=== PATIENT | female | born 1955 | race Caucasian/White ===

== ENCOUNTER 2020-09-03 12:44 | Outpatient (RCR) | payer OTHER | END 2020-12-02 | LOC: CARD 12:44 | PROVIDERS: ATTEND Family Medicine | DX: R00.2 Palpitations (principal) ==

== ENCOUNTER → 2022-06-19 | Outpatient (CLI) | payer OTHER ==
[~2022-06-19] MED LIST: CATHETER FLUSH 10 ML SYR IVP PRN; REGADENOSON 0.4 MG/5 ML SYR (LEXISCAN) IV ONE
[2022-06-19 12:43] VITALS: BP 159/104
--- NOTE | 2022-06-20 10:24 | NUCLEAR STRESS TEST ---
REGADENOSON NUCLEAR STRESS Date of procedure: 06/19/2022. Primary care provider: Aisha Murcia MD Admitting physician: Chuck Rodriguez Jr., MD. INDICATION: Paroxysmal atrial fibrillation. BASELINE ELECTROCARDIOGRAM: Atrial fibrillation with a ventricular rate of 92 beats per minutes with isolated premature ventricular complexes versus aberrancy and nonspecific ST-T wave changes. STRESS TEST PROCEDURE: The patient was administered 0.4 mg of intravenous Regadenoson. The resting heart rate was 92 bpm and the peak heart rate was 115 bpm. The resting blood pressure was 159/104 mmHg and the minimum blood pressure was 156/97 mmHg. This represents a [] heart rate and a [] blood pressure response to Regadenoson with resting hypertension. The test was stopped due to the protocol. There was no chest discomfort during the test. The patient was in atrial fibrillation with intermittent aberrant conduction versus premature ventricular complexes throughout the test. The stress electrocardiogram was indeterminate due to the baseline abnormalities. NUCLEAR PROCEDURE: The patient was administered 10.9 mCi of intravenous technetium 99m Tetrofosmin at rest for the rest images. The patient was subsequently administered 31.7 mCi of intravenous technetium 99m Tetrofosmin at peak stress for the stress images. Following an appropriate wait after each injection, imaging was obtained. The images were subsequently processed and reformatted in the usual views. Gated imaging was obtained. The image quality was adequate with a mild degree of gastrointestinal attenuation artifact. CT attenuation correction was used as a adjunct to standard imaging. Both the corrected and uncorrected images were reviewed for interpretation. NUCLEAR RESULTS: There was normal myocardial perfusion in all segments without evidence of infarction or ischemia. There was normal left ventricular chamber size with an end-diastolic volume of 43 mL and an end-systolic volume of 16 mL. There was no evidence of transient ischemic dilatation. The TID ratio was 1.19. There was normal wall motion in all segments with a calculated ejection fraction of 62%. IMPRESSION: 1. Normal heart rate and blood pressure response to regadenoson with resting hypertension. 2. There was no chest discomfort during the test. 3. The patient was in atrial fibrillation with intermittent aberrant conduction versus premature ventricular complexes throughout the test. 4. The stress electrocardiogram was indeterminant due to the baseline abnormalities. 5. There was normal myocardial perfusion in all segments without evidence of infarction or ischemia. 6. There was normal wall motion in all segments with a calculated ejection fraction of 62%. Certain portions of this document may have been dictated utilizing voice recognition technology. Inherent to this technology, typographical and grammatical errors may exist. As much as I am diligent to identify and correct these mistakes, some errors may remain in the document. CHUCK RODRIGUEZ JR, MD Jun 20, 2022 10:24
== END ==
LOC: CARD 11:45
PROVIDERS: ATTEND Internal Medicine Cardiovascular Disease
DX: I48.0 Paroxysmal atrial fibrillation (principal)
CPT/HCPCS: 78452; 93017; A9502

== ENCOUNTER 2022-07-24 08:15 | Day surgery (SDC) | payer MEDICARE, OTHER ==
[2022-07-24] VITALS (7 sets, daily range): BP systolic 86–141; BP diastolic 56–97
[~2022-07-24] VITALS: Ht 170 cm; Wt 91.0 kg
[2022-07-24] MEDS ORDERED: NS IV 1000 ML 1,000 ML ONE (08:23)
[2022-07-24] MEDS ORDERED: NS IV 1000 ML 1,000 ML IV ONE (08:30)
[2022-07-24] MEDS ORDERED: CATHETER FLUSH 10 ML SYR IV PRN (08:30)
[2022-07-24] MEDS ORDERED: METO50TA7 PO (09:07)
[2022-07-24] MEDS ORDERED: LEVO50CA4 PO (09:07)
[2022-07-24] MEDS ORDERED: MTP100TCR PO (09:07)
[2022-07-24] MEDS ORDERED: ESCI20TA39 PO (09:07)
[2022-07-24] MEDS ORDERED: EZET10TA49 PO (09:07)
[2022-07-24] MEDS ORDERED: PANT40TA52 PO (09:07)
[2022-07-24] MEDS ORDERED: ALBU8.5H6 IH (09:07)
[2022-07-24] MEDS ORDERED: TRAM300T23 PO (09:07)
[2022-07-24] MEDS ORDERED: TIZA2CAP9 PO (09:07)
[2022-07-24] MEDS ORDERED: LISI40TA9 PO (09:07)
[2022-07-24] MEDS ORDERED: AMLO-335 PO (09:07)
[2022-07-24] MEDS ORDERED: FENO145T26 PO (09:07)
[2022-07-24] MEDS ORDERED: APIX5TAB PO (09:07)
[2022-07-24] MEDS ORDERED: proPOfol 200 MG/20 ML (DIPRIVAN) VIAL IV ONE (09:08)
--- NOTE | 2022-07-24 09:29 | Cardiac Procedure Note-KU ---
Cardiology Procedures Date of Procedure 07/24/22 DIRECT-CURRENT CARDIOVERSION INDICATION: Persistent atrial fibrillation. PROCEDURE: After informed consent and in the fasting state, deep sedation was provided by the anesthesia department. I subsequently performed direct-current cardioversion with synchronized biphasic shocks in a stepwise fashion starting with 100 J and then 150 J. With the second shock, the patient converted from atrial fibrillation to sinus bradycardia. IMPRESSION: 1. Status post successful direct-current cardioversion with a final biphasic energy level of 150 J with conversion of atrial fibrillation to sinus bradycardia. Certain portions of this document may have been dictated utilizing voice recog nition technology. Inherent to this technology, typographical and grammatical errors may exist. As much as I am diligent to identify and correct these mistakes, some errors may remain in the document. DONNA DEE JR, MD Jul 24, 2022 09:29
--- NOTE | 2022-07-24 13:37 | Anesthesia-General Post-Op ---
MAC Patient Condition Mental Status/LOC: Same as Preop Cardiovascular: Satisfactory Nausea/Vomiting: Absent Respiratory: Satisfactory Pain: Controlled Complications: Absent Post Op Complications Complications None Follow Up Care/Instructions Patient Instructions None needed. Anesthesiology Discharge Order Discharge Order Patient is doing well, no complaints, stable vital signs, no apparent adverse anesthesia problems. No complications reported per nursing. DANIELA VIRGEN CRNA Jul 24, 2022 13:36
== END 2022-07-24 10:19 | disposition home or self-care (01) ==
LOC: CATH 08:15
PROVIDERS: ATTEND Internal Medicine Cardiovascular Disease
DX: I48.19 Other persistent atrial fibrillation (principal); I48.0 Paroxysmal atrial fibrillation; I34.0 Nonrheumatic mitral (valve) insufficiency; E78.2 Mixed hyperlipidemia; I12.9 Hypertensive chronic kidney disease with stage 1 through stage 4 chronic kidney disease, or unspecified chronic kidney disease; N18.31 Chronic kidney disease, stage 3a; E03.9 Hypothyroidism, unspecified; J44.9 Chronic obstructive pulmonary disease, unspecified; E66.9 Obesity, unspecified; Z68.31 Body mass index [BMI] 31.0-31.9, adult; Z87.891 Personal history of nicotine dependence; Z79.890 Hormone replacement therapy; Z79.01 Long term (current) use of anticoagulants; Z79.899 Other long term (current) drug therapy
CPT/HCPCS: 87081; 92960; 93005

== ENCOUNTER 2022-08-25 15:04 | Emergency (ER) | payer MEDICARE ==
[~2022-08-25] VITALS: Ht 172.7 cm; Wt 89.8 kg
[~2022-08-25 15:04] MED LIST changes: +ALBU8.5H6 IH; +AMLO-335 PO; +APIX5TAB PO; -CATHETER FLUSH 10 ML SYR IVP PRN; +ESCI20TA39 PO; +EZET10TA49 PO; +FENO145T26 PO; +LEVO50CA4 PO; +LISI40TA9 PO; +METO50TA7 PO; +MTP100TCR PO; +PANT40TA52 PO; -REGADENOSON 0.4 MG/5 ML SYR (LEXISCAN) IV ONE; +TIZA2CAP9 PO; +TRAM300T23 PO
--- NOTE | 2022-08-25 15:12 | ED Chest Pain ---
General Stated Complaint: SOA,CHEST PAIN,AFIB Source: patient Exam Limitations: no limitations History of Present Illness Date Seen by Provider: Aug 25, 2022 Allergies and Home Medications Allergies Coded Allergies: Penicillins (Verified Allergy, Severe, Shortness of Breath, 07/24/22) SOB, swelling, hives chlorhexidine (Verified Allergy, Intermediate, Itching, 07/24/22) swelling, hives. isopropyl alcohol (Verified Allergy, Intermediate, Itching, 07/24/22) swelling, hives. Patient Home Medication List Albuterol Sulfate (Ventolin Hfa) 1 Puff Puff, 2 PUFF IH Q4H, (Reported) Entered as Reported by: SYD JAIMES on 07/24/22906 Amlodipine/Atorvastatin (Amlodipine-Atorvast 10-10 mg) 10 Mg-10 Mg Tablet, 1 EACH PO HS, (Reported) Entered as Reported by: SYD JAIMES on 07/24/22906 Apixaban (Eliquis) 5 Mg Tablet, 5 MG PO BID, (Reported) Entered as Reported by: SYD JAIMES on 07/24/22906 Escitalopram Oxalate (Escitalopram Oxalate) 20 Mg Tablet, 20 MG PO, (Reported) Entered as Reported by: SYD JAIMES on 07/24/22906 Ezetimibe (Ezetimibe) 10 Mg Tablet, 10 MG PO, (Reported) Entered as Reported by: SYD JAIMES on 07/24/22906 Fenofibrate Nanocrystallized (Fenofibrate) 145 Mg Tablet, 145 MG PO, (Reported) Entered as Reported by: SYD JAIMES on 07/24/22906 Levothyroxine Sodium (Levothyroxine) 50 Mcg Capsule, 50 MCG PO, (Reported) Entered as Reported by: SYD JAIMES on 07/24/22906 Metoprolol Succinate (Metoprolol Succinate) 100 Mg Tab.er.24h, 100 MG PO DAILY, (Reported) Entered as Reported by: SYD JAIMES on 07/24/22906 Metoprolol Succinate (Metoprolol Succinate) 50 Mg Tab.er.24h, 50 MG PO HS, (Reported) Entered as Reported by: SYD JAIMES on 07/24/22906 Pantoprazole Sodium (Pantoprazole Sodium) 40 Mg Tablet.dr, 40 MG PO DAILY, (Reported) Entered as Reported by: SYD JAIMES on 07/24/22 09 Tizanidine HCl (Tizanidine HCl) 2 Mg Capsule, 2 MG PO, (Reported) Entered as Reported by: SYD JAIMES on 07/24/22906 Tramadol HCl (Tramadol HCl ER) 300 Mg Tab.er.24h, 300 MG PO, (Reported) Entered as Reported by: SYD JAIMES on 07/24/22906 Past Hqjtbgo-Hpdlub-Pkduxt Hx Past Medical History Appendectomy, Hysterectomy, Orthopedic Asthma, COPD Currently Using CPAP: No Currently Using BIPAP: No Atrial Fibrillation Renal Failure Physical Exam Vital Signs Vital Signs - First Documented 08/25/22 15:21 Pulse 89 Resp 16 B/P (MAP) 139/72 (94) Pulse Ox 94 O2 Delivery Room Air Capillary Refill : Height, Weight, BMI Height: '" Weight: lbs. oz. kg; 31.48 BMI Method: Progress/Results/Core Measures Results/Orders Lab Results Laboratory Tests Test 08/25/22 15:30 08/25/22 17:37 Range/Units White Blood Count 14.3 H 4.3-11.0 10^3/uL Red Blood Count 7.02 H 3.80-5.11 10^6/uL Hemoglobin 19.1 H 11.5-16.0 g/dL Hematocrit 60 H 35-52 % Mean Corpuscular Volume 85 80-99 fL Mean Corpuscular Hemoglobin 27 25-34 pg Mean Corpuscular Hemoglobin Concent 32 32-36 g/dL Red Cell Distribution Width 19.3 H 10.0-14.5 % Platelet Count 511 H 130-400 10^3/uL Mean Platelet Volume 11.1 9.0-12.2 fL Immature Granulocyte % (Auto) 1 % Neutrophils (%) (Auto) 80 H 42-75 % Lymphocytes (%) (Auto) 10 L 12-44 % Monocytes (%) (Auto) 7 0-12 % Eosinophils (%) (Auto) 2 0-10 % Basophils (%) (Auto) 1 0-10 % Neutrophils # (Auto) 11.4 H 1.8-7.8 10^3/uL Lymphocytes # (Auto) 1.4 1.0-4.0 10^3/uL Monocytes # (Auto) 1.0 0.0-1.0 10^3/uL Eosinophils # (Auto) 0.2 0.0-0.3 10^3/uL Basophils # (Auto) 0.1 0.0-0.1 10^3/uL Immature Granulocyte # (Auto) 0.1 0.0-0.1 10^3/uL Neutrophils % (Manual) 78 % Lymphocytes % (Manual) 12 % Monocytes % (Manual) 6 % Eosinophils % (Manual) 2 % Percent Immature Platelet Fraction 9.8 H 0.0-7.6 % Polychromasia SLIGHT Anisocytosis SLIGHT Absolute Reticulocyte Count 173 H 24-90 10e9/uL Percent Reticulocyte Count 2.46 H 0.50-2.40 % Prothrombin Time 19.2 H 12.2-14.7 SEC INR Comment 1.6 H 0.8-1.4 Activated Partial Thromboplast Time 49 H 24-35 SEC Sodium Level 137 135-145 MMOL/L Potassium Level 4.1 3.6-5.0 MMOL/L Chloride Level 102 98-107 MMOL/L Carbon Dioxide Level 21 21-32 MMOL/L Anion Gap 14 5-14 MMOL/L Blood Urea Nitrogen 21 H 7-18 MG/DL Creatinine 1.44 H 0.60-1.30 MG/DL Estimat Glomerular Filtration Rate 40 BUN/Creatinine Ratio 15 Glucose Level 98 70-105 MG/DL Calcium Level 10.0 8.5-10.1 MG/DL Corrected Calcium 9.8 8.5-10.1 MG/DL Magnesium Level 1.7 1.6-2.4 MG/DL Total Bilirubin 1.1 H 0.1-1.0 MG/DL Aspartate Amino Transf (AST/SGOT) 24 5-34 U/L Alanine Aminotransferase (ALT/SGPT) 22 0-55 U/L Alkaline Phosphatase 68 40-136 U/L Total Creatine Kinase 15 L 29-168 U/L Creatine Kinase MB 0.9 <6.6 NG/ML Myoglobin 42.5 10.0-92.0 NG/ML Troponin I < 0.028 <0.028 NG/ML C-Reactive Protein High Sensitivity 8.21 H 0.00-0.50 MG/DL B-Type Natriuretic Peptide 511.8 H <100.0 PG/ML Total Protein 7.6 6.4-8.2 GM/DL Albumin 4.3 3.2-4.5 GM/DL Lipase 9 8-78 U/L Procalcitonin 0.11 H <0.10 NG/ML Thyroid Stimulating Hormone (TSH) 2.28 0.35-4.94 UIU/ML Influenza Type A (RT-PCR) Not Detected Not Detecte Influenza Type B (RT-PCR) Not Detected Not Detecte SARS-CoV-2 RNA (RT-PCR) Detected H Not Detecte My Orders Orders - [employer] Cbc With Automated Diff (08/25/22 15:09) Magnesium (08/25/22 15:09) Chest 1 View, Ap/Pa Only (08/25/22 15:09) Ekg Tracing (08/25/22 15:09) Comprehensive Metabolic Panel (08/25/22 15:09) Myoglobin Serum (08/25/22 15:09) Protime With Inr (08/25/22 15:09) Partial Thromboplastin Time (08/25/22 15:09) O2 (08/25/22 15:09) Monitor-Rhythm Ecg Trace Only (08/25/22 15:09) Ed Iv/Invasive Line Start (08/25/22 15:09) Creatine Kinase (08/25/22 15:09) Creatine Kinase Mb (08/25/22 15:09) Lipase (08/25/22 15:09) Bnp [place] (08/25/22 15:09) Troponin I Gus (08/25/22 15:09) Hs C Reactive Protein (08/25/22 15:09) Ct Angio Chest W (08/25/22 15:09) Ns Iv 1000 Ml (Sodium Chloride 0.9%) (08/25/22 16:15) Iohexol Injection (Omnipaque 350 Mg/Ml 1 (08/25/22 16:15) Ns (Ivpb) (Sodium Chloride 0.9% Ivpb Bag (08/25/22 16:15) Thyroid Stimulating Hormone (08/25/22 16:22) Smear For Path Review (08/25/22 15:30) Procalcitonin (Pct) (08/25/22 16:38) Covid 19 Inhouse Test (08/25/22 17:30) Influenza A And B By Pcr (08/25/22 17:30) Doxycycline Hyclate Tablet (Vibramycin T (08/25/22 18:15) Nirmatrelvir/Ritonavir (Eua) (Paxlovid C (08/25/22 18:30) Medications Given in ED Current Medications Medications Dose Ordered Sig/Kaycee Route Start Time Stop Time Status Last Admin Dose Admin Iohexol 100 ml ONCE ONCE IV 08/25/22 16:15 08/25/22 16:16 DC 08/25/22 16:29 80 ML Sodium Chloride 100 ml ONCE ONCE IV 08/25/22 16:15 08/25/22 16:16 DC 08/25/22 16:29 70 ML Sodium Chloride 1,000 ml @ 999 mls/hr Q1H ONCE IV 08/25/22 16:15 08/25/22 17:15 DC 08/25/22 16:43 999 MLS/HR Vital Signs/I&O 08/25/22 15:21 Pulse 89 Resp 16 B/P (MAP) 139/72 (94) Pulse Ox 94 O2 Delivery Room Air Departure Impression Primary Impression: Pneumonia due to COVID-19 virus Disposition: 01 HOME, SELF-CARE Condition: Stable Departure-Patient Inst. Decision time for Depature: 17:39 Referrals: PRASHANT CAMPOVERDE MD (PCP/Family) Primary Care Physician Patient Instructions: Pneumonia, Adult ED Add. Discharge Instructions: Plan: 1. Discharge home. DECREASE YOUR ELIQUIS TO 2.5MG BY MOUTH TWICE A DAY WHILE TA LENNY PAXLOVID. THIS MEDICATION INCREASES RISK OF BLEEDING. 2. Stay home for 5 days and then mask when in public for additional 5 days. If you are still running fever, you will need to stay home until you are fever free. 3. Wash your hands frequently, disinfect surfaces at home. Try to isolate yourself from others in the house as much as you are able. 4. Clean areas that may have blood, stool, or body fluids on them. 5. Cover your mouth and nose when you cough or sneeze, throw away tissues, and wash hands immediately. 6. Return to ER if you develop: trouble breathing, persistent pain or pressure in the chest, new confusion, inability to wake or stay awake, pale, miranda, blue- colored skin, lips, or nail beds depending on skin tone. 7. Return to ER for any other new, concerning, or worsening 8. Call Dr. Rodriguez office for date/time of follow up next week. [employer] Aug 25, 2022 15:11
[2022-08-25 15:46] LABS: BASOPHILS % (AUTO) 1 % (0-10); EOSINOPHILS % (AUTO) 2 % (0-10); LYMPHOCYTES # (AUTO) 1.4 10^3/uL (1.0-4.0); MEAN CORPUSCULAR VOLUME 85 fL (80-99); MONOCYTES % (AUTO) 7 % (0-12); NEUTROPHILS % (AUTO) 80 % (42-75)
--- NOTE | 2022-08-25 15:58 | Diagnostic Imaging Report ---
INDICATION: Chest pain, shortness of breath. TECHNIQUE: Frontal chest obtained at 03:42 p.m. FINDINGS: Heart and mediastinal silhouette are normal in appearance. The lungs are clear. There is no pneumothorax or pleural fluid. IMPRESSION: Negative chest. Dictated by: Dictated on workstation # [id number]
[2022-08-25 16:04] LABS: INR 1.6 (0.8-1.4); PROTHROMBIN TIME PATIENT 19.2 SEC (12.2-14.7)
[2022-08-25 16:05] LABS: ALBUMIN 4.3 GM/DL (3.2-4.5); BILIRUBIN,TOTAL 1.1 MG/DL (0.1-1.0); CREATININE SERUM 1.44 MG/DL (0.60-1.30); MAGNESIUM 1.7 MG/DL (1.6-2.4); POTASSIUM 4.1 MMOL/L (3.6-5.0); TOTAL PROTEIN 7.6 GM/DL (6.4-8.2)
[2022-08-25 16:13] LABS: CREATINE KINASE MB 0.9 NG/ML (<6.6)
[2022-08-25] MEDS ORDERED: IOHEXOL 350 MG/ML 100 ML (OMNIPAQUE 350) VIAL IV ONE (16:15)
[2022-08-25] MEDS ORDERED: NS 100 ML (IVPB) BAG IV ONE (16:15)
[2022-08-25] MEDS ORDERED: NS IV 1000 ML 1,000 ML IV ONE (16:15)
[2022-08-25 16:34] LABS: ANISOCYTOSIS SLIGHT; EOSINOPHILS % (MANUAL) 2 %; LYMPHOCYTES % (MANUAL) 12 %; MONOCYTES % (MANUAL) 6 %; NEUTROPHILS % (MANUAL) 78 %; POLYCHROMASIA SLIGHT
[2022-08-25 16:40] LABS: ABSOLUTE RETIC # 173 10e9/uL (24-90); RETICULOCYTE % 2.46 % (0.50-2.40)
[2022-08-25 16:41] LABS: BASOPHILS # (AUTO) 0.1 10^3/uL (0.0-0.1); EOSINOPHILS # (AUTO) 0.2 10^3/uL (0.0-0.3); HEMATOCRIT 60 % (35-52); HEMOGLOBIN 19.1 g/dL (11.5-16.0); LYMPHOCYTES % (AUTO) 10 % (12-44); MEAN CORPUSCULAR HEMOGLOBIN 27 pg (25-34); MEAN CORPUSCULAR HGB CONC 32 g/dL (32-36); MEAN PLATELET VOLUME 11.1 fL (9.0-12.2); NEUTROPHILS # (AUTO) 11.4 10^3/uL (1.8-7.8); PLATELET COUNT 511 10^3/uL (130-400); WHITE BLOOD COUNT 14.3 10^3/uL (4.3-11.0)
--- NOTE | 2022-08-25 16:44 | Diagnostic Imaging Report ---
PROCEDURE: CT angiography of the chest with contrast. TECHNIQUE: Multiple contiguous axial images were obtained through the chest after uneventful bolus administration of intravenous contrast. 3D reconstructed CTA MIP acquisitions were also performed. Auto Exposure Controls were utilized during the CT exam to meet ALARA standards for radiation dose reduction. INDICATION: Chest pain and atrial fibrillation. FINDINGS: There are no intraluminal pulmonary arterial filling defects. There is no evidence for pulmonary arterial embolus. There is, however, peripheral groundglass and airspace opacity in the right upper lobe laterally and a focus of pneumonia is suspected. There is some reflux of venous contrast inferiorly through the cava and into the hepatic veins but no displacement of the intraventricular septum. No pericardial collection or mass effect upon the heart. No intracardiac chamber mass or thrombus. The aorta is nonaneurysmal. There are hepatic cysts with no acute appearing upper abdominal abnormality. IMPRESSION: No PE identified. Nonaneurysmal aorta. Peripheral groundglass and airspace disease in the right upper lobe, suspicious for infectious etiology. No abscess, empyema, effusion, or pneumothorax. Dictated by: Dictated on workstation # [id number]
[2022-08-25] MEDS ORDERED: DOXY100T2 PO (17:40)
[2022-08-25] MEDS ORDERED: DOXYCYCLINE 100 MG (VIBRAMYCIN) TABLET PO ONE (18:15)
[2022-08-25] MEDS ORDERED: NIRMATRELVIR/RITONAVIR (PAXLOVID) TABLET PO ONE (18:30)
[2022-08-25] MEDS ORDERED: RX-NIRMATRELVIR/RITONAVIR (PAXLOVID) #30 TABS PO ONE (18:35)
[2022-08-25 18:47] VITALS: BP 140/94
== END 2022-08-25 18:47 | disposition home or self-care (01) ==
LOC: EDUNIT# 15:04 → ER 15:05
DX: U07.1 COVID-19 (principal); J12.82 Pneumonia due to coronavirus disease 2019; Z28.310 Unvaccinated for COVID-19
CPT/HCPCS: 36415; 71045; 71275; 80053; 82550; 82553; 83690; 83735; 83874; 83880; 84145; 84443; 84484; 85007; 85027; 85045; 85055; 85610; 85730; 86141; 87636; 93005

== ENCOUNTER 2022-08-29 18:12 | Inpatient (IN) | payer MEDICARE ==
[~2022-08-29] VITALS: Ht 165 cm; Wt 86.3 kg
[~2022-08-29 18:12] MED LIST changes: +DOXY100T2 PO
--- NOTE | 2022-08-29 19:22 | Progress Note ---
Progress Note 66yoF patient of Dr Mohamud who decompensated quickly after she was admitted for COVID to [facility] but required emergent intubation due to respiratory failure and moved to higher level of care for ICU care. She is UTD on vaccines for COVID and Flu. She does have PAF and sees Dr Rodriguez and she is on Eliquis. She did take 2 days of Paxlovid which Eliquis was decreased to 2.5mg PO BID since she was taking it. Polycythemia noted on admit of 19.9 and today is 17.9. She does have COPD and uses an inhaler prn. Presumed JONNIE but never had a sleep study. Cefepme initiated with Zmax and Decadron. 110 ICU orders placed. BONNIE TREJO DO Aug 29, 2022 19:22
[2022-08-29] MEDS ORDERED: PROPOFOL DRIP (ICU) 100 ML IV ONE (20:33)
[2022-08-29] MEDS ORDERED: polyethylene glycoL POWDER 17 GM (MIRALAX) PACK PO PRN (21:00)
[2022-08-29] MEDS ORDERED: diphenhydrAMINE 50 MG/ML INJ (BENADRYL) IVP PRN (21:00)
[2022-08-29] MEDS ORDERED: PROPOFOL DRIP (ICU) 100 ML IV SCH (21:00)
[2022-08-29] MEDS ORDERED: diphenhydrAMINE 25 MG TAB (BENADRYL) PO PRN (21:00)
[2022-08-29] MEDS ORDERED: MELATONIN 3 MG TABLET PO PRN (21:00)
[2022-08-29] MEDS ORDERED: CEFEPIME INJECTION 2,000 MG in NS (IVPB) 50 ML IV SCH (21:00)
[2022-08-29] MEDS ORDERED: ONDANSETRON 4 MG (ZOFRAN) ORAL DISSOLVE TAB PO PRN (21:00)
[2022-08-29] MEDS ORDERED: NS IV 500 ML 500 ML IV PRN (21:00)
[2022-08-29] MEDS ORDERED: ONDANSETRON 4 MG/2 ML (SDV) Z0FRAN IV PRN (21:00)
[2022-08-29] MEDS ORDERED: CALCIUM CARBONATE 500 MG (TUMS) TAB.CHEW PO PRN (21:00)
[2022-08-29] MEDS ORDERED: LACTULOSE SYRUP 10GM/15ML (ENULOSE) 30ML UDC PO PRN (21:00)
[2022-08-29] MEDS ORDERED: MILK OF MAGNESIA 400 MG/5 ML 30 ML UDC PO PRN (21:00)
[2022-08-29] MEDS ORDERED: fentaNYL PCA 1,000 MCG/100 ML IV SCH (21:00)
[2022-08-29] MEDS ORDERED: ACETAMINOPHEN 325 MG TABLET PO PRN (21:00)
[2022-08-29] MEDS ORDERED: ANTACID SUSP 30 ML UDC (MYLANTA) PO PRN (21:00)
[2022-08-29] MEDS ORDERED: BISACODYL 10 MG SUPP (DULCOLAX) PR PRN (21:00)
[2022-08-29] MEDS ORDERED: ACETAMINOPHEN 650 MG SUPP (TYLENOL) PR PRN (21:00)
--- NOTE | 2022-08-29 21:10 | Tele-ICU Progress Note ---
Progress Note 66F with pAfib initially admitted to [facility] for COVID. Decomponsated after admission requiring emergent intubation. Transferred for higher level of care. On cefepime, azithromax and decadron. Was transferred without records, only a face sheet. No notes or labs available for review. Unclear when she was admitted. Noted to have been seen in [place] ED 08/25. Diagnosed with COVID at that time and started on Paxlovid. Presumably went to [facility] for worsening symptoms. Will send CXR for eval of ETT, ABG, basic labs, cultures, lactic. Attempting to obtain [facility] records for review. Propofol and fentanyl ordered. Diagnosis: Acute resp failure, COVID, sepsis. ___ patient provided consent for the telehealth visit __X_patient is not able to provide consent for the telehealth visit, service provided to critically care patient using implied consent doctrine. A total of 20 minutes of critical care time was devoted to this patient, including reviewing this patient's available data, including medical history, events of note and test results. I have overseen the activities of other members of the care team under my direct supervision during events of the note . This was required to treat and/or prevent further deterioration of critical care conditions (as above ). Service provided to a patient admitted to ICU bed via interactive E-CARE system with real-time audio and video telecommunications from [facility]-ICU hub located in [place], [place] Interventions Major-Infection - evaluation and management, Respiratory failure Focused Exam Height, Weight, BMI Height: '" Weight: lbs. oz. kg; 30.00 BMI Method: CANDIDO SHELBY MD Aug 29, 2022 21:10
--- NOTE | 2022-08-29 21:20 | Diagnostic Imaging Report ---
INDICATION: Respiratory failure. COMPARISON: 08/25/2022. TECHNIQUE: Single radiograph of the chest dated August 29, 2022. FINDINGS: Interval placement of an endotracheal tube with the distal tip overlying the tracheal air column above the level of the avis by approximately 3.5 cm. Interval placement of an enteric catheter which extends inferior to the atvpv-bg-haza within the abdomen. Interval placement of a right IJ central venous catheter with the distal tip overlying the right atrium. Retraction of approximately 2 cm would be recommended for improved positioning. Cardiac silhouette is stable. Mild central pulmonary vascular congestion. Developing small right greater than left bibasilar pleural-parenchymal opacities. No pneumothorax. No acute osseous abnormality. IMPRESSION: Interval placement of lines and tubes, as described above. The right IJ central venous catheter is slightly low lying and should be retracted by approximately 2 cm. No pneumothorax. Developing small right greater than left bibasilar pleural-parenchymal opacities, related to a combination of pleural fluid with adjacent atelectasis and/or infiltrate. Mild central pulmonary vascular congestion. Dictated by: Dictated on workstation # [id number]
[2022-08-29 21:42] LABS: BASOPHILS # (AUTO) 0.1 10^3/uL (0.0-0.1); BASOPHILS % (AUTO) 1 % (0-10); EOSINOPHILS % (AUTO) 0 % (0-10); HEMATOCRIT 56 % (35-52); HEMOGLOBIN 18.2 g/dL (11.5-16.0); LYMPHOCYTES # (AUTO) 0.5 10^3/uL (1.0-4.0); LYMPHOCYTES % (AUTO) 3 % (12-44); MEAN CORPUSCULAR HEMOGLOBIN 27 pg (25-34); MEAN CORPUSCULAR HGB CONC 32 g/dL (32-36); MEAN CORPUSCULAR VOLUME 85 fL (80-99); MEAN PLATELET VOLUME 11.7 fL (9.0-12.2); MONOCYTES # (AUTO) 0.3 10^3/uL (0.0-1.0); MONOCYTES % (AUTO) 2 % (0-12); NEUTROPHILS % (AUTO) 94 % (42-75); PLATELET COUNT 496 10^3/uL (130-400)
[2022-08-29] MEDS: PROPOFOL DRIP (ICU) 100 ML IV SCH (21:42)
[2022-08-29] MEDS: NOREPINEPHRINE 8 MG/250 ML 250 ML IV SCH (21:42)
[2022-08-29] MEDS: DOCUSATE SODIUM 100 MG (COLACE) CAP PO SCH (21:43)
[2022-08-29] MEDS: fentaNYL DRIP PRE-MIX 250 ML IV SCH (21:43)
[2022-08-29] MEDS: SENNOSIDES 8.6 MG (SENOKOT) TAB PO SCH (21:44)
[2022-08-29 22:10] LABS: INR 1.3 (0.8-1.4); PROTHROMBIN TIME PATIENT 16.5 SEC (12.2-14.7)
[2022-08-29 22:17] LABS: ALBUMIN 3.3 GM/DL (3.2-4.5); BILIRUBIN,TOTAL 0.9 MG/DL (0.1-1.0); CALCIUM 8.8 MG/DL (8.5-10.1); CREATININE SERUM 1.14 MG/DL (0.60-1.30); LYMPHOCYTES % (MANUAL) 3 %; MAGNESIUM 1.7 MG/DL (1.6-2.4); MONOCYTES % (MANUAL) 4 %; NEUTROPHILS % (MANUAL) 93 %; PHOSPHORUS 3.2 MG/DL (2.3-4.7); POIKILOCYTOSIS SLIGHT; POTASSIUM 4.4 MMOL/L (3.6-5.0); TOTAL PROTEIN 6.2 GM/DL (6.4-8.2)
[2022-08-29 22:51] LABS: CLARITY,URINE CLOUDY; COLOR,URINE ORANGE; GLUCOSE, URINE (UA) NEGATIVE (NEGATIVE); KETONES,URINE TRACE (NEGATIVE); LEUKOCYTE ESTERASE ,URINE TRACE (NEGATIVE); NITRITE,URINE POSITIVE (NEGATIVE); PH,URINE 5.5 (5-9); PROTEIN,URINE 1+ (NEGATIVE)
[2022-08-29] MEDS: APIXABAN 5 MG (ELIQUIS) TABLET PO SCH (22:51)
[2022-08-29 22:52] LABS: BACTERIA,URINE LARGE /HPF; WBC,URINE 0-2 /HPF
[2022-08-29 22:56] LABS: BILIRUBIN,URINE 2+ (NEGATIVE)
[2022-08-29] MEDS: AZITHROMYCIN INJECTION 500 MG in NS (IVPB) 250 ML IV SCH (23:11)
[2022-08-29] MEDS: NS IV 1000 ML 1,000 ML IV SCH (23:14)
[2022-08-30] MEDS: CEFEPIME 1,000 MG/NS 50 ML IVPB IV SCH ×10 (00:19→21:52)
[2022-08-30] MEDS: PROPOFOL DRIP (ICU) 100 ML IV SCH ×6 (01:15→21:53)
[2022-08-30] MEDS ORDERED: PANTOPRAZOLE 40 MG (PROTONIX) VIAL IV ONE (01:45)
[2022-08-30] MEDS ORDERED: RT-ALBUTEROL/IPRATROPIUM 3 ML (DUONEB) VIAL INH SCH (02:00)
[2022-08-30] MEDS: RT-ALBUTEROL HFA 8.5 GM INHALER IH SCH ×6 (03:14→22:28)
[2022-08-30 05:35] LABS: BASOPHILS % (AUTO) 0 % (0-10); EOSINOPHILS # (AUTO) 0.1 10^3/uL (0.0-0.3); EOSINOPHILS % (AUTO) 0 % (0-10); HEMATOCRIT 56 % (35-52); HEMOGLOBIN 18.2 g/dL (11.5-16.0); LYMPHOCYTES # (AUTO) 0.7 10^3/uL (1.0-4.0); LYMPHOCYTES % (AUTO) 5 % (12-44); MEAN CORPUSCULAR HEMOGLOBIN 28 pg (25-34); MEAN CORPUSCULAR HGB CONC 33 g/dL (32-36); MEAN CORPUSCULAR VOLUME 84 fL (80-99); MEAN PLATELET VOLUME 11.7 fL (9.0-12.2); MONOCYTES # (AUTO) 0.2 10^3/uL (0.0-1.0); MONOCYTES % (AUTO) 1 % (0-12); NEUTROPHILS # (AUTO) 13.8 10^3/uL (1.8-7.8); NEUTROPHILS % (AUTO) 93 % (42-75); PLATELET COUNT 510 10^3/uL (130-400); WHITE BLOOD COUNT 14.9 10^3/uL (4.3-11.0)
[2022-08-30 06:15] LABS: ALBUMIN 3.2 GM/DL (3.2-4.5); BILIRUBIN,TOTAL 0.7 MG/DL (0.1-1.0); CALCIUM 8.7 MG/DL (8.5-10.1); CREATININE SERUM 1.1 MG/DL (0.60-1.30); MAGNESIUM 1.7 MG/DL (1.6-2.4); PHOSPHORUS 3.4 MG/DL (2.3-4.7); POTASSIUM 3.8 MMOL/L (3.6-5.0); TOTAL PROTEIN 6.1 GM/DL (6.4-8.2)
--- NOTE | 2022-08-30 06:45 | History & Physical ---
History of Present Illness HPI/Chief Complaint Chief complaint: Acute respiratory failure from COVID-pneumonia HPI: 66[address]F patient of [address] Mohamud who decompensated quickly after she was admitted for COVID to [facility] but required emergent intubation due to respiratory failure and moved to higher level of care for ICU care. She is UTD on vaccines for COVID and Flu. She does have PAF and sees Dr Rodriguez and she is on Eliquis. She did take 2 days of Paxlovid which Eliquis was decreased to 2.5mg PO BID since she was taking it. Polycythemia noted on admit of 19.9 and today is 17.9. She does have COPD and uses an inhaler prn. Presumed JONNIE but never had a sleep study. Cefepme initiated with Zmax and Decadron. 110 ICU orders placed. Currently she is stable and remains on ventilator. Reviewed settings. Reviewed ABG. Source: RN/, old records Exam Limitations: clinical condition Date Seen 08/30/22 Time Seen by a Provider: 10:30 Attending Physician Jon Mohamud MD PCP Admitting Physician: Karen Cooley DO Attending Physician: Karen Cooley DO Referring Physician Date of Admission Aug 29, 2022 at 20:12 Home Medications & Allergies Home Medications Reviewed patient Home Medication Reconciliation performed by pharmacy medication reconciliations color laboratory technician and/or nursing. Patients Allergies have been reviewed. Allergies Allergies Coded Allergies Penicillins (Verified Allergy, Severe, Shortness of Breath, 07/24/22) SOB, swelling, hives chlorhexidine (Verified Allergy, Intermediate, Itching, 07/24/22) swelling, hives. isopropyl alcohol (Verified Allergy, Intermediate, Itching, 07/24/22) swelling, hives. Past Djqbwyo-Sxnpuf-Xkwfgi Hx Past Med/Social Hx: Reviewed Nursing Past Med/Soc Hx, Reviewed and Corrections made Patient Social History Smoking Status: Unknown if Ever Smoked Past Medical History Surgeries: Appendectomy, Hysterectomy, Orthopedic Currently Using CPAP: No Currently Using BIPAP: No Cardiac: Atrial Fibrillation Genitourinary: Renal Failure Review of Systems Constitutional: see HPI Physical Exam Physical Exam Vital Signs Vital Signs - First Documented 08/29/22 08/29/22 08/29/22 08/29/22 20:15 20:26 20:30 23:43 Temp 35.9 Pulse 85 Resp 14 B/P (MAP) 142/86 (104) Pulse Ox 95 O2 Delivery Mechanical Ventilator O2 Flow Rate 80.00 FiO2 80 Capillary Refill : Height, Weight, BMI Height: '" Weight: lbs. oz. kg; 33.41 BMI Method: General Appearance: Chronically ill, Obese, Other (Sedated and intubated) Respiratory: No Accessory Muscle Use, No Respiratory Distress, Decreased Breath Sounds Cardiovascular: Regular Rate, Rhythm Results Results/Procedures Labs Laboratory Tests 08/29/22 21:30 08/30/22 05:20 08/31/22 03:15 Patient resulted labs reviewed. Assessment/Plan Admission Diagnosis Assessment: Acute respiratory failure requiring intubation at [facility] before transfer to higher level of care COVID-pneumonia Suspected JONNIE COPD Chronic polycythemia due to presumed hypoxemia Paroxysmal atrial fibrillation on oral anticoagulants Obesity Plan: eICU appreciated Maintain ventilator Supportive care IV antibiotics Admission Status: Inpatient Order (span 2 midnights) Reason for Inpatient Admission: Ventilator Diagnosis/Problems Diagnosis/Problems (1) Acute and chronic respiratory failure with hypoxia (2) Pneumonia due to COVID-19 virus Status: Acute KAREN COOLEY DO Aug 30, 2022 06:45
[2022-08-30] MEDS: POTASSIUM CL 10MEQ/50ML IVPB 50 ML IV SCH (06:49)
[2022-08-30] MEDS: MAGNESIUM 1 GM/100 ML IVPB 100 ML IV SCH (06:50)
[2022-08-30] MEDS: KCL 20 MEQ TAB (K-DUR) PO SCH (06:50)
[2022-08-30 07:31] VITALS: BP 129/83
--- NOTE | 2022-08-30 08:33 | Tele-ICU Progress Note ---
Subjective Date Seen by a Provider: Aug 30, 2022 Time Seen by a Provider: 08:28 Subjective/Events-last exam Pt transferred from OSH for acute resp failure, intubated on vent AC Vt 690 FiO2 80% PEEP 5, CXR shows bilateral infiltrates RLL > LLL Will get ABG on CBC Hb is 18-reactive polycythemia vs dehydration On IV decadron, cefepime, azithromycin Sepsis Event Evaluation Height, Weight, BMI Height: '" Weight: lbs. oz. kg; 34.01 BMI Method: Focused Exam Lactate Level 08/29/22 21:30: Lactic Acid Level 0.66 Exam Exam Patient acknowledged, consented, and participated in this virtual visit which was conducted using real time audio/video Vital Signs Date Time Temp Pulse Resp B/P (MAP) Pulse Ox O2 Delivery O2 Flow Rate FiO2 08/30/22 08:00 98 16 129/88 (102) 96 Mechanical Ventilator 80.00 08/30/22 07:31 109 16 95 60 08/30/22 07:00 86 08/30/22 07:00 84 16 106/83 (91) 94 Mechanical Ventilator 80.00 08/30/22 06:00 96 16 120/80 (93) 94 Mechanical Ventilator 80.00 08/30/22 05:04 60 08/30/22 05:00 103 16 110/85 (93) 95 Mechanical Ventilator 80.00 08/30/22 04:00 94 Mechanical Ventilator 60 08/30/22 04:00 103 18 107/64 (78) 95 Mechanical Ventilator 80.00 08/30/22 03:15 90 16 95 60 08/30/22 03:00 94 16 113/69 (84) 95 Mechanical Ventilator 80.00 08/30/22 02:00 93 16 123/77 (92) 94 Mechanical Ventilator 80.00 08/30/22 01:09 60 08/30/22 01:00 86 08/30/22 01:00 89 16 120/90 (100) 95 Mechanical Ventilator 80.00 08/30/22 00:00 84 16 125/89 (101) 94 Mechanical Ventilator 80.00 08/29/22 23:59 94 Mechanical Ventilator 60 08/29/22 23:43 35.9 08/29/22 23:39 95 16 92 60 08/29/22 23:00 98 14 109/71 (84) 95 Mechanical Ventilator 80.00 08/29/22 22:15 93 14 110/73 (85) 95 Mechanical Ventilator 80.00 08/29/22 21:45 97 14 103/67 (79) 95 Mechanical Ventilator 80.00 08/29/22 21:15 94 14 120/76 (91) 95 Mechanical Ventilator 80.00 08/29/22 21:09 80 08/29/22 21:00 100 14 109/69 (82) 95 Mechanical Ventilator 80.00 08/29/22 20:45 87 14 108/77 (87) 95 Mechanical Ventilator 80.00 08/29/22 20:39 100 08/29/22 20:39 100 08/29/22 20:30 90 14 142/86 (104) 95 Mechanical Ventilator 80.00 08/29/22 20:26 85 14 96 80 08/29/22 20:15 95 Mechanical Ventilator 80 I & O 08/30/22 07:00 Intake Total 100 ml Output Total 450 ml Balance -350 ml Height & Weight Height: '" Weight: lbs. oz. kg; 34.01 BMI Method: General Appearance: Other (sedated) Respiratory: Decreased Breath Sounds Cardiovascular: Regular Rate, Rhythm Gastrointestinal: normal bowel sounds Extremity: No Pedal Edema Results Lab Laboratory Tests 08/29/22 21:30 08/30/22 05:20 Assessment/Plan Assessment/Plan COVID, continue decadron COPD, suspect chronic hypoxemia, JONNIE? continue abx, hydrate Critical Care: Ventilator Management Time spent with patient (mins): 25 RICKY CONTRERAS MD Aug 30, 2022 08:33
--- NOTE | 2022-08-30 08:41 | Diagnostic Imaging Report ---
CHEST 1 VIEW, AP/PA ONLY Indication: Dyspnea Comparison: 08/29/2022 Findings: Stable ET and enteric tubes. Stable right IJ central venous catheter with tip in the right atrium. Peripheral nodular consolidation right lung is more conspicuous. Hazy opacities in the lung bases are similar. Small layering pleural effusions are stable. Stable cardiac silhouette. Impression: 1. Stable support devices. 2. Right peripheral nodular consolidations more conspicuous. This could be a site of pulmonary infarct, contusion or infection. Continued follow-up is advised. Dictated by: Dictated on workstation # [id number]
[2022-08-30] MEDS: APIXABAN 5 MG (ELIQUIS) TABLET PO SCH ×2 (08:57→20:01)
[2022-08-30] MEDS: NS IV 1000 ML 1,000 ML IV SCH ×2 (08:57→17:35)
[2022-08-30] MEDS: SENNOSIDES 8.6 MG (SENOKOT) TAB PO SCH ×2 (08:57→19:46)
[2022-08-30] MEDS ORDERED: PANTOPRAZOLE 40 MG (PROTONIX) VIAL IV SCH (09:00)
[2022-08-30 09:59] VITALS: BP 128/102
[2022-08-30] MEDS: DOCUSATE SODIUM 100 MG (COLACE) CAP PO SCH ×2 (10:19→19:46)
[2022-08-30] MEDS: NOREPINEPHRINE 8 MG/250 ML 250 ML IV SCH (10:20)
[2022-08-30] MEDS: PANTOPRAZOLE INJECTION 200 MG in NS (IVPB) 100 ML IV SCH (12:28)
[2022-08-30] MEDS: DexMEDEtomidine 250 ML DRIP 250 ML IV SCH (12:32)
--- NOTE | 2022-08-30 13:03 | Physical Therapy Progress Note ---
Therapy Progress Note Therapy orders received. Chart review completed. Patient currently acutely ill with ventilation and sedation. Therapy will continue to assess and will begin active PT when patient able to actively participate. BITA KIRBY PT Aug 30, 2022 13:03
[2022-08-30] MEDS: AZITHROMYCIN INJECTION 500 MG in NS (IVPB) 250 ML IV SCH (20:01)
[2022-08-30] MEDS: fentaNYL DRIP PRE-MIX 250 ML IV SCH (20:22)
[2022-08-31] MEDS: CEFEPIME 1,000 MG/NS 50 ML IVPB IV SCH ×8 (03:03→21:07)
[2022-08-31 03:20] VITALS: BP 107/61
[2022-08-31] MEDS: RT-ALBUTEROL HFA 8.5 GM INHALER IH SCH ×5 (03:20→22:24)
[2022-08-31 03:31] LABS: BASOPHILS # (AUTO) 0.1 10^3/uL (0.0-0.1); BASOPHILS % (AUTO) 0 % (0-10); EOSINOPHILS % (AUTO) 0 % (0-10); HEMATOCRIT 52 % (35-52); HEMOGLOBIN 16.8 g/dL (11.5-16.0); LYMPHOCYTES # (AUTO) 0.5 10^3/uL (1.0-4.0); LYMPHOCYTES % (AUTO) 3 % (12-44); MEAN CORPUSCULAR HEMOGLOBIN 27 pg (25-34); MEAN CORPUSCULAR HGB CONC 33 g/dL (32-36); MEAN CORPUSCULAR VOLUME 84 fL (80-99); MEAN PLATELET VOLUME 11.5 fL (9.0-12.2); MONOCYTES # (AUTO) 0.5 10^3/uL (0.0-1.0); MONOCYTES % (AUTO) 3 % (0-12); NEUTROPHILS # (AUTO) 16.7 10^3/uL (1.8-7.8); NEUTROPHILS % (AUTO) 94 % (42-75); PLATELET COUNT 485 10^3/uL (130-400); WHITE BLOOD COUNT 17.8 10^3/uL (4.3-11.0)
[2022-08-31 03:44] LABS: POTASSIUM 3.6 MMOL/L (3.6-5.0)
[2022-08-31 03:46] LABS: TOTAL PROTEIN 5.6 GM/DL (6.4-8.2)
[2022-08-31 03:48] LABS: BILIRUBIN,TOTAL 0.4 MG/DL (0.1-1.0)
[2022-08-31 03:50] LABS: CREATININE SERUM 1.11 MG/DL (0.60-1.30)
[2022-08-31 03:53] LABS: MAGNESIUM 1.6 MG/DL (1.6-2.4)
[2022-08-31] MEDS: KCL 20 MEQ TAB (K-DUR) PO SCH (03:57)
[2022-08-31] MEDS: POTASSIUM CL 10MEQ/50ML IVPB 50 ML IV SCH ×3 (04:13→05:13)
[2022-08-31] MEDS: MAGNESIUM 1 GM/100 ML IVPB 100 ML IV SCH ×2 (04:14→05:12)
[2022-08-31] MEDS: DexMEDEtomidine 250 ML DRIP 250 ML IV SCH ×2 (04:34→10:29)
[2022-08-31] MEDS: PROPOFOL DRIP (ICU) 100 ML IV SCH ×2 (04:37→10:29)
--- NOTE | 2022-08-31 06:13 | Progress Note ---
Subjective Date Seen by a Provider: Aug 31, 2022 Time Seen by a Provider: 11:30 Subjective/Events-last exam Still on vent Settings and ABG reviewed No pain appearance Focused Exam Lactate Level 08/29/22 21:30: Lactic Acid Level 0.66 Objective Exam Last Set of Vital Signs Vital Signs Date Time Temp Pulse Resp B/P (MAP) Pulse Ox O2 Delivery O2 Flow Rate FiO2 08/31/22 06:00 112 18 96/62 (73) 96 Mechanical Ventilator 50.00 08/31/22 04:31 50 08/30/22 23:39 36.2 Capillary Refill : I&O Intake and Output 08/31/22 00:00 Intake Total 100 ml Output Total 800 ml Balance -700 ml Intake Oral 0 ml IV Total 100 ml Output Urine Total 800 ml Daily Weight Change No General: Other (Sedated on vent) Lungs: Clear to Auscultation Heart: Regular Rate Results Lab Laboratory Tests 08/30/22 11:27: Glucometer 148H 08/30/22 18:36: Glucometer 163H 08/31/22 03:15: White Blood Count 17.8H, Red Blood Count 6.16H, Hemoglobin 16.8H, Hematocrit 52, Mean Corpuscular Volume 84, Mean Corpuscular Hemoglobin 27, Mean Corpuscular Hemoglobin Concent 33, Red Cell Distribution Width 18.8H, Platelet Count 485H, Mean Platelet Volume 11.5, Immature Granulocyte % (Auto) 1, Neutrophils (%) (Auto) 94H, Lymphocytes (%) (Auto) 3L, Monocytes (%) (Auto) 3, Eosinophils (%) (Auto) 0, Basophils (%) (Auto) 0, Neutrophils # (Auto) 16.7H, Lymphocytes # (Auto) 0.5L, Monocytes # (Auto) 0.5, Eosinophils # (Auto) 0.0, Basophils # (Auto) 0.1, Immature Granulocyte # (Auto) 0.2H, Sodium Level 137, Potassium Level 3.6, Chloride Level 108H, Carbon Dioxide Level 16L, Anion Gap 13, Blood Urea Nitrogen 26H, Creatinine 1.11, Estimat Glomerular Filtration Rate 54, BUN/Creatinine Ratio 23, Glucose Level 174H, Calcium Level 8.0L, Corrected Calcium 8.8, Phosphorus Level 3.0, Magnesium Level 1.6, Total Bilirubin 0.4, Aspartate Amino Transf (AST/SGOT) 19, Alanine Aminotransferase (ALT/SGPT) 17, Alkaline Phosphatase 42, Total Protein 5.6L, Albumin 3.0L, Triglycerides Level 205H Microbiology 08/29/22 MRSA Screen - Final, Complete No growth 08/29/22 Blood Culture - Preliminary, Resulted No growth Assessment/Plan Assessment/Plan Assess & Plan/Chief Complaint Assessment: Acute respiratory failure requiring intubation at [facility] before transfer to higher level of care COVID-pneumonia Suspected JONNIE COPD Chronic polycythemia due to presumed hypoxemia Paroxysmal atrial fibrillation on oral anticoagulants Obesity Plan: eICU appreciated Maintain ventilator Supportive care IV antibiotics Diagnosis/Problems Diagnosis/Problems (1) Acute and chronic respiratory failure with hypoxia (2) Pneumonia due to COVID-19 virus Status: Acute BONNIE TREJO DO Aug 31, 2022 06:13
[2022-08-31] MEDS: NOREPINEPHRINE 8 MG/250 ML 250 ML IV SCH (06:23)
[2022-08-31 06:36] VITALS: BP 110/63
[2022-08-31 07:32] LABS: ABG BASE EXCESS -5.3 MMOL/L (-2.5-2.5); ABG OXYGEN SATURATION 96 % (94-100); ABG PCO2 29 MMHG (35-45); ABG PH 7.42 (7.37-7.43); ABG PO2 74 MMHG (79-93); ABG TCO2 19.5 MMOL/L (21.0-31.0)
[2022-08-31 07:34] LABS: ALLENS TEST POSITIVE
[2022-08-31 07:35] LABS: INSPIRED O2 50%; PATIENT TEMP 35.9; VENTILATOR NO
--- NOTE | 2022-08-31 08:23 | Tele-ICU Progress Note ---
Progress Note video rounds completed 66 y/o female intubated with Covid PNA Has a fib/rvr and on apixaban 5mg BID Has morbid obesity Vent: 16/450/40%/5 AB.42/29/74/19 PE: HR 113-135 a fib BP: 108/69 RR 21 O2 sat: 94% On decadron 6mg/daily Antibiotics with cefipime and azithromycin IMP: Covid PNA with respiratory failure A fib/RVR Morbid obesity Focused Exam Lactate Level 08/29/22 21:30: Lactic Acid Level 0.66 Height, Weight, BMI Height: '" Weight: lbs. oz. kg; 34.01 BMI Method: Labs Laboratory Tests 08/31/22 03:15 Results Results/Procedures Lab Laboratory Tests 08/29/22 21:30 08/30/22 05:20 08/31/22 03:15 Results Labs Labs Laboratory Tests 08/30/22 11:27: Glucometer 148H 08/30/22 18:36: Glucometer 163H 08/31/22 03:15: White Blood Count 17.8H, Red Blood Count 6.16H, Hemoglobin 16.8H, Hematocrit 52, Mean Corpuscular Volume 84, Mean Corpuscular Hemoglobin 27, Mean Corpuscular Hemoglobin Concent 33, Red Cell Distribution Width 18.8H, Platelet Count 485H, Mean Platelet Volume 11.5, Immature Granulocyte % (Auto) 1, Neutrophils (%) (Auto) 94H, Lymphocytes (%) (Auto) 3L, Monocytes (%) (Auto) 3, Eosinophils (%) (Auto) 0, Basophils (%) (Auto) 0, Neutrophils # (Auto) 16.7H, Lymphocytes # (Auto) 0.5L, Monocytes # (Auto) 0.5, Eosinophils # (Auto) 0.0, Basophils # (Aut o) 0.1, Immature Granulocyte # (Auto) 0.2H, Sodium Level 137, Potassium Level 3 .6, Chloride Level 108H, Carbon Dioxide Level 16L, Anion Gap 13, Blood Urea Nitrogen 26H, Creatinine 1.11, Estimat Glomerular Filtration Rate 54, BUN/Creatinine Ratio 23, Glucose Level 174H, Calcium Level 8.0L, Corrected Calcium 8.8, Phosphorus Level 3.0, Magnesium Level 1.6, Total Bilirubin 0.4, Aspartate Amino Transf (AST/SGOT) 19, Alanine Aminotransferase (ALT/SGPT) 17, Alkaline Phosphatase 42, Total Protein 5.6L, Albumin 3.0L, Triglycerides Level 205H 08/31/22 07:25: Blood Gas Puncture Site LEFT RADIAL, Blood Gas Patient Temperature 35.9, Arterial Blood pH 7.42, Arterial Blood Partial Pressure CO2 29L, Arterial Blood Partial Pressure O2 74L, Arterial Blood HCO3 19L, Arterial Blood Total CO2 19.5L , Arterial Blood Oxygen Saturation 96, Arterial Blood Base Excess -5.3L, Abhi Test POSITIVE, Blood Gas Ventilator Setting NO, Blood Gas Inspired Oxygen 50% Microbiology 08/29/22 MRSA Screen - Final, Complete No growth 08/29/22 Blood Culture - Preliminary, Resulted No growth RICKY LOCKHART MD Aug 31, 2022 08:23
[2022-08-31] MEDS: DOCUSATE SODIUM 100 MG (COLACE) CAP PO SCH ×2 (08:28→21:12)
[2022-08-31] MEDS: SENNOSIDES 8.6 MG (SENOKOT) TAB PO SCH ×2 (08:28→21:12)
[2022-08-31] MEDS: NS IV 1000 ML 1,000 ML IV SCH ×3 (08:28→23:28)
[2022-08-31] MEDS: APIXABAN 5 MG (ELIQUIS) TABLET PO SCH ×2 (08:28→21:07)
--- NOTE | 2022-08-31 09:43 | Diagnostic Imaging Report ---
EXAMINATION: Chest 1 view HISTORY: COVID 19 COMPARISON: 08/30/2022 FINDINGS: Endotracheal tube tip terminates 4 cm above the avis. Gastric tube tip terminates below the field of view. Right internal jugular central venous catheter tip terminates in the superior vena cava. There are moderate bilateral interstitial and airspace opacities with small pleural effusions. No pneumothorax. Heart size is normal. IMPRESSION: 1. Unchanged moderate bilateral interstitial and airspace opacities suggestive of pneumonia. Dictated by: Dictated on workstation # [id number]
[2022-08-31] MEDS: PANTOPRAZOLE INJECTION 200 MG in NS (IVPB) 100 ML IV SCH (10:28)
[2022-08-31 13:29] VITALS: BP 104/68
--- NOTE | 2022-08-31 16:08 | Tele-ICU Progress Note ---
Progress Note extubated after passing SBT. Doing well after extubation O2 sat 94% on nasal cannula Focused Exam Lactate Level 08/29/22 21:30: Lactic Acid Level 0.66 Height, Weight, BMI Height: '" Weight: lbs. oz. kg; 34.01 BMI Method: RICKY LOCKHART MD Aug 31, 2022 16:08
[2022-08-31] MEDS: AZITHROMYCIN INJECTION 500 MG in NS (IVPB) 250 ML IV SCH (23:20)
[2022-09-01] MEDS: NOREPINEPHRINE 8 MG/250 ML 250 ML IV SCH ×2 (00:31→17:41)
[2022-09-01] MEDS ORDERED: meTOprolol 5 MG/5 ML (LOPRESSOR) VIAL ONE (00:58)
[2022-09-01] MEDS ORDERED: meTOprolol 5 MG/5 ML (LOPRESSOR) VIAL IV ONE (01:00)
[2022-09-01] MEDS: RT-ALBUTEROL HFA 8.5 GM INHALER IH SCH ×4 (02:42→20:53)
[2022-09-01] MEDS: CEFEPIME 1,000 MG/NS 50 ML IVPB IV SCH ×8 (04:17→22:20)
[2022-09-01 04:46] LABS: BASOPHILS # (AUTO) 0.1 10^3/uL (0.0-0.1); BASOPHILS % (AUTO) 0 % (0-10); EOSINOPHILS % (AUTO) 0 % (0-10); HEMATOCRIT 54 % (35-52); HEMOGLOBIN 17.8 g/dL (11.5-16.0); LYMPHOCYTES # (AUTO) 0.5 10^3/uL (1.0-4.0); LYMPHOCYTES % (AUTO) 2 % (12-44); MEAN CORPUSCULAR HEMOGLOBIN 27 pg (25-34); MEAN CORPUSCULAR HGB CONC 33 g/dL (32-36); MEAN CORPUSCULAR VOLUME 84 fL (80-99); MONOCYTES # (AUTO) 1.3 10^3/uL (0.0-1.0); MONOCYTES % (AUTO) 5 % (0-12); NEUTROPHILS # (AUTO) 22.1 10^3/uL (1.8-7.8); NEUTROPHILS % (AUTO) 91 % (42-75); PLATELET COUNT 633 10^3/uL (130-400); WHITE BLOOD COUNT 24.3 10^3/uL (4.3-11.0)
[2022-09-01] MEDS: PANTOPRAZOLE INJECTION 200 MG in NS (IVPB) 100 ML IV SCH (04:47)
[2022-09-01] MEDS: POTASSIUM CL 10MEQ/50ML IVPB 50 ML IV SCH (04:48)
[2022-09-01 05:07] LABS: ALBUMIN 3.4 GM/DL (3.2-4.5); BILIRUBIN,TOTAL 0.5 MG/DL (0.1-1.0); CALCIUM 8.5 MG/DL (8.5-10.1); CREATININE SERUM 0.89 MG/DL (0.60-1.30); PHOSPHORUS 2.3 MG/DL (2.3-4.7); POTASSIUM 3.5 MMOL/L (3.6-5.0); TOTAL PROTEIN 5.9 GM/DL (6.4-8.2)
[2022-09-01] MEDS: MAGNESIUM 1 GM/100 ML IVPB 100 ML IV SCH (05:19)
[2022-09-01] MEDS: KCL 20 MEQ TAB (K-DUR) PO SCH (05:47)
[2022-09-01] MEDS: DOCUSATE SODIUM 100 MG (COLACE) CAP PO SCH ×2 (08:09→19:36)
[2022-09-01] MEDS: SENNOSIDES 8.6 MG (SENOKOT) TAB PO SCH ×2 (08:09→19:36)
[2022-09-01] MEDS: APIXABAN 5 MG (ELIQUIS) TABLET PO SCH ×2 (08:56→20:13)
[2022-09-01] MEDS ORDERED: meTOprolol SUCCINATE 100 MG (TOPROL XL) TAB PO SCH (09:00)
[2022-09-01] MEDS: dilTIAZem DRIP PRE-MIX 125 ML IV SCH (09:53)
--- NOTE | 2022-09-01 10:28 | Progress Note ---
AUGUSTIN FORTUNE 09/01/22 1028: Subjective Date Seen by a Provider: Sep 01, 2022 Time Seen by a Provider: 09:45 Subjective/Events-last exam Serena Carrillo is a 66 yo female who was admitted to the ICU from [facility] for acute respiratory failure secondary to COVID pneumonia. She arrived intubated but was successfully extubated yesterday. The patient today on encounter reports she feels improved overall and she feels her SOB has also improved. She does complain of pelvic pain; she has chronic pelvic pain of 4 years, for which she has seen multiple specialists, but she indicates her pain is currently worse than normal. She also complains of left shoulder pain, pers istent since a fall 4 weeks ago, and pain secondary to fibromyalgia. The patient states she is eating and drinking well and has been stooling well. The patient denies any other concerns. VS are significant for heart rate of 130+. The patient's labs are significant for WBC 24.3, HGB 17.8, PLT 633, K 3.5, Cl 111, CO2 19, BUN 25, Total Protein 5.9. Review of Systems HEENT: No Head Aches Pulmonary: Dyspnea Cardiovascular: No: Chest Pain Gastrointestinal: No: Abdominal Pain Genitourinary: Other (pelvic pain) Musculoskeletal: shoulder pain Focused Exam Lactate Level 08/29/22 21:30: Lactic Acid Level 0.66 Objective Exam Last Set of Vital Signs Vital Signs Date Time Temp Pulse Resp B/P (MAP) Pulse Ox O2 Delivery O2 Flow Rate FiO2 09/01/22 09:53 168 162/118 09/01/22 09:05 94 Nasal Cannula 2.00 09/01/22 08:00 25 09/01/22 08:00 36.0 08/31/22 13:29 30 Capillary Refill : I&O Intake and Output 09/01/22 00:00 Intake Total 1560 ml Output Total 1400 ml Balance 160 ml Intake Oral 0 ml IV Total 1500 ml Tube Feeding 60 ml Output Urine Total 1200 ml Gastric Drainage Total 200 ml General: Alert, Oriented X3, Cooperative, No Acute Distress HEENT: Atraumatic Lungs: Clear to Auscultation, Normal Air Movement Heart: Other (Tachycardic. Irregularly irregular.) Extremities: Normal Pulses Results Lab Laboratory Tests 08/31/22 11:31: Glucometer 158H 08/31/22 18:54: Glucometer 105 09/01/22 04:30: White Blood Count 24.3H, Red Blood Count 6.50H, Hemoglobin 17.8H, Hematocrit 54H , Mean Corpuscular Volume 84, Mean Corpuscular Hemoglobin 27, Mean Corpuscular Hemoglobin Concent 33, Red Cell Distribution Width 19.5H, Platelet Count 633H, Mean Platelet Volume 12.0, Immature Granulocyte % (Auto) 1, Neutrophils (%) (Auto) 91H, Lymphocytes (%) (Auto) 2L, Monocytes (%) (Auto) 5, Eosinophils (%) (Auto) 0, Basophils (%) (Auto) 0, Neutrophils # (Auto) 22.1H, Lymphocytes # (Auto) 0.5L, Monocytes # (Auto) 1.3H, Eosinophils # (Auto) 0.0, Basophils # (Auto) 0.1, Immature Granulocyte # (Auto) 0.3H, Sodium Level 142, Potassium Level 3.5L, Chloride Level 111H, Carbon Dioxide Level 19L, Anion Gap 12, Blood Urea Nitrogen 25H, Creatinine 0.89, Estimat Glomerular Filtration Rate 71, BUN/Creatinine Ratio 28, Glucose Level 88, Calcium Level 8.5, Corrected Calcium 9.0, Phosphorus Level 2.3, Magnesium Level 2.0, Total Bilirubin 0.5, Aspartate Amino Transf (AST/SGOT) 42H, Alanine Aminotransferase (ALT/SGPT) 50, Alkaline Phosphatase 53, Total Protein 5.9L, Albumin 3.4 Microbiology 08/29/22 MRSA Screen - Final, Complete MRSA not isolated 08/29/22 Urine Culture - Final, Complete NO GROWTH 08/29/22 Blood Culture - Preliminary, Resulted No growth Assessment/Plan Assessment/Plan Assess & Plan/Chief Complaint 1. Acute respiratory failure requiring intubation: Successful extubation 08/31. Continue monitoring symptoms. 2. COVID-pneumonia: Continue cefepime, azithromycin. Continue monitor respi ratory symptoms and O2 status. 3. Suspected JONNIE: Continue home meds. Consider sleep study outpatient. 4. COPD: Continue nebulizer treatment. Monitor O2 status. 5. Chronic polycythemia due to presumed hypoxemia: Continue hydration and respiratory support. Recheck CBC in 24 hours. 6. Paroxysmal atrial fibrillation on oral anticoagulants: Continue Eliquis. Initiate diltiazem drip. Consult cardiology. 7. Obesity KAREN TREJO DO 09/02/22 0520: Objective Exam General: Alert, Oriented X3, Cooperative Lungs: Clear to Auscultation Heart: Regular Rate Psych/Mental Status: Mental Status NL Supervisory-Addendum Brief Verification & Attestation Participated in pt care: history, MDM, physical Personally performed: exam, history, MDM, supervision of care Care discussed with: Medical Student Procedures: n/a Results interpretation: Verified all documentation Verification and Attestation of Medical Student E/M Service A medical student performed and documented this service in my presence. I reviewed and verified all information documented by the medical student and made modifications to such information, when appropriate. I personally performed the physical exam and medical decision making. Karen Trejo, Sep 02, 2022,05:19 AUGUSTIN FORTUNE Sep 01, 2022 10:28 KAREN TREJO DO Sep 02, 2022 05:20
--- NOTE | 2022-09-01 11:27 | Physical Therapy Evaluation ---
PT Evaluation-General Medical Diagnosis Admission Date Aug 29, 2022 at 20:12 Medical Diagnosis: COVID Onset Date: Aug 28, 2022 Therapy Diagnosis Therapy Diagnosis: Gait deficit Precautions Precautions/Isolations: Airborne Isolation, Aspiration, Droplet Isolation Weight Bear Status Right Lower Extremity: Right Full Weight Bearing Left Lower Extremity: Left Full Weight Bearing Referral Physician: Dr. Cooley Reason for Referral: Evaluation/Treatment Medical History Reviewed History: Yes Social History Home: Single Level Current Living Status: Spouse Entry Into Home: Stairs With Railing PT Steps Into Home: 2 Prior Prior Level of Function SCALE: Activities may be completed with or without assistive devices. 7-Gebgrokrrv-qlyglrk completes the activity by him/herself with no assistance from a helper. 5-Set-up or Clean-up Assistance-helper sets up or cleans up; patient completes activity. [place] assists only prior to or following the activity. 4-Supervision or Touching Assistance-helper provides verbal cues and/or touching/steadying and/or contact guard assistance as patient completes activity. Assistance may be provided throughout the activity or intermittently. 3-Partial/Moderate Assistance-helper does LESS THAN HALF the effort. [place] lifts, holds or supports trunk or limbs, but provides less than half the effort. 2-Substantial/Maximal Assistance-helper does MORE THAN HALF the effort. [place] lifts or holds trunk or limbs and provides more than half the effort. 9-Ewictlvtz-uilxyg does ALL the effort. Patient does none of the effort to complete the activity. Or, the assistance of 2 or more helpers is required for the patient to complete the activity. If activity was not attempted, code reason: 7-Patient Refused. 9-Not Applicable-not attempted and the patient did not perform the activity before the current illness, exacerbation or injury. 10-Not Attempted due to Environmental Limitations-(lack of equipment, weather restraints, etc.). 88-Not Attempted due to Medical Conditions or Safety Concerns. Bed Mobility: 6 Transfers (B,C,W/C): 6 Gait: 6 Stairs: 6 Indoor Mobility (Ambulation): Independent Stairs: Independent Prior Device Use: Cane PT Evaluation-Current Subjective Patient lying supine in bed upon PT arrival, agreeable to treatment. Rates pain currently at 7/10 in her pelvis. Objective Patient Orientation: Person, Place, Time, Situation Attachments: Oxygen, Mejia Catheter, IV ROM/Strength ROM Lower Extremities WFLs all planes bilaterally Strength Lower Extremities 4-/5 all planes bilaterally Sensory Vision: Functional Hearing: Functional Sensation Right Lower Extremit: Intact Sensation Left Lower Extremity: Intact Transfers Roll Left to Right (QC): 4 Sit to Lying (QC): 4 Lying to Sitting/Side of Bed(Q: 4 Sit to Stand (QC): 3 Gait Does the Patient Walk?: No and Walking Goal IS indicated Balance Sitting Static: Good Sitting Dynamic: Good Standing Static: Fair Standing Dynamic: Fair Assessment/Needs Patient tolerated treatment fair. Performs all observed transfers and bed mobility with CGA/Min A. She performed sit to stand with min a and standing static balance with SBA. Patient is able to sidestep ~ 3 steps towards the HOB. Neck IV not stitched in place per nurse and pulls quite a bit during transfers. Activity limited and patient fatigues, requesting to return to bed. Patient in bed post treatment with all needs met, nursing notified, call light in reach. Rehab Potential: Good PT Senior Living Goals [place] Goals PT Senior Living Goals Time Frame: Sep 27, 2022 Roll Left & Right (QC): 6 Sit to Lying (QC): 6 Lying-Sitting on Side/Bed(QC): 6 Sit to Stand (QC): 6 Chair/Qre-ux-Mokiw Xfer(QC): 6 Toilet Transfer (QC): 6 Car Transfer (QC): 6 Walk 10 feet (QC): 4 Walk 50ft with 2 Turns (QC): 4 Walk 150 ft (QC): 4 1 Step (curb) (QC): 3 4 Steps (QC): 3 PT Plan Problem List Problem List: Activity Tolerance, Functional Strength, Safety, Balance, Gait, Transfer, Bed Mobility, ROM Treatment/Plan Treatment Plan: Continue Plan of Care Treatment Plan: Bed Mobility, Education, Functional Activity Abdulaziz, Functional Strength, Group Therapy, Gait, Safety, Therapeutic Exercise, Transfers Treatment Duration: Sep 27, 2022 Frequency: 6 times per week Estimated Hrs Per Day: .25 hour per day Patient and/or Family Agrees t: Yes Safety Risks/Education Patient Education: Transfer Techniques Teaching Recipient: Patient Teaching Methods: Demonstration, Discussion Response to Teaching: Verbalize Understanding, Return Demonstration Time Time In: 1100 Time Out: 1115 DATE: Sep 01, 2022 Total Billed Treatment Time: 15 Total Billed Treatment Visit, TIAN Downey PT Sep 01, 2022 11:27
--- NOTE | 2022-09-01 11:30 | Tele-ICU Progress Note ---
Subjective Date Seen by a Provider: Sep 01, 2022 Time Seen by a Provider: 11:30 Subjective/Events-last exam She is admitted to ICU with acute respiratory failure due to COVID-pneumonia. Apparently she arrived her intubated but subsequently she is extubated. Now she developed atrial fibrillation with rapid ventricular rate which he did not improve with the oral metoprolol. Hence she is started on IV Cardizem drip. A cardiology consultation has been requested. She does have a feeling of palpitation. Impression 1. Acute hypoxic respiratory failure requiring intubation but now extubated. 2. COVID-pneumonia 3. Super added bacterial pneumonia cannot be ruled out 4. Atrial fibrillation with rapid ventricular rate. Recommendations 1. Continue oral metoprolol and IV Cardizem drip. 2. Continue dexamethasone 6 mg IV daily 3. Cefepime IV per primary care 4. Apixaban 5 mg twice daily for stroke prophylaxis as well as DVT prophylaxis 5. Ulcer prophylaxis with Protonix. Diagnosis: __X_ patient provided consent for the telehealth visit ___patient is not able to provide consent for the telehealth visit, service pr ovided to critically care patient using implied consent doctrine. A total of _15 _ minutes of critical care time was devoted to this patient, including reviewing this patient's available data, including medical history, events of note and test results. I have overseen the activities of other members of the care team under my direct supervision during events of the note . This was required to treat and/or prevent further deterioration of critical care conditions ( as above ). Service provided to a patient admitted to ICU bed via interactive E-CARE system with real-time audio and video telecommunications from [facility]-ICU hub located in [place], [place] Interventions Intermediate-Other: acute respiratory failure, covid-19 pneumonia, afib with rvr Page 1 of 1 ELY PAREDES [address] [facility] This is a permanent part of the medical record. Do not discard. 09/01/2022 12:33 [facility] Physician - Brief Progress Note Sepsis Event Evaluation Height, Weight, BMI Height: '" Weight: lbs. oz. kg; 34.56 BMI Method: Focused Exam Lactate Level 08/29/22 21:30: Lactic Acid Level 0.66 Exam Exam Patient acknowledged, consented, and participated in this virtual visit which was conducted using real time audio/video Vital Signs Date Time Temp Pulse Resp B/P (MAP) Pulse Ox O2 Delivery O2 Flow Rate FiO2 09/01/22 11:00 135 14 159/105 (123) 95 High Flow N/C 2.00 09/01/22 10:00 156 14 152/90 (110) 94 High Flow N/C 2.00 09/01/22 09:53 168 162/118 09/01/22 09:05 94 Nasal Cannula 2.00 09/01/22 09:00 144 23 178/97 (124) 94 High Flow N/C 2.00 09/01/22 08:00 140 25 153/77 (102) 92 High Flow N/C 2.00 09/01/22 08:00 95 High Flow N/C 2.00 09/01/22 08:00 36.0 09/01/22 07:16 134 09/01/22 07:00 117 13 124/101 (109) 93 High Flow N/C 2.00 09/01/22 06:00 131 16 134/86 (102) 95 High Flow N/C 2.00 09/01/22 05:00 134 27 125/69 (87) 94 High Flow N/C 2.00 09/01/22 04:45 36.2 High Flow N/C 2.00 09/01/22 04:00 126 17 156/70 (98) 95 High Flow N/C 2.00 09/01/22 04:00 95 High Flow N/C 2.00 09/01/22 03:00 122 17 126/90 (102) 94 High Flow N/C 2.00 09/01/22 02:42 94 Nasal Cannula 2.00 09/01/22 02:00 116 15 135/64 (87) 95 High Flow N/C 2.00 09/01/22 01:00 126 17 118/86 (97) 94 High Flow N/C 2.00 09/01/22 01:00 150 09/01/22 00:03 High Flow N/C 2.00 09/01/22 00:00 36.1 09/01/22 00:00 146 20 109/76 (87) 94 High Flow N/C 4.00 08/31/22 23:59 95 High Flow N/C 2.00 08/31/22 23:00 140 17 130/79 (96) 95 High Flow N/C 4.00 08/31/22 22:24 95 Nasal Cannula 5.00 08/31/22 22:00 128 15 133/86 (102) 95 High Flow N/C 4.00 08/31/22 21:51 35.9 08/31/22 21:21 36.2 08/31/22 21:00 122 13 119/75 (90) 96 High Flow N/C 4.00 08/31/22 20:10 105 95 08/31/22 20:00 122 17 124/79 (94) 96 High Flow N/C 4.00 08/31/22 20:00 98 High Flow N/C 4.00 08/31/22 20:00 36.2 08/31/22 19:00 147 08/31/22 19:00 131 20 125/79 (94) 95 High Flow N/C 4.00 08/31/22 19:00 High Flow N/C 4.00 08/31/22 18:00 126 15 127/70 (89) 95 Mechanical Ventilator 50.00 08/31/22 17:00 122 20 127/70 (89) 94 Mechanical Ventilator 50.00 08/31/22 16:00 35.8 08/31/22 16:00 111 14 104/69 (81) 94 Mechanical Ventilator 50.00 08/31/22 15:00 116 15 91/67 (75) 93 Mechanical Ventilator 50.00 08/31/22 14:13 95 Nasal Cannula 5.00 08/31/22 14:00 112 18 108/68 (81) 95 Mechanical Ventilator 50.00 08/31/22 13:29 112 18 94 30 08/31/22 13:00 117 08/31/22 13:00 117 17 106/73 (84) 93 Mechanical Ventilator 50.00 08/31/22 12:00 94 Mechanical Ventilator 35 08/31/22 12:00 122 17 115/64 (81) 94 Mechanical Ventilator 50.00 08/31/22 11:52 36.2 I & O 09/01/22 07:00 Intake Total 2210 ml Output Total 3950 ml Balance -1740 ml Height & Weight Height: '" Weight: lbs. oz. kg; 34.56 BMI Method: General Appearance: Chronically ill, Obese, Other (Sedated and intubated) Respiratory: No Accessory Muscle Use, No Respiratory Distress, Decreased Breath Sounds Cardiovascular: Regular Rate, Rhythm Results Lab Laboratory Tests 08/31/22 03:15 09/01/22 04:30 Assessment/Plan Assessment/Plan as above Critical Care: Critically Ill Patient Time spent with patient (mins): 15 GEENA JONES MD Sep 01, 2022 11:30
--- NOTE | 2022-09-01 11:57 | Occupational Therapy Eval ---
OT Evaluation-General/PLF Medical Diagnosis Admission Date Aug 29, 2022 at 20:12 Medical Diagnosis: COVID Onset Date: Aug 28, 2022 Therapy Diagnosis Therapy Diagnosis: reduced endurance Precautions Precautions/Isolations: Airborne Isolation, Aspiration, Droplet Isolation, Fall Prevention Referral Physician: Dr. Cooley Referral Reason: Evaluation/Treatment Medical History Current History Pt admitted for acute respiratory failure due to covid pnemonia. She arrived intubated [facility], extubated 08/31/22. Per patient, she lives with her spouse in a single story home. She was indep with adls except requires assist with fastening bra. She shares cooking responsibilities with her spouse and has a patient registration representative 1x every other week. Her spouse does the laundry. Per patient, she owns a cane but does not. Pt reports that he has pelvic pain for a few years and has seen a specialist and therapy regarding this issue. She reports the pain causes her to be sedentary throughout the day. Social History Home: Single Level Current Living Status: Spouse Entry Into Home: Stairs With Railing Steps Into Home: 3 ADL-Prior Level of Function SCALE: Activities may be completed with or without assistive devices. 5-Hnrfesppqw-dlwjite completes the activity by him/herself with no assistance from a helper. 5-Set-up or Clean-up Assistance-helper sets up or cleans up; patient completes activity. [place] assists only prior to or following the activity. 4-Supervision or Touching Assistance-helper provides verbal cues and/or touching/steadying and/or contact guard assistance as patient completes activity. Assistance may be provided throughout the activity or intermittently. 3-Partial/Moderate Assistance-helper does LESS THAN HALF the effort. [place] lifts, holds or supports trunk or limbs, but provides less than half the effort. 2-Substantial/Maximal Assistance-helper does MORE THAN HALF the effort. [place] lifts or holds trunk or limbs and provides more than half the effort. 0-Vigwozkmj-xrasie does ALL the effort. Patient does none of the effort to complete the activity. Or, the assistance of 2 or more helpers is required for the patient to complete the activity. If activity was not attempted, code reason: 7-Patient Refused. 9-Not Applicable-not attempted and the patient did not perform the activity before the current illness, exacerbation or injury. 10-Not Attempted due to Environmental Limitations-(lack of equipment, weather restraints, etc.). 88-Not Attempted due to Medical Conditions or Safety Concerns. Self Care: Independent Functional Cognition: Independent DME/Equipment: Bath Chair, Tub/Shower Drive Self: No OT Current Status Subjective Pt reports chronic pelvic pain, currently 8/10 on pain scale. Appearance Pt returned to supine in bed, all needs within reach at OT departure. Mental Status/Objective Patient Orientation: Person, Place, Situation Attachments: Central Line, Rai Catheter, IV, Oxygen (2L), SCD's, Telemetry Current Glasses/Contacts: Yes Hearing Aids: No Hand Dominance: Right Upper Extremity ROM WFL Upper Extremity Strength not formally tested, appears at least 3+/5 throughout ADL-Treatment Lower Body Dressing (QC): 4 On/Off Footwear (QC): 4 Toileting Hygiene (QC): 1 (rai catheter) Supine<>sit: SBA, cues/assist for management of multiple lines. Good sitting balance at edge. Pt reports mild dizziness that improves with time. She was able to don/doff bilateral socks without difficulty. She stood with hand held assist. Once standing, pt able to maintain balance with zero UE support and supervision for safety.She stands for >3 minutes with zero unsteadiness observed. Anticipate no difficulty when donning/doffing pants. HR ranges from 130-164 bpm. RN aware. Oxygen fluctuates from 90-94%. Pt does reports fatigue after minimal activity. Education OT Patient Education: Energy conservation, Modified ADL techniques, Purpose of tx/functional activities, Safety issues, Transfer techniques Teaching Recipient: Patient Teaching Methods: Discussion Response to Teaching: Verbalize Understanding, Return Demonstration, Reinforcement Needed OT Mcfp Goals Mcfp Goals Time Frame: Sep 08, 2022 Oral Hygiene (QC): 5 Toileting Hygiene (QC): 6 Upper Body Dressing (QC): 5 Lower Body Dressing (QC): 5 On/Off Footwear (QC): 5 Additional Goals: 1-Demonstrate ADL Tasks, 2-Verbalize Understanding, 3- ImproveStrength/Abdulaziz 1=Demonstrate adherence to instructed precautions during ADL tasks. 2=Patient will verbalize/demonstrate understanding of assistive devices/modifications for ADL. 3=Patient will improve strength/tolerance for activity to enable patient to perform ADL's. OT Education/Plan Problem List/Assessment Assessment: Decreased Activ Tolerance, Decreased UE Strength, Impaired I ADL's, Impaired Self-Care Skills Discharge Recommendations Plan/Recommendations: Continue POC Therapy Discharge Recommendati: Home & Family (pending progress ) Treatment Plan/Plan of Care Treatment,Training & Education: Yes Patient would benefit from OT for education, treatment and training to promote independence in ADL's, mobility, safety and/or upper extremity function for ADL's. Plan of Care: ADL Retraining, Functional Mobility, UE Funct Exercise/Act Treatment Duration: Sep 08, 2022 Frequency: 3 times per week (3-5x/week ) Estimated Hrs Per Day: .25 hour per day Rehab Potential: Good Time Start Time: 10:52 Stop Time: 11:13 DATE: Sep 01, 2022 Total Time Billed (hr/min): 21 Billed Treatment Time 1 visit Radha Quintanilla OT Sep 01, 2022 11:57
[2022-09-01] MEDS ORDERED: FEXO-14 PO (13:18)
[2022-09-01] MEDS ORDERED: TIZA-169 PO (13:18)
[2022-09-01] MEDS ORDERED: LEVO50TA6 PO (13:18)
[2022-09-01] MEDS ORDERED: AMLO-251 PO (13:18)
[2022-09-01] MEDS: FLECAINIDE 100 MG (TAMBOCOR) TAB PO SCH ×2 (14:01→20:13)
--- NOTE | 2022-09-01 14:01 | Consultation-Cardiology ---
HPI-Cardiology Cardiology Consultation: Date of Consultation 09/01/22 Date of Admission 08/29/22 Attending Physician Jon Mohamud MD Admitting Physician Admitting Physician: Karen Cooley DO Attending Physician: Karen Cooley DO Consulting Physician DONNA DEE JR, MD HPI: Time Seen by a Provider: 13:57 Chief Complaint: REASON FOR CONSULTATION: Atrial fibrillation. I had the pleasure of seeing Serena in the intensive care unit at [facility] in [place], [place] this afternoon. She is well-known to me from the office. She has a history of paroxysmal atrial fibrillation, mitral regurgitation, hypertension, hyperlipidemia, stage 3 chronic kidney disease, chronic obstructive pulmonary disease, fibromyalgia, anxiety, and obesity. I had actually just seen her in the office last week for a follow-up visit and I was planning on starting her on antiarrhythmic drug, however the day she came to see me she was having severe chest and back pain as well as dyspnea. I sent her to the emergency room for evaluation. She underwent a chest CT that did not show any evidence of pulmonary embolism but showed a right upper lobe pneumonia. She was started on antibiotics and discharged from the emergency room. However, over the next couple of days, her shortness of breath persisted. 2 days after I saw her in the office, she was severely short of breath and she went to the emergency room at [facility]. Around that time, she was diagnosed with COVID and started on Paxlovid. However, her shortness of breath worsened and she ultimately got intubated and transferred to our intensive care unit for further treatment. She was extubated on 08/31. She has remained in atrial fibrillation during this entire hospitalization but this morning developed tachycardia and was started on intravenous diltiazem. At that time, a cardiology consultation was requested. I spoke to the patient from the doorway due to her COVID status. She states that her shortness of breath has started to improve and she is now only on nasal cannula oxygen. She did not complain of any significant palpitations. Certain portions of this document may have been dictated utilizing voice recognition technology. Inherent to this technology, typographical and grammatical errors may exist. As much as I am diligent to identify and correct these mistakes, some errors may remain in the document. Review of Systems-Cardiology Review of Systems Other comments Review of 10 organ systems is as per the history of present illness, otherwise negative. KFH-Nnerdz-Xbiaqz Hx Patient Social History Smoking Status: Former Smoker Past Medical History PMH As described under Assessment. Family Medical History Family Medical History: The patient does not know of any family history of premature coronary artery disease in first-degree relatives. Allergies and Home Medications Allergies Coded Allergies: Penicillins (Verified Allergy, Severe, Shortness of Breath, 07/24/22) SOB, swelling, hives chlorhexidine (Verified Allergy, Intermediate, Itching, 07/24/22) swelling, hives. isopropyl alcohol (Verified Allergy, Intermediate, Itching, 07/24/22) swelling, hives. Patient Home Medication List Home Medication List Reviewed: Yes Amlodipine Besylate (Amlodipine Besylate) 10 Mg Tablet, 10 TAB PO DAILY, (Reported) Entered as Reported by: MEGAN MERRITT on 09/01/221317 Last Action: Reviewed Apixaban (Eliquis) 5 Mg Tablet, 2.5 MG PO BID, (Reported) Entered as Reported by: SYD JAIMES on 07/24/22906 Last Action: Reviewed Escitalopram Oxalate (Escitalopram Oxalate) 20 Mg Tablet, 20 MG PO DAILY, (Reported) Entered as Reported by: SYD JAIMES on 07/24/22906 Last Action: Reviewed Ezetimibe (Ezetimibe) 10 Mg Tablet, 10 MG PO HS, (Reported) Entered as Reported by: SYD JAIMES on 07/24/22906 Last Action: Reviewed Fenofibrate Nanocrystallized (Fenofibrate) 145 Mg Tablet, 145 MG PO HS, (Reported) Entered as Reported by: SYD JAIMES on 07/24/22906 Last Action: Reviewed Fexofenadine HCl (Brittany Allergy) 60 Mg Tablet, 60 MG PO DAILY PRN for ALLERGIES, (Reported) Entered as Reported by: MEGAN MERRITT on 09/01/221317 Last Action: Reviewed Levothyroxine Sodium (Levothyroxine Sodium) 50 Mcg Tablet, 50 MCG PO DAILY, (Reported) Entered as Reported by: MEGAN MERRITT on 09/01/221317 Last Action: Reviewed Metoprolol Succinate (Metoprolol Succinate) 100 Mg Tab.er.24h, 100 MG PO DAILY, (Reported) Entered as Reported by: SYD JAIMES on 07/24/22906 Last Action: Reviewed Metoprolol Succinate (Metoprolol Succinate) 50 Mg Tab.er.24h, 50 MG PO HS, (Reported) Entered as Reported by: SYD JAIMES on 07/24/22906 Last Action: Reviewed Pantoprazole Sodium (Pantoprazole Sodium) 40 Mg Tablet.dr, 40 MG PO HS, (Reported) Entered as Reported by: SYD JAIMES on 07/24/22906 Last Action: Reviewed Tizanidine HCl (Tizanidine HCl) 2 Mg Tablet, 1 MG PO BID, (Reported) Entered as Reported by: MEGAN MERRITT on 09/01/228 Last Action: Reviewed Tramadol HCl (Tramadol HCl ER) 300 Mg Tab.er.24h, 300 MG PO DAILY, (Reported) Entered as Reported by: SYD JAIMES on 07/24/22906 Last Action: Reviewed Discontinued Medications Albuterol Sulfate (Ventolin Hfa) 1 Puff Puff, 2 PUFF IH Q4H, (Reported) Discontinued Reason: Duplicate Order Entered as Reported by: SYD JAIMES on 07/24/22906 Last Action: Discontinued Amlodipine/Atorvastatin (Amlodipine-Atorvast 10-10 mg) 10 Mg-10 Mg Tablet, 1 EACH PO HS, (Reported) Discontinued Reason: Duplicate Order Entered as Reported by: SYD JAIMES on 07/24/22906 Last Action: Discontinued Levothyroxine Sodium (Levothyroxine) 50 Mcg Capsule, 50 MCG PO, (Reported) Discontinued Reason: Duplicate Order Entered as Reported by: SYD JAIMES on 07/24/22906 Last Action: Discontinued Tizanidine HCl (Tizanidine HCl) 2 Mg Capsule, 2 MG PO, (Reported) Discontinued Reason: Duplicate Order Entered as Reported by: SYD JAIMES on 07/24/22906 Last Action: Discontinued Exam Vital Signs Vital Signs Date Time Temp Pulse Resp B/P (MAP) Pulse Ox O2 Delivery O2 Flow Rate FiO2 09/01/22 12:51 118 09/01/22 12:00 13 126/94 (105) 94 High Flow N/C 2.00 09/01/22 08:00 36.0 08/31/22 13:29 30 Physical Exam Due to the patient's COVID status, I spoke with the patient from the doorway. General: The patient is breathing spontaneously. She was sitting up in bed conversing without effort. She is on oxygen by nasal cannula. HENT: Normocephalic. Atraumatic. Skin: There is no pallor. Neurologic: Oriented x3. Cranial nerves III through XII grossly intact. Moving all 4 extremities. Psychiatric: Appears cooperative. Labs Laboratory Tests Test 08/31/22 18:54 09/01/22 04:30 Range/Units Glucometer 105 70-110 MG/DL White Blood Count 24.3 H 4.3-11.0 10^3/uL Red Blood Count 6.50 H 3.80-5.11 10^6/uL Hemoglobin 17.8 H 11.5-16.0 g/dL Hematocrit 54 H 35-52 % Mean Corpuscular Volume 84 80-99 fL Mean Corpuscular Hemoglobin 27 25-34 pg Mean Corpuscular Hemoglobin Concent 33 32-36 g/dL Red Cell Distribution Width 19.5 H 10.0-14.5 % Platelet Count 633 H 130-400 10^3/uL Mean Platelet Volume 12.0 9.0-12.2 fL Immature Granulocyte % (Auto) 1 % Neutrophils (%) (Auto) 91 H 42-75 % Lymphocytes (%) (Auto) 2 L 12-44 % Monocytes (%) (Auto) 5 0-12 % Eosinophils (%) (Auto) 0 0-10 % Basophils (%) (Auto) 0 0-10 % Neutrophils # (Auto) 22.1 H 1.8-7.8 10^3/uL Lymphocytes # (Auto) 0.5 L 1.0-4.0 10^3/uL Monocytes # (Auto) 1.3 H 0.0-1.0 10^3/uL Eosinophils # (Auto) 0.0 0.0-0.3 10^3/uL Basophils # (Auto) 0.1 0.0-0.1 10^3/uL Immature Granulocyte # (Auto) 0.3 H 0.0-0.1 10^3/uL Sodium Level 142 135-145 MMOL/L Potassium Level 3.5 L 3.6-5.0 MMOL/L Chloride Level 111 H 98-107 MMOL/L Carbon Dioxide Level 19 L 21-32 MMOL/L Anion Gap 12 5-14 MMOL/L Blood Urea Nitrogen 25 H 7-18 MG/DL Creatinine 0.89 0.60-1.30 MG/DL Estimat Glomerular Filtration Rate 71 BUN/Creatinine Ratio 28 Glucose Level 88 70-105 MG/DL Calcium Level 8.5 8.5-10.1 MG/DL Corrected Calcium 9.0 8.5-10.1 MG/DL Phosphorus Level 2.3 2.3-4.7 MG/DL Magnesium Level 2.0 1.6-2.4 MG/DL Total Bilirubin 0.5 0.1-1.0 MG/DL Aspartate Amino Transf (AST/SGOT) 42 H 5-34 U/L Alanine Aminotransferase (ALT/SGPT) 50 0-55 U/L Alkaline Phosphatase 53 40-136 U/L Total Protein 5.9 L 6.4-8.2 GM/DL Albumin 3.4 3.2-4.5 GM/DL Radiology ELECTROCARDIOGRAM (08/25/2022): Atrial fibrillation with a ventricular of 89 bpm with borderline left axis deviation and nonspecific ST-T wave changes. LABS (07/30/2022): Sodium 139. Potassium 4.9. Glucose 109. BUN 28. Creatinine 1.43. GFR 37. 2 WEEK ZIO XT MONITOR (07/28/2022-08/11/2022): 1. Baseline atrial fibrillation with an average heart rate 84 bpm, ranging from 55-139 bpm with a total atrial fibrillation burden of 98% with rare supraventricular ectopy as isolated, couplet and triplet beats and frequent, isolated premature ventricular complexes representing 5% of the total recording time as well as rare ventricular couplets and triplets. 2. There were 3 episodes of wide-complex tachycardia that were polymorphic and irregular and occurred during atrial fibrillation and were most likely aberrantly conducted atrial fibrillation. 3. There were 3 patient events 2 of which correlated to sinus rhythm with hansen praventricular and ventricular ectopy and the third event correlated to atrial fibrillation. ELECTROCARDIOGRAM (07/28/2022): Sinus rhythm with 1 premature ventricular complex, left atrial abnormality, and nonspecific ST changes. CARDIOVERSION (07/24/2022): 1. Status post successful direct-current cardioversion with a final biphasic energy level of 150 J with conversion of atrial fibrillation to sinus bradycardia. LABS (07/09/2022): Sodium 140. Potassium 5.5. Glucose 96. BUN 30. Creatinine 1.34. GFR 39. ELECTROCARDIOGRAM (07/07/2022): Atrial fibrillation with a ventricular rate of [address]-T wave changes. REGADENOSON NUCLEAR STRESS TEST (06/19/2022): 1. Normal heart rate and blood pressure response to regadenoson with resting hypertension. 2. There was no chest discomfort during the test. 3. The patient was in atrial fibrillation with intermittent aberrant conduction versus premature ventricular complexes throughout the test. 4. The stress electrocardiogram was indeterminant due to the baseline abnormalities. 5. There was normal myocardial perfusion in all segments without evidence of infarction or ischemia. 6. There was normal wall motion in all segments with a calculated ejection fraction of 62%. ELECTROCARDIOGRAM (06/06/2022): Atrial fibrillation with a ventricular rate of [address]-T wave changes in diffuse leads. ECHOCARDIOGRAM (06/04/2022): 1. This is a technically difficult study due to poor image quality secondary to patient's body habitus. 2. There is normal left ventricular chamber size and wall thickness. Regional wall motion abnormalities cannot be excluded due to poor endocardial definition. The left ventricular systolic function appears preserved with an estimated ejection fraction of 55-60%. 3. The left ventricular diastolic function is indeterminate due to atrial fibrillation. 4. The right atrium is mildly dilated with an area of 21 cm. 5. There is mild aortic valve sclerosis. 6. There is mild tricuspid regurgitation. 7. There is moderate mitral regurgitation. 8. The estimated pulmonary artery systolic pressure is 30 mmHg assuming a right atrial pressure of 5 mmHg. CHEST 2 VIEWS (06/01/2022): 1. Mildly enlarged cardiac silhouette. LABS (06/01/2022): WBC 15.7. Hemoglobin 19.6. Platelets 808,000. Sodium 137. Potassium 4.2. Glucose 114. BUN 17. Creatinine 1.21. GFR 44. Alkaline phosphatase 74. AST 22. ALT 23. Total bilirubin 1.5 (high). Troponin undetectable. BNP 655. ELECTROCARDIOGRAM (06/01/2022): Atrial fibrillation with a ventricular rate of [address]-T wave changes. LABS (04/15/2022): Sodium 134. Potassium not measured due to hemolysis. Glucose 91. BUN 19. Creatinine 1.5. GFR 35. Alkaline phosphatase 76. AST 80 (high). ALT 42. Total bilirubin 0.9. Total cholesterol 169. Triglycerides 101. HDL 42. LDL 107. TSH 2.59. ECG Impression ECG Comment Atrial fibrillation with a ventricular rate of [address]-T wave changes. Diagnosis/Problems Diagnosis/Problems (1) Persistent atrial fibrillation Assessment & Plan: She has had atrial fibrillation for well over a month. She has been on oral anticoagulation for well over a month. I suspect the tachycardia may be related to her acute COVID infection. I was planning to start her on an antiarrhythmic drug but then she developed pneumonia followed by this COVID infection. Her heart rate is improved with intravenous diltiazem infusion. I will start her on flecainide and have asked the nurse to work on weaning diltiazem down to keep heart rate below 110 bpm. She should continue on apixaban for stroke prophylaxis and metoprolol for rate control. (2) Primary hypertension Assessment & Plan: Blood pressures have been intermittently elevated. If this persists, we may need to adjust her antihypertensive medication. (3) Mixed hyperlipidemia Assessment & Plan: Resume ezetimibe and fenofibrate (4) Mitral regurgitation Assessment & Plan: Her previous echocardiogram showed moderate mitral regurgitation as outlined above. This will need to be followed longitudinally. (5) Acquired hypothyroidism Assessment & Plan: I have reordered her home dose of thyroid medication. (6) Acute on chronic respiratory failure with hypoxemia Assessment & Plan: Most likely multifactorial due to COVID infection with possible superimposed pneumonia and perhaps some pulmonary edema. I have ordered to discontinue the normal saline infusion. She has already received 5 L and this could put her at risk of pulmonary edema. DONNA DEE JR, MD Sep 01, 2022 14:01
[2022-09-01] MEDS: FENOFIBRATE 134 MG (LOFIBRA) CAPSULE PO SCH (20:13)
[2022-09-01] MEDS: AZITHROMYCIN INJECTION 500 MG in NS (IVPB) 250 ML IV SCH (20:13)
[2022-09-01] MEDS: eZETimibe 10 MG (ZETIA) TABLET PO SCH (20:14)
[2022-09-01] MEDS ORDERED: meTOproloL SUCCINATE 50 MG (TOPROL XL) TAB PO SCH (21:00)
[2022-09-02] MEDS: RT-ALBUTEROL HFA 8.5 GM INHALER IH SCH ×5 (02:26→21:45)
[2022-09-02] MEDS: CEFEPIME 1,000 MG/NS 50 ML IVPB IV SCH ×4 (03:30→10:05)
[2022-09-02 04:22] LABS: BASOPHILS # (AUTO) 0.1 10^3/uL (0.0-0.1); BASOPHILS % (AUTO) 0 % (0-10); EOSINOPHILS % (AUTO) 0 % (0-10); HEMATOCRIT 58 % (35-52); HEMOGLOBIN 18.7 g/dL (11.5-16.0); LYMPHOCYTES # (AUTO) 0.8 10^3/uL (1.0-4.0); LYMPHOCYTES % (AUTO) 3 % (12-44); MEAN CORPUSCULAR HEMOGLOBIN 27 pg (25-34); MEAN CORPUSCULAR HGB CONC 32 g/dL (32-36); MEAN CORPUSCULAR VOLUME 85 fL (80-99); MEAN PLATELET VOLUME 11.8 fL (9.0-12.2); MONOCYTES # (AUTO) 1.3 10^3/uL (0.0-1.0); MONOCYTES % (AUTO) 5 % (0-12); NEUTROPHILS # (AUTO) 23.6 10^3/uL (1.8-7.8); NEUTROPHILS % (AUTO) 90 % (42-75); PLATELET COUNT 683 10^3/uL (130-400); WHITE BLOOD COUNT 26.1 10^3/uL (4.3-11.0)
[2022-09-02 05:24] LABS: ALBUMIN 3.7 GM/DL (3.2-4.5); POTASSIUM 4.3 MMOL/L (3.6-5.0)
[2022-09-02 05:25] LABS: CALCIUM 8.6 MG/DL (8.5-10.1)
[2022-09-02 05:27] LABS: TOTAL PROTEIN 6.5 GM/DL (6.4-8.2)
[2022-09-02 05:28] LABS: BILIRUBIN,TOTAL 0.6 MG/DL (0.1-1.0)
[2022-09-02] MEDS: KCL 20 MEQ TAB (K-DUR) PO SCH (05:28)
[2022-09-02] MEDS: POTASSIUM CL 10MEQ/50ML IVPB 50 ML IV SCH (05:28)
[2022-09-02 05:30] LABS: CREATININE SERUM 0.85 MG/DL (0.60-1.30); PHOSPHORUS 3.1 MG/DL (2.3-4.7)
[2022-09-02 05:33] LABS: MAGNESIUM 1.9 MG/DL (1.6-2.4)
[2022-09-02] MEDS: MAGNESIUM 1 GM/100 ML IVPB 100 ML IV SCH (06:12)
[2022-09-02] MEDS: NOREPINEPHRINE 8 MG/250 ML 250 ML IV SCH (06:12)
[2022-09-02] MEDS: LEVOTHYROXINE 50 MCG (LEVOTHROID) TAB PO SCH (06:30)
--- NOTE | 2022-09-02 08:42 | Cardiology Progress Note ---
Progress Note-Cardiology Events since last exam Date Seen by Provider: Sep 02, 2022 Time Seen by Provider: 08:37 Events since last exam I am following her due to atrial fibrillation. She remains in the intensive care unit. Her diltiazem infusion was discontinued overnight but heart rates have been up in the 120s at times. Her breathing is improved but not quite back to normal. Sometimes she has a tightness in her chest but this improves with her inhaler. She denies palpitations, syncope, or ankle edema. Certain portions of this document may have been dictated utilizing voice recognition technology. Inherent to this technology, typographical and grammatical errors may exist. As much as I am diligent to identify and correct these mistakes, some errors may remain in the document. Vitals Last set of Vitals Signs Vital Signs 08/31/22 09/02/22 09/02/22 09/02/22 09/02/22 13:29 06:03 07:31 07:44 08:00 Temp 36.3 Pulse 123 Resp 27 B/P (MAP) 136/91 (106) Pulse Ox 92 O2 Delivery Nasal Cannula O2 Flow Rate 4.00 FiO2 30 Labs Labs Laboratory Tests 09/02/22 03:30 09/02/22 04:45 Exam Vital Signs Vital Signs Date Time Temp Pulse Resp B/P (MAP) Pulse Ox O2 Delivery O2 Flow Rate FiO2 09/02/22 08:00 36.3 09/02/22 07:44 123 09/02/22 07:31 92 Nasal Cannula 4.00 09/02/22 06:03 27 136/91 (106) 08/31/22 13:29 30 Physical Exam Due to the patient's COVID status, I spoke with the patient from the doorway. She was sitting up in a chair. She is wearing oxygen by nasal cannula. General: The patient is breathing spontaneously. HENT: Normocephalic. Atraumatic. Skin: There is no pallor. Neurologic: Oriented x3. Cranial nerves III through XII grossly intact. Moving all 4 extremities. Psychiatric: Appears cooperative. Labs Laboratory Tests Test 09/02/22 03:30 09/02/22 04:45 Range/Units White Blood Count 26.1 H 4.3-11.0 10^3/uL Red Blood Count 6.91 H 3.80-5.11 10^6/uL Hemoglobin 18.7 H 11.5-16.0 g/dL Hematocrit 58 H 35-52 % Mean Corpuscular Volume 85 80-99 fL Mean Corpuscular Hemoglobin 27 25-34 pg Mean Corpuscular Hemoglobin Concent 32 32-36 g/dL Red Cell Distribution Width 19.9 H 10.0-14.5 % Platelet Count 683 H 130-400 10^3/uL Mean Platelet Volume 11.8 9.0-12.2 fL Immature Granulocyte % (Auto) 1 % Neutrophils (%) (Auto) 90 H 42-75 % Lymphocytes (%) (Auto) 3 L 12-44 % Monocytes (%) (Auto) 5 0-12 % Eosinophils (%) (Auto) 0 0-10 % Basophils (%) (Auto) 0 0-10 % Neutrophils # (Auto) 23.6 H 1.8-7.8 10^3/uL Lymphocytes # (Auto) 0.8 L 1.0-4.0 10^3/uL Monocytes # (Auto) 1.3 H 0.0-1.0 10^3/uL Eosinophils # (Auto) 0.0 0.0-0.3 10^3/uL Basophils # (Auto) 0.1 0.0-0.1 10^3/uL Immature Granulocyte # (Auto) 0.4 H 0.0-0.1 10^3/uL Sodium Level 135 135-145 MMOL/L Potassium Level 4.3 3.6-5.0 MMOL/L Chloride Level 105 98-107 MMOL/L Carbon Dioxide Level 21 21-32 MMOL/L Anion Gap 9 5-14 MMOL/L Blood Urea Nitrogen 29 H 7-18 MG/DL Creatinine 0.85 0.60-1.30 MG/DL Estimat Glomerular Filtration Rate 75 BUN/Creatinine Ratio 34 Glucose Level 99 70-105 MG/DL Calcium Level 8.6 8.5-10.1 MG/DL Corrected Calcium 8.8 8.5-10.1 MG/DL Phosphorus Level 3.1 2.3-4.7 MG/DL Magnesium Level 1.9 1.6-2.4 MG/DL Total Bilirubin 0.6 0.1-1.0 MG/DL Aspartate Amino Transf (AST/SGOT) 54 H 5-34 U/L Alanine Aminotransferase (ALT/SGPT) 89 H 0-55 U/L Alkaline Phosphatase 73 40-136 U/L Total Protein 6.5 6.4-8.2 GM/DL Albumin 3.7 3.2-4.5 GM/DL Diagnosis/Problems Diagnosis/Problems (1) Persistent atrial fibrillation Assessment & Plan: She has had atrial fibrillation for well over a month. She has been on oral anticoagulation for well over a month. I suspect the tachycardia may be related to her acute COVID infection. I started her on flecainide 100 mg twice daily on 09/01. She remains in atrial fibrillation. I will increase the dose of flecainide to 150 mg twice daily and also increase the dose of metoprolol succinate to 100 mg twice daily. If she remains in atrial fibrillation overnight, I will plan on a cardioversion tomorrow. She should continue on apixaban for stroke prophylaxis and metoprolol for rate control. (2) Primary hypertension Assessment & Plan: Blood pressures have been intermittently elevated. I we will increase her dose of metoprolol succinate to 100 mg twice daily. Previously, she was taking 100 mg in the morning and 50 mg at night. (3) Mixed hyperlipidemia Assessment & Plan: Continue ezetimibe and fenofibrate (4) Mitral regurgitation Assessment & Plan: Her previous echocardiogram showed moderate mitral regurgitation. This will need to be followed longitudinally. (5) Acquired hypothyroidism Assessment & Plan: I have reordered her home dose of thyroid medication. (6) Acute on chronic respiratory failure with hypoxemia Assessment & Plan: Most likely multifactorial due to COVID infection with possible superimposed pneumonia and perhaps some pulmonary edema. I have ordered to discontinue the normal saline infusion. She has already received 5 L and this could put her at risk of pulmonary edema. DONNA DEE JR, MD Sep 02, 2022 08:42
[2022-09-02] MEDS ORDERED: PANTOPRAZOLE 40 MG (PROTONIX) TAB PO SCH (09:00)
[2022-09-02] MEDS: dilTIAZem DRIP PRE-MIX 125 ML IV SCH (09:45)
--- NOTE | 2022-09-02 09:48 | Physical Therapy Daily Note ---
PT Daily Note-Current Subjective Patient reports she is feeling better today. Agrees to PT. Pain Section J - Health Conditions 1. Rarely or not at all 2. Occasionally 3. Frequently 4. Almost constantly 8. Unable to answer Pain Effect on Sleep: 1 Pain Interference with Therapy: 1 Pain Interference w/Day-to-Day: 1 Mental Status Patient Orientation: Normal For Age Attachments: Oxygen, Mejia Catheter, IV Transfers SCALE: Activities may be completed with or without assistive devices. 7-Dpydlzceuf-dfpxhho completes the activity by him/herself with no assistance from a helper. 5-Set-up or Clean-up Assistance-helper sets up or cleans up; patient completes activity. [place] assists only prior to or following the activity. 4-Supervision or Touching Assistance-helper provides verbal cues and/or touching/steadying and/or contact guard assistance as patient completes activity. Assistance may be provided throughout the activity or intermittently. 3-Partial/Moderate Assistance-helper does LESS THAN HALF the effort. [place] lifts, holds or supports trunk or limbs, but provides less than half the effort. 2-Substantial/Maximal Assistance-helper does MORE THAN HALF the effort. [place] l ifts or holds trunk or limbs and provides more than half the effort. 2-Qajluksaa-afwquu does ALL the effort. Patient does none of the effort to complete the activity. Or, the assistance of 2 or more helpers is required for the patient to complete the activity. If activity was not attempted, code reason: 7-Patient Refused. 9-Not Applicable-not attempted and the patient did not perform the activity before the current illness, exacerbation or injury. 10-Not Attempted due to Environmental Limitations-(lack of equipment, weather restraints, etc.). 88-Not Attempted due to Medical Conditions or Safety Concerns. Lying to Sitting/Side of Bed(Q: 6 Sit to Stand (QC): 4 Chair/Dfe-as-Wukzb Xfer(QC): 4 Weight Bearing Right Lower Extremity: Right Full Weight Bearing Left Lower Extremity: Left Full Weight Bearing Gait Training Distance: 10' x 2 Walk 10 feet (QC): 4 Gait Assistive Device: FWW Exercises Seated Therapy Exercises: Ankle pumps, Long arc quads, Hip flexion Seated Reps: 15 Assessment Patient up in recliner with needs met. PT to continue to increase activity as tolerated by patient. PT Senior Informatica Developer Goals Senior Informatica Developer Goals PT Group Home Goals Time Frame: Sep 27, 2022 Roll Left & Right (QC): 6 Sit to Lying (QC): 6 Lying-Sitting on Side/Bed(QC): 6 Sit to Stand (QC): 6 Chair/Uns-ao-Hmoys Xfer(QC): 6 Toilet Transfer (QC): 6 Car Transfer (QC): 6 Walk 10 feet (QC): 4 Walk 50ft with 2 Turns (QC): 4 Walk 150 ft (QC): 4 1 Step (curb) (QC): 3 4 Steps (QC): 3 PT Plan Treatment/Plan Treatment Plan: Continue Plan of Care Treatment Plan: Bed Mobility, Education, Functional Activity Abdulaziz, Functional Strength, Group Therapy, Gait, Safety, Therapeutic Exercise, Transfers Treatment Duration: Sep 27, 2022 Frequency: 6 times per week Estimated Hrs Per Day: .25 hour per day Patient and/or Family Agrees t: Yes Time Time In: 750 Time Out: 807 DATE: Sep 02, 2022 Total Billed Treatment Time: 17 Total Billed Treatment 1 visit FA 17 min ANDREW HERR PT Sep 02, 2022 09:48
--- NOTE | 2022-09-02 09:50 | Progress Note ---
AUGUSTIN FORTUNE 09/02/22 0950: Subjective Date Seen by a Provider: Sep 02, 2022 Time Seen by a Provider: 09:35 Subjective/Events-last exam Serena Carrillo is a 66 yo female admitted to the ICU for acute respiratory failure secondary to COVID-pneumonia requiring mechanical ventilation. She was successfully extubated 2 days ago. The patient on encounter today is seated in her recliner comfortably, eating breakfast. She states she feels improved at this time, and has no respiratory symptoms. She indicates she has persistent pelvic and shoulder pain similar to yesterday, but these pains are improved with tramadol and increased ability to move in bed and to her recliner. The patient denies any other concerns or pains at this time. The patient's labs are significant for elevated WBC, HGB, and PLT at 26.1, 18.7, and 683 respectively; BUN is elevated at 29. Review of Systems General: No Chills HEENT: No Head Aches Pulmonary: No Dyspnea, No Cough Cardiovascular: No: Chest Pain Gastrointestinal: No: Abdominal Pain Genitourinary: Other (pelvic pain) Musculoskeletal: shoulder pain Objective Exam Last Set of Vital Signs Vital Signs Date Time Temp Pulse Resp B/P (MAP) Pulse Ox O2 Delivery O2 Flow Rate FiO2 09/02/22 09:30 121 22 140/91 (107) 93 High Flow N/C 2.00 09/02/22 08:00 36.3 08/31/22 13:29 30 Capillary Refill : I&O Intake and Output 09/02/22 00:00 Intake Total 4000 ml Output Total 6500 ml Balance -2500 ml Intake Oral 2500 ml IV Total 1500 ml Output Urine Total 5900 ml Gastric Drainage Total 600 ml # Bowel Movements 4 General: Alert, Oriented X3, Cooperative, No Acute Distress HEENT: Atraumatic Lungs: Clear to Auscultation, Normal Air Movement Heart: Other (irregularly irregular. tachycardic.) Skin: No Rashes, No Breakdown Neuro: Normal Speech Psych/Mental Status: Mental Status NL Results Lab Laboratory Tests 09/02/22 03:30: White Blood Count 26.1H, Red Blood Count 6.91H, Hemoglobin 18.7H, Hematocrit 58H , Mean Corpuscular Volume 85, Mean Corpuscular Hemoglobin 27, Mean Corpuscular Hemoglobin Concent 32, Red Cell Distribution Width 19.9H, Platelet Count 683H, Mean Platelet Volume 11.8, Immature Granulocyte % (Auto) 1, Neutrophils (%) (Auto) 90H, Lymphocytes (%) (Auto) 3L, Monocytes (%) (Auto) 5, Eosinophils (%) (Auto) 0, Basophils (%) (Auto) 0, Neutrophils # (Auto) 23.6H, Lymphocytes # (Auto) 0.8L, Monocytes # (Auto) 1.3H, Eosinophils # (Auto) 0.0, Basophils # (Auto) 0.1, Immature Granulocyte # (Auto) 0.4H 09/02/22 04:45: Sodium Level 135, Potassium Level 4.3, Chloride Level 105, Carbon Dioxide Level 21, Anion Gap 9, Blood Urea Nitrogen 29H, Creatinine 0.85, Estimat Glomerular Filtration Rate 75, BUN/Creatinine Ratio 34, Glucose Level 99, Calcium Level 8.6, Corrected Calcium 8.8, Phosphorus Level 3.1, Magnesium Level 1.9, Total Bilirubin 0.6, Aspartate Amino Transf (AST/SGOT) 54H, Alanine Aminotransferase (ALT/SGPT) 89H, Alkaline Phosphatase 73, Total Protein 6.5, Albumin 3.7 Microbiology 08/29/22 MRSA Screen - Final, Complete MRSA not isolated 08/29/22 Urine Culture - Final, Complete NO GROWTH 08/29/22 Blood Culture - Preliminary, Resulted No growth Assessment/Plan Assessment/Plan Assess & Plan/Chief Complaint 1. Acute respiratory failure requiring intubation: Successful extubation 08/31. C ontinue monitoring symptoms. 2. COVID-pneumonia: Continue cefepime, azithromycin. Continue monitor respiratory symptoms and O2 status. 3. Suspected JONNIE: Continue home meds. Consider sleep study outpatient. 4. COPD: Continue nebulizer treatment. Monitor O2 status. 5. Chronic polycythemia due to presumed hypoxemia: Continue hydration and respiratory support. Recheck CBC in 24 hours. 6. Paroxysmal atrial fibrillation on oral anticoagulants: Continue Eliquis.Continue diltiazem, flecainide, metoprolol per cardiology. 7. Obesity KAREN TREJO DO 09/03/22 0531: Assessment/Plan Assessment/Plan Assess & Plan/Chief Complaint PT OT Monitor closely Pain control Supervisory-Addendum Brief Verification & Attestation Participated in pt care: history, MDM, physical Personally performed: exam, history, MDM, supervision of care Care discussed with: Medical Student Procedures: n/a Results interpretation: Verified all documentation Verification and Attestation of Medical Student E/M Service A medical student performed and documented this service in my presence. I re viewed and verified all information documented by the medical student and made modifications to such information, when appropriate. I personally performed the physical exam and medical decision making. Karen Trejo, Sep 03, 2022,05:31 AUGUSTIN FORTUNE Sep 02, 2022 09:50 KAREN TREJO DO Sep 03, 2022 05:31
[2022-09-02] MEDS: DOCUSATE SODIUM 100 MG (COLACE) CAP PO SCH ×2 (10:02→20:13)
[2022-09-02] MEDS: APIXABAN 5 MG (ELIQUIS) TABLET PO SCH ×2 (10:03→20:16)
[2022-09-02] MEDS: SENNOSIDES 8.6 MG (SENOKOT) TAB PO SCH ×2 (10:03→20:13)
[2022-09-02] MEDS: FLECAINIDE 100 MG (TAMBOCOR) TAB PO SCH ×2 (10:03→20:16)
[2022-09-02] MEDS: PANTOPRAZOLE 40 MG (PROTONIX) TAB PO SCH (10:03)
[2022-09-02] MEDS: meTOprolol SUCCINATE 100 MG (TOPROL XL) TAB PO SCH ×2 (10:04→20:16)
--- NOTE | 2022-09-02 10:36 | Occupational Ther Daily Note ---
OT Current Status-Daily Note Subjective Pt alert, sitting in recliner. Pt agrees to therapy. No c/o pain. Mental Status/Objective Patient Orientation: Person, Place, Time, Situation Attachments: Mejia Catheter, IV, Oxygen (4L), Telemetry ADL-Treatment Pt agrees to complete oral care in recliner. After supplies gathered, pt able to complete by self. Pt then stood up from recliner using FWW and verbal cues for hand placement, SBA. Pt requires assistance to cleanse due to bowel incontinence. BSC placed in room by nrsg at end of session. After therapy, pt sitting in recliner with call light/phone in reach. All needs met in room. Therapy Code Descriptions/Definitions Functional [place] Measure: 0=Not Assessed/NA 4=Minimal Assistance 1=Total Assistance 5=Supervision or Setup 2=Maximal Assistance 6=Modified [place] 3=Moderate Assistance 7=Complete IndependenceSCALE: Activities may be completed with or without assistive devices. 3-Cfmelqyywx-hiibtmu completes the activity by him/herself with no assistance from a helper. 5-Set-up or Clean-up Assistance-helper sets up or cleans up; patient completes activity. [place] assists only prior to or following the activity. 4-Supervision or Touching Assistance-helper provides verbal cues and/or touching/steadying and/or contact guard assistance as patient completes activity. Assistance may be provided throughout the activity or intermittently. 3-Partial/Moderate Assistance-helper does LESS THAN HALF the effort. [place] lifts, holds or supports trunk or limbs, but provides less than half the effort. 2-Substantial/Maximal Assistance-helper does MORE THAN HALF the effort. [place] lifts or holds trunk or limbs and provides more than half the effort. 7-Gkzbffmdo-foixxf does ALL the effort. Patient does none of the effort to complete the activity. Or, the assistance of 2 or more helpers is required for the patient to complete the activity. If activity was not attempted, code reason: 7-Patient Refused. 9-Not Applicable-not attempted and the patient did not perform the activity before the current illness, exacerbation or injury. 10-Not Attempted due to Environmental Limitations-(lack of equipment, weather restraints, etc.). 88-Not Attempted due to Medical Conditions or Safety Concerns. Oral Hygiene (QC): 5 OT Pot Reliner Goals Pot Reliner Goals Time Frame: Sep 08, 2022 Oral Hygiene (QC): 5 Toileting Hygiene (QC): 6 Upper Body Dressing (QC): 5 Lower Body Dressing (QC): 5 On/Off Footwear (QC): 5 Additional Goals: 1-Demonstrate ADL Tasks, 2-Verbalize Understanding, 3- ImproveStrength/Abdulaziz 1=Demonstrate adherence to instructed precautions during ADL tasks. 2=Patient will verbalize/demonstrate understanding of assistive devices/modifications for ADL. 3=Patient will improve strength/tolerance for activity to enable patient to perform ADL's. OT Education/Plan Problem List/Assessment Assessment: Decreased Activ Tolerance, Impaired Self-Care Skills Discharge Recommendations Plan/Recommendations: Continue POC Treatment Plan/Plan of Care Patient would benefit from OT for education, treatment and training to promote independence in ADL's, mobility, safety and/or upper extremity function for ADL's. Plan of Care: ADL Retraining, Functional Mobility, UE Funct Exercise/Act Treatment Duration: Sep 08, 2022 Frequency: 3 times per week (3-5x/week ) Estimated Hrs Per Day: .25 hour per day Rehab Potential: Good Time Start Time: 09:15 Stop Time: 09:34 DATE: Sep 02, 2022 Total Time Billed (hr/min): 19 Billed Treatment Time 1 visit-ADL 1 (19 min) KAYLYNN GARDINER Sep 02, 2022 10:36
--- NOTE | 2022-09-02 12:11 | Tele-ICU Progress Note ---
Subjective Date Seen by a Provider: Sep 02, 2022 Time Seen by a Provider: 12:35 Subjective/Events-last exam (Tele-ICU Physician , consultation) Available chart/ vitals / labs / Images reviewed H&P is from ER notes Patient's information available about PMH, allergy reviewed in EMR. ROS as per chart and RN report Video assessment done using teleICU camera, rest of exam as per RN Discussed with RN. Patient today generally feeling failure but her heart rate increases to 120s. Apparently her Cardizem drip was discontinued last night and her heart rate increased already. Today music composition teacher started her on metoprolol and Cardizem drip. Hopefully this will help her otherwise she is planning to do a cardio version tomorrow. Her IV antibiotics have been discontinued and started on a cefdinir. She is occasionally getting short of breath but bronchodilators are helping. She has a positive fluid balance which is now discontinued. She is on Effexor balm for stroke prevention 1. Acute hypoxic respiratory failure requiring intubation but now extubated and tolerating n/c well 2. COVID-pneumonia 3. Super added bacterial pneumonia cannot be ruled out 4. Atrial fibrillation with rapid ventricular rate. Recommendations 1. Continue oral metoprolol and IV Cardizem dri per cardiology. 2. Continue dexamethasone 6 mg IV daily 3. Antibiotics per primary care 4. Apixaban 5 mg twice daily for stroke prophylaxis as well as DVT prophylaxis 5. Ulcer prophylaxis with Protonix 6. possible cardioversion tomorrow Reviewed in MDR rounds Sepsis Event Evaluation Height, Weight, BMI Height: '" Weight: lbs. oz. kg; 35.15 BMI Method: Exam Exam Patient acknowledged, consented, and participated in this virtual visit which was conducted using real time audio/video Vital Signs Date Time Temp Pulse Resp B/P (MAP) Pulse Ox O2 Delivery O2 Flow Rate FiO2 09/02/22 11:45 35.6 09/02/22 10:07 93 Nasal Cannula 4.00 09/02/22 09:45 121 140/91 09/02/22 09:30 121 22 140/91 (107) 93 High Flow N/C 2.00 09/02/22 08:00 36.3 09/02/22 08:00 116 22 136/106 (116) 93 High Flow N/C 2.00 09/02/22 07:44 123 09/02/22 07:31 92 Nasal Cannula 4.00 09/02/22 07:00 118 26 132/102 (112) 92 High Flow N/C 2.00 09/02/22 06:03 124 27 136/91 (106) 92 High Flow N/C 2.00 09/02/22 05:19 90 Nasal Cannula 4.00 09/02/22 05:03 115 23 142/108 (119) 88 High Flow N/C 2.00 09/02/22 04:03 109 26 142/95 (111) 90 High Flow N/C 2.00 09/02/22 04:00 94 High Flow N/C 2.00 09/02/22 03:03 107 20 152/91 (111) 92 High Flow N/C 2.00 09/02/22 02:27 92 Nasal Cannula 2.00 09/02/22 02:03 113 21 145/82 (103) 91 High Flow N/C 2.00 09/02/22 01:03 96 18 129/89 (102) 92 High Flow N/C 2.00 09/02/22 01:00 93 09/02/22 00:03 104 23 120/84 (96) 93 High Flow N/C 2.00 09/01/22 23:59 94 High Flow N/C 2.00 09/01/22 23:03 96 19 111/78 (89) 92 High Flow N/C 2.00 09/01/22 22:03 94 18 124/84 (97) 92 High Flow N/C 2.00 09/01/22 21:03 116 25 122/90 (101) 92 High Flow N/C 2.00 09/01/22 20:53 93 Nasal Cannula 2.00 09/01/22 20:44 36.2 09/01/22 20:00 110 20 147/106 (120) 93 High Flow N/C 2.00 09/01/22 20:00 94 High Flow N/C 2.00 09/01/22 19:00 106 15 139/106 (117) 93 High Flow N/C 2.00 09/01/22 19:00 106 09/01/22 18:00 113 18 138/95 (109) 94 High Flow N/C 2.00 09/01/22 17:00 116 7 133/81 (98) 94 High Flow N/C 2.00 09/01/22 16:00 107 16 135/96 (109) 95 High Flow N/C 2.00 09/01/22 16:00 95 High Flow N/C 2.00 09/01/22 15:46 36.7 09/01/22 15:33 95 Nasal Cannula 2.00 09/01/22 15:00 107 14 147/84 (105) 94 High Flow N/C 2.00 09/01/22 14:00 110 13 145/105 (118) 93 High Flow N/C 2.00 09/01/22 13:00 140 19 138/96 (110) 94 High Flow N/C 2.00 09/01/22 12:51 118 I & O 09/02/22 07:00 Intake Total 3700 ml Output Total 4100 ml Balance -400 ml Height & Weight Height: '" Weight: lbs. oz. kg; 35.15 BMI Method: General Appearance: Chronically ill, Obese, Other (Sedated and intubated) Respiratory: No Accessory Muscle Use, No Respiratory Distress, Decreased Breath Sounds Cardiovascular: Regular Rate, Rhythm Results Lab Laboratory Tests 09/01/22 04:30 09/02/22 03:30 09/02/22 04:45 Assessment/Plan Assessment/Plan as above Critical Care: Critically Ill Patient Time spent with patient (mins): 15 GEENA VELÁSQUEZ MD Sep 02, 2022 12:10
[2022-09-02] MEDS: CEFDINIR 300 MG (OMNICEF) CAP PO SCH (20:14)
[2022-09-02] MEDS: eZETimibe 10 MG (ZETIA) TABLET PO SCH (20:14)
[2022-09-02] MEDS: FENOFIBRATE 134 MG (LOFIBRA) CAPSULE PO SCH (20:14)
[2022-09-03] MEDS: NOREPINEPHRINE 8 MG/250 ML 250 ML IV SCH ×2 (00:19→17:02)
[2022-09-03] MEDS: RT-ALBUTEROL HFA 8.5 GM INHALER IH SCH ×4 (03:27→22:03)
[2022-09-03 03:58] LABS: BASOPHILS # (AUTO) 0.1 10^3/uL (0.0-0.1); BASOPHILS % (AUTO) 0 % (0-10); EOSINOPHILS % (AUTO) 0 % (0-10); HEMATOCRIT 57 % (35-52); HEMOGLOBIN 18.6 g/dL (11.5-16.0); LYMPHOCYTES % (AUTO) 4 % (12-44); MEAN CORPUSCULAR HEMOGLOBIN 27 pg (25-34); MEAN CORPUSCULAR HGB CONC 33 g/dL (32-36); MEAN CORPUSCULAR VOLUME 84 fL (80-99); MONOCYTES # (AUTO) 1.2 10^3/uL (0.0-1.0); MONOCYTES % (AUTO) 5 % (0-12); NEUTROPHILS # (AUTO) 21.3 10^3/uL (1.8-7.8); NEUTROPHILS % (AUTO) 89 % (42-75); PLATELET COUNT 493 10^3/uL (130-400); WHITE BLOOD COUNT 23.9 10^3/uL (4.3-11.0)
[2022-09-03 04:11] LABS: ALBUMIN 3.6 GM/DL (3.2-4.5); POTASSIUM 4.7 MMOL/L (3.6-5.0)
[2022-09-03 04:12] LABS: CALCIUM 8.8 MG/DL (8.5-10.1)
[2022-09-03 04:13] LABS: TOTAL PROTEIN 6.1 GM/DL (6.4-8.2)
[2022-09-03 04:15] LABS: BILIRUBIN,TOTAL 0.8 MG/DL (0.1-1.0)
[2022-09-03 04:17] LABS: CREATININE SERUM 0.86 MG/DL (0.60-1.30); PHOSPHORUS 3.6 MG/DL (2.3-4.7)
[2022-09-03 04:20] LABS: MAGNESIUM 1.9 MG/DL (1.6-2.4)
[2022-09-03] MEDS: POTASSIUM CL 10MEQ/50ML IVPB 50 ML IV SCH (05:12)
[2022-09-03] MEDS: MAGNESIUM 1 GM/100 ML IVPB 100 ML IV SCH (05:12)
[2022-09-03] MEDS: KCL 20 MEQ TAB (K-DUR) PO SCH (05:12)
[2022-09-03] MEDS: dexAMETHasone 6 MG TAB (DECADRON) PO SCH (05:52)
[2022-09-03] MEDS: LEVOTHYROXINE 50 MCG (LEVOTHROID) TAB PO SCH (05:53)
[2022-09-03] MEDS ORDERED: LORATADINE (CLARITIN) 10 MG TAB PO PRN (06:30)
[2022-09-03 07:05] VITALS: BP 155/91
[2022-09-03 07:19] LABS: ABG BASE EXCESS -0.8 MMOL/L (-2.5-2.5); ABG OXYGEN SATURATION 100 % (94-100); ABG PCO2 45 MMHG (35-45); ABG PO2 239 MMHG (79-93); ABG TCO2 25.7 MMOL/L (21.0-31.0)
[2022-09-03 07:21] LABS: ABG PH 7.34 (7.37-7.43); ALLENS TEST YES-POS; INSPIRED O2 50%; PATIENT TEMP 36.4; VENTILATOR NO
[2022-09-03] MEDS ORDERED: FUROSEMIDE 40 MG/4 ML INJ (LASIX) IVP NR (07:30)
--- NOTE | 2022-09-03 07:39 | Tele-ICU Progress Note ---
Subjective Date Seen by a Provider: Sep 03, 2022 Time Seen by a Provider: 07:34 Subjective/Events-last exam (Tele-ICU Physician , consultation) Available chart/ vitals / labs / Images reviewed H&P is from ER notes Patient's information available about PMH, allergy reviewed in EMR. ROS as per chart and RN report Video assessment done using teleICU camera, rest of exam as per RN Discussed with RN. Patient today had respiratory distress and needed to put on Bipap. afib converted to nsr. cxr reviewed. infiltrates improving. concerned mild fluid overload. she had some chest pressure. now resolved. she is on aphixaban for stroke prevention. 1. Acute hypoxic respiratory failure requiring intubation but now extubated and developped respiratory distress requiring bipap 2. COVID-pneumonia 3. Super added bacterial pneumonia cannot be ruled out 4. Atrial fibrillation with rapid ventricular rate now converted to NSR Recommendations 1. Continue oral metoprolol and IV Cardizem dri per cardiology. 2. Continue dexamethasone 6 mg IV daily 3.Bipap ventillation 4. Apixaban 5 mg twice daily for stroke prophylaxis as well as DVT prophylaxis 5. Ulcer prophylaxis with Protonix 6. awaiting cardiology input. Sepsis Event Evaluation Height, Weight, BMI Height: '" Weight: lbs. oz. kg; 35.15 BMI Method: Exam Exam Patient acknowledged, consented, and participated in this virtual visit which was conducted using real time audio/video Vital Signs Date Time Temp Pulse Resp B/P (MAP) Pulse Ox O2 Delivery O2 Flow Rate FiO2 09/03/22 07:05 71 32 97 100.00 09/03/22 06:00 105 156/107 (123) 94 Nasal Cannula 4.00 09/03/22 05:07 36.6 09/03/22 05:00 112 147/109 (122) 94 Nasal Cannula 4.00 09/03/22 04:00 108 147/98 (114) 93 Nasal Cannula 4.00 09/03/22 04:00 93 Nasal Cannula 4.00 09/03/22 03:27 93 Nasal Cannula 4.00 09/03/22 03:00 99 137/76 (96) 92 Nasal Cannula 4.00 09/03/22 02:00 112 136/99 (111) 93 Nasal Cannula 4.00 09/03/22 01:00 110 140/104 (116) 93 Nasal Cannula 4.00 09/03/22 01:00 102 09/03/22 00:19 116 140/91 09/03/22 00:12 109 126/88 (101) 93 Nasal Cannula 4.00 09/02/22 23:28 93 Nasal Cannula 4.00 09/02/22 23:27 36.4 09/02/22 23:11 105 130/91 (104) 94 Nasal Cannula 4.00 09/02/22 22:11 113 136/92 (107) 93 Nasal Cannula 4.00 09/02/22 21:46 93 Nasal Cannula 4.00 09/02/22 21:11 117 151/93 (112) 93 Nasal Cannula 4.00 09/02/22 20:11 105 150/95 (113) 93 Nasal Cannula 4.00 09/02/22 20:05 36.6 09/02/22 20:00 94 Nasal Cannula 4.00 09/02/22 19:33 113 145/99 (114) 93 Nasal Cannula 4.00 09/02/22 19:00 116 09/02/22 17:30 111 143/88 (106) 94 Nasal Cannula 4.00 09/02/22 16:30 105 142/96 (111) 94 Nasal Cannula 4.00 09/02/22 16:00 94 High Flow N/C 2.00 09/02/22 15:51 35.4 09/02/22 15:30 108 129/87 (101) 94 Nasal Cannula 4.00 09/02/22 14:56 93 Nasal Cannula 4.00 09/02/22 14:30 116 142/100 (114) 93 Nasal Cannula 4.00 09/02/22 13:30 110 136/82 (100) 93 Nasal Cannula 4.00 09/02/22 13:08 109 09/02/22 12:30 104 125/91 (102) 92 Nasal Cannula 4.00 09/02/22 12:00 94 High Flow N/C 2.00 09/02/22 11:45 35.6 09/02/22 10:07 93 Nasal Cannula 4.00 09/02/22 09:45 121 140/91 09/02/22 09:30 121 22 140/91 (107) 93 High Flow N/C 2.00 09/02/22 08:00 36.3 09/02/22 08:00 94 High Flow N/C 2.00 09/02/22 08:00 116 22 136/106 (116) 93 High Flow N/C 2.00 09/02/22 07:44 123 I & O 09/03/22 07:00 Intake Total 1690 ml Output Total 3625 ml Balance -1935 ml Height & Weight Height: '" Weight: lbs. oz. kg; 35.15 BMI Method: General Appearance: Other (sedated) Respiratory: Decreased Breath Sounds Cardiovascular: Regular Rate, Rhythm Gastrointestinal: normal bowel sounds Extremity: No Pedal Edema Results Lab Laboratory Tests 09/02/22 03:30 09/02/22 04:45 09/03/22 03:50 Assessment/Plan Assessment/Plan as above Critical Care: Critically Ill Patient Time spent with patient (mins): 20 GEENA VELÁSQUEZ MD Sep 03, 2022 07:39
--- NOTE | 2022-09-03 07:55 | Diagnostic Imaging Report ---
CLINICAL INDICATIONS: Patient with shortness of breath. EXAM: Portable chest x-ray upright view. COMPARISON: Chest x-ray dated 09/03/2022 at 0500 hours. Findings and impression: 1: There are patchy areas of consolidation involving both lungs which is not significantly changed. There is progression of mild groundglass opacification involving the left upper lung field. 2: There is no pneumothorax or pleural effusion. 3: Pulmonary vasculature and cardiac silhouette are within normal limits. 4: Right IJ central line seen in stable position. 5.: The remainder of this exam shows no significant interval change compared to the prior study of comparison. Dictated by: Dictated on workstation # [id number]
--- NOTE | 2022-09-03 08:12 | Diagnostic Imaging Report ---
INDICATION: Pneumonia, follow-up Frontal chest obtained at 5:00 hours a.m. COMPARISON: 08/31/2022 Patient has been extubated compared to the prior study and the NG tube removed. Right IJ catheter is unchanged. Heart and mediastinal silhouette are normal. There is no pneumothorax or pleural fluid. There are patchy bilateral infiltrates, right greater than left which appears similar to the previous study. IMPRESSION: Stable bilateral infiltrates with no pneumothorax or pleural fluid. Status post extubation. Dictated by: Dictated on workstation # [id number]
--- NOTE | 2022-09-03 08:49 | Cardiology Progress Note ---
Progress Note-Cardiology Events since last exam Date Seen by Provider: Sep 03, 2022 Time Seen by Provider: 08:48 Events since last exam I am following her due to atrial fibrillation. Overnight, she was doing well but then early this morning suddenly became more short of breath. She had tightness in her chest again. Her oxygen saturations dropped dramatically and she was placed on BiPAP. Around this time, she converted to sinus rhythm. When I saw her she was in bed sitting up on BiPAP. Her chest discomfort had improved. She denies palpitations, syncope, or ankle edema. Certain portions of this document may have been dictated utilizing voice recognition technology. Inherent to this technology, typographical and grammatical errors may exist. As much as I am diligent to identify and correct these mistakes, some errors may remain in the document. Vitals Last set of Vitals Signs Vital Signs 09/03/22 09/03/22 09/03/22 08:00 12:00 12:44 Temp 36.0 Pulse 65 Resp 20 B/P (MAP) 103/74 (84) Pulse Ox 93 O2 Delivery Vapotherm O2 Flow Rate 30.00 FiO2 100 Labs Labs Laboratory Tests 09/03/22 03:50 Exam Vital Signs Vital Signs Date Time Temp Pulse Resp B/P (MAP) Pulse Ox O2 Delivery O2 Flow Rate FiO2 09/03/22 12:44 65 09/03/22 12:00 93 Vapotherm 30.00 100 09/03/22 12:00 20 103/74 (84) 09/03/22 08:00 36.0 Physical Exam Due to the patient's COVID status, I spoke with the patient from the doorway. General: The patient is on BiPAP and trying to converse. HENT: Normocephalic. Atraumatic. Skin: There is no pallor. Neurologic: Oriented x3. Cranial nerves III through XII grossly intact. Moving all 4 extremities. Psychiatric: Appears cooperative. Labs Laboratory Tests Test 09/03/22 03:50 09/03/22 07:10 09/03/22 09:40 Range/Units White Blood Count 23.9 H 4.3-11.0 10^3/uL Red Blood Count 6.84 H 3.80-5.11 10^6/uL Hemoglobin 18.6 H 11.5-16.0 g/dL Hematocrit 57 H 35-52 % Mean Corpuscular Volume 84 80-99 fL Mean Corpuscular Hemoglobin 27 25-34 pg Mean Corpuscular Hemoglobin Concent 33 32-36 g/dL Red Cell Distribution Width 19.4 H 10.0-14.5 % Platelet Count 493 H 130-400 10^3/uL Mean Platelet Volume 11.0 9.0-12.2 fL Immature Granulocyte % (Auto) 1 % Neutrophils (%) (Auto) 89 H 42-75 % Lymphocytes (%) (Auto) 4 L 12-44 % Monocytes (%) (Auto) 5 0-12 % Eosinophils (%) (Auto) 0 0-10 % Basophils (%) (Auto) 0 0-10 % Neutrophils # (Auto) 21.3 H 1.8-7.8 10^3/uL Lymphocytes # (Auto) 1.0 1.0-4.0 10^3/uL Monocytes # (Auto) 1.2 H 0.0-1.0 10^3/uL Eosinophils # (Auto) 0.0 0.0-0.3 10^3/uL Basophils # (Auto) 0.1 0.0-0.1 10^3/uL Immature Granulocyte # (Auto) 0.3 H 0.0-0.1 10^3/uL Sodium Level 136 135-145 MMOL/L Potassium Level 4.7 3.6-5.0 MMOL/L Chloride Level 103 98-107 MMOL/L Carbon Dioxide Level 23 21-32 MMOL/L Anion Gap 10 5-14 MMOL/L Blood Urea Nitrogen 33 H 7-18 MG/DL Creatinine 0.86 0.60-1.30 MG/DL Estimat Glomerular Filtration Rate 74 BUN/Creatinine Ratio 38 Glucose Level 86 70-105 MG/DL Calcium Level 8.8 8.5-10.1 MG/DL Corrected Calcium 9.1 8.5-10.1 MG/DL Phosphorus Level 3.6 2.3-4.7 MG/DL Magnesium Level 1.9 1.6-2.4 MG/DL Total Bilirubin 0.8 0.1-1.0 MG/DL Aspartate Amino Transf (AST/SGOT) 43 H 5-34 U/L Alanine Aminotransferase (ALT/SGPT) 92 H 0-55 U/L Alkaline Phosphatase 77 40-136 U/L Total Protein 6.1 L 6.4-8.2 GM/DL Albumin 3.6 3.2-4.5 GM/DL Blood Gas Puncture Site RT RADIAL Blood Gas Patient Temperature 36.4 Arterial Blood pH 7.34 *L 7.37-7.43 Arterial Blood Partial Pressure CO2 45 35-45 MMHG Arterial Blood Partial Pressure O2 239 H 79-93 MMHG Arterial Blood HCO3 24 23-27 MMOL/L Arterial Blood Total CO2 25.7 21.0-31.0 MMOL/L Arterial Blood Oxygen Saturation 100 94-100 % Arterial Blood Base Excess -0.8 -2.5-2.5 MMOL/L Abhi Test YES-POS Blood Gas Ventilator Setting NO Blood Gas Inspired Oxygen 50% Diagnosis/Problems Diagnosis/Problems (1) Persistent atrial fibrillation Assessment & Plan: She has had atrial fibrillation for well over a month. She has been on oral anticoagulation for well over a month. I suspect the tachycardia may be related to her acute COVID infection. I started her on flecainide 100 mg twice daily on 09/01 and increase this to 150 mg twice daily on 09/02 and as of 09/03, she has converted back to sinus rhythm. She should continue on apixaban for stroke prophylaxis and metoprolol for rate control. (2) Primary hypertension Assessment & Plan: Blood pressures had been intermittently elevated. I increased her dose of metoprolol succinate to 100 mg twice daily on 09/02 and and her blood pressures are improved. (3) Mixed hyperlipidemia Assessment & Plan: Continue ezetimibe and fenofibrate (4) Mitral regurgitation Assessment & Plan: Her previous echocardiogram showed moderate mitral regurgitation. This will need to be followed longitudinally. (5) Acquired hypothyroidism Assessment & Plan: Continue home dose of thyroid medication. (6) Acute on chronic respiratory failure with hypoxemia Assessment & Plan: Most likely multifactorial due to COVID infection with possible superimposed pneumonia and perhaps some pulmonary edema. She received 5 L of IV normal saline which I stopped the first day I saw her. DONNA DEE JR, MD Sep 03, 2022 08:49
[2022-09-03] MEDS: CEFDINIR 300 MG (OMNICEF) CAP PO SCH ×2 (08:58→20:58)
[2022-09-03] MEDS: APIXABAN 5 MG (ELIQUIS) TABLET PO SCH ×2 (08:58→20:58)
[2022-09-03] MEDS: PANTOPRAZOLE 40 MG (PROTONIX) TAB PO SCH ×2 (08:58→20:58)
[2022-09-03] MEDS: FLECAINIDE 100 MG (TAMBOCOR) TAB PO SCH ×2 (08:58→20:58)
[2022-09-03] MEDS: meTOprolol SUCCINATE 100 MG (TOPROL XL) TAB PO SCH ×2 (08:58→20:54)
--- NOTE | 2022-09-03 08:59 | Physical Therapy Progress Note ---
Therapy Progress Note Pt went into respiratory stress early 09/03 and placed on BiPap. Nursing requests no therapy this date. Plan to resume PT 09/04 pending patient progress. BITA KIRBY PT Sep 03, 2022 08:59
[2022-09-03] MEDS: DOCUSATE SODIUM 100 MG (COLACE) CAP PO SCH ×2 (09:01→21:00)
[2022-09-03] MEDS: SENNOSIDES 8.6 MG (SENOKOT) TAB PO SCH ×2 (09:01→21:00)
--- NOTE | 2022-09-03 09:55 | Progress Note ---
AUGUSTIN FORTUNE 09/03/22 0955: Subjective Date Seen by a Provider: Sep 03, 2022 Time Seen by a Provider: 09:35 Subjective/Events-last exam Serena Carrillo is a 66 yo female who was transferred from [facility] for acute respiratory failure secondary to COVID-pneumonia requiring ventilation. She was extubated on 08/31. The patient had stable vital signs the past several days but at 0630 today alerted nursing stating that she felt short of breath with O2 saturation of 80% at the time. Nursing noted the skin of her neck and upper chest to be purple- blue in color. O2 saturation dropped to 60-70% by the time nurses gowned and entered the room. The patient was switched from nasal cannula to oxygen mask to Vapotherm with no improvement to her symptoms or O2; she was ultimately put on BiPAP with 100% FiO2 with resultant O2 saturation of 100%. eICU was contacted, and Dr. Jones ordered Lasix and CXR. ABG and EKG were also obtained. ABG reveal ed pH 7.34, pCO2 45, pO2 239; EKG showed the patient with spontaneous cardioversion and NSR with rate of 91. On my evaluation today, the patient had BiPAP settings of 18/10 and 50% FiO2 with 97% O2 saturation. The patient reports her symptoms of SOB and chest tightness this morning were very similar to the symptoms she had on her initial presentation to [facility] prior to her transfer, but her SOB feels much improved on BiPAP; her chest tightness has persisted since this morning. She denies any other concerns, and she denies any pain. The patient's labs today are significant for WBC 23.9, HGB 18.7, HCT 57, PLT 493, BUN 33. Diltiazem drip was discontinued overnight per Dr. Rodriguez of cardiology. Review of Systems General: No Chills HEENT: No Head Aches Pulmonary: Dyspnea, Cough Cardiovascular: Other (chest tightness) Gastrointestinal: No: Abdominal Pain Objective Exam Last Set of Vital Signs Vital Signs Date Time Temp Pulse Resp B/P (MAP) Pulse Ox O2 Delivery O2 Flow Rate FiO2 09/03/22 09:02 95 NIV Bilevel 50.00 09/03/22 09:00 60 134/81 (98) 09/03/22 08:00 36.0 09/03/22 07:05 32 08/31/22 13:29 30 Capillary Refill : I&O Intake and Output0 09/03/22 00:00 Intake Total 2390 ml Output Total 2825 ml Balance -435 ml Intake Oral 2340 ml IV Total 50 ml Output Urine Total 2825 ml # Bowel Movements 2 General: Alert, Oriented X3, Cooperative, Moderate Distress HEENT: Atraumatic Lungs: Other (Left-sdied end expiratory wheezing and crackles) Heart: Regular Rate, Normal S1, Normal S2 Extremities: Other (Bilateral trace pedal edema) Neuro: Normal Speech Psych/Mental Status: Mental Status NL Results Lab Laboratory Tests 09/03/22 03:50: White Blood Count 23.9H, Red Blood Count 6.84H, Hemoglobin 18.6H, Hematocrit 57H , Mean Corpuscular Volume 84, Mean Corpuscular Hemoglobin 27, Mean Corpuscular Hemoglobin Concent 33, Red Cell Distribution Width 19.4H, Platelet Count 493H, Mean Platelet Volume 11.0, Immature Granulocyte % (Auto) 1, Neutrophils (%) (Auto) 89H, Lymphocytes (%) (Auto) 4L, Monocytes (%) (Auto) 5, Eosinophils (%) (Auto) 0, Basophils (%) (Auto) 0, Neutrophils # (Auto) 21.3H, Lymphocytes # (Auto) 1.0, Monocytes # (Auto) 1.2H, Eosinophils # (Auto) 0.0, Basophils # (Auto) 0.1, Immature Granulocyte # (Auto) 0.3H, Sodium Level 136, Potassium Level 4.7, Chloride Level 103, Carbon Dioxide Level 23, Anion Gap 10, Blood Urea Nitrogen 33H, Creatinine 0.86, Estimat Glomerular Filtration Rate 74, BUN/Creatinine Ratio 38, Glucose Level 86, Calcium Level 8.8, Corrected Calcium 9.1, Phosphorus Level 3.6, Magnesium Level 1.9, Total Bilirubin 0.8, Aspartate Amino Transf (AST/SGOT) 43H, Alanine Aminotransferase (ALT/SGPT) 92H, Alkaline Phosphatase 77, Total Protein 6.1L, Albumin 3.6 09/03/22 07:10: Blood Gas Puncture Site RT RADIAL, Blood Gas Patient Temperature 36.4, Arterial Blood pH 7.34*L, Arterial Blood Partial Pressure CO2 45, Arterial Blood Partial Pressure O2 239H, Arterial Blood HCO3 24, Arterial Blood Total CO2 25.7, Arterial Blood Oxygen Saturation 100, Arterial Blood Base Excess -0.8, Abhi Test YES-POS, Blood Gas Ventilator Setting NO, Blood Gas Inspired Oxygen 50% Microbiology 08/29/22 MRSA Screen - Final, Complete MRSA not isolated 08/29/22 Urine Culture - Final, Complete NO GROWTH 08/29/22 Blood Culture - Preliminary, Resulted No growth Radiology Date of Exam:09/03/22 CHEST 1 VIEW, AP/PA ONLY COMPARISON: 08/31/2022 IMPRESSION: Stable bilateral infiltrates with no pneumothorax or pleural fluid. Status post extubation. Date of Exam:09/03/22 CHEST 1 VIEW, AP/PA ONLY COMPARISON: Chest x-ray dated 09/03/2022 at 0500 hours. Findings and impression: 1: There are patchy areas of consolidation involving both lungs which is not significantly changed. There is progression of mild groundglass opacification involving the left upper lung field. 2: There is no pneumothorax or pleural effusion. 3: Pulmonary vasculature and cardiac silhouette are within normal limits. 4: Right IJ central line seen in stable position. 5: The remainder of this exam shows no significant interval change compared to the prior study of comparison. Assessment/Plan Assessment/Plan Assess & Plan/Chief Complaint 1. Acute respiratory failure requiring intubation: Successful extubation 08/31. Acute exacerbation on 09/03, symptoms and VS stable on BiPAP. Continue BiPAP and continue titrating down. Continue monitoring symptoms and vitals. 2. COVID-pneumonia: Continue cefepime, azithromycin. Continue monitor respiratory symptoms and O2 status. 3. Suspected JONNIE: Continue home meds. Consider sleep study outpatient. 4. COPD: Continue nebulizer treatment. Monitor O2 status. 5. Chronic polycythemia due to presumed hypoxemia: Continue hydration and respiratory support. Recheck CBC in 24 hours. 6. Paroxysmal atrial fibrillation on oral anticoagulants: Resolved spontaneously 09/03. Continue monitoring heart rate/rhythm. 7. Obesity 8. Polycythemia: Obtain Garrett-2 mutation test to rule out polycythemia vera. Recheck CBC. KAREN TREJO DO 09/04/22 0450: Subjective Subjective/Events-last exam Still on biPAP after episode of hypoxia JAK2 will be added to labs Review of Systems Pulmonary: Dyspnea, Cough Objective Exam General: Alert, Oriented X3, Cooperative, No Acute Distress Lungs: Clear to Auscultation, Normal Air Movement Heart: Regular Rate, Normal S1, Normal S2, No Murmurs Psych/Mental Status: Mental Status NL, Mood NL Assessment/Plan Assessment/Plan Assess & Plan/Chief Complaint Supportive care BiPAP Supervisory-Addendum Brief Verification & Attestation Participated in pt care: history, MDM, physical Personally performed: exam, history, MDM, supervision of care Care discussed with: Medical Student Procedures: n/a Results interpretation: Verified all documentation Verification and Attestation of Medical Student E/M Service A medical student performed and documented this service in my presence. I reviewed and verified all information documented by the medical student and made modifications to such information, when appropriate. I personally performed the physical exam and medical decision making. Karen Trejo Sep 04, 2022,04:49 AUGUSTIN FORTUNE Sep 03, 2022 09:55 KAREN TREJO DO Sep 04, 2022 04:50
[2022-09-03 10:17] VITALS: BP 118/79
[2022-09-03] MEDS: dilTIAZem DRIP PRE-MIX 125 ML IV SCH (10:29)
--- NOTE | 2022-09-03 10:51 | Occupational Ther Daily Note ---
OT Current Status-Daily Note Subjective Pt on Vapotherm 30L/60. Nrsg okayed to work with pt at bed level. Mental Status/Objective Patient Orientation: Person, Place, Time, Situation Attachments: Mejia Catheter, IV, Oxygen, Telemetry ADL-Treatment Pt declined to complete any ADLs or exercises, pt stated it was due to RT wearing pt out. Pt was able to open containers without difficulty to drink. N rsg okayed for pt to eat meal, NPO order still in for dietary, reported this to nrsg. Pt able to complete own bed mobility to make self comfortable. After session, pt lying in bed with call light/phone in reach. All needs met in room. Therapy Code Descriptions/Definitions Functional [place] Measure: 0=Not Assessed/NA 4=Minimal Assistance 1=Total Assistance 5=Supervision or Setup 2=Maximal Assistance 6=Modified [place] 3=Moderate Assistance 7=Complete IndependenceSCALE: Activities may be completed with or without assistive devices. 8-Scabeocmgw-livzwua completes the activity by him/herself with no assistance from a helper. 5-Set-up or Clean-up Assistance-helper sets up or cleans up; patient completes activity. [place] assists only prior to or following the activity. 4-Supervision or Touching Assistance-helper provides verbal cues and/or touching/steadying and/or contact guard assistance as patient completes activity. Assistance may be provided throughout the activity or intermittently. 3-Partial/Moderate Assistance-helper does LESS THAN HALF the effort. [place] lifts, holds or supports trunk or limbs, but provides less than half the effort. 2-Substantial/Maximal Assistance-helper does MORE THAN HALF the effort. [place] lifts or holds trunk or limbs and provides more than half the effort. 0-Jmortcscs-jktbsu does ALL the effort. Patient does none of the effort to complete the activity. Or, the assistance of 2 or more helpers is required for the patient to complete the activity. If activity was not attempted, code reason: 7-Patient Refused. 9-Not Applicable-not attempted and the patient did not perform the activity before the current illness, exacerbation or injury. 10-Not Attempted due to Environmental Limitations-(lack of equipment, weather restraints, etc.). 88-Not Attempted due to Medical Conditions or Safety Concerns. OT Custodial Goals Custodial Goals Time Frame: Sep 08, 2022 Oral Hygiene (QC): 5 Toileting Hygiene (QC): 6 Upper Body Dressing (QC): 5 Lower Body Dressing (QC): 5 On/Off Footwear (QC): 5 Additional Goals: 1-Demonstrate ADL Tasks, 2-Verbalize Understanding, 3-ImproveStrength/Abdulaziz 1=Demonstrate adherence to instructed precautions during ADL tasks. 2=Patient will verbalize/demonstrate understanding of assistive devices/modifications for ADL. 3=Patient will improve strength/tolerance for activity to enable patient to perform ADL's. OT Education/Plan Problem List/Assessment Assessment: Decreased Activ Tolerance Discharge Recommendations Plan/Recommendations: Continue POC Treatment Plan/Plan of Care Patient would benefit from OT for education, treatment and training to promote independence in ADL's, mobility, safety and/or upper extremity function for ADL's. Plan of Care: ADL Retraining, Functional Mobility, UE Funct Exercise/Act Treatment Duration: Sep 08, 2022 Frequency: 3 times per week (3-5x/week ) Estimated Hrs Per Day: .25 hour per day Rehab Potential: Good Time Start Time: 10:25 Stop Time: 10:42 DATE: Sep 03, 2022 Total Time Billed (hr/min): 14 Billed Treatment Time 1 visit-FA 1 (14 min) KAYLYNN GARDINER Sep 03, 2022 10:51
[2022-09-03] MEDS: eZETimibe 10 MG (ZETIA) TABLET PO SCH (20:56)
[2022-09-03] MEDS: FENOFIBRATE 134 MG (LOFIBRA) CAPSULE PO SCH (20:58)
[2022-09-03 22:03] VITALS: BP 127/73
[2022-09-04 03:09] VITALS: BP 115/54
[2022-09-04] MEDS: RT-ALBUTEROL HFA 8.5 GM INHALER IH SCH ×4 (03:09→18:54)
[2022-09-04 03:39] LABS: BASOPHILS # (AUTO) 0.1 10^3/uL (0.0-0.1); BASOPHILS % (AUTO) 0 % (0-10); EOSINOPHILS # (AUTO) 0.3 10^3/uL (0.0-0.3); EOSINOPHILS % (AUTO) 1 % (0-10); HEMATOCRIT 56 % (35-52); HEMOGLOBIN 18.4 g/dL (11.5-16.0); LYMPHOCYTES # (AUTO) 1.7 10^3/uL (1.0-4.0); LYMPHOCYTES % (AUTO) 7 % (12-44); MEAN CORPUSCULAR HEMOGLOBIN 27 pg (25-34); MEAN CORPUSCULAR HGB CONC 33 g/dL (32-36); MEAN CORPUSCULAR VOLUME 84 fL (80-99); MEAN PLATELET VOLUME 11.1 fL (9.0-12.2); MONOCYTES # (AUTO) 1.3 10^3/uL (0.0-1.0); MONOCYTES % (AUTO) 5 % (0-12); NEUTROPHILS # (AUTO) 20.1 10^3/uL (1.8-7.8); NEUTROPHILS % (AUTO) 85 % (42-75); PLATELET COUNT 489 10^3/uL (130-400); WHITE BLOOD COUNT 23.7 10^3/uL (4.3-11.0)
[2022-09-04 03:46] LABS: ALBUMIN 3.3 GM/DL (3.2-4.5); POTASSIUM 4.5 MMOL/L (3.6-5.0)
[2022-09-04 03:47] LABS: CALCIUM 8.5 MG/DL (8.5-10.1)
[2022-09-04 03:49] LABS: TOTAL PROTEIN 5.6 GM/DL (6.4-8.2)
[2022-09-04 03:50] LABS: BILIRUBIN,TOTAL 0.9 MG/DL (0.1-1.0)
[2022-09-04 03:52] LABS: CREATININE SERUM 1.07 MG/DL (0.60-1.30); PHOSPHORUS 4.2 MG/DL (2.3-4.7)
[2022-09-04 03:55] LABS: MAGNESIUM 1.9 MG/DL (1.6-2.4)
[2022-09-04 04:36] LABS: BAND NEUTROPHILS 2 %; BASOPHILS % (MANUAL) 0 %; EOSINOPHILS % (MANUAL) 0 %; LYMPHOCYTES % (MANUAL) 6 %; MONOCYTES % (MANUAL) 2 %; NEUTROPHILS % (MANUAL) 88 %
[2022-09-04 04:37] LABS: ANISOCYTOSIS SLIGHT; POLYCHROMASIA SLIGHT; REACTIVE LYMPHOCYTES 2 %; TOXIC GRANULATION/VACUOLAZATIO 1+
[2022-09-04] MEDS: POTASSIUM CL 10MEQ/50ML IVPB 50 ML IV SCH (05:19)
[2022-09-04] MEDS: MAGNESIUM 1 GM/100 ML IVPB 100 ML IV SCH (05:20)
[2022-09-04] MEDS: KCL 20 MEQ TAB (K-DUR) PO SCH (05:20)
[2022-09-04] MEDS: LEVOTHYROXINE 50 MCG (LEVOTHROID) TAB PO SCH (05:59)
[2022-09-04] MEDS: dexAMETHasone 6 MG TAB (DECADRON) PO SCH (06:00)
[2022-09-04] MEDS: FLECAINIDE 100 MG (TAMBOCOR) TAB PO SCH ×2 (08:16→21:54)
[2022-09-04] MEDS: CEFDINIR 300 MG (OMNICEF) CAP PO SCH ×2 (08:16→21:53)
[2022-09-04] MEDS: PANTOPRAZOLE 40 MG (PROTONIX) TAB PO SCH ×2 (08:17→21:54)
[2022-09-04] MEDS: meTOprolol SUCCINATE 100 MG (TOPROL XL) TAB PO SCH ×2 (08:17→21:55)
[2022-09-04] MEDS: APIXABAN 5 MG (ELIQUIS) TABLET PO SCH ×2 (08:17→21:54)
[2022-09-04] MEDS: DOCUSATE SODIUM 100 MG (COLACE) CAP PO SCH ×2 (08:19→21:53)
[2022-09-04] MEDS: SENNOSIDES 8.6 MG (SENOKOT) TAB PO SCH ×2 (08:19→21:53)
--- NOTE | 2022-09-04 08:45 | Tele-ICU Progress Note ---
Subjective Date Seen by a Provider: Sep 04, 2022 Time Seen by a Provider: 08:40 Subjective/Events-last exam Admitted with acute on chronic hypoxic resp failure, now on vapotherm 30 with FiO2 60% with SpO2 in low to mid 90's COVID PNA, CXR from 09/03 shows significant infiltrates bilaterally R > L, Was on Decadron 6 mg now stopped also on Cefdinir A fib with RVR, rate was controlled with IV Cardizem, went back to sinus since this am, Now HR in 30's metoprolol which is now on hold, also on Eliquis Sepsis Event Evaluation Height, Weight, BMI Height: '" Weight: lbs. oz. kg; 35.15 BMI Method: Exam Exam Patient acknowledged, consented, and participated in this virtual visit which was conducted using real time audio/video Vital Signs Date Time Temp Pulse Resp B/P (MAP) Pulse Ox O2 Delivery O2 Flow Rate FiO2 09/04/22 07:47 35.9 09/04/22 06:15 NIV Bilevel 30.00 09/04/22 06:00 70 26 140/96 (111) 92 Vapotherm 30.00 70.00 09/04/22 05:25 Vapotherm 30.00 70.00 09/04/22 05:20 93 Vapotherm 30.00 70 09/04/22 05:00 56 15 130/79 (96) 93 NIV Bilevel 30.00 09/04/22 04:00 55 15 131/76 (94) 92 NIV Bilevel 30.00 09/04/22 03:53 36.8 09/04/22 03:41 94 NIV Bilevel 30 09/04/22 03:09 54 18 94 30.00 09/04/22 03:00 57 16 115/74 (88) 92 NIV Bilevel 30.00 09/04/22 02:00 44 12 113/64 (80) 93 NIV Bilevel 30.00 09/04/22 01:00 54 20 111/68 (82) 93 NIV Bilevel 30.00 09/04/22 00:43 48 09/04/22 00:00 44 13 105/61 (76) 94 NIV Bilevel 30.00 09/04/22 00:00 36.6 09/03/22 23:59 90 NIV Bilevel 30 09/03/22 23:00 46 19 101/57 (72) 94 NIV Bilevel 30.00 09/03/22 22:07 NIV Bilevel 30.00 09/03/22 22:03 54 90 30.00 09/03/22 22:00 57 20 127/73 (91) 86 Vapotherm 30.00 60.00 09/03/22 21:00 66 18 144/86 (105) 93 Vapotherm 30.00 60.00 09/03/22 20:11 36.5 Vapotherm 30.00 60.00 09/03/22 20:00 69 25 137/79 (98) 96 Vapotherm 30.00 60.00 09/03/22 20:00 93 Vapotherm 60 09/03/22 19:00 77 56 190/87 (121) 87 Vapotherm 30.00 60.00 09/03/22 19:00 77 09/03/22 18:00 66 22 132/103 (113) 93 NIV Bilevel 30.00 09/03/22 17:00 64 19 156/108 (124) 93 NIV Bilevel 30.00 09/03/22 16:38 36.2 09/03/22 16:00 64 22 140/97 (111) 93 NIV Bilevel 30.00 09/03/22 16:00 92 Vapotherm 30.00 100 09/03/22 15:00 66 14 150/84 (106) 93 NIV Bilevel 30.00 09/03/22 14:59 93 Vapotherm 30.00 60 09/03/22 14:00 72 25 148/99 (115) 90 NIV Bilevel 30.00 09/03/22 13:00 64 23 118/83 (95) 92 NIV Bilevel 30.00 09/03/22 12:44 65 09/03/22 12:00 93 Vapotherm 30.00 100 09/03/22 12:00 62 20 103/74 (84) 92 NIV Bilevel 30.00 09/03/22 11:00 59 21 111/66 (81) 93 NIV Bilevel 30.00 09/03/22 10:20 93 Vapotherm 30.00 60 09/03/22 10:17 52 20 94 30.00 09/03/22 10:00 55 22 118/79 (92) 93 NIV Bilevel 30.00 09/03/22 09:54 96 NIV Bilevel 30.00 09/03/22 09:45 96 NIV Bilevel 40.00 09/03/22 09:02 95 NIV Bilevel 50.00 09/03/22 09:00 60 134/81 (98) 96 NIV Bilevel 60.00 09/03/22 08:57 NIV Bilevel 60.00 I & O 09/04/22 06:59 Intake Total 1120 ml Output Total 1850 ml Balance -730 ml Height & Weight Height: '" Weight: lbs. oz. kg; 35.15 BMI Method: General Appearance: Other (sedated) Respiratory: Decreased Breath Sounds, Rhonci Cardiovascular: Regular Rate, Rhythm, Bradycardia, Irregularly Irregular Gastrointestinal: normal bowel sounds, non tender, soft Extremity: No Pedal Edema Results Lab Laboratory Tests 09/03/22 03:50 09/04/22 03:29 Assessment/Plan Assessment/Plan would leave in MICU due to extensive infiltrates continue on abx, off decadron monitor oxygen delivery and saturation A fib, now sinus sharmila will continue Eliquis Critical Care: Critically Ill Patient Time spent with patient (mins): 20 RICKY CONTRERAS MD Sep 04, 2022 08:45
[2022-09-04] MEDS: dilTIAZem DRIP PRE-MIX 125 ML IV SCH (09:01)
--- NOTE | 2022-09-04 10:23 | Cardiology Progress Note ---
Progress Note-Cardiology Events since last exam Date Seen by Provider: Sep 04, 2022 Time Seen by Provider: 10:22 Events since last exam I am following her due to atrial fibrillation. She remains in the intensive care unit on Vapotherm. She was on BiPAP overnight. She states her breathing feels better but not back to her baseline. She denies chest discomfort, palpitations, syncope, or ankle edema. Certain portions of this document may have been dictated utilizing voice recognition technology. Inherent to this technology, typographical and grammatical errors may exist. As much as I am diligent to identify and correct these mistakes, some errors may remain in the document. Vitals Last set of Vitals Signs Vital Signs 09/04/22 09/04/22 09/04/22 07:47 09:00 10:00 Temp 35.9 Pulse 58 Resp 13 B/P (MAP) 112/84 (93) Pulse Ox 93 O2 Delivery Vapotherm O2 Flow Rate 30.00 FiO2 65 Labs Labs Laboratory Tests 09/04/22 03:29 Exam Vital Signs Vital Signs Date Time Temp Pulse Resp B/P (MAP) Pulse Ox O2 Delivery O2 Flow Rate FiO2 09/04/22 10:00 93 Vapotherm 30.00 65 09/04/22 09:00 58 13 112/84 (93) 09/04/22 07:47 35.9 Physical Exam Due to the patient's COVID status, I spoke with the patient from the doorway. She was sitting up in bed on nasal cannula Vapotherm. She was conversing easily without appearing short of breath. General: The patient is breathing spontaneously. HENT: Normocephalic. Atraumatic. Skin: There is no pallor. Neurologic: Oriented x3. Cranial nerves III through XII grossly intact. Moving all 4 extremities. Psychiatric: Appears cooperative. Labs Laboratory Tests Test 09/04/22 03:29 Range/Units White Blood Count 23.7 H 4.3-11.0 10^3/uL Red Blood Count 6.75 H 3.80-5.11 10^6/uL Hemoglobin 18.4 H 11.5-16.0 g/dL Hematocrit 56 H 35-52 % Mean Corpuscular Volume 84 80-99 fL Mean Corpuscular Hemoglobin 27 25-34 pg Mean Corpuscular Hemoglobin Concent 33 32-36 g/dL Red Cell Distribution Width 19.0 H 10.0-14.5 % Platelet Count 489 H 130-400 10^3/uL Mean Platelet Volume 11.1 9.0-12.2 fL Immature Granulocyte % (Auto) 1 % Neutrophils (%) (Auto) 85 H 42-75 % Lymphocytes (%) (Auto) 7 L 12-44 % Monocytes (%) (Auto) 5 0-12 % Eosinophils (%) (Auto) 1 0-10 % Basophils (%) (Auto) 0 0-10 % Neutrophils # (Auto) 20.1 H 1.8-7.8 10^3/uL Lymphocytes # (Auto) 1.7 1.0-4.0 10^3/uL Monocytes # (Auto) 1.3 H 0.0-1.0 10^3/uL Eosinophils # (Auto) 0.3 0.0-0.3 10^3/uL Basophils # (Auto) 0.1 0.0-0.1 10^3/uL Immature Granulocyte # (Auto) 0.3 H 0.0-0.1 10^3/uL Neutrophils % (Manual) 88 % Lymphocytes % (Manual) 6 % Monocytes % (Manual) 2 % Eosinophils % (Manual) 0 % Basophils % (Manual) 0 % Band Neutrophils 2 % Reactive Lymphocytes 2 % Toxic Granulation 1+ Polychromasia SLIGHT Anisocytosis SLIGHT Sodium Level 135 135-145 MMOL/L Potassium Level 4.5 3.6-5.0 MMOL/L Chloride Level 100 98-107 MMOL/L Carbon Dioxide Level 25 21-32 MMOL/L Anion Gap 10 5-14 MMOL/L Blood Urea Nitrogen 44 H 7-18 MG/DL Creatinine 1.07 0.60-1.30 MG/DL Estimat Glomerular Filtration Rate 57 BUN/Creatinine Ratio 41 Glucose Level 81 70-105 MG/DL Calcium Level 8.5 8.5-10.1 MG/DL Corrected Calcium 9.1 8.5-10.1 MG/DL Phosphorus Level 4.2 2.3-4.7 MG/DL Magnesium Level 1.9 1.6-2.4 MG/DL Total Bilirubin 0.9 0.1-1.0 MG/DL Aspartate Amino Transf (AST/SGOT) 45 H 5-34 U/L Alanine Aminotransferase (ALT/SGPT) 103 H 0-55 U/L Alkaline Phosphatase 67 40-136 U/L Total Protein 5.6 L 6.4-8.2 GM/DL Albumin 3.3 3.2-4.5 GM/DL Diagnosis/Problems Diagnosis/Problems (1) Persistent atrial fibrillation Assessment & Plan: She has had atrial fibrillation for well over a month prior to admission. She has been on oral anticoagulation for well over a month. I suspect the tachycardia may be related to her acute COVID infection. I started her on flecainide 100 mg twice daily on 09/01 and increased this to 150 mg twice daily on 09/02 and as of 09/03, she has converted back to sinus rhythm. She should continue on apixaban for stroke prophylaxis and metoprolol for rate control. (2) Primary hypertension Assessment & Plan: Blood pressures had been intermittently elevated. I increased her dose of metoprolol succinate to 100 mg twice daily on 09/02 and and her blood pressures are improved. (3) Mixed hyperlipidemia Assessment & Plan: Continue ezetimibe and fenofibrate (4) Mitral regurgitation Assessment & Plan: Her previous echocardiogram showed moderate mitral regurg itation. This will need to be followed longitudinally. (5) Acquired hypothyroidism Assessment & Plan: Continue home dose of thyroid medication. (6) Acute on chronic respiratory failure with hypoxemia Assessment & Plan: Most likely multifactorial due to COVID infection with possible superimposed pneumonia and perhaps some pulmonary edema. She received 5 L of IV normal saline which I stopped the first day I saw her. DONNA DEE JR, MD Sep 04, 2022 10:23
--- NOTE | 2022-09-04 10:28 | Physical Therapy Progress Note ---
Therapy Progress Note Patient declined PT on this date stating, "I want to work on breathing today. I don't want to do too much." PT educated patient on importance of OOB activity to increase strength and to improve pulmonary function, however, patient declined. Patient also declined bed exercises. Will attempt tomorrow a.m. 1 ref ANDREW HERR PT Sep 04, 2022 10:28
[2022-09-04] MEDS: NOREPINEPHRINE 8 MG/250 ML 250 ML IV SCH (10:47)
--- NOTE | 2022-09-04 11:08 | Occ Therapy Progress Note ---
Therapy Progress Note Pt declined OT on this date stating, "I want to work on breathing today. I don't want to be short of breath." Pt educated on importance of OOB activity to increase strength and to improve pulmonary function, however, patient declined. Will attempt tomorrow a.m. 1 ref KAYLYNN GARDINER Sep 04, 2022 11:08
--- NOTE | 2022-09-04 11:20 | Progress Note ---
AUGUSTIN FORTUNE 09/04/22 1120: Subjective Date Seen by a Provider: Sep 04, 2022 Time Seen by a Provider: 10:05 Subjective/Events-last exam Serena Carrillo is a 66 yo female who was admitted to the ICU for acute respiratory failure requiring mechanical ventilation. She was successfully extubated on 08/31. The patient reports she feels her SOB has been gradually improving but not resolved since her acute respiratory distress yesterday. She still requires BiPAP intermittently but is on Vapotherm on evaluation. The patient indicates she has no new pains or other concerns. The patient's vital signs are significant for labile respiratory rate, otherwise stable. Labs are remarkable for WBC 23.7, HGB 18.4, PLT 489, BUN 44. Patient's heart rhythm remains in NSR with HR of 70 at this time. Review of Systems General: No Chills HEENT: No Head Aches Pulmonary: Dyspnea, Cough Cardiovascular: No: Chest Pain Gastrointestinal: No: Abdominal Pain Genitourinary: No Dysuria Objective Exam Last Set of Vital Signs Vital Signs Date Time Temp Pulse Resp B/P (MAP) Pulse Ox O2 Delivery O2 Flow Rate FiO2 09/04/22 10:00 93 Vapotherm 30.00 65 09/04/22 09:00 58 13 112/84 (93) 09/04/22 07:47 35.9 Capillary Refill : I&O Intake and Output 09/04/22 00:00 Intake Total 1120 ml Output Total 2650 ml Balance -1530 ml Intake Oral 1120 ml Output Urine Total 2650 ml General: Alert, Oriented X3, Cooperative, Mild Distress HEENT: Atraumatic Lungs: Other (Left-sided end-expiratory wheezes and crackles) Heart: Regular Rate, Normal S1, Normal S2, No Murmurs Extremities: Normal Pulses, Other (Trace pedal edema bilaterally) Skin: No Rashes Results Lab Laboratory Tests 09/04/22 03:29: White Blood Count 23.7H, Red Blood Count 6.75H, Hemoglobin 18.4H, Hematocrit 56H , Mean Corpuscular Volume 84, Mean Corpuscular Hemoglobin 27, Mean Corpuscular H emoglobin Concent 33, Red Cell Distribution Width 19.0H, Platelet Count 489H, Mean Platelet Volume 11.1, Immature Granulocyte % (Auto) 1, Neutrophils (%) (Auto) 85H, Lymphocytes (%) (Auto) 7L, Monocytes (%) (Auto) 5, Eosinophils (%) (Auto) 1, Basophils (%) (Auto) 0, Neutrophils # (Auto) 20.1H, Lymphocytes # (Auto) 1.7, Monocytes # (Auto) 1.3H, Eosinophils # (Auto) 0.3, Basophils # (A uto) 0.1, Immature Granulocyte # (Auto) 0.3H, Neutrophils % (Manual) 88, Lymphocytes % (Manual) 6, Monocytes % (Manual) 2, Eosinophils % (Manual) 0, Basophils % (Manual) 0, Band Neutrophils 2, Reactive Lymphocytes 2, Toxic Granulation 1+, Polychromasia SLIGHT, Anisocytosis SLIGHT, Sodium Level 135, Potassium Level 4.5, Chloride Level 100, Carbon Dioxide Level 25, Anion Gap 10, Blood Urea Nitrogen 44H, Creatinine 1.07, Estimat Glomerular Filtration Rate 57, BUN/Creatinine Ratio 41, Glucose Level 81, Calcium Level 8.5, Corrected Calcium 9.1, Phosphorus Level 4.2, Magnesium Level 1.9, Total Bilirubin 0.9, Aspartate Amino Transf (AST/SGOT) 45H, Alanine Aminotransferase (ALT/SGPT) 103H, Alkaline Phosphatase 67, Total Protein 5.6L, Albumin 3.3 Microbiology 08/29/22 MRSA Screen - Final, Complete MRSA not isolated 08/29/22 Urine Culture - Final, Complete NO GROWTH 08/29/22 Blood Culture - Preliminary, Resulted No growth Assessment/Plan Assessment/Plan Assess & Plan/Chief Complaint 1. Acute respiratory failure requiring intubation: Successful extubation 08/31. Acute exacerbation on 09/03, symptoms and VS stable on BiPAP. Continue using BiPAP as needed and continue titrating down with Vapotherm trials. Continue monitoring symptoms and vitals. 2. COVID-pneumonia: Continue cefepime, azithromycin. Continue monitor respiratory symptoms and O2 status. 3. Suspected JONNIE: Continue home meds. Consider sleep study outpatient. 4. COPD: Continue nebulizer treatment. Monitor O2 status. 5. Chronic polycythemia due to presumed hypoxemia: Continue hydration and respiratory support. Recheck CBC in 24 hours. 6. Paroxysmal atrial fibrillation on oral anticoagulants: Resolved spontaneously 09/03. Continue monitoring heart rate/rhythm. 7. Obesity 8. Polycythemia: Pending Garrett-2 mutation test to rule out polycythemia vera. Recheck CBC. KAREN TREJO DO 09/05/22 0441: Supervisory-Addendum Brief Verification & Attestation Participated in pt care: history, MDM, physical Personally performed: exam, history, MDM, supervision of care Care discussed with: Medical Student Procedures: n/a Results interpretation: Verified all documentation Verification and Attestation of Medical Student E/M Service A medical student performed and documented this service in my presence. I reviewed and verified all information documented by the medical student and made modifications to such information, when appropriate. I personally performed the physical exam and medical decision making. Karen Trejo, Sep 05, 2022,04:41 AUGUSTIN FORTUNE Sep 04, 2022 11:20 KAREN TREJO DO Sep 05, 2022 04:41
[2022-09-04] MEDS: eZETimibe 10 MG (ZETIA) TABLET PO SCH (21:53)
[2022-09-04] MEDS: FENOFIBRATE 134 MG (LOFIBRA) CAPSULE PO SCH (21:54)
[2022-09-04 22:25] VITALS: BP 147/85
[2022-09-05 02:31] VITALS: BP 122/14
[2022-09-05] MEDS: RT-ALBUTEROL HFA 8.5 GM INHALER IH SCH ×4 (02:31→22:01)
[2022-09-05] MEDS: NOREPINEPHRINE 8 MG/250 ML 250 ML IV SCH ×2 (03:00→20:18)
[2022-09-05 05:20] LABS: BASOPHILS # (AUTO) 0.1 10^3/uL (0.0-0.1); BASOPHILS % (AUTO) 0 % (0-10); EOSINOPHILS # (AUTO) 0.5 10^3/uL (0.0-0.3); EOSINOPHILS % (AUTO) 2 % (0-10); HEMATOCRIT 54 % (35-52); HEMOGLOBIN 17.8 g/dL (11.5-16.0); LYMPHOCYTES # (AUTO) 1.9 10^3/uL (1.0-4.0); LYMPHOCYTES % (AUTO) 9 % (12-44); MEAN CORPUSCULAR HEMOGLOBIN 27 pg (25-34); MEAN CORPUSCULAR HGB CONC 33 g/dL (32-36); MEAN CORPUSCULAR VOLUME 84 fL (80-99); MEAN PLATELET VOLUME 11.2 fL (9.0-12.2); MONOCYTES # (AUTO) 1.5 10^3/uL (0.0-1.0); MONOCYTES % (AUTO) 7 % (0-12); NEUTROPHILS % (AUTO) 80 % (42-75); PLATELET COUNT 390 10^3/uL (130-400); WHITE BLOOD COUNT 22.4 10^3/uL (4.3-11.0)
[2022-09-05 05:33] LABS: ALBUMIN 3.2 GM/DL (3.2-4.5); CALCIUM 8.5 MG/DL (8.5-10.1); CREATININE SERUM 0.99 MG/DL (0.60-1.30); MAGNESIUM 1.8 MG/DL (1.6-2.4); POTASSIUM 4.3 MMOL/L (3.6-5.0); TOTAL PROTEIN 5.4 GM/DL (6.4-8.2)
[2022-09-05] MEDS: POTASSIUM CL 10MEQ/50ML IVPB 50 ML IV SCH (05:56)
[2022-09-05] MEDS: MAGNESIUM 1 GM/100 ML IVPB 100 ML IV SCH (05:56)
[2022-09-05] MEDS: KCL 20 MEQ TAB (K-DUR) PO SCH (05:57)
[2022-09-05] MEDS: dexAMETHasone 6 MG TAB (DECADRON) PO SCH (06:22)
[2022-09-05] MEDS: LEVOTHYROXINE 50 MCG (LEVOTHROID) TAB PO SCH (06:22)
[2022-09-05] MEDS: APIXABAN 5 MG (ELIQUIS) TABLET PO SCH ×2 (08:46→20:08)
[2022-09-05] MEDS: PANTOPRAZOLE 40 MG (PROTONIX) TAB PO SCH ×2 (08:46→20:09)
[2022-09-05] MEDS: meTOprolol SUCCINATE 100 MG (TOPROL XL) TAB PO SCH ×2 (08:46→20:08)
[2022-09-05] MEDS: DOCUSATE SODIUM 100 MG (COLACE) CAP PO SCH ×2 (08:46→20:18)
[2022-09-05] MEDS: CEFDINIR 300 MG (OMNICEF) CAP PO SCH (08:46)
[2022-09-05] MEDS: FLECAINIDE 100 MG (TAMBOCOR) TAB PO SCH ×2 (08:47→20:07)
[2022-09-05] MEDS: SENNOSIDES 8.6 MG (SENOKOT) TAB PO SCH ×2 (09:00→20:18)
--- NOTE | 2022-09-05 09:07 | Tele-ICU Progress Note ---
Subjective Date Seen by a Provider: Sep 05, 2022 Subjective/Events-last exam This virtual visit was conducted using real time audio/video. Thank you for asking us to see this patient for respiratory insufficiency due to Covid pna. has ac on chr resp. fail. also probable JONNIE. Recent events: s/p PAF. PE: VSS. O2 sat 95% on VT 25 LPM/50%. HEENT: No obvious masses, adenopathy or JVD. Chest: clear to auscultation. diminished. CV: RRR S1 S2 No murmur or added sounds. Abd: Non-tender. Bowel sounds Y. : Unremarkable. 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 No obvious focal findings. Extremities: Tr edema. Capillary refill < 3 seconds. Skin: unremarkable. Results: Elevated WCC 22.4, better, HB 17.8, BUN 41. CXR: Hyperinflated, B infilts.. Available chart/ vitals / labs / images reviewed. Video assessment done using teleICU camera, rest of exam as per RN. A/P: Respiratory insufficiency: Continue present management with VT. PRN BiPAP, Alb., Dex. Wean VT as constanza. Monitor for increasing oxygenation needs and/or need for intubation. Critical Care: critically ill patient. Cont. eliq., abx, PPI, Synth., Zetia, metop. Discussed with RN Lana. Asked RN to reach out to eICU if any questions or concerns later. Time spent with patient/coordination of care with other health professionals (mins): 22 Sepsis Event Evaluation Height, Weight, BMI Height: '" Weight: lbs. oz. kg; 34.26 BMI Method: Exam Exam Patient acknowledged, consented, and participated in this virtual visit which was conducted using real time audio/video Vital Signs Date Time Temp Pulse Resp B/P (MAP) Pulse Ox O2 Delivery O2 Flow Rate FiO2 09/05/22 08:00 64 133/75 (94) 95 NIV Bilevel 30.00 09/05/22 07:57 35.9 09/05/22 07:00 63 09/05/22 07:00 58 130/77 (94) 94 NIV Bilevel 30.00 09/05/22 06:52 94 Vapotherm 25.00 50 09/05/22 06:00 53 128/88 (101) 95 NIV Bilevel 30.00 09/05/22 05:00 56 128/71 (90) 93 NIV Bilevel 30.00 09/05/22 04:00 57 125/74 (91) 93 NIV Bilevel 30.00 09/05/22 04:00 95 NIV Bilevel 30 09/05/22 03:00 53 119/90 (100) 94 NIV Bilevel 30.00 09/05/22 02:31 55 23 94 30.00 09/05/22 02:00 56 124/77 (93) 95 NIV Bilevel 30.00 09/05/22 01:00 60 09/05/22 01:00 54 117/74 (88) 94 NIV Bilevel 30.00 09/05/22 00:00 57 117/64 (81) 94 NIV Bilevel 30.00 09/04/22 23:59 95 NIV Bilevel 30 09/04/22 23:00 NIV Bilevel 30.00 09/04/22 23:00 63 98/78 (85) 94 NIV Bilevel 30.00 09/04/22 22:25 69 21 93 30.00 09/04/22 22:00 66 147/85 (105) 95 Vapotherm 30.00 65.00 09/04/22 21:00 66 146/69 (94) 96 Vapotherm 30.00 65.00 09/04/22 20:00 69 135/71 (92) 95 Vapotherm 30.00 65.00 09/04/22 20:00 94 Vapotherm 65 09/04/22 19:37 36.2 09/04/22 19:00 67 164/87 (112) 95 Vapotherm 30.00 65.00 09/04/22 19:00 70 09/04/22 18:55 94 Vapotherm 30.00 65 09/04/22 18:00 67 19 100/73 (82) 94 Vapotherm 30.00 65.00 09/04/22 17:00 62 16 138/70 (92) 96 Vapotherm 30.00 65.00 09/04/22 16:00 63 16 140/74 (96) 94 Vapotherm 30.00 65.00 09/04/22 15:58 95 Vapotherm 65 09/04/22 15:53 95 Vapotherm 30.00 65 09/04/22 15:00 67 16 151/82 (105) 94 Vapotherm 30.00 65.00 09/04/22 14:00 67 32 136/84 (101) 92 Vapotherm 30.00 65.00 09/04/22 13:00 60 19 124/76 (92) 94 Vapotherm 30.00 65.00 09/04/22 12:10 62 09/04/22 12:00 61 17 125/70 (88) 93 Vapotherm 30.00 65.00 09/04/22 11:58 36.0 09/04/22 11:55 93 Vapotherm 65 09/04/22 11:30 Vapotherm 30.00 65.00 09/04/22 11:00 58 26 119/81 (94) 92 Vapotherm 30.00 60.00 09/04/22 10:00 47 19 112/69 (83) 93 Vapotherm 30.00 60.00 09/04/22 10:00 93 Vapotherm 30.00 65 I & O 09/05/22 07:00 Intake Total 1950 ml Output Total 1600 ml Balance 350 ml Height & Weight Height: '" Weight: lbs. oz. kg; 34.26 BMI Method: General Appearance: Other (sedated) Respiratory: Decreased Breath Sounds, Rhonci Cardiovascular: Regular Rate, Rhythm, Bradycardia, Irregularly Irregular Gastrointestinal: normal bowel sounds, non tender, soft Extremity: No Pedal Edema Results Lab Laboratory Tests 09/04/22 03:29 09/05/22 05:00 Assessment/Plan Assessment/Plan See free text. Critical Care: Critically Ill Patient MARY KAY PORTER MD Sep 05, 2022 09:07
--- NOTE | 2022-09-05 10:00 | Physical Therapy Daily Note ---
PT Daily Note-Current Subjective Patient reports she is feeling much better today. AGrees to PT Pain Section J - Health Conditions 1. Rarely or not at all 2. Occasionally 3. Frequently 4. Almost constantly 8. Unable to answer Pain Effect on Sleep: 1 Pain Interference with Therapy: 1 Pain Interference w/Day-to-Day: 1 Mental Status Patient Orientation: Normal For Age Attachments: Oxygen (vapotherm), Mejia Catheter Transfers SCALE: Activities may be completed with or without assistive devices. 6-Knxohjphad-gjbdwto completes the activity by him/herself with no assistance from a helper. 5-Set-up or Clean-up Assistance-helper sets up or cleans up; patient completes activity. [place] assists only prior to or following the activity. 4-Supervision or Touching Assistance-helper provides verbal cues and/or touching/steadying and/or contact guard assistance as patient completes activity. Assistance may be provided throughout the activity or intermittently. 3-Partial/Moderate Assistance-helper does LESS THAN HALF the effort. [place] lifts, holds or supports trunk or limbs, but provides less than half the effort. 2-Substantial/Maximal Assistance-helper does MORE THAN HALF the effort. [place] lifts or holds trunk or limbs and provides more than half the effort. 7-Klzbkurlm-nerdyb does ALL the effort. Patient does none of the effort to complete the activity. Or, the assistance of 2 or more helpers is required for the patient to complete the activity. If activity was not attempted, code reason: 7-Patient Refused. 9-Not Applicable-not attempted and the patient did not perform the activity before the current illness, exacerbation or injury. 10-Not Attempted due to Environmental Limitations-(lack of equipment, weather restraints, etc.). 88-Not Attempted due to Medical Conditions or Safety Concerns. Lying to Sitting/Side of Bed(Q: 6 Sit to Stand (QC): 4 Chair/Jpp-lo-Tbreh Xfer(QC): 4 Weight Bearing Right Lower Extremity: Right Full Weight Bearing Left Lower Extremity: Left Full Weight Bearing Gait Training Distance: 10' (limited by vapotherm tubing) Walk 10 feet (QC): 4 Gait Assistive Device: FWW Exercises Seated Therapy Exercises: Ankle pumps, Long arc quads, Hip flexion Seated Reps: 15 Assessment Patient up in recliner with needs met. PT to continue to increase activity as tolerated by patient. Patient's SAO2 remains >90% with activity. PT Clinical Laboratory Science Professor Goals Chcf Goals PT Chcf Goals Time Frame: Sep 27, 2022 Roll Left & Right (QC): 6 Sit to Lying (QC): 6 Lying-Sitting on Side/Bed(QC): 6 Sit to Stand (QC): 6 Chair/Iov-pg-Pphee Xfer(QC): 6 Toilet Transfer (QC): 6 Car Transfer (QC): 6 Walk 10 feet (QC): 4 Walk 50ft with 2 Turns (QC): 4 Walk 150 ft (QC): 4 1 Step (curb) (QC): 3 4 Steps (QC): 3 PT Plan Treatment/Plan Treatment Plan: Continue Plan of Care Treatment Plan: Bed Mobility, Education, Functional Activity Abdulaziz, Functional Strength, Group Therapy, Gait, Safety, Therapeutic Exercise, Transfers Treatment Duration: Sep 27, 2022 Frequency: 6 times per week Estimated Hrs Per Day: .25 hour per day Patient and/or Family Agrees t: Yes Time Time In: 855 Time Out: 908 DATE: Sep 05, 2022 Total Billed Treatment Time: 13 Total Billed Treatment 1 visit FA 13 min ANDREW HERR PT Sep 05, 2022 10:00
[2022-09-05] MEDS: dilTIAZem DRIP PRE-MIX 125 ML IV SCH (10:04)
--- NOTE | 2022-09-05 10:46 | Occupational Ther Daily Note ---
OT Current Status-Daily Note Subjective Pt alert, sitting in recliner. Pt agrees to therapy. No c/o pain only fatigue. Mental Status/Objective Patient Orientation: Person, Place, Time, Situation Attachments: IV ADL-Treatment Pt agrees to sponge bath for the upper body. After set up, pt able to cleanse upper body by self. Assist to manipulate hospital gown due to tubing and telemetry. Pt able to shampoo hair with cap. After supplies gather, pt able to complete oral care sitting in recliner. Pt in recliner at end of session. Nrsg aware of pt's position. All needs met. Therapy Code Descriptions/Definitions Functional [place] Measure: 0=Not Assessed/NA 4=Minimal Assistance 1=Total Assistance 5=Supervision or Setup 2=Maximal Assistance 6=Modified [place] 3=Moderate Assistance 7=Complete IndependenceSCALE: Activities may be completed with or without assistive devices. 5-Oqtdcpihgm-dpghjke completes the activity by him/herself with no assistance from a helper. 5-Set-up or Clean-up Assistance-helper sets up or cleans up; patient completes activity. [place] assists only prior to or following the activity. 4-Supervision or Touching Assistance-helper provides verbal cues and/or touching/steadying and/or contact guard assistance as patient completes activity. Assistance may be provided throughout the activity or intermittently. 3-Partial/Moderate Assistance-helper does LESS THAN HALF the effort. [place] lifts, holds or supports trunk or limbs, but provides less than half the effort. 2-Substantial/Maximal Assistance-helper does MORE THAN HALF the effort. [place] lifts or holds trunk or limbs and provides more than half the effort. 8-Tafeobcdn-utxvwa does ALL the effort. Patient does none of the effort to complete the activity. Or, the assistance of 2 or more helpers is required for the patient to complete the activity. If activity was not attempted, code reason: 7-Patient Refused. 9-Not Applicable-not attempted and the patient did not perform the activity before the current illness, exacerbation or injury. 10-Not Attempted due to Environmental Limitations-(lack of equipment, weather restraints, etc.). 88-Not Attempted due to Medical Conditions or Safety Concerns. Oral Hygiene (QC): 5 OT Broadcast Producer Goals Broadcast Producer Goals Time Frame: Sep 08, 2022 Oral Hygiene (QC): 5 Toileting Hygiene (QC): 6 Upper Body Dressing (QC): 5 Lower Body Dressing (QC): 5 On/Off Footwear (QC): 5 Additional Goals: 1-Demonstrate ADL Tasks, 2-Verbalize Understanding, 3- ImproveStrength/Abdulaziz 1=Demonstrate adherence to instructed precautions during ADL tasks. 2=Patient will verbalize/demonstrate understanding of assistive dev ices/modifications for ADL. 3=Patient will improve strength/tolerance for activity to enable patient to perform ADL's. OT Education/Plan Problem List/Assessment Assessment: Decreased Activ Tolerance, Impaired Self-Care Skills Discharge Recommendations Plan/Recommendations: Continue POC Treatment Plan/Plan of Care Patient would benefit from OT for education, treatment and training to promote independence in ADL's, mobility, safety and/or upper extremity function for ADL's. Plan of Care: ADL Retraining, Functional Mobility, UE Funct Exercise/Act Treatment Duration: Sep 08, 2022 Frequency: 3 times per week (3-5x/week ) Estimated Hrs Per Day: .25 hour per day Rehab Potential: Good Time Start Time: 10:10 Stop Time: 10:29 DATE: Sep 05, 2022 Total Time Billed (hr/min): 19 Billed Treatment Time 1 visit-ADL 1 (19 min) KAYLYNN GARDINER Sep 05, 2022 10:46
--- NOTE | 2022-09-05 10:56 | Physician Query Clarification ---
Physician Query-General Query to Physician: Clinical Validation Clarification Dr Navjot Cooley Sepsis has been documented in the medical record. After study, has Sepsis been ruled out? If it has been ruled out, please document Sepsis, ruled out" in the progress notes and/or discharge summary. 1. Yes/Agreed, Sepsis ruled out/is not clinically valid 2. Not agreed, Sepsis has not been ruled out/is clinically valid* *Please document the clinical evidence supportive of this diagnosis (even if now resolved) in the Progress Notes and Discharge Summary Other, with explanation of the clinical findings Clinically undetermined, no explanation for the clinical findings Additional information: In the setting of COVID with respiratory failure requiring emergent intubation, Admission VS/LABS: P 85, RR 14, BP 142/86, SpO2 95% on 80% FIO2 T 35.9, WBC 15.0 Lactic Acid 0.66, Maintained on mechanical Vent. IV meds first 24 hours: NS 90 mls/hour, Cefepime, Azithromycin, Propofol and Dexmedetomidine, In responding to this query, please exercise your independent professional judgment. The purpose of this communication is to more accurately reflect the complexity of your patients condition. The fact that a question is asked does not imply that any particular answer is desired or expected. Thank you for your timely response to this clarification. Tina Farfan MSN, RN Clinical Parts Sales Representative [email or web address] PHYSICIAN RESPONSE: Based on the clinical findings in the record, please respond to the query above on this document as an addendum. Physician Response: Physician Response 1 If you have questions please contact: Self Propelled Dredge Operator: Ext: Thank you for your time and cooperation. Clinical Parts Sales Representative/Self Propelled Dredge Operator This is a permanent part of the medical record TINA FARFAN Sep 05, 2022 10:56 BONNIE COOLEY DO Sep 05, 2022 12:13
--- NOTE | 2022-09-05 12:32 | Progress Note ---
AUGUSTIN FORTUNE 09/05/22 1232: Subjective Date Seen by a Provider: Sep 05, 2022 Time Seen by a Provider: 11:30 Subjective/Events-last exam Serena Carrillo is a 66 yo female admitted to the ICU due to acute respiratory failure requiring mechanical ventilation; patient was successfully extubated on 08/31. The patient on evaluation today reports she feels improved compared to yesterday. She notes she still uses BiPAP at night to assist her respiration but is able to maintain good oxygenation with only Vapotherm during the day. The patient states her shortness of breath is improved from yesterday, and she has no other concerning pains aside from epigastric pain that she attributes to hunger. Her labs are significant for WBC 22.4, HGB 17.8, BUN 41, Total Protein 5.4. Patient's AFib has stayed resolved. Review of Systems General: No Chills HEENT: No Head Aches Pulmonary: Dyspnea, Cough Cardiovascular: No: Chest Pain Gastrointestinal: Abdominal Pain; No: Nausea, Vomiting Genitourinary: No Dysuria Musculoskeletal: No: other Objective Exam Last Set of Vital Signs Vital Signs Date Time Temp Pulse Resp B/P (MAP) Pulse Ox O2 Delivery O2 Flow Rate FiO2 09/05/22 12:00 58 19 138/72 (94) 95 NIV Bilevel 30.00 09/05/22 11:46 36.0 09/05/22 10:42 40 Capillary Refill : I&O Intake and Output 09/05/22 00:00 Intake Total 2050 ml Output Total 1925 ml Balance 125 ml Intake Oral 2050 ml Output Urine Total 1925 ml # Bowel Movements 1 General: Alert, Oriented X3, Cooperative, No Acute Distress HEENT: Atraumatic Lungs: Clear to Auscultation, Normal Air Movement Heart: Regular Rate, Normal S1, Normal S2, No Murmurs Abdomen: Soft, No Tenderness Neuro: Normal Gait, Normal Speech Psych/Mental Status: Mental Status NL Results Lab Laboratory Tests 09/05/22 05:00: White Blood Count 22.4H, Red Blood Count 6.51H, Hemoglobin 17.8H, Hematocrit 54H , Mean Corpuscular Volume 84, Mean Corpuscular Hemoglobin 27, Mean Corpuscular Hemoglobin Concent 33, Red Cell Distribution Width 18.5H, Platelet Count 390, Mean Platelet Volume 11.2, Immature Granulocyte % (Auto) 2, Neutrophils (%) (Auto) 80H, Lymphocytes (%) (Auto) 9L, Monocytes (%) (Auto) 7, Eosinophils (%) (Auto) 2, Basophils (%) (Auto) 0, Neutrophils # (Auto) 18.0H, Lymphocytes # (Auto) 1.9, Monocytes # (Auto) 1.5H, Eosinophils # (Auto) 0.5H, Basophils # (Auto) 0.1, Immature Granulocyte # (Auto) 0.4H, Sodium Level 135, Potassium Level 4.3, Chloride Level 98, Carbon Dioxide Level 25, Anion Gap 12, Blood Urea Nitrogen 41H, Creatinine 0.99, Estimat Glomerular Filtration Rate 62, BUN/Creatinine Ratio 41, Glucose Level 71, Calcium Level 8.5, Corrected Calcium 9.1, Phosphorus Level 4.0, Magnesium Level 1.8, Total Bilirubin 1.0, Aspartate Amino Transf (AST/SGOT) 29, Alanine Aminotransferase (ALT/SGPT) 79H, Alkaline Phosphatase 63, Total Protein 5.4L, Albumin 3.2 Microbiology 08/29/22 MRSA Screen - Final, Complete MRSA not isolated 08/29/22 Urine Culture - Final, Complete NO GROWTH 08/29/22 Blood Culture - Final, Complete No growth Assessment/Plan Assessment/Plan Assess & Plan/Chief Complaint 1. Acute respiratory failure requiring intubation: Successful extubation 08/31. Acute exacerbation on 09/03, symptoms and VS stable on BiPAP. Continue using BiPAP as needed and continue titrating down with Vapotherm trials. Continue monitoring symptoms and vitals. 2. COVID-pneumonia: Continue cefepime, azithromycin. Continue monitor respiratory symptoms and O2 status. 3. Suspected JONNIE: Continue home meds. Consider sleep study outpatient. 4. COPD: Continue nebulizer treatment. Monitor O2 status. 5. Chronic polycythemia due to presumed hypoxemia: Continue hydration and respiratory support. Recheck CBC in 24 hours. Pending Garrett-2 mutation test to rule out polycythemia vera. 6. Paroxysmal atrial fibrillation on oral anticoagulants: Resolved spontaneously 09/03. Continue monitoring heart rate/rhythm. 7. Obesity 09/05 Plan to transfer to cardiac step-down unit from ICU. KAREN TREJO DO 09/06/22 0616: Assessment/Plan Assessment/Plan Assess & Plan/Chief Complaint Move to [facility] Supervisory-Addendum Brief Verification & Attestation Participated in pt care: history, MDM, physical Personally performed: exam, history, MDM, supervision of care Care discussed with: Medical Student Procedures: n/a Results interpretation: Verified all documentation Verification and Attestation of Medical Student E/M Service A medical student performed and documented this service in my presence. I reviewed and verified all information documented by the medical student and made modifications to such information, when appropriate. I personally performed the physical exam and medical decision making. Karen Trejo, Sep 06, 2022,06:16 AUGUSTIN FORTUNE Sep 05, 2022 12:32 KAREN TREJO DO Sep 06, 2022 06:16
--- NOTE | 2022-09-05 16:09 | Cardiology Progress Note ---
Progress Note-Cardiology Events since last exam Date Seen by Provider: Sep 05, 2022 Time Seen by Provider: 16:08 Events since last exam I am following her due to atrial fibrillation. She remains in the intensive care unit on Vapotherm but has transfer orders to the stepdown unit. She has still been using BiPAP at night. When I saw her, she was sitting up in a chair. She states her breathing is markedly improved. She denies chest pain, palpitations, syncope, or ankle edema. Certain portions of this document may have been dictated utilizing voice recognition technology. Inherent to this technology, typographical and grammatical errors may exist. As much as I am diligent to identify and correct these mistakes, some errors may remain in the document. Vitals Last set of Vitals Signs Vital Signs 09/05/22 09/05/22 12:00 16:00 Temp 36.7 Pulse 61 Resp 19 B/P (MAP) 147/76 (99) Pulse Ox 94 O2 Delivery NIV Bilevel O2 Flow Rate 30.00 FiO2 20 Labs Labs Laboratory Tests 09/05/22 05:00 Exam Vital Signs Vital Signs Date Time Temp Pulse Resp B/P (MAP) Pulse Ox O2 Delivery O2 Flow Rate FiO2 09/05/22 16:00 61 19 147/76 (99) 94 NIV Bilevel 30.00 09/05/22 16:00 36.7 09/05/22 12:00 20 Physical Exam Due to the patient's COVID status, I spoke with the patient from the doorway. She is on oxygen by Vapotherm. General: The patient is breathing spontaneously. HENT: Normocephalic. Atraumatic. Skin: There is no pallor. Neurologic: Oriented x3. Cranial nerves III through XII grossly intact. Moving all 4 extremities. Psychiatric: Appears cooperative. Labs Laboratory Tests Test 09/05/22 05:00 Range/Units White Blood Count 22.4 H 4.3-11.0 10^3/uL Red Blood Count 6.51 H 3.80-5.11 10^6/uL Hemoglobin 17.8 H 11.5-16.0 g/dL Hematocrit 54 H 35-52 % Mean Corpuscular Volume 84 80-99 fL Mean Corpuscular Hemoglobin 27 25-34 pg Mean Corpuscular Hemoglobin Concent 33 32-36 g/dL Red Cell Distribution Width 18.5 H 10.0-14.5 % Platelet Count 390 130-400 10^3/uL Mean Platelet Volume 11.2 9.0-12.2 fL Immature Granulocyte % (Auto) 2 % Neutrophils (%) (Auto) 80 H 42-75 % Lymphocytes (%) (Auto) 9 L 12-44 % Monocytes (%) (Auto) 7 0-12 % Eosinophils (%) (Auto) 2 0-10 % Basophils (%) (Auto) 0 0-10 % Neutrophils # (Auto) 18.0 H 1.8-7.8 10^3/uL Lymphocytes # (Auto) 1.9 1.0-4.0 10^3/uL Monocytes # (Auto) 1.5 H 0.0-1.0 10^3/uL Eosinophils # (Auto) 0.5 H 0.0-0.3 10^3/uL Basophils # (Auto) 0.1 0.0-0.1 10^3/uL Immature Granulocyte # (Auto) 0.4 H 0.0-0.1 10^3/uL Sodium Level 135 135-145 MMOL/L Potassium Level 4.3 3.6-5.0 MMOL/L Chloride Level 98 98-107 MMOL/L Carbon Dioxide Level 25 21-32 MMOL/L Anion Gap 12 5-14 MMOL/L Blood Urea Nitrogen 41 H 7-18 MG/DL Creatinine 0.99 0.60-1.30 MG/DL Estimat Glomerular Filtration Rate 62 BUN/Creatinine Ratio 41 Glucose Level 71 70-105 MG/DL Calcium Level 8.5 8.5-10.1 MG/DL Corrected Calcium 9.1 8.5-10.1 MG/DL Phosphorus Level 4.0 2.3-4.7 MG/DL Magnesium Level 1.8 1.6-2.4 MG/DL Total Bilirubin 1.0 0.1-1.0 MG/DL Aspartate Amino Transf (AST/SGOT) 29 5-34 U/L Alanine Aminotransferase (ALT/SGPT) 79 H 0-55 U/L Alkaline Phosphatase 63 40-136 U/L Total Protein 5.4 L 6.4-8.2 GM/DL Albumin 3.2 3.2-4.5 GM/DL Diagnosis/Problems Diagnosis/Problems (1) Persistent atrial fibrillation Assessment & Plan: She had atrial fibrillation for well over a month prior to admission. She had been on oral anticoagulation for well over a month. I started her on flecainide 100 mg twice daily on 09/01 and increased this to 150 mg twice daily on 09/02 and as of 09/03, she has converted back to sinus rhythm. She should continue on apixaban for stroke prophylaxis and metoprolol for rate control in the event she has recurrent atrial fibrillation. (2) Primary hypertension Assessment & Plan: I increased her dose of metoprolol succinate to 100 mg twice daily on 09/02 and and her blood pressures are improved. (3) Mixed hyperlipidemia Assessment & Plan: Continue ezetimibe and fenofibrate (4) Mitral regurgitation Assessment & Plan: Her previous echocardiogram showed moderate mitral regurgitation. This will need to be followed longitudinally. (5) Acquired hypothyroidism Assessment & Plan: Continue home dose of thyroid medication. (6) Acute on chronic respiratory failure with hypoxemia Assessment & Plan: Most likely multifactorial due to COVID infection with possible superimposed pneumonia and perhaps some pulmonary edema. She received 5 L of IV normal saline which I stopped the first day I saw her. DONNA DEE JR, MD Sep 05, 2022 16:09
[2022-09-05] MEDS: FENOFIBRATE 134 MG (LOFIBRA) CAPSULE PO SCH (20:08)
[2022-09-05] MEDS: eZETimibe 10 MG (ZETIA) TABLET PO SCH (20:09)
[2022-09-06 03:47] LABS: BASOPHILS # (AUTO) 0.1 10^3/uL (0.0-0.1); BASOPHILS % (AUTO) 0 % (0-10); EOSINOPHILS # (AUTO) 0.5 10^3/uL (0.0-0.3); EOSINOPHILS % (AUTO) 2 % (0-10); HEMATOCRIT 54 % (35-52); HEMOGLOBIN 17.8 g/dL (11.5-16.0); LYMPHOCYTES # (AUTO) 1.9 10^3/uL (1.0-4.0); LYMPHOCYTES % (AUTO) 8 % (12-44); MEAN CORPUSCULAR HEMOGLOBIN 28 pg (25-34); MEAN CORPUSCULAR HGB CONC 33 g/dL (32-36); MEAN CORPUSCULAR VOLUME 85 fL (80-99); MEAN PLATELET VOLUME 11.9 fL (9.0-12.2); MONOCYTES # (AUTO) 1.7 10^3/uL (0.0-1.0); MONOCYTES % (AUTO) 7 % (0-12); NEUTROPHILS # (AUTO) 18.6 10^3/uL (1.8-7.8); NEUTROPHILS % (AUTO) 80 % (42-75); PLATELET COUNT 377 10^3/uL (130-400); WHITE BLOOD COUNT 23.3 10^3/uL (4.3-11.0)
[2022-09-06 04:06] LABS: ALBUMIN 3.3 GM/DL (3.2-4.5); BILIRUBIN,TOTAL 0.6 MG/DL (0.1-1.0); CALCIUM 8.7 MG/DL (8.5-10.1); CREATININE SERUM 0.94 MG/DL (0.60-1.30); MAGNESIUM 1.8 MG/DL (1.6-2.4); PHOSPHORUS 4.5 MG/DL (2.3-4.7); POTASSIUM 4.6 MMOL/L (3.6-5.0); TOTAL PROTEIN 5.5 GM/DL (6.4-8.2)
[2022-09-06] MEDS: POTASSIUM CL 10MEQ/50ML IVPB 50 ML IV SCH (05:52)
[2022-09-06] MEDS: KCL 20 MEQ TAB (K-DUR) PO SCH (05:52)
[2022-09-06] MEDS: MAGNESIUM 1 GM/100 ML IVPB 100 ML IV SCH (05:52)
[2022-09-06] MEDS: dexAMETHasone 6 MG TAB (DECADRON) PO SCH (06:14)
[2022-09-06] MEDS: LEVOTHYROXINE 50 MCG (LEVOTHROID) TAB PO SCH (06:14)
[2022-09-06] MEDS ORDERED: IBUPROFEN 600 MG (MOTRIN) TAB PO ONE (06:30)
--- NOTE | 2022-09-06 06:39 | Progress Note ---
Subjective Date Seen by a Provider: Sep 06, 2022 Time Seen by a Provider: 11:00 Subjective/Events-last exam Patient doing really well On 3 L of nasal cannula oxygen Check meds and labs No falls Bowels are moving No pain Labs reviewed Review of Systems Pulmonary: Dyspnea Objective Exam Last Set of Vital Signs Vital Signs Date Time Temp Pulse Resp B/P (MAP) Pulse Ox O2 Delivery O2 Flow Rate FiO2 09/06/22 06:00 61 13 143/90 (107) 95 High Flow N/C 2.00 09/06/22 04:00 36.3 09/05/22 12:00 20 Capillary Refill : I&O Intake and Output 09/06/22 00:00 Intake Total 1390 ml Output Total 1925 ml Balance -535 ml Intake Oral 1390 ml Output Urine Total 1925 ml # Bowel Movements 1 General: Alert, Oriented X3, Cooperative, No Acute Distress Lungs: Clear to Auscultation, Normal Air Movement Heart: Regular Rate, Normal S1, Normal S2, No Murmurs Psych/Mental Status: Mental Status NL, Mood NL Results Lab Laboratory Tests 09/06/22 03:30: White Blood Count 23.3H, Red Blood Count 6.42H, Hemoglobin 17.8H, Hematocrit 54H , Mean Corpuscular Volume 85, Mean Corpuscular Hemoglobin 28, Mean Corpuscular Hemoglobin Concent 33, Red Cell Distribution Width 18.3H, Platelet Count 377, Mean Platelet Volume 11.9, Immature Granulocyte % (Auto) 2, Neutrophils (%) (Auto) 80H, Lymphocytes (%) (Auto) 8L, Monocytes (%) (Auto) 7, Eosinophils (%) (Auto) 2, Basophils (%) (Auto) 0, Neutrophils # (Auto) 18.6H, Lymphocytes # (Auto) 1.9, Monocytes # (Auto) 1.7H, Eosinophils # (Auto) 0.5H, Basophils # (Auto) 0.1, Immature Granulocyte # (Auto) 0.5H, Sodium Level 138, Potassium Level 4.6, Chloride Level 99, Carbon Dioxide Level 26, Anion Gap 13, Blood Urea Nitrogen 37H, Creatinine 0.94, Estimat Glomerular Filtration Rate 67, BUN/Creatinine Ratio 39, Glucose Level 78, Calcium Level 8.7, Corrected Calcium 9.3, Phosphorus Level 4.5, Magnesium Level 1.8, Total Bilirubin 0.6, Aspartate Amino Transf (AST/SGOT) 28, Alanine Aminotransferase (ALT/SGPT) 74H, Alkaline Phosphatase 77, Total Protein 5.5L, Albumin 3.3 Microbiology 08/29/22 MRSA Screen - Final, Complete MRSA not isolated 08/29/22 Urine Culture - Final, Complete NO GROWTH 08/29/22 Blood Culture - Final, Complete No growth Assessment/Plan Assessment/Plan Assess & Plan/Chief Complaint 1. Acute respiratory failure requiring intubation: Successful extubation 08/31. Acute exacerbation on 09/03, symptoms and VS stable on BiPAP. Continue using BiPAP as needed and continue titrating down with Vapotherm trials. Continue monitoring symptoms and vitals. Now on nasal cannula oxygen 2. COVID-pneumonia: Continue cefepime, azithromycin. Continue monitor respiratory symptoms and O2 status. 3. Suspected JONNIE: Continue home meds. Consider sleep study outpatient. 4. COPD: Continue nebulizer treatment. Monitor O2 status. 5. Chronic polycythemia due to presumed hypoxemia: Continue hydration and respiratory support. Recheck CBC in 24 hours. Pending Garrett-2 mutation test to rule out polycythemia vera. 6. Paroxysmal atrial fibrillation on oral anticoagulants: Resolved spontaneously 09/03. Continue monitoring heart rate/rhythm. 7. Obesity Diagnosis/Problems Diagnosis/Problems (1) Acute and chronic respiratory failure with hypoxia (2) Pneumonia due to COVID-19 virus Status: Acute BONNIE TREJO DO Sep 06, 2022 06:39
[2022-09-06] MEDS: FLECAINIDE 100 MG (TAMBOCOR) TAB PO SCH ×2 (09:11→23:36)
[2022-09-06] MEDS: DOCUSATE SODIUM 100 MG (COLACE) CAP PO SCH ×2 (09:12→23:35)
[2022-09-06] MEDS: SENNOSIDES 8.6 MG (SENOKOT) TAB PO SCH ×2 (09:12→22:50)
[2022-09-06] MEDS: PANTOPRAZOLE 40 MG (PROTONIX) TAB PO SCH ×2 (09:12→23:37)
[2022-09-06] MEDS: APIXABAN 5 MG (ELIQUIS) TABLET PO SCH ×2 (09:12→23:36)
[2022-09-06] MEDS: meTOprolol SUCCINATE 100 MG (TOPROL XL) TAB PO SCH ×2 (09:13→23:35)
[2022-09-06] MEDS: RT-ALBUTEROL HFA 8.5 GM INHALER IH SCH ×2 (09:59→21:39)
--- NOTE | 2022-09-06 10:39 | Cardiology Progress Note ---
Progress Note-Cardiology Events since last exam Date Seen by Provider: Sep 06, 2022 Time Seen by Provider: 10:38 Events since last exam I am following her due to atrial fibrillation. She remains in the ICU but has transfer orders to the medical floor. She did not require BiPAP last evening and her oxygen has been decreased from Vapotherm down to 3 L nasal cannula. Her breathing is improved but she was working with physical therapy this morning and did have some dyspnea on exertion which then resulted in some chest tightness. She denies dyspnea or chest discomfort at rest. She denies palpitations, syn cope, or ankle edema. Certain portions of this document may have been dictated utilizing voice varinder gnition technology. Inherent to this technology, typographical and grammatical errors may exist. As much as I am diligent to identify and correct these mistakes, some errors may remain in the document. Vitals Last set of Vitals Signs Vital Signs 09/05/22 09/06/22 09/06/22 12:00 12:25 13:00 Temp 36.1 Pulse 57 Resp 18 B/P (MAP) 122/62 (82) Pulse Ox 95 O2 Delivery High Flow N/C O2 Flow Rate 3.00 FiO2 20 Labs Labs Laboratory Tests 09/06/22 03:30 Exam Vital Signs Vital Signs Date Time Temp Pulse Resp B/P (MAP) Pulse Ox O2 Delivery O2 Flow Rate FiO2 09/06/22 13:00 57 09/06/22 12:25 36.1 18 122/62 (82) 95 High Flow N/C 3.00 09/05/22 12:00 20 Physical Exam Due to the patient's COVID status, I spoke with the patient from the doorway. She is on nasal cannula oxygen. General: The patient is breathing spontaneously and speaking freely without getting short of breath. HENT: Normocephalic. Atraumatic. Skin: There is no pallor. Neurologic: Oriented x3. Cranial nerves III through XII grossly intact. Moving all 4 extremities. Psychiatric: Appears cooperative. Labs Laboratory Tests Test 09/06/22 03:30 Range/Units White Blood Count 23.3 H 4.3-11.0 10^3/uL Red Blood Count 6.42 H 3.80-5.11 10^6/uL Hemoglobin 17.8 H 11.5-16.0 g/dL Hematocrit 54 H 35-52 % Mean Corpuscular Volume 85 80-99 fL Mean Corpuscular Hemoglobin 28 25-34 pg Mean Corpuscular Hemoglobin Concent 33 32-36 g/dL Red Cell Distribution Width 18.3 H 10.0-14.5 % Platelet Count 377 130-400 10^3/uL Mean Platelet Volume 11.9 9.0-12.2 fL Immature Granulocyte % (Auto) 2 % Neutrophils (%) (Auto) 80 H 42-75 % Lymphocytes (%) (Auto) 8 L 12-44 % Monocytes (%) (Auto) 7 0-12 % Eosinophils (%) (Auto) 2 0-10 % Basophils (%) (Auto) 0 0-10 % Neutrophils # (Auto) 18.6 H 1.8-7.8 10^3/uL Lymphocytes # (Auto) 1.9 1.0-4.0 10^3/uL Monocytes # (Auto) 1.7 H 0.0-1.0 10^3/uL Eosinophils # (Auto) 0.5 H 0.0-0.3 10^3/uL Basophils # (Auto) 0.1 0.0-0.1 10^3/uL Immature Granulocyte # (Auto) 0.5 H 0.0-0.1 10^3/uL Sodium Level 138 135-145 MMOL/L Potassium Level 4.6 3.6-5.0 MMOL/L Chloride Level 99 98-107 MMOL/L Carbon Dioxide Level 26 21-32 MMOL/L Anion Gap 13 5-14 MMOL/L Blood Urea Nitrogen 37 H 7-18 MG/DL Creatinine 0.94 0.60-1.30 MG/DL Estimat Glomerular Filtration Rate 67 BUN/Creatinine Ratio 39 Glucose Level 78 70-105 MG/DL Calcium Level 8.7 8.5-10.1 MG/DL Corrected Calcium 9.3 8.5-10.1 MG/DL Phosphorus Level 4.5 2.3-4.7 MG/DL Magnesium Level 1.8 1.6-2.4 MG/DL Total Bilirubin 0.6 0.1-1.0 MG/DL Aspartate Amino Transf (AST/SGOT) 28 5-34 U/L Alanine Aminotransferase (ALT/SGPT) 74 H 0-55 U/L Alkaline Phosphatase 77 40-136 U/L Total Protein 5.5 L 6.4-8.2 GM/DL Albumin 3.3 3.2-4.5 GM/DL Diagnosis/Problems Diagnosis/Problems (1) Persistent atrial fibrillation Assessment & Plan: She had atrial fibrillation for well over a month prior to admission. She had been on oral anticoagulation for well over a month. I started her on flecainide 100 mg twice daily on 09/01 and increased this to 150 mg twice daily on 09/02 and as of 09/03, she has converted back to sinus rhythm and has remained in sinus rhythm. She should continue on apixaban for stroke prophylaxis and metoprolol for rate control in the event she has recurrent atrial fibrillation. (2) Primary hypertension Assessment & Plan: I increased her dose of metoprolol succinate to 100 mg twice daily on 09/02 and and her blood pressures are improved. (3) Mixed hyperlipidemia Assessment & Plan: Continue ezetimibe and fenofibrate. (4) Mitral regurgitation Assessment & Plan: Her previous echocardiogram from earlier this year showed moderate mitral regurgitation. This will need to be followed longitudinally. (5) Acquired hypothyroidism Assessment & Plan: Continue home dose of thyroid medication. (6) Acute on chronic respiratory failure with hypoxemia Assessment & Plan: Most likely multifactorial due to COVID infection with possible superimposed pneumonia and perhaps some pulmonary edema. She received 5 L of IV normal saline which I stopped the first day I saw her. DONNA DEE JR, MD Sep 06, 2022 10:38
[2022-09-06 12:25] VITALS: BP 122/62
--- NOTE | 2022-09-06 13:42 | Physical Therapy Daily Note ---
PT Daily Note-Current Subjective Pt is alert and agreeable to bed exercises. Pt attempted to perform supine to sit, but became short of breath and had to return to supine. Pain Section J - Health Conditions 1. Rarely or not at all 2. Occasionally 3. Frequently 4. Almost constantly 8. Unable to answer Pain Effect on Sleep: 1 Pain Interference with Therapy: 1 Pain Interference w/Day-to-Day: 1 Mental Status Patient Orientation: Person, Place, Time, Situation Transfers SCALE: Activities may be completed with or without assistive devices. 0-Jfcrrnvkzt-bveeskf completes the activity by him/herself with no assistance from a helper. 5-Set-up or Clean-up Assistance-helper sets up or cleans up; patient completes activity. [place] assists only prior to or following the activity. 4-Supervision or Touching Assistance-helper provides verbal cues and/or touching/steadying and/or contact guard assistance as patient completes activity. Assistance may be provided throughout the activity or intermittently. 3-Partial/Moderate Assistance-helper does LESS THAN HALF the effort. [place] lifts, holds or supports trunk or limbs, but provides less than half the effort. 2-Substantial/Maximal Assistance-helper does MORE THAN HALF the effort. [place] lifts or holds trunk or limbs and provides more than half the effort. 4-Mwfbnxaxy-vynvvm does ALL the effort. Patient does none of the effort to complete the activity. Or, the assistance of 2 or more helpers is required for the patient to complete the activity. If activity was not attempted, code reason: 7-Patient Refused. 9-Not Applicable-not attempted and the patient did not perform the activity before the current illness, exacerbation or injury. 10-Not Attempted due to Environmental Limitations-(lack of equipment, weather restraints, etc.). 88-Not Attempted due to Medical Conditions or Safety Concerns. Roll Left & Right (QC): 2 Sit to Lying (QC): 2 Weight Bearing Right Lower Extremity: Right Full Weight Bearing Left Lower Extremity: Left Full Weight Bearing Gait Training Does the Patient Walk?: No and Walking Goal IS indicated Exercises Supine Ex: LE Protocol, Ankle pumps, Short Arc Quads Supine Reps: 10 Assessment Current Status: Fair Progress Pt was able to participate with supine exercises, but became short of breath during attempted transfer from supine to sit. PT Production Pattern Maker Goals Production Pattern Maker Goals PT Group Home Goals Time Frame: Sep 27, 2022 Roll Left & Right (QC): 6 Sit to Lying (QC): 6 Lying-Sitting on Side/Bed(QC): 6 Sit to Stand (QC): 6 Chair/Tat-gz-Sbofa Xfer(QC): 6 Toilet Transfer (QC): 6 Car Transfer (QC): 6 Walk 10 feet (QC): 4 Walk 50ft with 2 Turns (QC): 4 Walk 150 ft (QC): 4 1 Step (curb) (QC): 3 4 Steps (QC): 3 PT Plan Treatment/Plan Treatment Plan: Continue Plan of Care Treatment Plan: Bed Mobility, Education, Functional Activity Abdulaziz, Functional Strength, Group Therapy, Gait, Safety, Therapeutic Exercise, Transfers Treatment Duration: Sep 27, 2022 Frequency: 6 times per week Estimated Hrs Per Day: .25 hour per day Patient and/or Family Agrees t: Yes Time Time In: 904 Time Out: 919 DATE: Sep 06, 2022 Total Billed Treatment Time: 15 Total Billed Treatment 1, ex 15 SKYLAR VELAZQUEZ PT Sep 06, 2022 13:42
[2022-09-06 14:20] VITALS: BP 122/62
[2022-09-06] MEDS ORDERED: RT-ALBUTEROL HFA 8.5 GM INHALER IH PRN (15:00)
[2022-09-06 17:00] VITALS: BP 149/77
[2022-09-06 21:00] VITALS: BP 150/81
[2022-09-06] MEDS: eZETimibe 10 MG (ZETIA) TABLET PO SCH (23:35)
[2022-09-06] MEDS: FENOFIBRATE 134 MG (LOFIBRA) CAPSULE PO SCH (23:37)
[2022-09-07 04:00] VITALS: BP 129/75
--- NOTE | 2022-09-07 06:21 | Progress Note ---
Subjective Date Seen by a Provider: Sep 07, 2022 Time Seen by a Provider: 11:00 Subjective/Events-last exam Doing well DC catheter DC Telemetry Needs shower BM+ Doing well Review of Systems Pulmonary: Dyspnea, Cough Objective Exam Last Set of Vital Signs Vital Signs Date Time Temp Pulse Resp B/P (MAP) Pulse Ox O2 Delivery O2 Flow Rate FiO2 09/07/22 01:00 60 09/06/22 21:39 94 High Flow N/C 3.00 09/06/22 21:00 36.8 18 150/81 (104) 09/06/22 14:20 32 Capillary Refill : I&O Intake and Output 09/07/22 00:00 Intake Total 840 ml Output Total 1650 ml Balance -810 ml Intake Oral 840 ml Output Urine Total 1650 ml General: Alert, Oriented X3, Cooperative, No Acute Distress Lungs: Clear to Auscultation, Normal Air Movement Heart: Regular Rate, Normal S1, Normal S2, No Murmurs Psych/Mental Status: Mental Status NL, Mood NL Results Lab Microbiology 08/29/22 MRSA Screen - Final, Complete MRSA not isolated 08/29/22 Urine Culture - Final, Complete NO GROWTH 08/29/22 Blood Culture - Final, Complete No growth Assessment/Plan Assessment/Plan Assess & Plan/Chief Complaint 1. Acute respiratory failure requiring intubation: Successful extubation 08/31. Acute exacerbation on 09/03, symptoms and VS stable on BiPAP. Continue using BiPAP as needed and continue titrating down with Vapotherm trials. Continue monitoring symptoms and vitals. Now on nasal cannula oxygen 2. COVID-pneumonia: Continue cefepime, azithromycin. Continue monitor respiratory symptoms and O2 status. 3. Suspected JONNIE: Continue home meds. Consider sleep study outpatient. 4. COPD: Continue nebulizer treatment. Monitor O2 status. 5. Chronic polycythemia due to presumed hypoxemia: Continue hydration and r espiratory support. Recheck CBC in 24 hours. Pending Garrett-2 mutation test to rule out polycythemia vera. 6. Paroxysmal atrial fibrillation on oral anticoagulants: Resolved spontaneously 09/03. Continue monitoring heart rate/rhythm. 7. Obesity Diagnosis/Problems Diagnosis/Problems (1) Acute and chronic respiratory failure with hypoxia (2) Pneumonia due to COVID-19 virus Status: Acute BONNIE TREJO DO Sep 07, 2022 06:21
[2022-09-07] MEDS: LEVOTHYROXINE 50 MCG (LEVOTHROID) TAB PO SCH (06:50)
[2022-09-07] MEDS: dexAMETHasone 6 MG TAB (DECADRON) PO SCH (06:50)
[2022-09-07 07:46] LABS: BASOPHILS # (AUTO) 0.1 10^3/uL (0.0-0.1); BASOPHILS % (AUTO) 0 % (0-10); EOSINOPHILS # (AUTO) 0.4 10^3/uL (0.0-0.3); EOSINOPHILS % (AUTO) 2 % (0-10); HEMATOCRIT 55 % (35-52); LYMPHOCYTES # (AUTO) 2.3 10^3/uL (1.0-4.0); LYMPHOCYTES % (AUTO) 11 % (12-44); MEAN CORPUSCULAR HEMOGLOBIN 28 pg (25-34); MEAN CORPUSCULAR HGB CONC 33 g/dL (32-36); MEAN CORPUSCULAR VOLUME 85 fL (80-99); MEAN PLATELET VOLUME 12.2 fL (9.0-12.2); MONOCYTES # (AUTO) 1.3 10^3/uL (0.0-1.0); MONOCYTES % (AUTO) 6 % (0-12); NEUTROPHILS # (AUTO) 16.9 10^3/uL (1.8-7.8); NEUTROPHILS % (AUTO) 78 % (42-75); PLATELET COUNT 385 10^3/uL (130-400); WHITE BLOOD COUNT 21.6 10^3/uL (4.3-11.0)
[2022-09-07] MEDS: FLECAINIDE 100 MG (TAMBOCOR) TAB PO SCH ×2 (08:10→22:32)
[2022-09-07 08:11] LABS: ALBUMIN 3.3 GM/DL (3.2-4.5); BILIRUBIN,TOTAL 0.8 MG/DL (0.1-1.0); CALCIUM 8.7 MG/DL (8.5-10.1); CREATININE SERUM 0.89 MG/DL (0.60-1.30); MAGNESIUM 1.6 MG/DL (1.6-2.4); POTASSIUM 4.2 MMOL/L (3.6-5.0); TOTAL PROTEIN 5.5 GM/DL (6.4-8.2)
[2022-09-07] MEDS: meTOprolol SUCCINATE 100 MG (TOPROL XL) TAB PO SCH ×2 (08:11→22:34)
[2022-09-07] MEDS: DOCUSATE SODIUM 100 MG (COLACE) CAP PO SCH ×2 (08:11→22:33)
[2022-09-07] MEDS: SENNOSIDES 8.6 MG (SENOKOT) TAB PO SCH ×2 (08:11→22:35)
[2022-09-07] MEDS: APIXABAN 5 MG (ELIQUIS) TABLET PO SCH ×2 (08:12→22:31)
[2022-09-07] MEDS: PANTOPRAZOLE 40 MG (PROTONIX) TAB PO SCH ×2 (08:14→22:35)
[2022-09-07 08:17] VITALS: BP 125/77
[2022-09-07] MEDS: RT-ALBUTEROL HFA 8.5 GM INHALER IH SCH ×2 (10:40→21:56)
[2022-09-07 11:37] VITALS: BP 122/69
--- NOTE | 2022-09-07 11:38 | Cardiology Progress Note ---
Progress Note-Cardiology Events since last exam Date Seen by Provider: Sep 07, 2022 Time Seen by Provider: 11:36 Events since last exam I am following her due to atrial fibrillation. On 09/06 she was transferred out of the ICU to the medical floor. She feels as though her breathing continues to improve. She denies chest discomfort, palpitations, syncope, or ankle edema. Certain portions of this document may have been dictated utilizing voice recognition technology. Inherent to this technology, typographical and grammatical errors may exist. As much as I am diligent to identify and correct these mistakes, some errors may remain in the document. Vitals Last set of Vitals Signs Vital Signs 09/06/22 09/07/22 14:20 08:17 Temp 36.5 Pulse 60 Resp 18 B/P (MAP) 125/77 (93) Pulse Ox 95 O2 Delivery High Flow N/C O2 Flow Rate 2.00 FiO2 32 Labs Labs Laboratory Tests 09/07/22 06:30 Exam Vital Signs Vital Signs Date Time Temp Pulse Resp B/P (MAP) Pulse Ox O2 Delivery O2 Flow Rate FiO2 09/07/22 08:17 36.5 60 18 125/77 (93) 95 High Flow N/C 2.00 09/06/22 14:20 32 Physical Exam Due to the patient's COVID status, I spoke with the patient from the doorway. She was sitting up in bed. General: The patient is breathing spontaneously. HENT: Normocephalic. Atraumatic. Skin: There is no pallor. Neurologic: Oriented x3. Cranial nerves III through XII grossly intact. Moving all 4 extremities. Psychiatric: Appears cooperative. Labs Laboratory Tests Test 09/07/22 06:30 Range/Units White Blood Count 21.6 H 4.3-11.0 10^3/uL Red Blood Count 6.49 H 3.80-5.11 10^6/uL Hemoglobin 18.0 H 11.5-16.0 g/dL Hematocrit 55 H 35-52 % Mean Corpuscular Volume 85 80-99 fL Mean Corpuscular Hemoglobin 28 25-34 pg Mean Corpuscular Hemoglobin Concent 33 32-36 g/dL Red Cell Distribution Width 18.6 H 10.0-14.5 % Platelet Count 385 130-400 10^3/uL Mean Platelet Volume 12.2 9.0-12.2 fL Immature Granulocyte % (Auto) 3 % Neutrophils (%) (Auto) 78 H 42-75 % Lymphocytes (%) (Auto) 11 L 12-44 % Monocytes (%) (Auto) 6 0-12 % Eosinophils (%) (Auto) 2 0-10 % Basophils (%) (Auto) 0 0-10 % Neutrophils # (Auto) 16.9 H 1.8-7.8 10^3/uL Lymphocytes # (Auto) 2.3 1.0-4.0 10^3/uL Monocytes # (Auto) 1.3 H 0.0-1.0 10^3/uL Eosinophils # (Auto) 0.4 H 0.0-0.3 10^3/uL Basophils # (Auto) 0.1 0.0-0.1 10^3/uL Immature Granulocyte # (Auto) 0.5 H 0.0-0.1 10^3/uL Sodium Level 136 135-145 MMOL/L Potassium Level 4.2 3.6-5.0 MMOL/L Chloride Level 96 L 98-107 MMOL/L Carbon Dioxide Level 27 21-32 MMOL/L Anion Gap 13 5-14 MMOL/L Blood Urea Nitrogen 32 H 7-18 MG/DL Creatinine 0.89 0.60-1.30 MG/DL Estimat Glomerular Filtration Rate 71 BUN/Creatinine Ratio 36 Glucose Level 72 70-105 MG/DL Calcium Level 8.7 8.5-10.1 MG/DL Corrected Calcium 9.3 8.5-10.1 MG/DL Magnesium Level 1.6 1.6-2.4 MG/DL Total Bilirubin 0.8 0.1-1.0 MG/DL Aspartate Amino Transf (AST/SGOT) 25 5-34 U/L Alanine Aminotransferase (ALT/SGPT) 59 H 0-55 U/L Alkaline Phosphatase 67 40-136 U/L Total Protein 5.5 L 6.4-8.2 GM/DL Albumin 3.3 3.2-4.5 GM/DL Diagnosis/Problems Diagnosis/Problems (1) Persistent atrial fibrillation Assessment & Plan: She had atrial fibrillation for well over a month prior to admission and she had been on oral anticoagulation for well over a month. I started her on flecainide 100 mg twice daily on 09/01 and increased this to 150 mg twice daily on 09/02 and as of 09/03, she has converted back to sinus rhythm and has remained in sinus rhythm. She should continue on apixaban for stroke prophylaxis and metoprolol for rate control in the event she has recurrent atrial fibrillation. (2) Primary hypertension Assessment & Plan: I increased her dose of metoprolol succinate to 100 mg twice daily on 09/02 and and her blood pressures are improved. (3) Mixed hyperlipidemia Assessment & Plan: Continue ezetimibe and fenofibrate. (4) Mitral regurgitation Assessment & Plan: Her previous echocardiogram from earlier this year showed moderate mitral regurgitation. I would not expect this to be causing symptoms but this will need to be followed longitudinally. (5) Acquired hypothyroidism Assessment & Plan: Continue home dose of thyroid medication. (6) Acute on chronic respiratory failure with hypoxemia Assessment & Plan: Most likely multifactorial due to COVID infection with possible superimposed pneumonia and perhaps some pulmonary edema. She received 5 L of IV normal saline which I stopped the first day I saw her. DONNA DEE JR, MD Sep 07, 2022 11:38
[2022-09-07 16:35] VITALS: BP 155/74
[2022-09-07 19:10] VITALS: BP 155/80
[2022-09-07] MEDS: eZETimibe 10 MG (ZETIA) TABLET PO SCH (22:30)
[2022-09-07] MEDS: FENOFIBRATE 134 MG (LOFIBRA) CAPSULE PO SCH (22:37)
[2022-09-07 23:46] VITALS: BP 148/78
[2022-09-08 03:42] VITALS: BP 134/78
[2022-09-08 05:55] LABS: BASOPHILS # (AUTO) 0.1 10^3/uL (0.0-0.1); BASOPHILS % (AUTO) 1 % (0-10); EOSINOPHILS # (AUTO) 0.4 10^3/uL (0.0-0.3); EOSINOPHILS % (AUTO) 2 % (0-10); HEMATOCRIT 56 % (35-52); HEMOGLOBIN 18.2 g/dL (11.5-16.0); LYMPHOCYTES # (AUTO) 2.2 10^3/uL (1.0-4.0); LYMPHOCYTES % (AUTO) 10 % (12-44); MEAN CORPUSCULAR HEMOGLOBIN 28 pg (25-34); MEAN CORPUSCULAR HGB CONC 33 g/dL (32-36); MEAN CORPUSCULAR VOLUME 85 fL (80-99); MEAN PLATELET VOLUME 11.6 fL (9.0-12.2); MONOCYTES # (AUTO) 1.3 10^3/uL (0.0-1.0); MONOCYTES % (AUTO) 6 % (0-12); NEUTROPHILS # (AUTO) 17.5 10^3/uL (1.8-7.8); NEUTROPHILS % (AUTO) 80 % (42-75); PLATELET COUNT 383 10^3/uL (130-400); WHITE BLOOD COUNT 21.9 10^3/uL (4.3-11.0)
[2022-09-08] MEDS: LEVOTHYROXINE 50 MCG (LEVOTHROID) TAB PO SCH (06:30)
[2022-09-08 06:31] LABS: ALBUMIN 3.6 GM/DL (3.2-4.5); BILIRUBIN,TOTAL 0.8 MG/DL (0.1-1.0); CALCIUM 9.2 MG/DL (8.5-10.1); CREATININE SERUM 0.91 MG/DL (0.60-1.30); MAGNESIUM 1.6 MG/DL (1.6-2.4); POTASSIUM 4.3 MMOL/L (3.6-5.0); TOTAL PROTEIN 5.8 GM/DL (6.4-8.2)
[2022-09-08 08:15] VITALS: BP 152/76
[2022-09-08] MEDS: RT-ALBUTEROL HFA 8.5 GM INHALER IH SCH ×2 (08:23→22:18)
[2022-09-08] MEDS: PANTOPRAZOLE 40 MG (PROTONIX) TAB PO SCH ×2 (09:13→20:34)
[2022-09-08] MEDS: FLECAINIDE 100 MG (TAMBOCOR) TAB PO SCH ×2 (09:13→20:32)
[2022-09-08] MEDS: APIXABAN 5 MG (ELIQUIS) TABLET PO SCH ×2 (09:13→20:34)
[2022-09-08] MEDS: DOCUSATE SODIUM 100 MG (COLACE) CAP PO SCH ×2 (09:13→20:31)
[2022-09-08] MEDS: SENNOSIDES 8.6 MG (SENOKOT) TAB PO SCH ×2 (09:13→20:33)
--- NOTE | 2022-09-08 09:13 | Physical Therapy Daily Note ---
PT Daily Note-Current Subjective Patient in bed pre tx, agrees to PT, has no complaints of pain, states that she would like to go home. Pain Section J - Health Conditions 1. Rarely or not at all 2. Occasionally 3. Frequently 4. Almost constantly 8. Unable to answer Pain Effect on Sleep: 1 Pain Interference with Therapy: 1 Pain Interference w/Day-to-Day: 1 Appearance Patient in bed post tx with nurse call, phone, tray, all needs met. Mental Status Patient Orientation: Person, Place, Situation Attachments: Oxygen Transfers SCALE: Activities may be completed with or without assistive devices. 8-Lnixaslaqv-wdcyhiv completes the activity by him/herself with no assistance from a helper. 5-Set-up or Clean-up Assistance-helper sets up or cleans up; patient completes activity. [place] assists only prior to or following the activity. 4-Supervision or Touching Assistance-helper provides verbal cues and/or touchi ng/steadying and/or contact guard assistance as patient completes activity. Assistance may be provided throughout the activity or intermittently. 3-Partial/Moderate Assistance-helper does LESS THAN HALF the effort. [place] lifts, holds or supports trunk or limbs, but provides less than half the effort. 2-Substantial/Maximal Assistance-helper does MORE THAN HALF the effort. [place] lifts or holds trunk or limbs and provides more than half the effort. 4-Oyegrranr-krcsqv does ALL the effort. Patient does none of the effort to complete the activity. Or, the assistance of 2 or more helpers is required for the patient to complete the activity. If activity was not attempted, code reason: 7-Patient Refused. 9-Not Applicable-not attempted and the patient did not perform the activity before the current illness, exacerbation or injury. 10-Not Attempted due to Environmental Limitations-(lack of equipment, weather restraints, etc.). 88-Not Attempted due to Medical Conditions or Safety Concerns. Roll Left & Right (QC): 6 Sit to Lying (QC): 6 Lying to Sitting/Side of Bed(Q: 6 Sit to Stand (QC): 4 Chair/Vwa-xl-Ecixn Xfer(QC): 4 SBA for sit to stand and transfers Weight Bearing Right Lower Extremity: Right Full Weight Bearing Left Lower Extremity: Left Full Weight Bearing Gait Training Distance: 80' Walk 10 feet (QC): 4 Walk 50 ft with 2 Turns(QC): 4 Gait Persons Needed: 1 Gait Assistive Device: FWW SBA, no LOB, slow but steady ambulation Exercises Seated Therapy Exercises: Ankle pumps, Long arc quads Seated Reps: 20 Treatments bed mobility and transfers, ambulation, LE ROM Assessment Current Status: Fair Progress improving endurance, no SOB PT Usp Goals Usp Goals PT Circus Agent Goals Time Frame: Sep 27, 2022 Roll Left & Right (QC): 6 Sit to Lying (QC): 6 Lying-Sitting on Side/Bed(QC): 6 Sit to Stand (QC): 6 Chair/Vgf-pi-Zdzcv Xfer(QC): 6 Toilet Transfer (QC): 6 Car Transfer (QC): 6 Walk 10 feet (QC): 4 Walk 50ft with 2 Turns (QC): 4 Walk 150 ft (QC): 4 1 Step (curb) (QC): 3 4 Steps (QC): 3 PT Plan Problem List Problem List: Activity Tolerance, Functional Strength, Safety, Balance, Gait, Transfer, Bed Mobility, ROM Treatment/Plan Treatment Plan: Continue Plan of Care Treatment Plan: Bed Mobility, Education, Functional Activity Abdulaziz, Functional Strength, Group Therapy, Gait, Safety, Therapeutic Exercise, Transfers Treatment Duration: Sep 27, 2022 Frequency: 6 times per week Estimated Hrs Per Day: .25 hour per day Patient and/or Family Agrees t: Yes Safety Risks/Education Patient Education: Gait Training, Transfer Techniques, Correct Positioning, Safety Issues Teaching Recipient: Patient Teaching Methods: Demonstration, Discussion Response to Teaching: Reinforcement Needed Time Time In: 0853 Time Out: 04 DATE: Sep 08, 2022 Total Billed Treatment Time: 11 Total Billed Treatment 1 visit FA SALINAS MOHAN PT Sep 08, 2022 09:13
[2022-09-08] MEDS: meTOprolol SUCCINATE 100 MG (TOPROL XL) TAB PO SCH ×2 (09:14→20:34)
--- NOTE | 2022-09-08 09:55 | Cardiology Progress Note ---
Progress Note-Cardiology Events since last exam Date Seen by Provider: Sep 08, 2022 Time Seen by Provider: 09:55 Events since last exam I am following her due to atrial fibrillation. She states her breathing con tinues to improve. She feels well enough to go home today. She denies chest discomfort, palpitations, syncope, or ankle edema. Certain portions of this document may have been dictated utilizing voice recognition technology. Inherent to this technology, typographical and grammatical errors may exist. As much as I am diligent to identify and correct these mistakes, some errors may remain in the document. Vitals Last set of Vitals Signs Vital Signs 09/06/22 09/08/22 14:20 15:50 Temp 36.6 Pulse 54 Resp 20 B/P (MAP) 133/78 (96) Pulse Ox 95 O2 Delivery Nasal Cannula O2 Flow Rate 3.00 FiO2 32 Labs Labs Laboratory Tests 09/08/22 05:14 Exam Vital Signs Vital Signs Date Time Temp Pulse Resp B/P (MAP) Pulse Ox O2 Delivery O2 Flow Rate FiO2 09/08/22 15:50 36.6 54 20 133/78 (96) 95 Nasal Cannula 3.00 09/06/22 14:20 32 Physical Exam Due to the patient's COVID status, I spoke with the patient from the doorway. She is wearing oxygen by nasal cannula. General: The patient is breathing spontaneously. HENT: Normocephalic. Atraumatic. Skin: There is no pallor. Neurologic: Oriented x3. Cranial nerves III through XII grossly intact. Moving all 4 extremities. Psychiatric: Appears cooperative. Labs Laboratory Tests Test 09/08/22 05:14 Range/Units White Blood Count 21.9 H 4.3-11.0 10^3/uL Red Blood Count 6.59 H 3.80-5.11 10^6/uL Hemoglobin 18.2 H 11.5-16.0 g/dL Hematocrit 56 H 35-52 % Mean Corpuscular Volume 85 80-99 fL Mean Corpuscular Hemoglobin 28 25-34 pg Mean Corpuscular Hemoglobin Concent 33 32-36 g/dL Red Cell Distribution Width 18.4 H 10.0-14.5 % Platelet Count 383 130-400 10^3/uL Mean Platelet Volume 11.6 9.0-12.2 fL Immature Granulocyte % (Auto) 2 % Neutrophils (%) (Auto) 80 H 42-75 % Lymphocytes (%) (Auto) 10 L 12-44 % Monocytes (%) (Auto) 6 0-12 % Eosinophils (%) (Auto) 2 0-10 % Basophils (%) (Auto) 1 0-10 % Neutrophils # (Auto) 17.5 H 1.8-7.8 10^3/uL Lymphocytes # (Auto) 2.2 1.0-4.0 10^3/uL Monocytes # (Auto) 1.3 H 0.0-1.0 10^3/uL Eosinophils # (Auto) 0.4 H 0.0-0.3 10^3/uL Basophils # (Auto) 0.1 0.0-0.1 10^3/uL Immature Granulocyte # (Auto) 0.5 H 0.0-0.1 10^3/uL Sodium Level 134 L 135-145 MMOL/L Potassium Level 4.3 3.6-5.0 MMOL/L Chloride Level 96 L 98-107 MMOL/L Carbon Dioxide Level 26 21-32 MMOL/L Anion Gap 12 5-14 MMOL/L Blood Urea Nitrogen 30 H 7-18 MG/DL Creatinine 0.91 0.60-1.30 MG/DL Estimat Glomerular Filtration Rate 69 BUN/Creatinine Ratio 33 Glucose Level 84 70-105 MG/DL Calcium Level 9.2 8.5-10.1 MG/DL Corrected Calcium 9.5 8.5-10.1 MG/DL Magnesium Level 1.6 1.6-2.4 MG/DL Total Bilirubin 0.8 0.1-1.0 MG/DL Aspartate Amino Transf (AST/SGOT) 22 5-34 U/L Alanine Aminotransferase (ALT/SGPT) 53 0-55 U/L Alkaline Phosphatase 77 40-136 U/L Total Protein 5.8 L 6.4-8.2 GM/DL Albumin 3.6 3.2-4.5 GM/DL Diagnosis/Problems Diagnosis/Problems (1) Persistent atrial fibrillation Assessment & Plan: She had atrial fibrillation for well over a month prior to admission and she had been on oral anticoagulation for well over a month. I started her on flecainide 100 mg twice daily on 09/01 and increased this to 150 mg twice daily on 09/02 and as of 09/03, she has converted back to sinus rhythm and has remained in sinus rhythm. She should continue on apixaban for stroke prophylaxis and metoprolol for rate control in the event she has recurrent atrial fibrillation. (2) Primary hypertension Assessment & Plan: I increased her dose of metoprolol succinate to 100 mg twice daily on 09/02 and and her blood pressures are improved. (3) Mixed hyperlipidemia Assessment & Plan: Continue ezetimibe and fenofibrate. (4) Mitral regurgitation Assessment & Plan: Her previous echocardiogram from earlier this year showed moderate mitral regurgitation. I would not expect this to be causing symptoms but this will need to be followed longitudinally. (5) Acquired hypothyroidism Assessment & Plan: Continue home dose of thyroid medication. (6) Acute on chronic respiratory failure with hypoxemia Assessment & Plan: Most likely multifactorial due to COVID infection with possible superimposed pneumonia and perhaps some pulmonary edema. She received 5 L of IV normal saline which I stopped the first day I saw her. DONNA DEE JR, MD Sep 08, 2022 09:55
--- NOTE | 2022-09-08 10:43 | Progress Note ---
Subjective Date Seen by a Provider: Sep 08, 2022 Time Seen by a Provider: 10:45 Subjective/Events-last exam Patient doing a lot better Will pursue swing bed here Supportive care will continue Working with therapy Less short of breath Review of Systems General: Fatigue, Malaise Pulmonary: Dyspnea Objective Exam Last Set of Vital Signs Vital Signs Date Time Temp Pulse Resp B/P (MAP) Pulse Ox O2 Delivery O2 Flow Rate FiO2 09/08/22 08:23 96 High Flow N/C 3.00 09/08/22 08:15 36.2 55 18 152/76 (101) 09/06/22 14:20 32 Capillary Refill : I&O Intake and Output 09/08/22 00:00 Intake Total 1760 ml Output Total 2700 ml Balance -940 ml Intake Oral 1760 ml Output Urine Total 2700 ml # Voids 1 General: Alert, Oriented X3, Cooperative, No Acute Distress Lungs: Clear to Auscultation, Normal Air Movement Heart: Regular Rate, Normal S1, Normal S2, No Murmurs Psych/Mental Status: Mental Status NL, Mood NL Results Lab Laboratory Tests 09/08/22 05:14: White Blood Count 21.9H, Red Blood Count 6.59H, Hemoglobin 18.2H, Hematocrit 56H , Mean Corpuscular Volume 85, Mean Corpuscular Hemoglobin 28, Mean Corpuscular Hemoglobin Concent 33, Red Cell Distribution Width 18.4H, Platelet Count 383, Mean Platelet Volume 11.6, Immature Granulocyte % (Auto) 2, Neutrophils (%) (Auto) 80H, Lymphocytes (%) (Auto) 10L, Monocytes (%) (Auto) 6, Eosinophils (%) (Auto) 2, Basophils (%) (Auto) 1, Neutrophils # (Auto) 17.5H, Lymphocytes # (Auto) 2.2, Monocytes # (Auto) 1.3H, Eosinophils # (Auto) 0.4H, Basophils # (Auto) 0.1, Immature Granulocyte # (Auto) 0.5H, Sodium Level 134L, Potassium Level 4.3, Chloride Level 96L, Carbon Dioxide Level 26, Anion Gap 12, Blood Urea Nitrogen 30H, Creatinine 0.91, Estimat Glomerular Filtration Rate 69, BUN/Creatinine Ratio 33, Glucose Level 84, Calcium Level 9.2, Corrected Calcium 9.5, Magnesium Level 1.6, Total Bilirubin 0.8, Aspartate Amino Transf (AST/SGOT) 22, Alanine Aminotransferase (ALT/SGPT) 53, Alkaline Phosphatase 77, Total Protein 5.8L, Albumin 3.6 Microbiology 08/29/22 MRSA Screen - Final, Complete MRSA not isolated 08/29/22 Urine Culture - Final, Complete NO GROWTH 08/29/22 Blood Culture - Final, Complete No growth Assessment/Plan Assessment/Plan Assess & Plan/Chief Complaint 1. Acute respiratory failure requiring intubation: Successful extubation 08/31. Acute exacerbation on 09/03, symptoms and VS stable on BiPAP. Continue using BiPAP as needed and continue titrating down with Vapotherm trials. Continue monitoring symptoms and vitals. Now on nasal cannula oxygen 2. COVID-pneumonia: Continue cefepime, azithromycin. Continue monitor respiratory symptoms and O2 status. 3. Suspected JONNIE: Continue home meds. Consider sleep study outpatient. 4. COPD: Continue nebulizer treatment. Monitor O2 status. 5. Chronic polycythemia due to presumed hypoxemia: Continue hydration and respiratory support. Recheck CBC in 24 hours. Pending Garrett-2 mutation test to rule out polycythemia vera. 6. Paroxysmal atrial fibrillation on oral anticoagulants: Resolved spontaneously 09/03. Continue monitoring heart rate/rhythm. 7. Obesity Diagnosis/Problems Diagnosis/Problems (1) Acute and chronic respiratory failure with hypoxia (2) Pneumonia due to COVID-19 virus Status: Acute BONNIE TREJO DO Sep 08, 2022 10:43
--- NOTE | 2022-09-08 10:58 | Occupational Ther Daily Note ---
OT Current Status-Daily Note Subjective Pt alert, lying in bed. Pt states that she is feeling much better and just had a shower last night. Pt stated that she had just walked with PT around room multiple times and her legs were tired, declined any OOB activities. Mental Status/Objective Patient Orientation: Person, Place, Time, Situation Attachments: IV, Oxygen ADL-Treatment After supplies gathered, pt able to complete oral care by self. Pt given light resistance theraband for HEP. Pt educated on using theraband and skilled instruction on correct positioning and modifications when necessary. Pt completed 2 exercises 2 sets 10 reps each before fatiguing. After session, pt lying in bed with call light/phone in reach. All needs met in room. Therapy Code Descriptions/Definitions Functional [place] Measure: 0=Not Assessed/NA 4=Minimal Assistance 1=Total Assistance 5=Supervision or Setup 2=Maximal Assistance 6=Modified [place] 3=Moderate Assistance 7=Complete IndependenceSCALE: Activities may be completed with or without assistive devices. 6-Vighxcwdtm-lwwamse completes the activity by him/herself with no assistance from a helper. 5-Set-up or Clean-up Assistance-helper sets up or cleans up; patient completes activity. [place] assists only prior to or following the activity. 4-Supervision or Touching Assistance-helper provides verbal cues and/or touching/steadying and/or contact guard assistance as patient completes activity. Assistance may be provided throughout the activity or intermittently. 3-Partial/Moderate Assistance-helper does LESS THAN HALF the effort. [place] lifts, holds or supports trunk or limbs, but provides less than half the effort. 2-Substantial/Maximal Assistance-helper does MORE THAN HALF the effort. [place] lifts or holds trunk or limbs and provides more than half the effort. 5-Wwoqslmoq-skqpxc does ALL the effort. Patient does none of the effort to complete the activity. Or, the assistance of 2 or more helpers is required for the patient to complete the activity. If activity was not attempted, code reason: 7-Patient Refused. 9-Not Applicable-not attempted and the patient did not perform the activity before the current illness, exacerbation or injury. 10-Not Attempted due to Environmental Limitations-(lack of equipment, weather restraints, etc.). 88-Not Attempted due to Medical Conditions or Safety Concerns. 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 2=Patient will verbalize/demonstrate understanding of assistive d evices/modifications for ADL. 3=Patient will improve strength/tolerance for activity to enable patient to perform ADL's. OT Education/Plan Problem List/Assessment Assessment: Decreased Activ Tolerance Discharge Recommendations Plan/Recommendations: Continue POC Treatment Plan/Plan of Care Patient would benefit from OT for education, treatment and training to promote independence in ADL's, mobility, safety and/or upper extremity function for ADL's. Plan of Care: ADL Retraining, Functional Mobility, UE Funct Exercise/Act Treatment Duration: Sep 08, 2022 Frequency: 3 times per week (3-5x/week ) Estimated Hrs Per Day: .25 hour per day Rehab Potential: Good Time Start Time: 10:26 Stop Time: 10:43 DATE: Sep 08, 2022 Total Time Billed (hr/min): 17 Billed Treatment Time 1 visit-ADL 1 (17 min) KAYLYNN GARDINER Sep 08, 2022 10:57
[2022-09-08 11:36] VITALS: BP 111/66
[2022-09-08] MEDS: TRAMADOL HCL 300 MG PO SCH ×2 (14:06→14:07)
[2022-09-08 15:50] VITALS: BP 133/78
[2022-09-08 19:36] VITALS: BP 128/80
[2022-09-08] MEDS: FENOFIBRATE 134 MG (LOFIBRA) CAPSULE PO SCH (20:33)
[2022-09-08] MEDS: eZETimibe 10 MG (ZETIA) TABLET PO SCH (20:34)
[2022-09-09] VITALS (7 sets, daily range): BP systolic 107–144; BP diastolic 57–81
[2022-09-09 05:31] LABS: BASOPHILS # (AUTO) 0.1 10^3/uL (0.0-0.1); BASOPHILS % (AUTO) 1 % (0-10); EOSINOPHILS # (AUTO) 0.4 10^3/uL (0.0-0.3); EOSINOPHILS % (AUTO) 2 % (0-10); HEMATOCRIT 55 % (35-52); HEMOGLOBIN 17.5 g/dL (11.5-16.0); LYMPHOCYTES # (AUTO) 1.6 10^3/uL (1.0-4.0); LYMPHOCYTES % (AUTO) 8 % (12-44); MEAN CORPUSCULAR HEMOGLOBIN 28 pg (25-34); MEAN CORPUSCULAR HGB CONC 32 g/dL (32-36); MEAN CORPUSCULAR VOLUME 86 fL (80-99); MEAN PLATELET VOLUME 12.1 fL (9.0-12.2); MONOCYTES # (AUTO) 1.2 10^3/uL (0.0-1.0); MONOCYTES % (AUTO) 6 % (0-12); NEUTROPHILS % (AUTO) 81 % (42-75); PLATELET COUNT 362 10^3/uL (130-400); WHITE BLOOD COUNT 19.7 10^3/uL (4.3-11.0)
[2022-09-09 05:53] LABS: ALBUMIN 3.3 GM/DL (3.2-4.5); BILIRUBIN,TOTAL 0.7 MG/DL (0.1-1.0); CALCIUM 8.8 MG/DL (8.5-10.1); CREATININE SERUM 0.96 MG/DL (0.60-1.30); MAGNESIUM 1.5 MG/DL (1.6-2.4); POTASSIUM 4.4 MMOL/L (3.6-5.0); TOTAL PROTEIN 5.7 GM/DL (6.4-8.2)
[2022-09-09] MEDS: LEVOTHYROXINE 50 MCG (LEVOTHROID) TAB PO SCH (06:03)
--- NOTE | 2022-09-09 06:09 | Progress Note ---
Subjective Date Seen by a Provider: Sep 09, 2022 Time Seen by a Provider: 10:00 Subjective/Events-last exam Doing much better Gaining strength Likely will be able to go home with home care Weaning off oxygen Review of Systems General: Fatigue, Malaise Pulmonary: Dyspnea Objective Exam Last Set of Vital Signs Vital Signs Date Time Temp Pulse Resp B/P (MAP) Pulse Ox O2 Delivery O2 Flow Rate FiO2 09/09/22 03:53 36.3 52 18 144/81 (102) 96 Nasal Cannula 3.00 09/06/22 14:20 32 Capillary Refill : I&O Intake and Output 09/09/22 00:00 Intake Total 2480 ml Balance 2480 ml Intake Oral 2480 ml # Voids 5 General: Alert, Oriented X3, Cooperative, No Acute Distress Lungs: Clear to Auscultation, Normal Air Movement Heart: Regular Rate, Normal S1, Normal S2, No Murmurs Psych/Mental Status: Mental Status NL, Mood NL Results Lab Laboratory Tests 09/09/22 05:22: White Blood Count 19.7H, Red Blood Count 6.35H, Hemoglobin 17.5H, Hematocrit 55H , Mean Corpuscular Volume 86, Mean Corpuscular Hemoglobin 28, Mean Corpuscular Hemoglobin Concent 32, Red Cell Distribution Width 18.6H, Platelet Count 362, Mean Platelet Volume 12.1, Immature Granulocyte % (Auto) 2, Neutrophils (%) (A uto) 81H, Lymphocytes (%) (Auto) 8L, Monocytes (%) (Auto) 6, Eosinophils (%) (Auto) 2, Basophils (%) (Auto) 1, Neutrophils # (Auto) 16.0H, Lymphocytes # (Auto) 1.6, Monocytes # (Auto) 1.2H, Eosinophils # (Auto) 0.4H, Basophils # (Auto) 0.1, Immature Granulocyte # (Auto) 0.3H, Sodium Level 134L, Potassium Level 4.4, Chloride Level 98, Carbon Dioxide Level 25, Anion Gap 11, Blood Urea Nitrogen 27H, Creatinine 0.96, Estimat Glomerular Filtration Rate 65, BUN/Creatinine Ratio 28, Glucose Level 91, Calcium Level 8.8, Corrected Calcium 9.4, Magnesium Level 1.5L, Total Bilirubin 0.7, Aspartate Amino Transf (AST/SGOT) 23, Alanine Aminotransferase (ALT/SGPT) 44, Alkaline Phosphatase 78, Total Protein 5.7L, Albumin 3.3 Microbiology 08/29/22 MRSA Screen - Final, Complete MRSA not isolated 08/29/22 Urine Culture - Final, Complete NO GROWTH 08/29/22 Blood Culture - Final, Complete No growth Assessment/Plan Assessment/Plan Assess & Plan/Chief Complaint 1. Acute respiratory failure requiring intubation: Successful extubation 08/31. Acute exacerbation on 09/03, symptoms and VS stable on BiPAP. Continue using BiPAP as needed and continue titrating down with Vapotherm trials. Continue monitoring symptoms and vitals. Now on nasal cannula oxygen 2. COVID-pneumonia: Continue cefepime, azithromycin. Continue monitor respiratory symptoms and O2 status. 3. Suspected JONNIE: Continue home meds. Consider sleep study outpatient. 4. COPD: Continue nebulizer treatment. Monitor O2 status. 5. Chronic polycythemia due to presumed hypoxemia: Continue hydration and respiratory support. Recheck CBC in 24 hours. Pending Garrett-2 mutation test to rule out polycythemia vera. 6. Paroxysmal atrial fibrillation on oral anticoagulants: Resolved spontaneously 09/03. Continue monitoring heart rate/rhythm. 7. Obesity Plan: Continue therapy Discharge home on home health Diagnosis/Problems Diagnosis/Problems (1) Acute and chronic respiratory failure with hypoxia (2) Pneumonia due to COVID-19 virus Status: Acute BONNIE TREJO DO Sep 09, 2022 06:09
[2022-09-09] MEDS: RT-ALBUTEROL HFA 8.5 GM INHALER IH SCH ×2 (08:37→21:43)
--- NOTE | 2022-09-09 08:44 | Occupational Ther Daily Note ---
OT Current Status-Daily Note Subjective Pt alert, lying in bed. Pt agrees to therapy. No c/o pain at this time. Mental Status/Objective Patient Orientation: Person, Place, Time, Situation Attachments: IV, Oxygen ADL-Treatment Independent bed mobility. Independent eating. Pt ambulated using FWW with SBA due to O2 tubing, pt is aware of tubing and actively problem solves to manipulate when ambulating. Pt tends to carry FWW in turns without LOB, discussed with PT. Pt declines using bathroom or completing any other ADLs. After therapy, pt sitting in recliner with call light/phone in reach. All needs met in room. Therapy Code Descriptions/Definitions Functional [place] Measure: 0=Not Assessed/NA 4=Minimal Assistance 1=Total Assistance 5=Supervision or Setup 2=Maximal Assistance 6=Modified [place] 3=Moderate Assistance 7=Complete IndependenceSCALE: Activities may be completed with or without assistive devices. 4-Oekbidecqn-fzxddba completes the activity by him/herself with no assistance from a helper. 5-Set-up or Clean-up Assistance-helper sets up or cleans up; patient completes activity. [place] assists only prior to or following the activity. 4-Supervision or Touching Assistance-helper provides verbal cues and/or touching/steadying and/or contact guard assistance as patient completes a ctivity. Assistance may be provided throughout the activity or intermittently. 3-Partial/Moderate Assistance-helper does LESS THAN HALF the effort. [place] lifts, holds or supports trunk or limbs, but provides less than half the effort. 2-Substantial/Maximal Assistance-helper does MORE THAN HALF the effort. [place] lifts or holds trunk or limbs and provides more than half the effort. 8-Omttgtyyg-fkgxgz does ALL the effort. Patient does none of the effort to complete the activity. Or, the assistance of 2 or more helpers is required for the patient to complete the activity. If activity was not attempted, code reason: 7-Patient Refused. 9-Not Applicable-not attempted and the patient did not perform the activity before the current illness, exacerbation or injury. 10-Not Attempted due to Environmental Limitations-(lack of equipment, weather restraints, etc.). 88-Not Attempted due to Medical Conditions or Safety Concerns. 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 2=Patient will verbalize/demonstrate understanding of assistive dev ices/modifications for ADL. 3=Patient will improve strength/tolerance for activity to enable patient to perform ADL's. OT Education/Plan Problem List/Assessment Assessment: Decreased Activ Tolerance Discharge Recommendations Plan/Recommendations: Continue POC Treatment Plan/Plan of Care Patient would benefit from OT for education, treatment and training to promote independence in ADL's, mobility, safety and/or upper extremity function for ADL's. Plan of Care: ADL Retraining, Functional Mobility, UE Funct Exercise/Act Treatment Duration: Sep 08, 2022 Frequency: 3 times per week (3-5x/week ) Estimated Hrs Per Day: .25 hour per day Rehab Potential: Good Time Start Time: 07:34 Stop Time: 07:57 DATE: Sep 09, 2022 Total Time Billed (hr/min): 23 Billed Treatment Time 1 visit, ADL 2 (23 min) KAYLYNN GARDINER Sep 09, 2022 08:44
[2022-09-09] MEDS: FLECAINIDE 100 MG (TAMBOCOR) TAB PO SCH ×2 (09:13→21:23)
[2022-09-09] MEDS: DOCUSATE SODIUM 100 MG (COLACE) CAP PO SCH ×2 (09:14→21:21)
[2022-09-09] MEDS: meTOprolol SUCCINATE 100 MG (TOPROL XL) TAB PO SCH ×2 (09:14→21:21)
[2022-09-09] MEDS: SENNOSIDES 8.6 MG (SENOKOT) TAB PO SCH ×2 (09:15→21:21)
[2022-09-09] MEDS: APIXABAN 5 MG (ELIQUIS) TABLET PO SCH ×2 (09:15→21:21)
[2022-09-09] MEDS: PANTOPRAZOLE 40 MG (PROTONIX) TAB PO SCH ×2 (09:15→21:21)
[2022-09-09] MEDS: TRAMADOL HCL 300 MG PO SCH (09:29)
--- NOTE | 2022-09-09 11:39 | Physical Therapy Daily Note ---
PT Daily Note-Current Subjective Patient reports she is feeling much better and RT has her on 2L O2 NC. Pain Section J - Health Conditions 1. Rarely or not at all 2. Occasionally 3. Frequently 4. Almost constantly 8. Unable to answer Pain Effect on Sleep: 1 Pain Interference with Therapy: 1 Pain Interference w/Day-to-Day: 1 Mental Status Patient Orientation: Normal For Age Attachments: Oxygen (2L) Transfers SCALE: Activities may be completed with or without assistive devices. 0-[id number]-[id number] completes the activity by him/herself with no assistance from a helper. 5-Set-up or Clean-up Assistance-helper sets up or cleans up; patient completes activity. [place] assists only prior to or following the activity. 4-Supervision or Touching Assistance-helper provides verbal cues and/or touching/steadying and/or contact guard assistance as patient completes activity. Assistance may be provided throughout the activity or intermittently. 3-Partial/Moderate Assistance-helper does LESS THAN HALF the effort. [place] lifts, holds or supports trunk or limbs, but provides less than half the effort. 2-Substantial/Maximal Assistance-helper does MORE THAN HALF the effort. [place] lifts or holds trunk or limbs and provides more than half the effort. 4-Blsurmcld-kviobk does ALL the effort. Patient does none of the effort to complete the activity. Or, the assistance of 2 or more helpers is required for the patient to complete the activity. If activity was not attempted, code reason: 7-Patient Refused. 9-Not Applicable-not attempted and the patient did not perform the activity before the current illness, exacerbation or injury. 10-Not Attempted due to Environmental Limitations-(lack of equipment, weather restraints, etc.). 88-Not Attempted due to Medical Conditions or Safety Concerns. Sit to Lying (QC): 6 Lying to Sitting/Side of Bed(Q: 6 Sit to Stand (QC): 5 Weight Bearing Right Lower Extremity: Right Full Weight Bearing Left Lower Extremity: Left Full Weight Bearing Gait Training Distance: 200' in room Walk 10 feet (QC): 5 Walk 50 ft with 2 Turns(QC): 5 Walk 150 ft (QC): 5 Gait Assistive Device: FWW 100' independently no AD/100' with FWW due to mild fatigue (safe and functional gait sequence with no deviation) Exercises Supine Ex: Ankle pumps, Quad Set, Heel Slides, Straight leg raise Supine Reps: 20 (Patient report she performs the exercises during the day independently) Assessment Patient much improved with gross motor skills on this date. Patient denies SOA with activity. PT Molded Grid And Parts Inspector Goals Molded Grid And Parts Inspector Goals PT Longterm Goals Time Frame: Sep 27, 2022 Roll Left & Right (QC): 6 Sit to Lying (QC): 6 Lying-Sitting on Side/Bed(QC): 6 Sit to Stand (QC): 6 Chair/Fgp-bd-Ivuty Xfer(QC): 6 Toilet Transfer (QC): 6 Car Transfer (QC): 6 Walk 10 feet (QC): 4 Walk 50ft with 2 Turns (QC): 4 Walk 150 ft (QC): 4 1 Step (curb) (QC): 3 4 Steps (QC): 3 PT Plan Treatment/Plan Treatment Plan: Continue Plan of Care Treatment Plan: Bed Mobility, Education, Functional Activity Abdulaziz, Functional Strength, Group Therapy, Gait, Safety, Therapeutic Exercise, Transfers Treatment Duration: Sep 27, 2022 Frequency: 6 times per week Estimated Hrs Per Day: .25 hour per day Patient and/or Family Agrees t: Yes Time Time In: 1115 Time Out: 1129 DATE: Sep 09, 2022 Total Billed Treatment Time: 14 Total Billed Treatment 1 visit FA 14 min ANDREW HERR PT Sep 09, 2022 11:39
--- NOTE | 2022-09-09 20:01 | Cardiology Progress Note ---
Progress Note-Cardiology Events since last exam Date Seen by Provider: Sep 09, 2022 Time Seen by Provider: 19:59 Events since last exam I am following her due to atrial fibrillation. Her breathing is nearly back to baseline. She is hoping to go home within the next few days. She denies chest pain, palpitations, syncope, or ankle edema. Certain portions of this document may have been dictated utilizing voice recognition technology. Inherent to this technology, typographical and grammatical errors may exist. As much as I am diligent to identify and correct these mistakes, some errors may remain in the document. Vitals Last set of Vitals Signs Vital Signs 09/09/22 09/09/22 08:38 16:00 Temp 36.1 Pulse 46 Resp 20 B/P (MAP) 123/76 (92) Pulse Ox 95 O2 Delivery Nasal Cannula O2 Flow Rate 2.00 FiO2 28 Labs Labs Laboratory Tests 09/09/22 05:22 Exam Vital Signs Vital Signs Date Time Temp Pulse Resp B/P (MAP) Pulse Ox O2 Delivery O2 Flow Rate FiO2 09/09/22 16:00 36.1 46 20 123/76 (92) 95 Nasal Cannula 2.00 09/09/22 08:38 28 Physical Exam Due to the patient's COVID status, I spoke with the patient from the doorway. She was sitting up in a chair. She was on oxygen by nasal cannula. General: The patient is breathing spontaneously. HENT: Normocephalic. Atraumatic. Skin: There is no pallor. Neurologic: Oriented x3. Cranial nerves III through XII grossly intact. Moving all 4 extremities. Psychiatric: Appears cooperative. Labs Laboratory Tests Test 09/09/22 05:22 Range/Units White Blood Count 19.7 H 4.3-11.0 10^3/uL Red Blood Count 6.35 H 3.80-5.11 10^6/uL Hemoglobin 17.5 H 11.5-16.0 g/dL Hematocrit 55 H 35-52 % Mean Corpuscular Volume 86 80-99 fL Mean Corpuscular Hemoglobin 28 25-34 pg Mean Corpuscular Hemoglobin Concent 32 32-36 g/dL Red Cell Distribution Width 18.6 H 10.0-14.5 % Platelet Count 362 130-400 10^3/uL Mean Platelet Volume 12.1 9.0-12.2 fL Immature Granulocyte % (Auto) 2 % Neutrophils (%) (Auto) 81 H 42-75 % Lymphocytes (%) (Auto) 8 L 12-44 % Monocytes (%) (Auto) 6 0-12 % Eosinophils (%) (Auto) 2 0-10 % Basophils (%) (Auto) 1 0-10 % Neutrophils # (Auto) 16.0 H 1.8-7.8 10^3/uL Lymphocytes # (Auto) 1.6 1.0-4.0 10^3/uL Monocytes # (Auto) 1.2 H 0.0-1.0 10^3/uL Eosinophils # (Auto) 0.4 H 0.0-0.3 10^3/uL Basophils # (Auto) 0.1 0.0-0.1 10^3/uL Immature Granulocyte # (Auto) 0.3 H 0.0-0.1 10^3/uL Sodium Level 134 L 135-145 MMOL/L Potassium Level 4.4 3.6-5.0 MMOL/L Chloride Level 98 98-107 MMOL/L Carbon Dioxide Level 25 21-32 MMOL/L Anion Gap 11 5-14 MMOL/L Blood Urea Nitrogen 27 H 7-18 MG/DL Creatinine 0.96 0.60-1.30 MG/DL Estimat Glomerular Filtration Rate 65 BUN/Creatinine Ratio 28 Glucose Level 91 70-105 MG/DL Calcium Level 8.8 8.5-10.1 MG/DL Corrected Calcium 9.4 8.5-10.1 MG/DL Magnesium Level 1.5 L 1.6-2.4 MG/DL Total Bilirubin 0.7 0.1-1.0 MG/DL Aspartate Amino Transf (AST/SGOT) 23 5-34 U/L Alanine Aminotransferase (ALT/SGPT) 44 0-55 U/L Alkaline Phosphatase 78 40-136 U/L Total Protein 5.7 L 6.4-8.2 GM/DL Albumin 3.3 3.2-4.5 GM/DL Diagnosis/Problems Diagnosis/Problems (1) Persistent atrial fibrillation Assessment & Plan: She had atrial fibrillation for well over a month prior to admission and she had been on oral anticoagulation for well over a month. I started her on flecainide 100 mg twice daily on 09/01 and increased this to 150 mg twice daily on 09/02 and as of 09/03, she has converted back to sinus rhythm and has remained in sinus rhythm. She should continue on apixaban for stroke prophylaxis and metoprolol for rate control in the event she has recurrent at rial fibrillation. I will plan on seeing her in the office following discharge. She already has an appointment for October 01. At this point, her cardiac status appears stable. Please call if he have other questions or concerns. (2) Primary hypertension Assessment & Plan: I increased her dose of metoprolol succinate to 100 mg twice daily on 09/02 and and her blood pressures are improved. (3) Mixed hyperlipidemia Assessment & Plan: Continue ezetimibe and fenofibrate. (4) Mitral regurgitation Assessment & Plan: Her previous echocardiogram from earlier this year showed moderate mitral regurgitation. I would not expect this to be causing symptoms but this will need to be followed longitudinally. (5) Acquired hypothyroidism Assessment & Plan: Continue home dose of thyroid medication. (6) Acute on chronic respiratory failure with hypoxemia Assessment & Plan: Most likely multifactorial due to COVID infection with possible superimposed pneumonia and perhaps some pulmonary edema. She received 5 L of IV normal saline which I stopped the first day I saw her. DONNA DEE JR, MD Sep 09, 2022 20:01
[2022-09-09] MEDS: eZETimibe 10 MG (ZETIA) TABLET PO SCH (21:21)
[2022-09-09] MEDS: FENOFIBRATE 134 MG (LOFIBRA) CAPSULE PO SCH (21:21)
[2022-09-10 04:55] VITALS: BP 150/83
[2022-09-10] MEDS: LEVOTHYROXINE 50 MCG (LEVOTHROID) TAB PO SCH (06:54)
[2022-09-10] MEDS: RT-ALBUTEROL HFA 8.5 GM INHALER IH SCH (07:57)
[2022-09-10 08:15] VITALS: BP 147/92
[2022-09-10] MEDS: TRAMADOL HCL 300 MG PO SCH (09:40)
[2022-09-10] MEDS: FLECAINIDE 100 MG (TAMBOCOR) TAB PO SCH (09:40)
[2022-09-10] MEDS: SENNOSIDES 8.6 MG (SENOKOT) TAB PO SCH (09:40)
[2022-09-10] MEDS: DOCUSATE SODIUM 100 MG (COLACE) CAP PO SCH (09:40)
[2022-09-10] MEDS: meTOprolol SUCCINATE 100 MG (TOPROL XL) TAB PO SCH (09:41)
[2022-09-10] MEDS: APIXABAN 5 MG (ELIQUIS) TABLET PO SCH (09:41)
[2022-09-10] MEDS: PANTOPRAZOLE 40 MG (PROTONIX) TAB PO SCH (09:41)
[2022-09-10] MEDS ORDERED: FLEC100T PO (11:33)
[2022-09-10] MEDS ORDERED: MTP100TCR PO (11:33)
[2022-09-10] MEDS ORDERED: APIX5TAB PO (11:33)
--- NOTE | 2022-09-10 11:34 | D/C HH Face to Face Order ---
D/C HH Face to Face Orders Reconcile Patient Problems Problems Reviewed?: Yes Instructions for Patient HH Patient Instructions/FollowUp: PCP 1 week Physician to follow Patient: chc Discharge Diet for Home: No Restrictions Patient Problems: COVID Patient Data-Allergies,Ht & Wt Patient Allergies: Coded Allergies: Penicillins (Verified Allergy, Severe, Shortness of Breath, 07/24/22) SOB, swelling, hives chlorhexidine (Verified Allergy, Intermediate, Itching, 07/24/22) swelling, hives. isopropyl alcohol (Verified Allergy, Intermediate, Itching, 07/24/22) swelling, hives. Home Health Need/Face to Face Date of Face to Face: Sep 10, 2022 Clinical Findings: Generalized weakness and fatigue, Instability, Muscle weakness I have seen Pt [id number]: Yes Discharged To: Home Diagnosis/Conditions: Debility Patient is Homebound due to: Shortness of breath/distress Homebound Status Due to the above stated illness, injury or surgical procedure (medical condition or diagnosis) and associated clinical findings, the patient is homebound because of his/her inability to leave home except with aid of a supportive device and/or person AND leaving the home requires a considerable and taxing effort or is medically contraindicated. Pt req the following assistanc: [facility] Nursing Orders Home Health Services Order: Nursing Services, Billet Driller-Evaluate & Treat, Physical Therapy-Evaluate & Treat Certify Stmt I certify that this patient is under my care and that I, a nurse practitioner or a physician; a special ed assistant working with me, had a face to face encounter that - meets the physician face to face encounter requirements with this patient as dated. BONNIE TREJO DO Sep 10, 2022 11:34
--- NOTE | 2022-09-10 11:37 | Discharge Summary ---
Diagnosis/Chief Complaint Date of Admission Aug 29, 2022 at 20:12 Date of Discharge Discharge Date: Sep 10, 2022 Discharge Diagnosis 1. Acute respiratory failure requiring intubation: Successful extubation 08/31. Acute exacerbation on 09/03, symptoms and VS stable on BiPAP. Continue using BiPAP as needed and continue titrating down with Vapotherm trials. Continue monitoring symptoms and vitals. Now on nasal cannula oxygen 2. COVID-pneumonia: Continue cefepime, azithromycin. Continue monitor respiratory symptoms and O2 status. 3. Suspected JONNIE: Continue home meds. Consider sleep study outpatient. 4. COPD: Continue nebulizer treatment. Monitor O2 status. 5. Chronic polycythemia due to presumed hypoxemia: Continue hydration and respiratory support. Recheck CBC in 24 hours. Pending Garrett-2 mutation test to rule out polycythemia vera. 6. Paroxysmal atrial fibrillation on oral anticoagulants: Resolved spontaneously 09/03. Continue monitoring heart rate/rhythm. 7. Obesity Plan: Continue therapy Discharge home on home health Discharge Summary Discharge Physical Examination Allergies: Coded Allergies: Penicillins (Verified Allergy, Severe, Shortness of Breath, 07/24/22) SOB, swelling, hives chlorhexidine (Verified Allergy, Intermediate, Itching, 07/24/22) swelling, hives. isopropyl alcohol (Verified Allergy, Intermediate, Itching, 07/24/22) swelling, hives. Vitals & I&Os Vital Signs Date Time Temp Pulse Resp B/P (MAP) Pulse Ox O2 Delivery O2 Flow Rate FiO2 09/10/22 14:14 36.0 83 18 106/67 96 High Flow N/C 2.00 09/09/22 08:38 28 General Appearance: Alert, Oriented X3, Cooperative Respiratory: Clear to Auscultation Cardiovascular: Regular Rate Psych/Mental Status: Mental Status NL Hospital Course Was the Problem List Reviewed?: Yes Hospital course: Patient had an uneventful but lengthy hospital course after COVID-pneumonia requiring intubation at [facility]. She was ultimately extubated. She required completion of bacterial pneumonia antibiotics. A. fib with RVR managed by cardiology. Polycythemia confirm suspicion of JONNIE. She will need a sleep study as an outpatient. Labs remained stable and ultimately discontinue BiPAP and Vapotherm and only required 2 L of oxygen on exertion and she was discharged in improved condition on home health. Labs (last 24 hrs) Laboratory Tests 08/29/22 20:12: Lab Scanned Report Referred Lab Report 08/29/22 21:30: White Blood Count 15.0H, Red Blood Count 6.65H, Hemoglobin 18.2H, Hematocrit 56H , Mean Corpuscular Volume 85, Mean Corpuscular Hemoglobin 27, Mean Corpuscular Hemoglobin Concent 32, Red Cell Distribution Width 18.7H, Platelet Count 496H, Mean Platelet Volume 11.7, Immature Granulocyte % (Auto) 1, Neutrophils (%) (Auto) 94H, Lymphocytes (%) (Auto) 3L, Monocytes (%) (Auto) 2, Eosinophils (%) (Auto) 0, Basophils (%) (Auto) 1, Neutrophils # (Auto) 14.0H, Lymphocytes # (Auto) 0.5L, Monocytes # (Auto) 0.3, Eosinophils # (Auto) 0.0, Basophils # (Auto) 0.1, Immature Granulocyte # (Auto) 0.1, Neutrophils % (Manual) 93, Lymphocytes % (Manual) 3, Monocytes % (Manual) 4, Poikilocytosis SLIGHT, Prothrombin Time 16.5H, INR Comment 1.3, Urine Color ORANGE, Urine Clarity CLOUDY, Urine pH 5.5, Urine Specific [place] >=1.030, Urine Protein 1+H, Urine Glucose (UA) NEGATIVE, Urine Ketones TRACEH, Urine Nitrite POSITIVEH, Urine Bilirubin 2+H, Urine Urobilinogen 4.0, Urine Leukocyte Esterase TRACEH, Urine R BC (Auto) 2+H, Urine RBC 2-5H, Urine WBC 0-2, Urine Squamous Epithelial Cells NONE, Urine Crystals NONE, Urine Bacteria LARGEH, Urine Casts NONE, Urine Mucus NEGATIVE, Urine Culture Indicated YES, Sodium Level 135, Potassium Level 4.4, Chloride Level 104, Carbon Dioxide Level 21, Anion Gap 10, Blood Urea Nitrogen 23H, Creatinine 1.14, Estimat Glomerular Filtration Rate 53, BUN/Creatinine Ratio 20, Glucose Level 148H, Lactic Acid Level 0.66, Calcium Level 8.8, Corrected Calcium 9.4, Phosphorus Level 3.2, Magnesium Level 1.7, Total Bilirubin 0.9, Aspartate Amino Transf (AST/SGOT) 20, Alanine Aminotransferase (ALT/SGPT) 17, Alkaline Phosphatase 59, Total Protein 6.2L, Albumin 3.3, Triglycerides Level 103, Procalcitonin 0.08 08/30/22 05:20: White Blood Count 14.9H, Red Blood Count 6.60H, Hemoglobin 18.2H, Hematocrit 56H , Mean Corpuscular Volume 84, Mean Corpuscular Hemoglobin 28, Mean Corpuscular Hemoglobin Concent 33, Red Cell Distribution Width 18.6H, Platelet Count 510H, Mean Platelet Volume 11.7, Immature Granulocyte % (Auto) 1, Neutrophils (%) (Auto) 93H, Lymphocytes (%) (Auto) 5L, Monocytes (%) (Auto) 1, Eosinophils (%) (Auto) 0, Basophils (%) (Auto) 0, Neutrophils # (Auto) 13.8H, Lymphocytes # (Auto) 0.7L, Monocytes # (Auto) 0.2, Eosinophils # (Auto) 0.1, Basophils # (Auto) 0.0, Immature Granulocyte # (Auto) 0.1, Sodium Level 138, Potassium Level 3.8, Chloride Level 106, Carbon Dioxide Level 19L, Anion Gap 13, Blood Urea Nitrogen 22H, Creatinine 1.10, Estimat Glomerular Filtration Rate 55, BUN/Creatinine Ratio 20, Glucose Level 137H, Calcium Level 8.7, Corrected Calcium 9.3, Phosphorus Level 3.4, Magnesium Level 1.7, Total Bilirubin 0.7, Aspartate Amino Transf (AST/SGOT) 21, Alanine Aminotransferase (ALT/SGPT) 17, Alkaline Phosphatase 56, Total Protein 6.1L, Albumin 3.2 08/30/22 11:27: Glucometer 148H 08/30/22 18:36: Glucometer 163H 08/31/22 03:15: White Blood Count 17.8H, Red Blood Count 6.16H, Hemoglobin 16.8H, Hematocrit 52, Mean Corpuscular Volume 84, Mean Corpuscular Hemoglobin 27, Mean Corpuscular Hemoglobin Concent 33, Red Cell Distribution Width 18.8H, Platelet Count 485H, Mean Platelet Volume 11.5, Immature Granulocyte % (Auto) 1, Neutrophils (%) (Auto) 94H, Lymphocytes (%) (Auto) 3L, Monocytes (%) (Auto) 3, Eosinophils (%) (Auto) 0, Basophils (%) (Auto) 0, Neutrophils # (Auto) 16.7H, Lymphocytes # (Auto) 0.5L, Monocytes # (Auto) 0.5, Eosinophils # (Auto) 0.0, Basophils # (Auto) 0.1, Immature Granulocyte # (Auto) 0.2H, Sodium Level 137, Potassium Level 3.6, Chloride Level 108H, Carbon Dioxide Level 16L, Anion Gap 13, Blood Urea Nitrogen 26H, Creatinine 1.11, Estimat Glomerular Filtration Rate 54, BUN/Creatinine Ratio 23, Glucose Level 174H, Calcium Level 8.0L, Corrected Haseeb cium 8.8, Phosphorus Level 3.0, Magnesium Level 1.6, Total Bilirubin 0.4, Aspartate Amino Transf (AST/SGOT) 19, Alanine Aminotransferase (ALT/SGPT) 17, Alkaline Phosphatase 42, Total Protein 5.6L, Albumin 3.0L, Triglycerides Level 205H 08/31/22 07:25: Blood Gas Puncture Site LEFT RADIAL, Blood Gas Patient Temperature 35.9, Arterial Blood pH 7.42, Arterial Blood Partial Pressure CO2 29L, Arterial Blood Partial Pressure O2 74L, Arterial Blood HCO3 19L, Arterial Blood Total CO2 19.5L , Arterial Blood Oxygen Saturation 96, Arterial Blood Base Excess -5.3L, Abhi Test POSITIVE, Blood Gas Ventilator Setting NO, Blood Gas Inspired Oxygen 50% 08/31/22 11:31: Glucometer 158H 08/31/22 18:54: Glucometer 105 09/01/22 04:30: White Blood Count 24.3H, Red Blood Count 6.50H, Hemoglobin 17.8H, Hematocrit 54H , Mean Corpuscular Volume 84, Mean Corpuscular Hemoglobin 27, Mean Corpuscular H emoglobin Concent 33, Red Cell Distribution Width 19.5H, Platelet Count 633H, Mean Platelet Volume 12.0, Immature Granulocyte % (Auto) 1, Neutrophils (%) (Auto) 91H, Lymphocytes (%) (Auto) 2L, Monocytes (%) (Auto) 5, Eosinophils (%) (Auto) 0, Basophils (%) (Auto) 0, Neutrophils # (Auto) 22.1H, Lymphocytes # (Auto) 0.5L, Monocytes # (Auto) 1.3H, Eosinophils # (Auto) 0.0, Basophils # (Auto) 0.1, Immature Granulocyte # (Auto) 0.3H, Sodium Level 142, Potassium Level 3.5L, Chloride Level 111H, Carbon Dioxide Level 19L, Anion Gap 12, Blood Urea Nitrogen 25H, Creatinine 0.89, Estimat Glomerular Filtration Rate 71, BUN/Creatinine Ratio 28, Glucose Level 88, Calcium Level 8.5, Corrected Calcium 9.0, Phosphorus Level 2.3, Magnesium Level 2.0, Total Bilirubin 0.5, Aspartate Amino Transf (AST/SGOT) 42H, Alanine Aminotransferase (ALT/SGPT) 50, Alkaline Phosphatase 53, Total Protein 5.9L, Albumin 3.4 09/02/22 03:30: White Blood Count 26.1H, Red Blood Count 6.91H, Hemoglobin 18.7H, Hematocrit 58H , Mean Corpuscular Volume 85, Mean Corpuscular Hemoglobin 27, Mean Corpuscular Hemoglobin Concent 32, Red Cell Distribution Width 19.9H, Platelet Count 683H, Mean Platelet Volume 11.8, Immature Granulocyte % (Auto) 1, Neutrophils (%) (Au to) 90H, Lymphocytes (%) (Auto) 3L, Monocytes (%) (Auto) 5, Eosinophils (%) (Auto) 0, Basophils (%) (Auto) 0, Neutrophils # (Auto) 23.6H, Lymphocytes # (Auto) 0.8L, Monocytes # (Auto) 1.3H, Eosinophils # (Auto) 0.0, Basophils # (Auto) 0.1, Immature Granulocyte # (Auto) 0.4H 09/02/22 04:45: Sodium Level 135, Potassium Level 4.3, Chloride Level 105, Carbon Dioxide Level 21, Anion Gap 9, Blood Urea Nitrogen 29H, Creatinine 0.85, Estimat Glomerular Filtration Rate 75, BUN/Creatinine Ratio 34, Glucose Level 99, Calcium Level 8.6, Corrected Calcium 8.8, Phosphorus Level 3.1, Magnesium Level 1.9, Total Bilirubin 0.6, Aspartate Amino Transf (AST/SGOT) 54H, Alanine Aminotransferase (ALT/SGPT) 89H, Alkaline Phosphatase 73, Total Protein 6.5, Albumin 3.7 09/03/22 03:50: White Blood Count 23.9H, Red Blood Count 6.84H, Hemoglobin 18.6H, Hematocrit 57H , Mean Corpuscular Volume 84, Mean Corpuscular Hemoglobin 27, Mean Corpuscular Hemoglobin Concent 33, Red Cell Distribution Width 19.4H, Platelet Count 493H, Mean Platelet Volume 11.0, Immature Granulocyte % (Auto) 1, Neutrophils (%) (Auto) 89H, Lymphocytes (%) (Auto) 4L, Monocytes (%) (Auto) 5, Eosinophils (%) (Auto) 0, Basophils (%) (Auto) 0, Neutrophils # (Auto) 21.3H, Lymphocytes # (Auto) 1.0, Monocytes # (Auto) 1.2H, Eosinophils # (Auto) 0.0, Basophils # (Auto) 0.1, Immature Granulocyte # (Auto) 0.3H, Sodium Level 136, Potassium Level 4.7, Chloride Level 103, Carbon Dioxide Level 23, Anion Gap 10, Blood Urea Nitrogen 33H, Creatinine 0.86, Estimat Glomerular Filtration Rate 74, BUN/Creatinine Ratio 38, Glucose Level 86, Calcium Level 8.8, Corrected Calcium 9.1, Phosphorus Level 3.6, Magnesium Level 1.9, Total Bilirubin 0.8, Aspartate Amino Transf (AST/SGOT) 43H, Alanine Aminotransferase (ALT/SGPT) 92H, Alkaline Phosphatase 77, Total Protein 6.1L, Albumin 3.6 09/03/22 07:10: Blood Gas Puncture Site RT RADIAL, Blood Gas Patient Temperature 36.4, Arterial Blood pH 7.34*L, Arterial Blood Partial Pressure CO2 45, Arterial Blood Partial Pressure O2 239H, Arterial Blood HCO3 24, Arterial Blood Total CO2 25.7, Arterial Blood Oxygen Saturation 100, Arterial Blood Base Excess -0.8, Abhi Test YES-POS, Blood Gas Ventilator Setting NO, Blood Gas Inspired Oxygen 50% 09/03/22 09:40: 09/04/22 03:29: White Blood Count 23.7H, Red Blood Count 6.75H, Hemoglobin 18.4H, Hematocrit 56H , Mean Corpuscular Volume 84, Mean Corpuscular Hemoglobin 27, Mean Corpuscular Hemoglobin Concent 33, Red Cell Distribution Width 19.0H, Platelet Count 489H, Mean Platelet Volume 11.1, Immature Granulocyte % (Auto) 1, Neutrophils (%) (Auto) 85H, Lymphocytes (%) (Auto) 7L, Monocytes (%) (Auto) 5, Eosinophils (%) (Auto) 1, Basophils (%) (Auto) 0, Neutrophils # (Auto) 20.1H, Lymphocytes # (Auto) 1.7, Monocytes # (Auto) 1.3H, Eosinophils # (Auto) 0.3, Basophils # (Auto) 0.1, Immature Granulocyte # (Auto) 0.3H, Sodium Level 135, Potassium Level 4.5, Chloride Level 100, Carbon Dioxide Level 25, Anion Gap 10, Blood Urea Nitrogen 44H, Creatinine 1.07, Estimat Glomerular Filtration Rate 57, BUN/Creatinine Ratio 41, Glucose Level 81, Calcium Level 8.5, Corrected Calcium 9.1, Phosphorus Level 4.2, Magnesium Level 1.9, Total Bilirubin 0.9, Aspartate Amino Transf (AST/SGOT) 45H, Alanine Aminotransferase (ALT/SGPT) 103H, Alkaline Phosphatase 67, Total Protein 5.6L, Albumin 3.3, Neutrophils % (Manual) 88, Lymphocytes % (Manual) 6, Monocytes % (Manual) 2, Eosinophils % (Manual) 0, Basophils % (Manual) 0, Band Neutrophils 2, Reactive Lymphocytes 2, Toxic Granulation 1+, Polychromasia SLIGHT, Anisocytosis SLIGHT 09/05/22 05:00: White Blood Count 22.4H, Red Blood Count 6.51H, Hemoglobin 17.8H, Hematocrit 54H , Mean Corpuscular Volume 84, Mean Corpuscular Hemoglobin 27, Mean Corpuscular Hemoglobin Concent 33, Red Cell Distribution Width 18.5H, Platelet Count 390, Mean Platelet Volume 11.2, Immature Granulocyte % (Auto) 2, Neutrophils (%) (Auto) 80H, Lymphocytes (%) (Auto) 9L, Monocytes (%) (Auto) 7, Eosinophils (%) (Auto) 2, Basophils (%) (Auto) 0, Neutrophils # (Auto) 18.0H, Lymphocytes # (Auto) 1.9, Monocytes # (Auto) 1.5H, Eosinophils # (Auto) 0.5H, Basophils # (Auto) 0.1, Immature Granulocyte # (Auto) 0.4H, Sodium Level 135, Potassium Level 4.3, Chloride Level 98, Carbon Dioxide Level 25, Anion Gap 12, Blood Urea Nitrogen 41H, Creatinine 0.99, Estimat Glomerular Filtration Rate 62, BUN/Creatinine Ratio 41, Glucose Level 71, Calcium Level 8.5, Corrected Calcium 9.1, Phosphorus Level 4.0, Magnesium Level 1.8, Total Bilirubin 1.0, Aspartate Amino Transf (AST/SGOT) 29, Alanine Aminotransferase (ALT/SGPT) 79H, Alkaline Phosphatase 63, Total Protein 5.4L, Albumin 3.2 09/06/22 03:30: White Blood Count 23.3H, Red Blood Count 6.42H, Hemoglobin 17.8H, Hematocrit 54H , Mean Corpuscular Volume 85, Mean Corpuscular Hemoglobin 28, Mean Corpuscular Hemoglobin Concent 33, Red Cell Distribution Width 18.3H, Platelet Count 377, Mean Platelet Volume 11.9, Immature Granulocyte % (Auto) 2, Neutrophils (%) (Auto) 80H, Lymphocytes (%) (Auto) 8L, Monocytes (%) (Auto) 7, Eosinophils (%) (Auto) 2, Basophils (%) (Auto) 0, Neutrophils # (Auto) 18.6H, Lymphocytes # (Auto) 1.9, Monocytes # (Auto) 1.7H, Eosinophils # (Auto) 0.5H, Basophils # (Auto) 0.1, Immature Granulocyte # (Auto) 0.5H, Sodium Level 138, Potassium Level 4.6, Chloride Level 99, Carbon Dioxide Level 26, Anion Gap 13, Blood Urea Nitrogen 37H, Creatinine 0.94, Estimat Glomerular Filtration Rate 67, BUN/Creatinine Ratio 39, Glucose Level 78, Calcium Level 8.7, Corrected Calcium 9.3, Phosphorus Level 4.5, Magnesium Level 1.8, Total Bilirubin 0.6, Aspartate Amino Transf (AST/SGOT) 28, Alanine Aminotransferase (ALT/SGPT) 74H, Alkaline Phosphatase 77, Total Protein 5.5L, Albumin 3.3 09/07/22 06:30: White Blood Count 21.6H, Red Blood Count 6.49H, Hemoglobin 18.0H, Hematocrit 55H , Mean Corpuscular Volume 85, Mean Corpuscular Hemoglobin 28, Mean Corpuscular Hemoglobin Concent 33, Red Cell Distribution Width 18.6H, Platelet Count 385, Mean Platelet Volume 12.2, Immature Granulocyte % (Auto) 3, Neutrophils (%) (Auto) 78H, Lymphocytes (%) (Auto) 11L, Monocytes (%) (Auto) 6, Eosinophils (%) (Auto) 2, Basophils (%) (Auto) 0, Neutrophils # (Auto) 16.9H, Lymphocytes # (Auto) 2.3, Monocytes # (Auto) 1.3H, Eosinophils # (Auto) 0.4H, Basophils # (Auto) 0.1, Immature Granulocyte # (Auto) 0.5H, Sodium Level 136, Potassium Level 4.2, Chloride Level 96L, Carbon Dioxide Level 27, Anion Gap 13, Blood Urea Nitrogen 32H, Creatinine 0.89, Estimat Glomerular Filtration Rate 71, BUN/Creatinine Ratio 36, Glucose Level 72, Calcium Level 8.7, Corrected Calcium 9.3, Magnesium Level 1.6, Total Bilirubin 0.8, Aspartate Amino Transf (AST/SGOT) 25, Alanine Aminotransferase (ALT/SGPT) 59H, Alkaline Phosphatase 67, Total Protein 5.5L, Albumin 3.3 09/08/22 05:14: White Blood Count 21.9H, Red Blood Count 6.59H, Hemoglobin 18.2H, Hematocrit 56H , Mean Corpuscular Volume 85, Mean Corpuscular Hemoglobin 28, Mean Corpuscular Hemoglobin Concent 33, Red Cell Distribution Width 18.4H, Platelet Count 383, Mean Platelet Volume 11.6, Immature Granulocyte % (Auto) 2, Neutrophils (%) (Auto) 80H, Lymphocytes (%) (Auto) 10L, Monocytes (%) (Auto) 6, Eosinophils (%) (Auto) 2, Basophils (%) (Auto) 1, Neutrophils # (Auto) 17.5H, Lymphocytes # (Auto) 2.2, Monocytes # (Auto) 1.3H, Eosinophils # (Auto) 0.4H, Basophils # (Auto) 0.1, Immature Granulocyte # (Auto) 0.5H, Sodium Level 134L, Potassium Level 4.3, Chloride Level 96L, Carbon Dioxide Level 26, Anion Gap 12, Blood Urea Nitrogen 30H, Creatinine 0.91, Estimat Glomerular Filtration Rate 69, BUN/Creatinine Ratio 33, Glucose Level 84, Calcium Level 9.2, Corrected Calcium 9.5, Magnesium Level 1.6, Total Bilirubin 0.8, Aspartate Amino Transf (AST/SGOT) 22, Alanine Aminotransferase (ALT/SGPT) 53, Alkaline Phosphatase 77, Total Protein 5.8L, Albumin 3.6 09/09/22 05:22: White Blood Count 19.7H, Red Blood Count 6.35H, Hemoglobin 17.5H, Hematocrit 55H , Mean Corpuscular Volume 86, Mean Corpuscular Hemoglobin 28, Mean Corpuscular Hemoglobin Concent 32, Red Cell Distribution Width 18.6H, Platelet Count 362, Mean Platelet Volume 12.1, Immature Granulocyte % (Auto) 2, Neutrophils (%) (Auto) 81H, Lymphocytes (%) (Auto) 8L, Monocytes (%) (Auto) 6, Eosinophils (%) (Auto) 2, Basophils (%) (Auto) 1, Neutrophils # (Auto) 16.0H, Lymphocytes # (Auto) 1.6, Monocytes # (Auto) 1.2H, Eosinophils # (Auto) 0.4H, Basophils # (Auto) 0.1, Immature Granulocyte # (Auto) 0.3H, Sodium Level 134L, Potassium Level 4.4, Chloride Level 98, Carbon Dioxide Level 25, Anion Gap 11, Blood Urea Nitrogen 27H, Creatinine 0.96, Estimat Glomerular Filtration Rate 65, BUN/Creatinine Ratio 28, Glucose Level 91, Calcium Level 8.8, Corrected Calcium 9.4, Magnesium Level 1.5L, Total Bilirubin 0.7, Aspartate Amino Transf (AST/SGOT) 23, Alanine Aminotransferase (ALT/SGPT) 44, Alkaline Phosphatase 78, Total Protein 5.7L, Albumin 3.3 Microbiology 08/29/22 MRSA Screen - Final, Complete MRSA not isolated 08/29/22 Urine Culture - Final, Complete NO GROWTH 08/29/22 Blood Culture - Final, Complete No growth Pending Labs Microbiology Date/Time Source Procedure Growth Status 08/29/22 22:00 Nasal MRSA Screen - Final MRSA not isolated Complete 08/29/22 21:30 Urine Clean Catch Urine Culture - Final NO GROWTH Complete 08/29/22 21:30 [place] Blood Culture - Final No growth Complete Laboratory Tests 08/29/22 20:12: Lab Scanned Report Referred Lab Report 08/29/22 21:30: White Blood Count 15.0, Red Blood Count 6.65, Hemoglobin 18.2, Hematocrit 56, Mean Corpuscular Volume 85, Mean Corpuscular Hemoglobin 27, Mean Corpuscular Hemoglobin Concent 32, Red Cell Distribution Width 18.7, Platelet Count 496, Mean Platelet Volume 11.7, Immature Granulocyte % (Auto) 1, Neutrophils (%) (Auto) 94, Lymphocytes (%) (Auto) 3, Monocytes (%) (Auto) 2, Eosinophils (%) (Auto) 0, Basophils (%) (Auto) 1, Neutrophils # (Auto) 14.0, Lymphocytes # (Auto) 0.5, Monocytes # (Auto) 0.3, Eosinophils # (Auto) 0.0, Basophils # (Auto) 0.1, Immature Granulocyte # (Auto) 0.1, Neutrophils % (Manual) 93, Lymphocytes % (Manual) 3, Monocytes % (Manual) 4, Poikilocytosis SLIGHT, Prothrombin Time 16.5, INR Comment 1.3, Urine Color ORANGE, Urine Clarity CLOUDY, Urine pH 5.5, Urine Specific [place] >=1.030, Urine Protein 1+, Urine Glucose (UA) NEGATIVE, Urine Ketones TRACE, Urine Nitrite POSITIVE, Urine Bilirubin 2+, Urine Urobilinogen 4.0, Urine Leukocyte Esterase TRACE, Urine RBC (Auto) 2+, Urine RBC 2-5, Urine WBC 0-2, Urine Squamous Epithelial Cells NONE, Urine Crystals NONE, Urine Bacteria LARGE, Urine Casts NONE, Urine Mucus NEGATIVE, Urine Culture Indicated YES, Sodium Level 135, Potassium Level 4.4, Chloride Level 104, Carbon Dioxide Level 21, Anion Gap 10, Blood Urea Nitrogen 23, Creatinine 1.14, Estimat Glomerular Filtration Rate 53, BUN/Creatinine Ratio 20, Glucose Level 148, Lactic Acid Level 0.66, Calcium Level 8.8, Corrected Calcium 9.4, Phosphorus Level 3.2, Magnesium Level 1.7, Total Bilirubin 0.9, Aspartate Amino Transf (AST/SGOT) 20, Alanine Aminotransferase (ALT/SGPT) 17, Alkaline Phosphatase 59, Total Protein 6.2, Albumin 3.3, Triglycerides Level 103, Procalcitonin 0.08 08/30/22 05:20: White Blood Count 14.9, Red Blood Count 6.60, Hemoglobin 18.2, Hematocrit 56, Mean Corpuscular Volume 84, Mean Corpuscular Hemoglobin 28, Mean Corpuscular Hemoglobin Concent 33, Red Cell Distribution Width 18.6, Platelet Count 510, Mean Platelet Volume 11.7, Immature Granulocyte % (Auto) 1, Neutrophils (%) (Auto) 93, Lymphocytes (%) (Auto) 5, Monocytes (%) (Auto) 1, Eosinophils (%) (Au to) 0, Basophils (%) (Auto) 0, Neutrophils # (Auto) 13.8, Lymphocytes # (Auto) 0.7, Monocytes # (Auto) 0.2, Eosinophils # (Auto) 0.1, Basophils # (Auto) 0.0, Immature Granulocyte # (Auto) 0.1, Sodium Level 138, Potassium Level 3.8, Chloride Level 106, Carbon Dioxide Level 19, Anion Gap 13, Blood Urea Nitrogen 22, Creatinine 1.10, Estimat Glomerular Filtration Rate 55, BUN/Creatinine Ratio 20, Glucose Level 137, Calcium Level 8.7, Corrected Calcium 9.3, Phosphorus Level 3.4, Magnesium Level 1.7, Total Bilirubin 0.7, Aspartate Amino Transf (AST/SGOT) 21, Alanine Aminotransferase (ALT/SGPT) 17, Alkaline Phosphatase 56, Total Protein 6.1, Albumin 3.2 08/30/22 11:27: Glucometer 148 08/30/22 18:36: Glucometer 163 08/31/22 03:15: White Blood Count 17.8, Red Blood Count 6.16, Hemoglobin 16.8, Hematocrit 52, Mean Corpuscular Volume 84, Mean Corpuscular Hemoglobin 27, Mean Corpuscular Hemoglobin Concent 33, Red Cell Distribution Width 18.8, Platelet Count 485, Mean Platelet Volume 11.5, Immature Granulocyte % (Auto) 1, Neutrophils (%) (Auto) 94, Lymphocytes (%) (Auto) 3, Monocytes (%) (Auto) 3, Eosinophils (%) (Auto) 0, Basophils (%) (Auto) 0, Neutrophils # (Auto) 16.7, Lymphocytes # (Auto) 0.5, Monocytes # (Auto) 0.5, Eosinophils # (Auto) 0.0, Basophils # (Auto) 0.1, Immature Granulocyte # (Auto) 0.2, Sodium Level 137, Potassium Level 3.6, Chloride Level 108, Carbon Dioxide Level 16, Anion Gap 13, Blood Urea Nitrogen 26, Creatinine 1.11, Estimat Glomerular Filtration Rate 54, BUN/Creatinine Ratio 23, Glucose Level 174, Calcium Level 8.0, Corrected Calcium 8.8, Phosphorus Level 3.0, Magnesium Level 1.6, Total Bilirubin 0.4, Aspartate Amino Transf (AST/SGOT) 19, Alanine Aminotransferase (ALT/SGPT) 17, Alkaline Phosphatase 42, Total Protein 5.6, Albumin 3.0, Triglycerides Level 205 08/31/22 07:25: Blood Gas Puncture Site LEFT RADIAL, Blood Gas Patient Temperature 35.9, Arterial Blood pH 7.42, Arterial Blood Partial Pressure CO2 29, Arterial Blood Partial Pressure O2 74, Arterial Blood HCO3 19, Arterial Blood Total CO2 19.5, Arterial Blood Oxygen Saturation 96, Arterial Blood Base Excess -5.3, Abhi Test POSITIVE, Blood Gas Ventilator Setting NO, Blood Gas Inspired Oxygen 50% 08/31/22 11:31: Glucometer 158 08/31/22 18:54: Glucometer 105 09/01/22 04:30: White Blood Count 24.3, Red Blood Count 6.50, Hemoglobin 17.8, Hematocrit 54, Mean Corpuscular Volume 84, Mean Corpuscular Hemoglobin 27, Mean Corpuscular Hemoglobin Concent 33, Red Cell Distribution Width 19.5, Platelet Count 633, Mean Platelet Volume 12.0, Immature Granulocyte % (Auto) 1, Neutrophils (%) (Auto) 91, Lymphocytes (%) (Auto) 2, Monocytes (%) (Auto) 5, Eosinophils (%) (Auto) 0, Basophils (%) (Auto) 0, Neutrophils # (Auto) 22.1, Lymphocytes # (Auto) 0.5, Monocytes # (Auto) 1.3, Eosinophils # (Auto) 0.0, Basophils # (Auto) 0.1, Immature Granulocyte # (Auto) 0.3, Sodium Level 142, Potassium Level 3.5, Chloride Level 111, Carbon Dioxide Level 19, Anion Gap 12, Blood Urea Nitrogen 25, Creatinine 0.89, Estimat Glomerular Filtration Rate 71, BUN/Creatinine Ratio 28, Glucose Level 88, Calcium Level 8.5, Corrected Calcium 9.0, Phosphorus Level 2.3, Magnesium Level 2.0, Total Bilirubin 0.5, Aspartate Amino Transf (AST/SGOT) 42, Alanine Aminotransferase (ALT/SGPT) 50, Alkaline Phosphatase 53, Total Protein 5.9, Albumin 3.4 09/02/22 03:30: White Blood Count 26.1, Red Blood Count 6.91, Hemoglobin 18.7, Hematocrit 58, Mean Corpuscular Volume 85, Mean Corpuscular Hemoglobin 27, Mean Corpuscular Hemoglobin Concent 32, Red Cell Distribution Width 19.9, Platelet Count 683, Mean Platelet Volume 11.8, Immature Granulocyte % (Auto) 1, Neutrophils (%) (Auto) 90, Lymphocytes (%) (Auto) 3, Monocytes (%) (Auto) 5, Eosinophils (%) (Auto) 0, Basophils (%) (Auto) 0, Neutrophils # (Auto) 23.6, Lymphocytes # (Auto) 0.8, Monocytes # (Auto) 1.3, Eosinophils # (Auto) 0.0, Basophils # (Auto) 0.1, Immature Granulocyte # (Auto) 0.4 09/02/22 04:45: Sodium Level 135, Potassium Level 4.3, Chloride Level 105, Carbon Dioxide Level 21, Anion Gap 9, Blood Urea Nitrogen 29, Creatinine 0.85, Estimat Glomerular Filtration Rate 75, BUN/Creatinine Ratio 34, Glucose Level 99, Calcium Level 8.6, Corrected Calcium 8.8, Phosphorus Level 3.1, Magnesium Level 1.9, Total Bilirubin 0.6, Aspartate Amino Transf (AST/SGOT) 54, Alanine Aminotransferase (ALT/SGPT) 89, Alkaline Phosphatase 73, Total Protein 6.5, Albumin 3.7 09/03/22 03:50: White Blood Count 23.9, Red Blood Count 6.84, Hemoglobin 18.6, Hematocrit 57, Mean Corpuscular Volume 84, Mean Corpuscular Hemoglobin 27, Mean Corpuscular Hemoglobin Concent 33, Red Cell Distribution Width 19.4, Platelet Count 493, Mean Platelet Volume 11.0, Immature Granulocyte % (Auto) 1, Neutrophils (%) (Auto) 89, Lymphocytes (%) (Auto) 4, Monocytes (%) (Auto) 5, Eosinophils (%) (Auto) 0, Basophils (%) (Auto) 0, Neutrophils # (Auto) 21.3, Lymphocytes # (Auto) 1.0, Monocytes # (Auto) 1.2, Eosinophils # (Auto) 0.0, Basophils # (Auto) 0.1, Immature Granulocyte # (Auto) 0.3, Sodium Level 136, Potassium Level 4.7, Chloride Level 103, Carbon Dioxide Level 23, Anion Gap 10, Blood Urea Nitrogen 33, Creatinine 0.86, Estimat Glomerular Filtration Rate 74, BUN/Creatinine Ratio 38, Glucose Level 86, Calcium Level 8.8, Corrected Calcium 9.1, Phosphorus Level 3.6, Magnesium Level 1.9, Total Bilirubin 0.8, Aspartate Amino Transf (AST/SGOT) 43, Alanine Aminotransferase (ALT/SGPT) 92, Alkaline Phosphatase 77, Total Protein 6.1, Albumin 3.6 09/03/22 07:10: Blood Gas Puncture Site RT RADIAL, Blood Gas Patient Temperature 36.4, Arterial Blood pH 7.34, Arterial Blood Partial Pressure CO2 45, Arterial Blood Partial Pressure O2 239, Arterial Blood HCO3 24, Arterial Blood Total CO2 25.7, Arterial Blood Oxygen Saturation 100, Arterial Blood Base Excess -0.8, Abhi Test YES- POS, Blood Gas Ventilator Setting NO, Blood Gas Inspired Oxygen 50% 09/03/22 09:40: JAK2 Mutation [Pending] 09/04/22 03:29: White Blood Count 23.7, Red Blood Count 6.75, Hemoglobin 18.4, Hematocrit 56, Mean Corpuscular Volume 84, Mean Corpuscular Hemoglobin 27, Mean Corpuscular Hemoglobin Concent 33, Red Cell Distribution Width 19.0, Platelet Count 489, Mean Platelet Volume 11.1, Immature Granulocyte % (Auto) 1, Neutrophils (%) (Auto) 85, Lymphocytes (%) (Auto) 7, Monocytes (%) (Auto) 5, Eosinophils (%) (Auto) 1, Basophils (%) (Auto) 0, Neutrophils # (Auto) 20.1, Lymphocytes # (Auto) 1.7, Monocytes # (Auto) 1.3, Eosinophils # (Auto) 0.3, Basophils # (Auto) 0.1, Immature Granulocyte # (Auto) 0.3, Sodium Level 135, Potassium Level 4.5, Chloride Level 100, Carbon Dioxide Level 25, Anion Gap 10, Blood Urea Nitrogen 44, Creatinine 1.07, Estimat Glomerular Filtration Rate 57, BUN/Creatinine Ratio 41, Glucose Level 81, Calcium Level 8.5, Corrected Calcium 9.1, Phosphorus Level 4.2, Magnesium Level 1.9, Total Bilirubin 0.9, Aspartate Amino Transf (AST/SGOT) 45, Alanine Aminotransferase (ALT/SGPT) 103, Alkaline Phosphatase 67, Total Protein 5.6, Albumin 3.3, Neutrophils % (Manual) 88, Lymphocytes % (Manual) 6, Monocytes % (Manual) 2, Eosinophils % (Manual) 0, Basophils % (Manual) 0, Band Neutrophils 2, Reactive Lymphocytes 2, Toxic Granulation 1+, Polychromasia SLIGHT, Anisocytosis SLIGHT 09/05/22 05:00: White Blood Count 22.4, Red Blood Count 6.51, Hemoglobin 17.8, Hematocrit 54, Mean Corpuscular Volume 84, Mean Corpuscular Hemoglobin 27, Mean Corpuscular Hemoglobin Concent 33, Red Cell Distribution Width 18.5, Platelet Count 390, Mean Platelet Volume 11.2, Immature Granulocyte % (Auto) 2, Neutrophils (%) (Auto) 80, Lymphocytes (%) (Auto) 9, Monocytes (%) (Auto) 7, Eosinophils (%) (Auto) 2, Basophils (%) (Auto) 0, Neutrophils # (Auto) 18.0, Lymphocytes # (Auto) 1.9, Monocytes # (Auto) 1.5, Eosinophils # (Auto) 0.5, Basophils # (Auto) 0.1, Immature Granulocyte # (Auto) 0.4, Sodium Level 135, Potassium Level 4.3, Chloride Level 98, Carbon Dioxide Level 25, Anion Gap 12, Blood Urea Nitrogen 41 , Creatinine 0.99, Estimat Glomerular Filtration Rate 62, BUN/Creatinine Ratio 41, Glucose Level 71, Calcium Level 8.5, Corrected Calcium 9.1, Phosphorus Level 4.0, Magnesium Level 1.8, Total Bilirubin 1.0, Aspartate Amino Transf (AST/SGOT) 29, Alanine Aminotransferase (ALT/SGPT) 79, Alkaline Phosphatase 63, Total Protein 5.4, Albumin 3.2 09/06/22 03:30: White Blood Count 23.3, Red Blood Count 6.42, Hemoglobin 17.8, Hematocrit 54, Mean Corpuscular Volume 85, Mean Corpuscular Hemoglobin 28, Mean Corpuscular Hemoglobin Concent 33, Red Cell Distribution Width 18.3, Platelet Count 377, Mean Platelet Volume 11.9, Immature Granulocyte % (Auto) 2, Neutrophils (%) (Auto) 80, Lymphocytes (%) (Auto) 8, Monocytes (%) (Auto) 7, Eosinophils (%) (Auto) 2, Basophils (%) (Auto) 0, Neutrophils # (Auto) 18.6, Lymphocytes # (Auto) 1.9, Monocytes # (Auto) 1.7, Eosinophils # (Auto) 0.5, Basophils # (Auto) 0.1, Immature Granulocyte # (Auto) 0.5, Sodium Level 138, Potassium Level 4.6, Chloride Level 99, Carbon Dioxide Level 26, Anion Gap 13, Blood Urea Nitrogen 37, Creatinine 0.94, Estimat Glomerular Filtration Rate 67, BUN/Creatinine Ratio 39, Glucose Level 78, Calcium Level 8.7, Corrected Calcium 9.3, Phosphorus Level 4.5, Magnesium Level 1.8, Total Bilirubin 0.6, Aspartate Amino Transf (AST/SGOT) 28, Alanine Aminotransferase (ALT/SGPT) 74, Alkaline Phosphatase 77, Total Protein 5.5, Albumin 3.3 09/07/22 06:30: White Blood Count 21.6, Red Blood Count 6.49, Hemoglobin 18.0, Hematocrit 55, Mean Corpuscular Volume 85, Mean Corpuscular Hemoglobin 28, Mean Corpuscular Hemoglobin Concent 33, Red Cell Distribution Width 18.6, Platelet Count 385, Mean Platelet Volume 12.2, Immature Granulocyte % (Auto) 3, Neutrophils (%) (Auto) 78, Lymphocytes (%) (Auto) 11, Monocytes (%) (Auto) 6, Eosinophils (%) (Auto) 2, Basophils (%) (Auto) 0, Neutrophils # (Auto) 16.9, Lymphocytes # ( Auto) 2.3, Monocytes # (Auto) 1.3, Eosinophils # (Auto) 0.4, Basophils # (Auto) 0.1, Immature Granulocyte # (Auto) 0.5, Sodium Level 136, Potassium Level 4.2, Chloride Level 96, Carbon Dioxide Level 27, Anion Gap 13, Blood Urea Nitrogen 32, Creatinine 0.89, Estimat Glomerular Filtration Rate 71, BUN/Creatinine Ratio 36, Glucose Level 72, Calcium Level 8.7, Corrected Calcium 9.3, Magnesium Level 1.6, Total Bilirubin 0.8, Aspartate Amino Transf (AST/SGOT) 25, Alanine Aminotransferase (ALT/SGPT) 59, Alkaline Phosphatase 67, Total Protein 5.5, Albumin 3.3 09/08/22 05:14: White Blood Count 21.9, Red Blood Count 6.59, Hemoglobin 18.2, Hematocrit 56, Mean Corpuscular Volume 85, Mean Corpuscular Hemoglobin 28, Mean Corpuscular Hemoglobin Concent 33, Red Cell Distribution Width 18.4, Platelet Count 383, Mean Platelet Volume 11.6, Immature Granulocyte % (Auto) 2, Neutrophils (%) (Auto) 80, Lymphocytes (%) (Auto) 10, Monocytes (%) (Auto) 6, Eosinophils (%) (Auto) 2, Basophils (%) (Auto) 1, Neutrophils # (Auto) 17.5, Lymphocytes # (Auto) 2.2, Monocytes # (Auto) 1.3, Eosinophils # (Auto) 0.4, Basophils # (Auto) 0.1, Immature Granulocyte # (Auto) 0.5, Sodium Level 134, Potassium Level 4.3, Chloride Level 96, Carbon Dioxide Level 26, Anion Gap 12, Blood Urea Nitrogen 30, Creatinine 0.91, Estimat Glomerular Filtration Rate 69, BUN/Creatinine Ratio 33, Glucose Level 84, Calcium Level 9.2, Corrected Calcium 9.5, Magnesium Level 1.6, Total Bilirubin 0.8, Aspartate Amino Transf (AST/SGOT) 22, Alanine Aminotransferase (ALT/SGPT) 53, Alkaline Phosphatase 77, Total Protein 5.8, Albumin 3.6 09/09/22 05:22: White Blood Count 19.7, Red Blood Count 6.35, Hemoglobin 17.5, Hematocrit 55, Mean Corpuscular Volume 86, Mean Corpuscular Hemoglobin 28, Mean Corpuscular Hemoglobin Concent 32, Red Cell Distribution Width 18.6, Platelet Count 362, Mean Platelet Volume 12.1, Immature Granulocyte % (Auto) 2, Neutrophils (%) (Auto) 81, Lymphocytes (%) (Auto) 8, Monocytes (%) (Auto) 6, Eosinophils (%) (Auto) 2, Basophils (%) (Auto) 1, Neutrophils # (Auto) 16.0, Lymphocytes # (Auto) 1.6, Monocytes # (Auto) 1.2, Eosinophils # (Auto) 0.4, Basophils # (Auto) 0.1, Immature Granulocyte # (Auto) 0.3, Sodium Level 134, Potassium Level 4.4, Chloride Level 98, Carbon Dioxide Level 25, Anion Gap 11, Blood Urea Nitrogen 27, Creatinine 0.96, Estimat Glomerular Filtration Rate 65, BUN/Creatinine Ratio 28, Glucose Level 91, Calcium Level 8.8, Corrected Calcium 9.4, Magnesium Level 1.5, Total Bilirubin 0.7, Aspartate Amino Transf (AST/SGOT) 23, Alanine Aminotransferase (ALT/SGPT) 44, Alkaline Phosphatase 78, Total Protein 5.7, Albumin 3.3 Discharge Home Medications: Active Scripts Active Metoprolol Succinate 100 Mg Tab.er.24h 100 Mg PO BID Flecainide Acetate 100 Mg Tablet 150 Mg PO BID Eliquis (Apixaban) 5 Mg Tablet 5 Mg PO BID Reported Brittany Allergy (Fexofenadine HCl) 60 Mg Tablet 60 Mg PO DAILY PRN Tizanidine HCl 2 Mg Tablet 1 Mg PO BID TAKES OF A 2MG TABLET Levothyroxine Sodium 50 Mcg Tablet 50 Mcg PO DAILY Tramadol HCl ER (Tramadol HCl) 300 Mg Tab.er.24h 300 Mg PO DAILY Pantoprazole Sodium 40 Mg Tablet.dr 40 Mg PO HS Fenofibrate (Fenofibrate Nanocrystallized) 145 Mg Tablet 145 Mg PO HS Ezetimibe 10 Mg Tablet 10 Mg PO HS Escitalopram Oxalate 20 Mg Tablet 20 Mg PO DAILY Instructions to patient/family Please see electronic discharge instructions given to patient. Diagnosis/Problems Diagnosis/Problems (1) Acute and chronic respiratory failure with hypoxia (2) Pneumonia due to COVID-19 virus Status: Acute BONNIE RTEJO DO Sep 10, 2022 11:37
[2022-09-10 11:39] VITALS: BP 106/67
--- NOTE | 2022-09-10 11:50 | Occupational Ther Daily Note ---
OT Current Status-Daily Note Subjective Pt alert, sitting in recliner. Pt is up ad zaina in room without AD. Pt agrees to therapy. Mental Status/Objective Patient Orientation: Person, Place, Time, Situation Attachments: Oxygen (2L) ADL-Treatment Pt stated that she is completing oral care and toileting independently. Nrsg to gather supplies for pt to complete shower by self at some point today. Therapy Code Descriptions/Definitions Functional [place] Measure: 0=Not Assessed/NA 4=Minimal Assistance 1=Total Assistance 5=Supervision or Setup 2=Maximal Assistance 6=Modified [place] 3=Moderate Assistance 7=Complete IndependenceSCALE: Activities may be completed with or without assistive devices. 1-Tcjdkozgig-ibdovwe completes the activity by him/herself with no assistance from a helper. 5-Set-up or Clean-up Assistance-helper sets up or cleans up; patient completes activity. [place] assists only prior to or following the activity. 4-Supervision or Touching Assistance-helper provides verbal cues and/or touching/steadying and/or contact guard assistance as patient completes activity. Assistance may be provided throughout the activity or intermittently. 3-Partial/Moderate Assistance-helper does LESS THAN HALF the effort. [place] lifts, holds or supports trunk or limbs, but provides less than half the effort. 2-Substantial/Maximal Assistance-helper does MORE THAN HALF the effort. [place] lifts or holds trunk or limbs and provides more than half the effort. 2-Lgnkoekym-fxwvoa does ALL the effort. Patient does none of the effort to complete the activity. Or, the assistance of 2 or more helpers is required for the patient to complete the activity. If activity was not attempted, code reason: 7-Patient Refused. 9-Not Applicable-not attempted and the patient did not perform the activity before the current illness, exacerbation or injury. 10-Not Attempted due to Environmental Limitations-(lack of equipment, weather restraints, etc.). 88-Not Attempted due to Medical Conditions or Safety Concerns. Other Treatment Pt completed 4 B UE exercises using light resistance theraband with skilled instruction for correct technique and modifications when necessary. Pt completed 2 sets 10 reps B UE strengthening, tolerated well. After therapy, pt sitting in recliner with call light/phone in reach. All needs met in room. OT Skilled Nursing Goals Skilled Nursing Goals Time Frame: Sep 08, 2022 Oral Hygiene (QC): 5 Toileting Hygiene (QC): 6 Upper Body Dressing (QC): 5 Lower Body Dressing (QC): 5 On/Off Footwear (QC): 5 Additional Goals: 1-Demonstrate ADL Tasks, 2-Verbalize Understanding, 3- ImproveStrength/Abdulaziz 1=Demonstrate adherence to instructed precautions during ADL tasks. 2=Patient will verbalize/demonstrate understanding of assistive devices/modifica tions for ADL. 3=Patient will improve strength/tolerance for activity to enable patient to perform ADL's. OT Education/Plan Problem List/Assessment Assessment: Decreased UE Strength Discharge Recommendations Plan/Recommendations: Continue POC Treatment Plan/Plan of Care Patient would benefit from OT for education, treatment and training to promote independence in ADL's, mobility, safety and/or upper extremity function for ADL's. Plan of Care: ADL Retraining, Functional Mobility, UE Funct Exercise/Act Treatment Duration: Sep 08, 2022 Frequency: 3 times per week (3-5x/week ) Estimated Hrs Per Day: .25 hour per day Rehab Potential: Good Time Start Time: 10:13 Stop Time: 10:29 DATE: Sep 10, 2022 Total Time Billed (hr/min): 16 Billed Treatment Time 1 visit-EX 1 (16 min) KAYLYNN GARDINER Sep 10, 2022 11:50
[2022-09-10 14:14] VITALS: BP 106/67
== END 2022-09-10 14:17 | disposition home health service (06) | DRG 208 ==
LOC: ICU 20:12 → 4TH 09-06 10:59
PROVIDERS: ADMIT Internal Medicine; ATTEND Internal Medicine
PROC: 5A1945Z Respiratory Ventilation, 24-96 Consecutive Hours (ICD-10-PCS; principal; 2022-08-29)
PROC: 5A0935A Assistance with Respiratory Ventilation, Less than 24 Consecutive Hours, High Flow/Velocity Cannula (ICD-10-PCS; 2022-08-31)
PROC: 5A09357 Assistance with Respiratory Ventilation, Less than 24 Consecutive Hours, Continuous Positive Airway Pressure (ICD-10-PCS; 2022-09-03)
DX: U07.1 COVID-19 (principal); J12.82 Pneumonia due to coronavirus disease 2019; J15.9 Unspecified bacterial pneumonia; J96.21 Acute and chronic respiratory failure with hypoxia; I48.19 Other persistent atrial fibrillation; J44.0 Chronic obstructive pulmonary disease with (acute) lower respiratory infection; N39.0 Urinary tract infection, site not specified; D75.1 Secondary polycythemia; I34.0 Nonrheumatic mitral (valve) insufficiency; G47.33 Obstructive sleep apnea (adult) (pediatric); E03.8 Other specified hypothyroidism; E78.2 Mixed hyperlipidemia; I12.9 Hypertensive chronic kidney disease with stage 1 through stage 4 chronic kidney disease, or unspecified chronic kidney disease; N18.30 Chronic kidney disease, stage 3 unspecified; E66.01 Morbid (severe) obesity due to excess calories; Z79.01 Long term (current) use of anticoagulants; Z68.31 Body mass index [BMI] 31.0-31.9, adult; F41.9 Anxiety disorder, unspecified; M79.7 Fibromyalgia; Z88.0 Allergy status to penicillin; Z73.0 Burn-out
CPT/HCPCS: 36415; 36600; 71045; 80053; 81000; 81270; 82805; 82947; 83605; 83735; 84100; 84145; 84478; 85007; 85025; 85027; 85610; 87040; 87081; 87088; 93005; 94002; 94003; 94640; 94660; 94664; 94760; 94761; 94799

== ENCOUNTER 2022-11-14 13:48 | Inpatient (IN) | payer MEDICARE ==
[~2022-11-14] VITALS: Ht 172.7 cm; Wt 94.5 kg
[~2022-11-14 13:48] MED LIST changes: +AMLO-251 PO; +FEXO-14 PO; +FLEC100T PO; +LEVO50TA6 PO; +TIZA-169 PO
[2022-11-14] MEDS ORDERED: ANTACID SUSP 30 ML UDC (MYLANTA) PO PRN (15:00)
[2022-11-14] MEDS ORDERED: ONDANSETRON 4 MG/2 ML (SDV) Z0FRAN IV PRN (15:00)
[2022-11-14] MEDS ORDERED: BISACODYL 10 MG SUPP (DULCOLAX) PR PRN (15:00)
[2022-11-14] MEDS ORDERED: polyethylene glycoL POWDER 17 GM (MIRALAX) PACK PO PRN (15:00)
[2022-11-14] MEDS ORDERED: LACTULOSE SYRUP 10GM/15ML (ENULOSE) 30ML UDC PO PRN (15:00)
[2022-11-14] MEDS ORDERED: cefTRIAXone 1 GM PRE-MIX 50 ML IV SCH (15:00)
[2022-11-14] MEDS ORDERED: MILK OF MAGNESIA 400 MG/5 ML 30 ML UDC PO PRN (15:00)
[2022-11-14] MEDS ORDERED: CALCIUM CARBONATE 500 MG (TUMS) TAB.CHEW PO PRN (15:00)
[2022-11-14] MEDS ORDERED: NS IV 500 ML 500 ML IV PRN (15:30)
[2022-11-14 15:40] VITALS: BP 113/77
[2022-11-14] MEDS ORDERED: DIPH25TA65 PO (15:53)
[2022-11-14] MEDS ORDERED: EPIN0.3P2 IJ (15:53)
[2022-11-14] MEDS ORDERED: ALBU8.5H6 INH (15:53)
[2022-11-14] MEDS ORDERED: CBD Gummies PO (15:53)
[2022-11-14] MEDS ORDERED: CARB1DRO36 OP (15:53)
[2022-11-14] MEDS: LACTATED RINGERS 1,000 ML IV SCH (16:33)
[2022-11-14 19:46] LABS: BILIRUBIN,URINE NEGATIVE (NEGATIVE); CLARITY,URINE CLEAR; COLOR,URINE YELLOW; GLUCOSE, URINE (UA) NEGATIVE (NEGATIVE); KETONES,URINE NEGATIVE (NEGATIVE); LEUKOCYTE ESTERASE ,URINE NEGATIVE (NEGATIVE); NITRITE,URINE NEGATIVE (NEGATIVE); PH,URINE 5.5 (5-9); PROTEIN,URINE TRACE (NEGATIVE)
--- NOTE | 2022-11-14 20:14 | History & Physical-Hospitalist ---
History of Present Illness HPI/Chief Complaint Serena Carrillo is a 66 year old female with PMH paroxysmal atrial fibrillation, COPD, obesity, who presented to the [facility] ER with weakness. She reports feeling chest tightness at times. She denies chest pain at this time. She has had shortness of breath with exertion. She denies palpitaitons. She has had subjective fevers. She has had a dry cough. She denies lightheadedness and dizziness. She denies nausea and vomiting. She denies abdominal pain. She has been unable to eat and drink lately. Source: patient, RN/MD Exam Limitations: no limitations Date Seen 11/14/22 Time Seen by a Provider: 17:30 Attending Physician Jon Mohamud MD PCP Admitting Physician: Byron Cervantes MD Attending Physician: Byron Cervantes MD Referring Physician Date of Admission Nov 14, 2022 at 15:00 Home Medications & Allergies Home Medications Reviewed patient Home Medication Reconciliation performed by pharmacy medication reconciliations data acquisition technician and/or nursing. Patients Allergies have been reviewed. Allergies Allergies Coded Allergies Penicillins (Verified Allergy, Severe, Shortness of Breath, 07/24/22) SOB, swelling, hives chlorhexidine (Verified Allergy, Intermediate, Itching, 07/24/22) swelling, hives. isopropyl alcohol (Verified Allergy, Intermediate, Itching, 07/24/22) swelling, hives. Tricyclic Antidepressants and Tricy (Verified Allergy, Unknown, 11/14/22) Sulfa (Sulfonamide Antibiotics) (Verified Adverse Reaction, Intermediate, Rash, 11/14/22) simvastatin (Verified Adverse Reaction, Intermediate, 11/14/22) MUSCLE CRAMPS amitriptyline (Verified Adverse Reaction, Unknown, 11/14/22) PATIENT STATES RENAL FAILURE celecoxib (Verified Adverse Reaction, Unknown, 11/14/22) PATIENT STATES IT JUST DOESN'T WORK chlorzoxazone (Verified Adverse Reaction, Unknown, 11/14/22) PATIENT STATES IT JUST DOESN'T WORK pregabalin (Verified Adverse Reaction, Unknown, 11/14/22) PATIENT STATES IT JUST DOESN'T WORK Past Bsyecku-Uaetoi-Xbbdtt Hx Patient Social History Tobacco Use?: No Smoking Status: Never a Smoker Use of E-Cig and/or Vaping dev: No Substance use?: No Alcohol Use?: No Pt feels they are or have been: No Immunizations Up To Date Date of Influenza Vaccine: Aug 14, 2022 Tetanus Booster (TDap): Unknown Current Status status: No status: No Advance Directives: No Communicates: Verbally Primary Language: Azeri Is interpretation needed?: No Sensory deficits: Other Implanted or Applied Medical D: None Past Medical History Surgeries: Appendectomy, Hysterectomy, Orthopedic Asthma, COPD Currently Using CPAP: No Currently Using BIPAP: No Atrial Fibrillation Renal Failure Family Medical History No Pertinent Family Hx Review of Systems Constitutional: fever, weakness Respiratory: cough, dyspnea on exertion Cardiovascular: no symptoms reported Gastrointestinal: loss of appetite Physical Exam Physical Exam Vital Signs Vital Signs - First Documented 11/14/22 11/14/22 14:55 15:40 Temp 36.0 Pulse 55 Resp 20 B/P (MAP) 113/77 (89) Pulse Ox 95 O2 Delivery Nasal Cannula O2 Flow Rate 2.00 Capillary Refill : Height, Weight, BMI Height: '" Weight: lbs. oz. kg; 31.88 BMI Method: General Appearance: No Apparent Distress, Obese HEENT: PERRL/EOMI, Pharynx Normal Neck: Normal Inspection, Supple Respiratory: No Respiratory Distress, Decreased Breath Sounds Cardiovascular: Bradycardia, Irregularly Irregular Gastrointestinal: Normal Bowel Sounds, Non Tender, Soft Extremity: Normal Inspection, Non Tender, No Pedal Edema Neurologic/Psychiatric: Alert, Normal Mood/Affect Skin: Normal Color, Warm/Dry Results Results/Procedures Labs Patient resulted labs reviewed. Assessment/Plan Admission Diagnosis Pneumonia Admission Status: Inpatient Order (span 2 midnights) Reason for Inpatient Admission: Bradycardia Assessment and Plan Pneumonia Not septic Reported infiltrate on chest xray at [facility] Started on Rocephin and Azithromycin Repeat chest xray tomorrow TARSHA Cr 1.8, baseline ~0.9 IV fluids Bradycardia Paroxysmal atrial fibrillation Frequent PVCs First degree AV block Asymptomatic Hold Metoprolol and Flecainide Cardiology consulted, case discussed with Dr. Deal Dopamine as needed Transfer to ICU Eliquis Polycythemia vera Thrombocytosis Leukocytosis Not on any medications JAK2 positive Hgb 16, Hct 54, Plt 700 Critical Care Critically Ill Patient Diagnosis/Problems Diagnosis/Problems (1) Pneumonia Status: Acute (2) Severe sinus bradycardia Status: Acute (3) Frequent PVCs Status: Acute (4) First degree AV block Status: Acute (5) TARSHA (acute kidney injury) Status: Acute (6) Obesity Status: Chronic (7) COPD (chronic obstructive pulmonary disease) Status: Chronic (8) Paroxysmal atrial fibrillation Status: Chronic BYRON CERVANTES MD Nov 14, 2022 20:14
[2022-11-14 20:18] LABS: AMORPHOUS SEDIMENT,UR FEW AMOR URATES /LPF; BACTERIA,URINE FEW /HPF; HYALINE CASTS, URINE 0-2 /LPF
--- NOTE | 2022-11-14 20:29 | Tele-ICU Progress Note ---
Progress Note Tele ICU Brief Progress Note eICU 66 yo woman admitted as a transfer from [facility] this afternoon for chronic fatigue, weakness, cough for 1 week but worsening since she has been O2 dependent hypoxemia following a COVID PNA in July 2022. On arrival to [place], she was transferred to ICU due to cardiac arrhythmia. Review of the medical record at [facility] noted that she has been on ASA, Albuterol, Paxlovid, Eliquis, Zetia, Toprol XL 50 mg and 100 mg daily, Synthroid 50 mcg daily, Zanaflex , Ultram, Fenofibrate and Lexapro- At [facility] ED [id number] recorded as sats 100% on 3lpm O2 NC, BP 123/72 HR 71 RR 14 T 97. CXR reported L basilar opacity, CBC elevated wbcs 19,090 Hgb 16 Plts 700,000 BUN 39 Cr 1.81 Lactate 1.71 CRP, Sed rate not elevated. Cardiology and Heme-Onc are already consulted with Hospitalist H&P- since early afternoon.They have ordered AM labs and started pt on ceftriaxone coverage, multiple meds now on hold that could add to bradycardia . Transfered to ICU fr monitoring .NOTE 09/09/22 results: BUN 27 and Cr 0.98 CBC WBCs 19,700 Hgb 17.5 and Plts 362,000 By Video- Pt is awake in the unit monitor technician shows Mobitz AV block BP 101/71 sats 96% A: Bradycardic rhythm with current episodes of Mobtiz AV , thrombocytosis, elevated wbcs - under evaluation/covered possible pneumonia, New Renal insufficiency , Hx hypothyroidism P: D/W nursing - no acute needs at this time from teleICU. Add on TFTs and PT/INR, PTT to labs already ordered by consultants. Focused Exam Height, Weight, BMI Height: '" Weight: lbs. oz. kg; 31.88 BMI Method: SANTI MCDANIEL DO Nov 14, 2022 20:29
[2022-11-14] MEDS ORDERED: meTOprolol SUCCINATE 100 MG (TOPROL XL) TAB PO SCH (21:00)
[2022-11-14] MEDS ORDERED: FLECAINIDE 100 MG (TAMBOCOR) TAB PO SCH (21:00)
[2022-11-14] MEDS: APIXABAN 5 MG (ELIQUIS) TABLET PO SCH (21:00)
[2022-11-14] MEDS: DOCUSATE SODIUM 100 MG (COLACE) CAP PO SCH (21:01)
[2022-11-14] MEDS: SENNOSIDES 8.6 MG (SENOKOT) TAB PO SCH (21:01)
[2022-11-14] MEDS: ONDANSETRON 4 MG (ZOFRAN) ORAL DISSOLVE TAB PO PRN (21:36)
[2022-11-15] MEDS: LACTATED RINGERS 1,000 ML IV SCH ×3 (02:52→21:44)
[2022-11-15 05:21] LABS: BASOPHILS # (AUTO) 0.2 10^3/uL (0.0-0.1); BASOPHILS % (AUTO) 1 % (0-10); HEMOGLOBIN 16.3 g/dL (11.5-16.0)
[2022-11-15 05:24] LABS: EOSINOPHILS # (AUTO) 0.3 10^3/uL (0.0-0.3); EOSINOPHILS % (AUTO) 1 % (0-10); HEMATOCRIT 52 % (35-52); LYMPHOCYTES # (AUTO) 1.7 10^3/uL (1.0-4.0); LYMPHOCYTES % (AUTO) 9 % (12-44); MEAN CORPUSCULAR HEMOGLOBIN 27 pg (25-34); MEAN CORPUSCULAR HGB CONC 31 g/dL (32-36); MEAN CORPUSCULAR VOLUME 85 fL (80-99); MEAN PLATELET VOLUME 13.4 fL (9.0-12.2); MONOCYTES # (AUTO) 1.8 10^3/uL (0.0-1.0); MONOCYTES % (AUTO) 9 % (0-12); NEUTROPHILS % (AUTO) 79 % (42-75); PLATELET COUNT 668 10^3/uL (130-400); WHITE BLOOD COUNT 19.1 10^3/uL (4.3-11.0)
[2022-11-15 05:34] LABS: INR 2.3 (0.8-1.4); PROTHROMBIN TIME PATIENT 25.6 SEC (12.2-14.7)
[2022-11-15 05:43] LABS: POTASSIUM 4.3 MMOL/L (3.6-5.0)
[2022-11-15 05:44] LABS: CALCIUM 9.3 MG/DL (8.5-10.1)
[2022-11-15 05:48] LABS: CREATININE SERUM 1.54 MG/DL (0.60-1.30)
[2022-11-15 05:50] LABS: MAGNESIUM 1.8 MG/DL (1.6-2.4)
[2022-11-15] MEDS: KCL 20 MEQ TAB (K-DUR) PO SCH (08:28)
[2022-11-15] MEDS: POTASSIUM CL 10MEQ/50ML IVPB 50 ML IV SCH (08:31)
[2022-11-15] MEDS: MAGNESIUM 1 GM/100 ML IVPB 100 ML IV SCH ×3 (08:31→09:24)
[2022-11-15] MEDS: POTASSIUM BICARB 20 MEQ (EFFER-K) TABLET PO SCH (08:32)
[2022-11-15] MEDS: cefTRIAXone 1 GM PRE-MIX 50 ML IV SCH (09:02)
[2022-11-15] MEDS ORDERED: HYDROXYUREA 500 MG CAP (HYDREA) PO ONE (09:15)
[2022-11-15] MEDS: APIXABAN 5 MG (ELIQUIS) TABLET PO SCH (09:16)
[2022-11-15] MEDS: AZITHROMYCIN 250 MG TAB (ZITHROMAX) PO SCH (09:16)
[2022-11-15] MEDS: DOCUSATE SODIUM 100 MG (COLACE) CAP PO SCH ×2 (09:16→20:20)
[2022-11-15] MEDS: SENNOSIDES 8.6 MG (SENOKOT) TAB PO SCH ×2 (09:23→20:20)
--- NOTE | 2022-11-15 09:23 | Diagnostic Imaging Report ---
INDICATION: Dyspnea, possible pneumonia. COMPARISON: 09/03/2022. DISCUSSION: Single portable upright view of the chest was obtained. Low lung volumes. Normal heart size. Improved aeration of the lungs as compared to the prior exam. No consolidation on today's exam. No pleural fluid or pneumothorax. No osseous abnormality. IMPRESSION: 1. No acute cardiopulmonary process. Dictated by: Dictated on workstation # [id number]
--- NOTE | 2022-11-15 10:02 | Physical Therapy Evaluation ---
PT Evaluation-General Medical Diagnosis Admission Date Nov 14, 2022 at 15:00 Medical Diagnosis: pneumonia, TARSHA, paroxysmal a-fib Onset Date: Nov 14, 2022 Therapy Diagnosis Therapy Diagnosis: decreased mobility, weakness Precautions Precautions/Isolations: Fall Prevention, Standard Precautions Weight Bear Status Right Lower Extremity: Right Weight Bearing/Tolerated Left Lower Extremity: Left Weight Bearing/Tolerated Referral Physician: Poonam Reason for Referral: Evaluation/Treatment Medical History Pertinent Medical History: Atrial Fib, COPD Additional Medical History obesity, asthma, renal failure Current History Pt. presented to [facility] with weakness, SOB. Reviewed History: Yes Social History Home: Single Level Current Living Status: Spouse Entry Into Home: Stairs With Railing Prior Prior Level of Function SCALE: Activities may be completed with or without assistive devices. 1-Gvcujjauua-gbvrmhg completes the activity by him/herself with no assistance from a helper. 5-Set-up or Clean-up Assistance-helper sets up or cleans up; patient completes activity. [place] assists only prior to or following the activity. 4-Supervision or Touching Assistance-helper provides verbal cues and/or touching/steadying and/or contact guard assistance as patient completes activity. Assistance may be provided throughout the activity or intermittently. 3-Partial/Moderate Assistance-helper does LESS THAN HALF the effort. [place] lifts, holds or supports trunk or limbs, but provides less than half the effort. 2-Substantial/Maximal Assistance-helper does MORE THAN HALF the effort. [place] lifts or holds trunk or limbs and provides more than half the effort. 0-Hhciopvhu-roqhqx does ALL the effort. Patient does none of the effort to complete the activity. Or, the assistance of 2 or more helpers is required for the patient to complete the activity. If activity was not attempted, code reason: 7-Patient Refused. 9-Not Applicable-not attempted and the patient did not perform the activity before the current illness, exacerbation or injury. 10-Not Attempted due to Environmental Limitations-(lack of equipment, weather restraints, etc.). 88-Not Attempted due to Medical Conditions or Safety Concerns. Bed Mobility: 6 Transfers (B,C,W/C): 6 Gait: 6 Indoor Mobility (Ambulation): Independent Prior Devices Use: None, Walker pt. has a walker from previous hospitalization and was using it only the last few days. PT Evaluation-Current Subjective Pt. in bed, states she has been up to the chair already this AM, agrees to PT. Pt. has no specific c/o pain. Pt/Family Goals home with spouse Objective Patient Orientation: Person, Place, Time, Situation Attachments: Oxygen, Mejia Catheter, IV ROM/Strength ROM Upper Extremities WFL ROM Lower Extremities WFL Strength Upper Extremities WFL Strength Lower Extremities Grossly 3+/5 - 4/5 (B) Integumentary/Posture Integumentary grossly intact Bowel Incontinence: No Bladder Incontinence: Mejia Cath Posture generally upright Neuromuscular (Tone, Coordination, Reflexes) unremarkable Sensory Vision: Functional Hearing: Functional Sensation Right Upper Extremit: Intact Sensation Left Upper Extremity: Intact Sensation Right Lower Extremit: Impaired Sensation Left Lower Extremity: Impaired Transfers Roll Left to Right (QC): 6 Sit to Lying (QC): 6 Lying to Sitting/Side of Bed(Q: 4 Sit to Stand (QC): 4 Gait Does the Patient Walk?: Yes Mode of Locomotion: Walk Anticipated Mode of Locomotion: Walk Gait Assistive Device: FWW Comments/Gait Description Pt. marched in place at edge of bed only this date due to frequent drop in O2 sats. Wheelchair Training Does the Pt Use a Wheelchair?: No Balance Sitting Static: Good Sitting Dynamic: Good Standing Static: Fair Standing Dynamic: Fair Assessment/Needs Pt. is a 66 y.o. female with generalized weakness and impaired mobility. Pt. is currently CGA/(I) with transfers. Pt.'s O2 sats frequently dropped to mid-low 80's with activity level and she did not ambulate for this reason. O2 sats did improve with cuing for breathing but would quickly drop again with changes in position/activity. Overall she fatigued quickly with transfers and edge of bed activities. Pt. would benefit from skilled PT to improve strength and safe mobility for return home with spouse. Rehab Potential: Good PT Short Term Goals Short Term Goals Time Frame: Nov 22, 2022 Roll Left & Right: 6 Sit to lyin Lying to sitting on side of be: 6 Sit to stand: 6 Chair/rxa-tt-ulogd transfer: 6 Toilet transfer: 6 Walk 10 feet: 6 Walk 50 feet with two turns: 6 PT Plan Problem List Problem List: Activity Tolerance, Functional Strength, Safety, Balance, Gait, Transfer, Bed Mobility, ROM Treatment/Plan Treatment Plan: Continue Plan of Care Treatment Plan: Bed Mobility, Concurrent Therapy, Education, Functional Activity Abdulaziz, Functional Strength, Gait, Safety, Therapeutic Exercise, Transfers Treatment Duration: Nov 22, 2022 Frequency: 6 times per week Estimated Hrs Per Day: .25 hour per day Patient and/or Family Agrees t: Yes Time Time In: 824 Time Out: 841 DATE: Nov 15, 2022 Total Billed Treatment Time: 17 Total Billed Treatment 1, [facility] 17' ARTEMIO BARBA PT Nov 15, 2022 10:02
--- NOTE | 2022-11-15 11:11 | Oncology Consultation ---
Visit Information Visit Information Date of Admission Nov 14, 2022 at 15:00 Attending Physician Jon Mohamud MD Admitting Physician Admitting Physician: Ruba Levin MD Attending Physician: Ruba Levin MD Chief Complaint pneumonia, polycythemia vera. Interval History 66 year old female admitted to ICU for treatment of pneumonia and acute renal insufficiency. h/o Afib and bradycardia right now 50s/min. She had positive JORGE-2 mutation and elevated blood counts, diagnosis of polycythemia (PV) 08/2022 without bone marrow exam. She had Covid pneumonia 08/2022 required 4 days on vent. She recovered from it and then became SOB again and presented to [facility] ER and found to have infiltration on CXR. She also has bradycardia and acute renal insufficiency Cr up from normal to 2 yesterday. I consulted the patient on: 11/15/22 11:06 Time Seen by Provider: 11:06 Review of Systems Constitutional: see HPI Health Status Allergies Coded Allergies: Penicillins (Verified Allergy, Severe, Shortness of Breath, 07/24/22) SOB, swelling, hives chlorhexidine (Verified Allergy, Intermediate, Itching, 07/24/22) swelling, hives. isopropyl alcohol (Verified Allergy, Intermediate, Itching, 07/24/22) swelling, hives. Tricyclic Antidepressants and Tricy (Verified Allergy, Unknown, 11/14/22) Sulfa (Sulfonamide Antibiotics) (Verified Adverse Reaction, Intermediate, Rash, 11/14/22) simvastatin (Verified Adverse Reaction, Intermediate, 11/14/22) MUSCLE CRAMPS amitriptyline (Verified Adverse Reaction, Unknown, 11/14/22) PATIENT STATES RENAL FAILURE celecoxib (Verified Adverse Reaction, Unknown, 11/14/22) PATIENT STATES IT JUST DOESN'T WORK chlorzoxazone (Verified Adverse Reaction, Unknown, 11/14/22) PATIENT STATES IT JUST DOESN'T WORK pregabalin (Verified Adverse Reaction, Unknown, 11/14/22) PATIENT STATES IT JUST DOESN'T WORK Home Medications Albuterol Sulfate (Ventolin Hfa) 1 Puff Puff, 2 PUFF INH Q4H PRN for SHORTNESS OF BREATH, (Reported) 1 PUFF = 90 MCG Apixaban (Eliquis) 5 Mg Tablet, 5 MG PO BID, (Reported) Carboxymethylcellulose Sodium (Refresh Tears) 0.5 % Drops, 2 DROPS OU UD PRN for DRY EYES, (Reported) Diphenhydramine HCl (Benadryl Allergy) 25 Mg Tablet, 25-50 MG PO BID PRN for ALLERGY SYMPTOMS, (Reported) Docusate Sodium (Docusate Sodium) 100 Mg Capsule, 100 MG PO BID, (Reported) Escitalopram Oxalate (Escitalopram Oxalate) 20 Mg Tablet, 20 MG PO HS, (Reported) Ezetimibe (Ezetimibe) 10 Mg Tablet, 10 MG PO HS, (Reported) Fenofibrate Nanocrystallized (Fenofibrate) 145 Mg Tablet, 145 MG PO HS, (Reported) LAST FILLED 09-26-2022 #30/ DAY SUPPLY Fexofenadine HCl (Brittany Allergy) 60 Mg Tablet, 60 MG PO DAILY PRN for ALLERGIES, (Reported) Flecainide Acetate (Flecainide Acetate) 100 Mg Tablet, 150 MG PO BID, (Reported) TAKES 1 & (100MG) TABS Levothyroxine Sodium (Levothyroxine Sodium) 50 Mcg Tablet, 50 MCG PO DAILY, (Reported) Metoprolol Succinate (Metoprolol Succinate) 100 Mg Tab.er.24h, 100 MG PO BID, (Reported) Pantoprazole Sodium (Pantoprazole Sodium) 40 Mg Tablet.dr, 40 MG PO HS, (Reported) Tizanidine HCl (Tizanidine HCl) 2 Mg Tablet, 1 MG PO BID, (Reported) TAKES OF A 2MG TABLET Tramadol HCl (Tramadol HCl ER) 300 Mg Tab.er.24h, 300 MG PO DAILY, (Reported) LIY-Njknhn-Pndeyy Hx Patient Social History Smoking Status: Never a Smoker Alcohol Use?: No Have you traveled recently?: No Immunizations Up To Date Date of Influenza Vaccine: Aug 14, 2022 Family Medical History Significant Family History: No Pertinent Family Hx Physical Exam Vital Signs Vital Signs - First Documented 11/14/22 11/14/22 14:55 15:40 Temp 36.0 Pulse 55 Resp 20 B/P (MAP) 113/77 (89) Pulse Ox 95 O2 Delivery Nasal Cannula O2 Flow Rate 2.00 Capillary Refill : Height, Weight, BMI Height: '" Weight: lbs. oz. kg; 31.88 BMI Method: General Appearance: No Apparent Distress Respiratory: No Accessory Muscle Use, No Respiratory Distress Cardiovascular: Bradycardia Gastrointestinal: Non Tender, Soft Extremity: Non Tender, No Pedal Edema Neurologic/Psychiatric: Alert, Oriented x3 Data Review Labs Laboratory Tests 11/17/22 03:57 Laboratory Tests 11/14/22 18:24: Urine Protein TRACEH, Urine Squamous Epithelial Cells 10-25H, Urine Crystals PRESENTH, Urine Amorphous Sediment FEW GUME URATESH, Urine Bacteria FEWH, Urine Hyaline Casts 0-2H, Urine Mucus SMALLH 11/15/22 04:02: White Blood Count 19.1H, Red Blood Count 6.13H, Hemoglobin 16.3H, Mean Corpuscular Hemoglobin Concent 31L, Red Cell Distribution Width 17.7H, Platelet Count 668H, Mean Platelet Volume 13.4H, Neutrophils (%) (Auto) 79H, Lymphocytes (%) (Auto) 9L, Neutrophils # (Auto) 15.0H, Monocytes # (Auto) 1.8H, Basophils # (Auto) 0.2H, Percent Immature Platelet Fraction 17.3H, Prothrombin Time 25.6H, INR Comment 2.3H, Activated Partial Thromboplast Time 41H, Carbon Dioxide Level 20L, Anion Gap 16H, Blood Urea Nitrogen 37H, Creatinine 1.54H 11/16/22 06:35: White Blood Count 15.8H, Red Blood Count 5.52H, Red Cell Distribution Width 17.2H, Platelet Count 577H, Mean Platelet Volume 12.3H, Neutrophils (%) (Auto) 77H, Lymphocytes (%) (Auto) 9L, Neutrophils # (Auto) 12.2H, Monocytes # (Auto) 1.5H, Basophils # (Auto) 0.2H, Blood Urea Nitrogen 32H, Creatinine 1.39H, Eosinophils # (Auto) 0.4H 11/17/22 03:57: White Blood Count 18.7H, Red Blood Count 5.48H, Red Cell Distribution Width 16.9H, Platelet Count 539H, Neutrophils (%) (Auto) 88H, Lymphocytes (%) (Auto) 3L, Neutrophils # (Auto) 16.5H, Monocytes # (Auto) 1.5H, Blood Urea Nitrogen 26H , Lymphocytes # (Auto) 0.5L, Glucose Level 114H, Aspartate Amino Transf ( T/SGOT) 86H, Alanine Aminotransferase (ALT/SGPT) 75H, Total Protein 5.4L Impression & Plan Impression & Plan A/P: 1. Pneumonia on IV antibiotics per Dr Levin. 2. PV: Dr Levin started her hydrea 500mg daily today. This is all she needs right now for her PV. Please schedule her to see me as out-pt follow up 1-2 weeks after discharge. I gave her my card today for contact information. 3. h/o Covid pneumonia 08/2022 on vent for 4 days 4. Acute renal insufficiency, improving on IVF. 5. h/o Afib and now bradycardia. Dr. Kennedy to follow. Thank you very much for the consultation. JERSEY ARAUJO MD Nov 15, 2022 11:11
[2022-11-15] MEDS ORDERED: GLUCAGON EMERGENCY 1 MG/KIT IV ONE (11:15)
--- NOTE | 2022-11-15 11:18 | Tele-ICU Progress Note ---
Subjective Date Seen by a Provider: Nov 15, 2022 Time Seen by a Provider: 12:18 Subjective/Events-last exam (Tele-ICU Physician , consultation) Available chart/ vitals / labs / Images reviewed H&P is from ER notes Patient's information available about PMH, allergy reviewed in EMR. ROS as per chart and RN report Video assessment done using teleICU camera, rest of exam as per RN Discussed with RN. She is a 66-year-old female with past medical history of COPD and paroxysmal atrial fibrillation for which she is on metoprolol 150 mg p.o. daily and also on apixaban to prevent stroke. She reportedly has been having lightheadedness and a near syncopal episodes associated with some cough and dysp mihir on exertion. With the above complaint she went to [facility] where she found to be bradycardic with secondary heart block with a heart rate of 20-30/min hence she is transferred to this hospital and admitted to the ICU. It is felt that she may have overmedicated with beta-scar #it is held and being observed. No history of fever or chills present. Cardiology consultation has been requested. Impression 1. 1. History of paroxysmal atrial fibrillation 2. Sinus node dysfunction possibly due to beta-scar overdose 3. History of hypertension currently on the low side. 4. Atypical chest pain Recommendations 1. Agree with holding the beta-scar and flecainide 2. We will start on IV glucagon drip following a bolus dose which might help reversing the symptoms of beta-scar overdose and improve the heart rate 3. Eliquis is on hold in case she needs pacemaker 4. Further work-up of arrhythmia and chest pain per cardiology. Reviewed with [facility] [employer] Coordination of care with bedside consultants and primary care physician. Critical care time 20 minutes Sepsis Event Evaluation Height, Weight, BMI Height: '" Weight: lbs. oz. kg; 31.88 BMI Method: Exam Exam Patient acknowledged, consented, and participated in this virtual visit which was conducted using real time audio/video Vital Signs Date Time Temp Pulse Resp B/P (MAP) Pulse Ox O2 Delivery O2 Flow Rate FiO2 11/15/22 10:00 37 17 114/77 (89) 95 Nasal Cannula 2.00 Manual Cuff/Auscultation 11/15/22 09:00 33 17 132/116 (121) 95 Nasal Cannula 2.00 11/15/22 08:00 42 14 90 Nasal Cannula 2.00 11/15/22 08:00 98 Nasal Cannula 2.00 11/15/22 07:00 36 11/15/22 07:00 36 22 91 Nasal Cannula 2.00 11/15/22 06:00 41 26 92/78 (83) 91 Nasal Cannula 2.00 11/15/22 05:00 41 15 114/78 (90) 97 Nasal Cannula 2.00 11/15/22 04:23 36.3 11/15/22 04:00 98 Nasal Cannula 2.00 11/15/22 04:00 43 20 127/94 (105) 98 Nasal Cannula 2.00 11/15/22 03:00 36 18 121/69 (86) 99 Nasal Cannula 2.00 Manual Cuff/Auscultation 11/15/22 02:00 41 15 146/90 (108) 97 Nasal Cannula 2.00 Manual Cuff/Auscultation 11/15/22 01:00 42 15 136/88 (104) 95 Nasal Cannula 2.00 Manual Cuff/Auscultation 11/15/22 01:00 30 11/15/22 00:00 36.3 11/15/22 00:00 57 15 104/87 (93) 97 Nasal Cannula 2.00 Manual Cuff/Auscultation 11/14/22 23:59 98 Nasal Cannula 2.00 11/14/22 23:00 50 18 121/96 (104) 96 Nasal Cannula 2.00 11/14/22 22:00 48 14 122/76 (91) 97 Nasal Cannula 2.00 11/14/22 21:00 128/72 (90) 11/14/22 21:00 53 22 78/47 (57) 98 Nasal Cannula 2.00 11/14/22 20:00 59 20 148/96 (113) 96 Nasal Cannula 2.00 11/14/22 20:00 98 Nasal Cannula 2.00 11/14/22 19:45 36.1 11/14/22 19:00 43 17 101/71 (81) 93 Nasal Cannula 2.00 11/14/22 19:00 53 11/14/22 18:00 33 18 146/107 (120) 92 Nasal Cannula 2.00 11/14/22 15:40 36.0 55 20 113/77 (89) 96 Nasal Cannula 2.00 11/14/22 14:55 95 Nasal Cannula 2.00 I & O 11/15/22 07:00 Intake Total 1950 ml Output Total 425 ml Balance 1525 ml Height & Weight Height: '" Weight: lbs. oz. kg; 31.88 BMI Method: General Appearance: No Apparent Distress, Obese HEENT: PERRL/EOMI, Pharynx Normal Neck: Normal Inspection, Supple Respiratory: No Respiratory Distress, Decreased Breath Sounds Cardiovascular: Bradycardia, Irregularly Irregular Extremity: Normal Inspection, Non Tender, No Pedal Edema Neurologic/Psychiatric: Alert, Normal Mood/Affect Skin: Normal Color, Warm/Dry Other comments I am remotely monitoring this patient from another state. I am unable to do the bedside exam, and history/physical and pertinent information is taken from other notes in the computer and bedside staff. Results Lab Laboratory Tests 11/15/22 04:02 Assessment/Plan Assessment/Plan as above Critical Care: Critically Ill Patient Time spent with patient (mins): 20 GEENA VELÁSQUEZ MD Nov 15, 2022 11:18
[2022-11-15] MEDS: ONDANSETRON 4 MG (ZOFRAN) ORAL DISSOLVE TAB PO PRN (11:50)
--- NOTE | 2022-11-15 11:54 | Consultation-Cardiology ---
HPI-Cardiology Cardiology Consultation Date of Consultation 11/15/22 Date of Admission Time Seen by Provider: 11:49 Indication: Bradycardia HPI 66-year-old lady with history of paroxysmal atrial fibrillation, COPD. She has been having episodes of chest tightness, feeling lightheaded. Had some shortness of breath on exertion. Patient had multiple near syncopal episode but no full syncope was reported. Has been having dry cough. She went to the emergency room and [facility] and noted to be bradycardic. She denied any fever or chills Home Medications & Allergies Allergies: Coded Allergies: Penicillins (Verified Allergy, Severe, Shortness of Breath, 07/24/22) SOB, swelling, hives chlorhexidine (Verified Allergy, Intermediate, Itching, 07/24/22) swelling, hives. isopropyl alcohol (Verified Allergy, Intermediate, Itching, 07/24/22) swelling, hives. Tricyclic Antidepressants and Tricy (Verified Allergy, Unknown, 11/14/22) Sulfa (Sulfonamide Antibiotics) (Verified Adverse Reaction, Intermediate, Rash, 11/14/22) simvastatin (Verified Adverse Reaction, Intermediate, 11/14/22) MUSCLE CRAMPS amitriptyline (Verified Adverse Reaction, Unknown, 11/14/22) PATIENT STATES RENAL FAILURE celecoxib (Verified Adverse Reaction, Unknown, 11/14/22) PATIENT STATES IT JUST DOESN'T WORK chlorzoxazone (Verified Adverse Reaction, Unknown, 11/14/22) PATIENT STATES IT JUST DOESN'T WORK pregabalin (Verified Adverse Reaction, Unknown, 11/14/22) PATIENT STATES IT JUST DOESN'T WORK Home Medication List Reviewed: Yes BOA-Mqtlwc-Inruin Hx Patient Social History Marital Status: Employed/Student: retired Smoking Status: Never a Smoker Have you traveled recently?: No Alcohol Use?: No Immunizations Up To Date Date of Influenza Vaccine: Aug 14, 2022 Past Medical History Discussed below Family Medical History Significant Family History: No Pertinent Family Hx Review of Systems-General Review of Systems Constitutional: see HPI, malaise EENTM: see HPI, no symptoms reported Respiratory: cough, dyspnea on exertion Cardiovascular: see HPI, chest pain Gastrointestinal: loss of appetite Genitourinary: no symptoms reported, see HPI Musculoskeletal: no symptoms reported, see HPI Skin: no symptoms reported, see HPI Psychiatric/Neurological: No Symptoms Reported, See HPI Reviewed Test Results Reviewed Test Results Lab Laboratory Tests Test 11/14/22 18:24 11/15/22 04:02 Range/Units Urine Color YELLOW Urine Clarity CLEAR Urine pH 5.5 5-9 Urine Specific [place] >=1.030 1.016-1.022 Urine Protein TRACE H NEGATIVE Urine Glucose (UA) NEGATIVE NEGATIVE Urine Ketones NEGATIVE NEGATIVE Urine Nitrite NEGATIVE NEGATIVE Urine Bilirubin NEGATIVE NEGATIVE Urine Urobilinogen 0.2 < = 1.0 MG/DL Urine Leukocyte Esterase NEGATIVE NEGATIVE Urine RBC (Auto) NEGATIVE NEGATIVE Urine RBC NONE /HPF Urine WBC 2-5 /HPF Urine Squamous Epithelial Cells 10-25 H /HPF Urine Crystals PRESENT H /LPF Urine Amorphous Sediment FEW GUME URATES H /LPF Urine Bacteria FEW H /HPF Urine Casts PRESENT /LPF Urine Hyaline Casts 0-2 H /LPF Urine Mucus SMALL H /LPF Urine Culture Indicated NO White Blood Count 19.1 H 4.3-11.0 10^3/uL Red Blood Count 6.13 H 3.80-5.11 10^6/uL Hemoglobin 16.3 H 11.5-16.0 g/dL Hematocrit 52 35-52 % Mean Corpuscular Volume 85 80-99 fL Mean Corpuscular Hemoglobin 27 25-34 pg Mean Corpuscular Hemoglobin Concent 31 L 32-36 g/dL Red Cell Distribution Width 17.7 H 10.0-14.5 % Platelet Count 668 H 130-400 10^3/uL Mean Platelet Volume 13.4 H 9.0-12.2 fL Immature Granulocyte % (Auto) 1 % Neutrophils (%) (Auto) 79 H 42-75 % Lymphocytes (%) (Auto) 9 L 12-44 % Monocytes (%) (Auto) 9 0-12 % Eosinophils (%) (Auto) 1 0-10 % Basophils (%) (Auto) 1 0-10 % Neutrophils # (Auto) 15.0 H 1.8-7.8 10^3/uL Lymphocytes # (Auto) 1.7 1.0-4.0 10^3/uL Monocytes # (Auto) 1.8 H 0.0-1.0 10^3/uL Eosinophils # (Auto) 0.3 0.0-0.3 10^3/uL Basophils # (Auto) 0.2 H 0.0-0.1 10^3/uL Immature Granulocyte # (Auto) 0.1 0.0-0.1 10^3/uL Percent Immature Platelet Fraction 17.3 H 0.0-7.6 % Prothrombin Time 25.6 H 12.2-14.7 SEC INR Comment 2.3 H 0.8-1.4 Activated Partial Thromboplast Time 41 H 24-35 SEC Sodium Level 138 135-145 MMOL/L Potassium Level 4.3 3.6-5.0 MMOL/L Chloride Level 102 98-107 MMOL/L Carbon Dioxide Level 20 L 21-32 MMOL/L Anion Gap 16 H 5-14 MMOL/L Blood Urea Nitrogen 37 H 7-18 MG/DL Creatinine 1.54 H 0.60-1.30 MG/DL Estimat Glomerular Filtration Rate 37 BUN/Creatinine Ratio 24 Glucose Level 76 70-105 MG/DL Calcium Level 9.3 8.5-10.1 MG/DL Magnesium Level 1.8 1.6-2.4 MG/DL Thyroid Stimulating Hormone (TSH) 3.26 0.35-4.94 UIU/ML Physical Exam Physical Exam Vital Signs Vital Signs - First Documented 11/14/22 11/14/22 14:55 15:40 Temp 36.0 Pulse 55 Resp 20 B/P (MAP) 113/77 (89) Pulse Ox 95 O2 Delivery Nasal Cannula O2 Flow Rate 2.00 Capillary Refill : Height, Weight, BMI Height: '" Weight: lbs. oz. kg; 31.88 BMI Method: General Appearance: No Apparent Distress Eyes: Bilateral Eye Normal Inspection, Bilateral Eye PERRL, Bilateral Eye EOMI HEENT: PERRL/EOMI, Pharynx Normal Neck: Normal Inspection, Supple Respiratory: No Accessory Muscle Use, No Respiratory Distress Cardiovascular: Bradycardia Gastrointestinal: Non Tender, Soft Back: Normal Inspection, No CVA Tenderness, No Vertebral Tenderness Extremity: Non Tender, No Pedal Edema Neurologic/Psychiatric: Alert, Oriented x3 Skin: Normal Color, Warm/Dry Lymphatic: No Adenopathy A/P-Cardiology Admission Diagnosis Chest pain Sinus node dysfunction Paroxysmal atrial fibrillation Hypertension Assessment/Plan Chest pain, nonspecific etiology, reporting episodes of pressure and discomfort in the back and chest. No acute EKG changes Monitor troponin level. Stress echocardiogram done in May 2022, patient was in atrial fibrillation at that time, no ischemic changes were reported by Dr. Rodriguez We will consider stress test in the future. Sinus node dysfunction, severe bradycardia. Paroxysmal atrial fibrillation, has tachybradycardia episodes Was on metoprolol 100 mg daily, it was held starting November 15, 2022 Was on flecainide which he is on hold Was on Eliquis which was held, last dose received on November 15, 2022 morning If she continues to have bradycardia will consider pacemaker Dyspnea on exertion, fatigue and lightheadedness probably secondary to severe bradycardia History of hypertension, continue to monitor blood pressure Hyperlipidemia, monitor lipids History of mitral regurgitation. Planning to repeat 2D echo History of hypothyroidism, evaluate TSH STACY JEONG MD Nov 15, 2022 11:54
--- NOTE | 2022-11-15 20:29 | Progress Note - Hospitalist ---
Subjective HPI/CC On Admission Date Seen by Provider: Nov 15, 2022 Time Seen by Provider: 10:20 Serena Carrillo is a 66 year old female with PMH paroxysmal atrial fibrillation, COPD, obesity, who presented to the [place] ER with weakness. She reports feeling chest tightness at times. She denies chest pain at this time. She has had shortness of breath with exertion. She denies palpitaitons. She has had subjective fevers. She has had a dry cough. She denies lightheadedness and dizziness. She denies nausea and vomiting. She denies abdominal pain. She has been unable to eat and drink lately. Subjective/Events-last exam She had some lightheadedness when she was up walking today. She felt like she might pass out. She denies chest pain. She reports shortness of breath. Objective Exam Vital Signs Vital Signs Date Time Temp Pulse Resp B/P (MAP) Pulse Ox O2 Delivery O2 Flow Rate FiO2 11/15/22 19:49 36.0 11/15/22 19:00 54 11/15/22 18:00 22 156/110 (125) 90 Nasal Cannula 2.00 Capillary Refill : General Appearance: No Apparent Distress, Obese Respiratory: Lungs Clear, No Respiratory Distress Cardiovascular: Bradycardia, Systolic Murmur Gastrointestinal: Normal Bowel Sounds, Soft Extremity: Normal Inspection, No Pedal Edema Neurologic/Psychiatric: Alert, Normal Mood/Affect Skin: Normal Color, Warm/Dry Results/Procedures Lab Laboratory Tests 11/15/22 04:02 Patient resulted labs reviewed. Imaging: Reviewed Imaging Report Assessment/Plan Assessment and Plan Assess & Plan/Chief Complaint Bradycardia Paroxysmal atrial fibrillation Frequent PVCs First degree AV block Holding Metoprolol and Flecainide Cardiology following Hold Eliquis May need pacemaker if persists Pneumonia Not septic Reported infiltrate on chest xray at [place] Chest xray without acute process Rocephin and Azithromycin TARSHA Cr 1.8 on arrival, 1.5 this morning, baseline ~0.9 IV fluids Improving Polycythemia vera Thrombocytosis Leukocytosis Not on any medications at home JAK2 positive Hematology consulted Begin Hydroxyurea Critical Care Critically Ill Patient Diagnosis/Problems Diagnosis/Problems (1) Severe sinus bradycardia Status: Acute (2) Frequent PVCs Status: Acute (3) First degree AV block Status: Acute (4) Pneumonia Status: Acute (5) TARSHA (acute kidney injury) Status: Acute (6) Obesity Status: Chronic (7) COPD (chronic obstructive pulmonary disease) Status: Chronic (8) Paroxysmal atrial fibrillation Status: Chronic BYRON CERVANTES MD Nov 15, 2022 20:29
[2022-11-15] MEDS: diphenhydrAMINE 50 MG/ML INJ (BENADRYL) IVP PRN (21:44)
[2022-11-15] MEDS: MELATONIN 3 MG TABLET PO PRN (21:44)
[2022-11-15] MEDS ORDERED: QUEtiapine 25 MG (SEROquel) TAB IMMEDIATE RELEASE PO SCH (23:00)
[2022-11-15] MEDS ORDERED: QUEtiapine 25 MG (SEROquel) TAB IMMEDIATE RELEASE ONE (23:04)
[2022-11-16] MEDS ORDERED: ALPRAZolam 0.25 MG (XANAX) TAB PO ONE (00:15)
[2022-11-16 06:40] LABS: BASOPHILS # (AUTO) 0.2 10^3/uL (0.0-0.1); BASOPHILS % (AUTO) 1 % (0-10); EOSINOPHILS # (AUTO) 0.4 10^3/uL (0.0-0.3); EOSINOPHILS % (AUTO) 3 % (0-10); HEMATOCRIT 47 % (35-52); HEMOGLOBIN 14.8 g/dL (11.5-16.0); LYMPHOCYTES # (AUTO) 1.4 10^3/uL (1.0-4.0); LYMPHOCYTES % (AUTO) 9 % (12-44); MEAN CORPUSCULAR HEMOGLOBIN 27 pg (25-34); MEAN CORPUSCULAR HGB CONC 32 g/dL (32-36); MEAN CORPUSCULAR VOLUME 85 fL (80-99); MEAN PLATELET VOLUME 12.3 fL (9.0-12.2); MONOCYTES # (AUTO) 1.5 10^3/uL (0.0-1.0); MONOCYTES % (AUTO) 10 % (0-12); NEUTROPHILS # (AUTO) 12.2 10^3/uL (1.8-7.8); NEUTROPHILS % (AUTO) 77 % (42-75); PLATELET COUNT 577 10^3/uL (130-400); WHITE BLOOD COUNT 15.8 10^3/uL (4.3-11.0)
[2022-11-16] MEDS: KCL 20 MEQ TAB (K-DUR) PO SCH (07:00)
[2022-11-16] MEDS: MAGNESIUM 1 GM/100 ML IVPB 100 ML IV SCH ×2 (07:00→09:30)
[2022-11-16] MEDS: POTASSIUM CL 10MEQ/50ML IVPB 50 ML IV SCH (07:00)
[2022-11-16] MEDS: POTASSIUM BICARB 20 MEQ (EFFER-K) TABLET PO SCH (07:00)
[2022-11-16 07:05] LABS: POTASSIUM 4.1 MMOL/L (3.6-5.0)
[2022-11-16 07:06] LABS: CALCIUM 8.7 MG/DL (8.5-10.1)
[2022-11-16 07:11] LABS: CREATININE SERUM 1.39 MG/DL (0.60-1.30)
[2022-11-16 07:12] LABS: ANISOCYTOSIS MODERATE; BAND NEUTROPHILS 0 %; BASOPHILS % (MANUAL) 1 %; EOSINOPHILS % (MANUAL) 1 %; LYMPHOCYTES % (MANUAL) 4 %; MONOCYTES % (MANUAL) 7 %; NEUTROPHILS % (MANUAL) 87 %; POLYCHROMASIA SLIGHT
[2022-11-16 07:13] LABS: MAGNESIUM 1.8 MG/DL (1.6-2.4); POIKILOCYTOSIS SLIGHT
[2022-11-16] MEDS: DOCUSATE SODIUM 100 MG (COLACE) CAP PO SCH ×2 (08:15→19:58)
[2022-11-16] MEDS: SENNOSIDES 8.6 MG (SENOKOT) TAB PO SCH ×2 (08:15→19:58)
[2022-11-16] MEDS: LACTATED RINGERS 1,000 ML IV SCH ×2 (08:16→17:00)
[2022-11-16] MEDS: cefTRIAXone 1 GM PRE-MIX 50 ML IV SCH (08:17)
[2022-11-16] MEDS: HYDROXYUREA 500 MG CAP (HYDREA) PO SCH (08:17)
[2022-11-16] MEDS: AZITHROMYCIN 250 MG TAB (ZITHROMAX) PO SCH (08:17)
--- NOTE | 2022-11-16 10:09 | Cardiology Progress Note ---
Subjective Date Seen by Provider: Nov 16, 2022 Time Seen by Provider: 10:08 Subjective/Events-last exam Patient was seen at bedside laying down comfortably, still tired and sleepy Review of Systems General: No Chills, No Night Sweats, No Fatigue, No Malaise, No Appetite, No Other HEENT: No Head Aches, No Visual Changes, No Eye Pain, No Ear Pain, No Dysphasia, No Sinus Congestion, No Post Nasal Drip, No Sore Throat, No Other Pulmonary: No Dyspnea, No Cough, No Pleuritic Chest Pain, No Other Cardiovascular: No: Chest Pain, Palpitations, Orthopnea, Paroxysmal Noc. Dyspnea, Edema, Lt Headedness, Other Objective-Cardiology Exam Last Set of Vital Signs Vital Signs 11/16/22 11/16/22 07:16 09:00 Temp 36.7 Pulse 47 Resp 21 Pulse Ox 94 O2 Delivery Nasal Cannula O2 Flow Rate 2.00 I&O Intake and Output 11/16/22 00:00 Intake Total 3200 ml Output Total 1175 ml Balance 2025 ml Intake Oral 1000 ml IV Total 2200 ml Output Urine Total 1175 ml # Bowel Movements 1 General: Alert, Oriented X3, Cooperative HEENT: Atraumatic, PERRLA Neck: Supple, No JVD, No Thyromegaly Lungs: Clear to Auscultation, Normal Air Movement Heart: Normal S1, Normal S2, No Murmurs, Other (Bradycardia) Abdomen: Normal Bowel Sounds, Soft, No Tenderness, No Hepatosplenomegaly, No Masses Extremities: No Clubbing, No Cyanosis, No Edema, Normal Pulses, No Tenderness/Swelling Skin: No Rashes, No Breakdown, No Significant Lesion Neuro: Normal Gait, Normal Speech, Strength at 5/5 X4 Ext, Normal Tone, Sensation Intact Psych/Mental Status: Mental Status NL, Mood NL Results Lab Laboratory Tests 11/16/22 06:35 A/P-Cardiology Admission Diagnosis Chest pain Sinus node dysfunction Paroxysmal atrial fibrillation Hypertension Assessment/Plan Chest pain, nonspecific etiology, reporting episodes of pressure and discomfort in the back and chest. No acute EKG changes Monitor troponin level. Stress echocardiogram done in May 2022, patient was in atrial fibrillation at that time, no ischemic changes were reported by Dr. Rodriguez We will consider stress test in the future. Sinus node dysfunction, severe bradycardia. Paroxysmal atrial fibrillation, has tachybradycardia episodes Was on metoprolol 100 mg daily, it was held starting November 15, 2022 Was on flecainide which he is on hold Was on Eliquis which was held, last dose received on November 15, 2022 morning Patient is still severely bradycardic, symptomatic. I will proceed with pacemaker implant Dyspnea on exertion, fatigue and lightheadedness probably secondary to severe bradycardia History of hypertension, continue to monitor blood pressure Hyperlipidemia, monitor lipids History of mitral regurgitation. Planning to repeat 2D echo History of hypothyroidism, evaluate TSH STACY JEONG MD Nov 16, 2022 10:09
--- NOTE | 2022-11-16 10:09 | Cardiac Procedure Note-CS/ASA ---
Pre-Procedure Note Pre-Op Procedure Note Date of Available H&P: Nov 16, 2022 Date H&P Reviewed: Nov 16, 2022 Time H&P Reviewed: 10:09 History & Physical: H&P Reviewed, Patient Examed, No changes noted Pre-Operative Diagnosis: Sinus node dysfunction Conscious Sedation Pre-Proced Time 10:09 ASA Score 3 For ASA 3 and 4: Consider anesthesia and medical clearance. Also, for patients with a history of failed moderate sedation consider anesthesia. Airway Lungs Heart ASA score ASA 1: a normal healthy patient ASA 2: a patient with a mild systemic disease (mid diabetes, controlled hypertension, obesity ASA 3: a patient with a severe systemic disease that limits activity (angina, COPD, prior Myocardial infarction) ASA 4: a patient with an incapacitating disease that is a constant threat to life (CHF, renal failure) ASA 5: a moribund patient not expected to survive 24 hrs. (ruptured aneurysm) ASA 6: a declared brain- patient whose organs are being harvested. For emergent operations, add the letter E after the classification Mallampati Classification Grade 3 Sedation Plan Analgesia, Amnesia, Plan communicated to team members, Discussed options with patient/fam, Discussed risks with patient/fam The patient is an appropriate candidate to undergo the planned procedure, sedation, and anesthesia. The patient immediately re-assessed prior to indication. STACY JEONG MD Nov 16, 2022 10:09
[2022-11-16] MEDS ORDERED: fentaNYL INJ 100 MCG/2 ML AMP ONE (11:29)
[2022-11-16] MEDS ORDERED: LIDOCAINE 1% INJ 20 ML VIAL ONE (11:29)
[2022-11-16] MEDS ORDERED: ceFAZolin INJECTION 1,000 MG ONE (11:29)
[2022-11-16] MEDS ORDERED: HEParin (CATH LAB) 1,000 ML IV ONE (11:29)
[2022-11-16] MEDS ORDERED: NS IV 1000 ML 2,000 ML ONE (11:29)
[2022-11-16] MEDS ORDERED: MIDAZOLAM 5 MG/5 ML (VERSED) VIAL ONE (11:29)
[2022-11-16] MEDS ORDERED: diphenhydrAMINE 50 MG/ML INJ (BENADRYL) ONE (11:40)
[2022-11-16] MEDS ORDERED: methylPREDNISolone 125 MG (Solu-MEDROL) VIAL ONE (11:40)
--- NOTE | 2022-11-16 12:14 | Tele-ICU Progress Note ---
Subjective Date Seen by a Provider: Nov 16, 2022 Time Seen by a Provider: 12:14 Subjective/Events-last exam (Tele-ICU Physician , Progress Note ) Service provided via interactive audio and video telecommunications E-CARE system to a patient admitted to ICU bed in [facility]. Patient is seen today due to persistent need of ICU care Available chart/ vitals / labs / Images reviewed Video assessment done using teleICU camera, rest of exam as per RN Discussed with RN Events overnight : Afebrile hemodynamically stable Respiratory - 2l I/O = Drips: Pressors- no Consultants: Hospital course: (11/14) 66F Admitted from outside hospital to floor for hyoxia-COVID PNA JUL 2022, COPD, hx of afib. Later [place] to ICU for severe sinus bradycardia. Treated for bacterial PNA but only on 2L NC, not severe/shock. Attempted glucagon for potential beta scar overdose A/P History of paroxysmal atrial fibrillation Sinus node dysfunction, severe bradycardia - pacemeker as per cards - Eliquis as per cards TARSHA - hydration Hypoxia - on 2 l nc ( ?baseline o2 ) COPD - resume home meds Lines : periph , (Central Line Necessity Reviewed) Mejia: + OG: Nutrition: po Analgesia: Anxiety/ delirium VTE Prophylaxis: eliquis ON HOLD today - as per cards Stress Ulcer Prophylaxis: Plans in collaboration with bedside consultants and IM MDs. Discussed with RN to reach out if any questions or concerns A total of 20 minutes of critical care time was devoted to this patient today, required to treat and/or prevent further deterioration of critical care condition ( as above ) . I am remotely monitoring this patient from another state. I am unable to do the bedside exam, and history/physical and pertinent information is taken from other notes in the computer and bedside staff. Sepsis Event Evaluation Height, Weight, BMI Height: '" Weight: lbs. oz. kg; 31.91 BMI Method: Exam Exam Patient acknowledged, consented, and participated in this virtual visit which was conducted using real time audio/video Vital Signs Date Time Temp Pulse Resp B/P (MAP) Pulse Ox O2 Delivery O2 Flow Rate FiO2 11/16/22 11:12 36.2 11/16/22 11:00 45 9 140/58 (90) 96 Nasal Cannula 2.00 11/16/22 10:00 44 12 136/61 (77) 94 Nasal Cannula 2.00 11/16/22 09:00 47 21 94 Nasal Cannula 2.00 11/16/22 08:00 96 Nasal Cannula 2.00 11/16/22 08:00 45 13 95 Nasal Cannula 2.00 11/16/22 07:20 95 Nasal Cannula 3.00 11/16/22 07:16 36.7 11/16/22 07:00 46 18 164/71 (102) 96 Nasal Cannula 2.00 11/16/22 07:00 50 11/16/22 06:00 46 17 96 Nasal Cannula 2.00 11/16/22 05:34 36.1 11/16/22 05:00 45 26 172/71 (104) 96 Nasal Cannula 2.00 11/16/22 04:00 50 26 119/83 (95) 98 Nasal Cannula 2.00 11/16/22 04:00 99 Nasal Cannula 2.00 11/16/22 03:00 48 23 116/68 (84) 99 Nasal Cannula 2.00 11/16/22 02:00 49 24 97 Nasal Cannula 2.00 11/16/22 01:00 48 24 133/70 (91) 97 Nasal Cannula 2.00 11/16/22 00:14 51 11/16/22 00:00 51 17 97/88 (91) 96 Nasal Cannula 2.00 11/15/22 23:59 99 Nasal Cannula 2.00 11/15/22 23:08 36.2 11/15/22 23:00 53 20 105/58 (74) 97 Nasal Cannula 2.00 11/15/22 22:00 54 14 137/103 (114) 96 Nasal Cannula 2.00 11/15/22 21:00 29 15 153/140 (144) 97 Nasal Cannula 2.00 11/15/22 20:00 49 16 140/78 (98) Nasal Cannula 2.00 11/15/22 20:00 99 Nasal Cannula 2.00 11/15/22 19:49 36.0 11/15/22 19:00 54 11/15/22 19:00 59 166/65 (98) Nasal Cannula 2.00 11/15/22 18:00 47 22 156/110 (125) 90 Nasal Cannula 2.00 11/15/22 17:00 52 30 143/95 (111) 90 Nasal Cannula 2.00 11/15/22 16:00 43 19 173/82 (112) 96 Nasal Cannula 2.00 11/15/22 16:00 98 Nasal Cannula 2.00 11/15/22 16:00 36.0 11/15/22 15:00 54 25 173/65 (101) 89 Nasal Cannula 2.00 11/15/22 14:00 36 11/15/22 14:00 50 14 179/82 (114) 91 Nasal Cannula 2.00 11/15/22 13:00 46 11/15/22 13:00 45 7 176/78 (110) 97 Nasal Cannula 2.00 I & O 11/16/22 07:00 Intake Total 2100 ml Output Total 1400 ml Balance 700 ml Height & Weight Height: '" Weight: lbs. oz. kg; 31.91 BMI Method: General Appearance: No Apparent Distress, Obese HEENT: PERRL/EOMI, Pharynx Normal Neck: Normal Inspection, Supple Respiratory: Lungs Clear, No Respiratory Distress Cardiovascular: Bradycardia, Systolic Murmur Extremity: Normal Inspection, No Pedal Edema Neurologic/Psychiatric: Alert, Normal Mood/Affect Skin: Normal Color, Warm/Dry Lymphatic: No Adenopathy Results Lab Laboratory Tests 11/15/22 04:02 11/16/22 06:35 Assessment/Plan Assessment/Plan 1 EL BELTRAN MD Nov 16, 2022 12:14
[2022-11-16] MEDS ORDERED: meTOprolol 5 MG/5 ML (LOPRESSOR) VIAL ONE (14:10)
[2022-11-16] MEDS ORDERED: PATIENT MAY USE OWN MEDS, ALL PO SCH (14:15)
[2022-11-16] MEDS ORDERED: NS IV 1000 ML 1,000 ML IV SCH (14:15)
--- NOTE | 2022-11-16 14:20 | Permanent Pacemaker Implant ---
Dual Chamber Pacemaker Implant PROCEDURE PHYSICIAN: Stacy Deal DUAL CHAMBER PACEMAKER IMPLANTATION: DATE OF PROCEDURE: 11/16/22 INDICATION: Symptomatic bradycardia PREOPERATIVE DIAGNOSIS: Sinus node dysfunction, severe bradycardia POSTOPERATIVE DIAGNOSIS: Sinus node dysfunction, severe bradycardia HISTORY: Dual-chamber permanent pacemaker was recommended. PROCEDURE PERFORMED: 1. Dual-chamber permanent pacemaker implantation. 2. Fluoroscopy. 3. Central venous access. ANESTHESIA: Local anesthesia, conscious sedation. COMPLICATIONS: None. ESTIMATED BLOOD LOSS:20 mL. SPECIMENS: None. ORAL ANTICOAGULATION: None. FLUOROSCOPY TIME: FLUOROSCOPY DOSE: CONTRAST DOSE: PROCEDURE DETAILS: The patient is a 66 female with paroxysmal atrial fibrillation, admitted with severe bradycardia, frequent PVCs, symptomatic with near syncope. Beta-blockers were held for 48 hours, continue to have bradycardia. She was having frequent PVCs, she will require to be back on the beta-blockers and dual-chamber pacemaker implant was advised. After explaining the procedure to the patient all pros and cons were obtained then patient was brought to the cardiac catheterization laboratory. Chest was prepped in a sterile fashion, local anesthesia applied. The left subclavian vein was accessed using modified Seldinger technique, 2 access were acquired. J-wire was placed then sheath was placed. Skin pocket was made and 2 wet gauze were placed in the pocket. Ventricular lead was advanced and placed in the apex. I had to attempt 3 different spots without success then I placed it at the mid septum. Good s ensing and capture activity was noted. Atrial lead was more difficult. It required multiple attempts, after achieving adequate spot and securing the lead with removing of the stylette the lead prolapsed again and lost its position. I released the sutures then put the stylette again and attempted again until I achieved adequate sensing and capture activity. Both leads were sutured and secured. The pocket was irrigated with saline. Medtronic device was placed within the pocket after attaching to the lead. The skin was closed on 2 sutures level. D-Stat solution was injected in the pocket due to the recurrent bleeding. No complication noted. DEVICE INFORMATION: SERENA XT DR ESTEVES [id number] RA LEAD: [id number] RV LEAD: [id number] PER-OPERATIVE DEVICE INTERROGATION: Good sensing and capture activity IMMEDIATE POSTOPERATIVE DEVICE INTERROGATION: Right atrium, bipolar lead, threshold 0.6 ms as 0.5 V. Impedance 551, P wave 2.125 mV. Right ventricle, bipolar lead, threshold 0.6 ms at 0.5 V. Impedance 779, R wave 8.75 mV. PLAN: The patient transferred to the ICU. We will continue with two more doses of IV antibiotics. We will check a chest x-ray and interrogate the device in the morning. The patient will continue on oral antibiotics for 5 days. CONCLUSION: Successful implantation of dual-chamber pacemaker with no complication STACY DEAL MD Nov 16, 2022 14:20
--- NOTE | 2022-11-16 16:41 | Diagnostic Imaging Report ---
Chest 1 view, AP/PA only Indication: Pacemaker placement. Comparison: 11/15/2022. Findings: New left pectoral transvenous dual chamber pacemaker has electrodes overlying the right atrium and right ventricle. The leads are intact and the implanted generator pack is normal in appearance. No pleural effusion or pneumothorax. Small amount of atelectasis has developed in the left lung base. Stable cardiomegaly. Impression: No complication after insertion of left pectoral transvenous pacemaker. Dictated by: Dictated on workstation # [id number]
--- NOTE | 2022-11-16 20:35 | Progress Note - Hospitalist ---
Subjective HPI/CC On Admission Date Seen by Provider: Nov 16, 2022 Time Seen by Provider: 09:35 Serena Carrillo is a 66 year old female with PMH paroxysmal atrial fibrillation, COPD, obesity, who presented to the [place] ER with weakness. She reports feeling chest tightness at times. She denies chest pain at this time. She has had shortness of breath with exertion. She denies palpitaitons. She has had subjective fevers. She has had a dry cough. She denies lightheadedness and dizziness. She denies nausea and vomiting. She denies abdominal pain. She has been unable to eat and drink lately. Subjective/Events-last exam She is feeling about the same. She is sleeping. She denies shortness of breath. She denies chest pain. Objective Exam Vital Signs Vital Signs Date Time Temp Pulse Resp B/P (MAP) Pulse Ox O2 Delivery O2 Flow Rate FiO2 11/16/22 18:00 60 9 184/91 (111) 95 Nasal Cannula 2.00 11/16/22 16:00 35.9 Capillary Refill : General Appearance: No Apparent Distress, Obese Neck: Normal Inspection, Supple Respiratory: Lungs Clear, No Respiratory Distress Cardiovascular: No Murmur, Bradycardia Gastrointestinal: Normal Bowel Sounds, Soft Extremity: Normal Inspection, No Pedal Edema Neurologic/Psychiatric: Alert, Normal Mood/Affect Skin: Normal Color, Warm/Dry Results/Procedures Lab Laboratory Tests 11/16/22 06:35 Patient resulted labs reviewed. Imaging: Reviewed Imaging Report Assessment/Plan Assessment and Plan Assess & Plan/Chief Complaint Bradycardia Paroxysmal atrial fibrillation Frequent PVCs First degree AV block Holding Metoprolol and Flecainide Cardiology following Hold Eliquis Pacemaker today Pneumonia Not septic Reported infiltrate on chest xray at [place] Chest xray without acute process Rocephin and Azithromycin TARSHA Cr 1.8 on arrival, 1.3 this morning, baseline ~0.9 IV fluids Improving Polycythemia vera Thrombocytosis Leukocytosis Not on any medications at home JAK2 positive Started on Hydroxyurea Hematology consulted, follow up outpatient Critical Care Critically Ill Patient Diagnosis/Problems Diagnosis/Problems (1) Severe sinus bradycardia Status: Acute (2) Frequent PVCs Status: Acute (3) First degree AV block Status: Acute (4) Pneumonia Status: Acute (5) TARSHA (acute kidney injury) Status: Acute (6) Obesity Status: Chronic (7) COPD (chronic obstructive pulmonary disease) Status: Chronic (8) Paroxysmal atrial fibrillation Status: Chronic BYRON CERVANTES MD Nov 16, 2022 20:35
[2022-11-16] MEDS: meTOprolol SUCCINATE 100 MG (TOPROL XL) TAB PO SCH (20:58)
[2022-11-16] MEDS: ceFAZolin INJECTION 1,000 MG in NS (IVPB) 50 ML IV SCH (21:01)
[2022-11-17] MEDS: MELATONIN 3 MG TABLET PO PRN (00:13)
[2022-11-17] MEDS: diphenhydrAMINE 25 MG TAB (BENADRYL) PO PRN ×2 (00:13→05:31)
[2022-11-17] MEDS: ACETAMINOPHEN 325 MG TABLET PO PRN ×2 (00:14→05:30)
[2022-11-17 04:13] LABS: BASOPHILS # (AUTO) 0.1 10^3/uL (0.0-0.1); BASOPHILS % (AUTO) 0 % (0-10); EOSINOPHILS % (AUTO) 0 % (0-10); HEMATOCRIT 46 % (35-52); HEMOGLOBIN 14.8 g/dL (11.5-16.0); LYMPHOCYTES # (AUTO) 0.5 10^3/uL (1.0-4.0); LYMPHOCYTES % (AUTO) 3 % (12-44); MEAN CORPUSCULAR HEMOGLOBIN 27 pg (25-34); MEAN CORPUSCULAR HGB CONC 32 g/dL (32-36); MEAN CORPUSCULAR VOLUME 84 fL (80-99); MEAN PLATELET VOLUME 12.1 fL (9.0-12.2); MONOCYTES # (AUTO) 1.5 10^3/uL (0.0-1.0); MONOCYTES % (AUTO) 8 % (0-12); NEUTROPHILS # (AUTO) 16.5 10^3/uL (1.8-7.8); NEUTROPHILS % (AUTO) 88 % (42-75); PLATELET COUNT 539 10^3/uL (130-400); WHITE BLOOD COUNT 18.7 10^3/uL (4.3-11.0)
[2022-11-17 04:34] LABS: ALBUMIN 3.4 GM/DL (3.2-4.5); BILIRUBIN,TOTAL 0.8 MG/DL (0.1-1.0); CALCIUM 8.7 MG/DL (8.5-10.1); CREATININE SERUM 1.25 MG/DL (0.60-1.30); MAGNESIUM 1.8 MG/DL (1.6-2.4); POTASSIUM 4.1 MMOL/L (3.6-5.0); TOTAL PROTEIN 5.4 GM/DL (6.4-8.2)
[2022-11-17] MEDS: POTASSIUM CL 10MEQ/50ML IVPB 50 ML IV SCH (04:54)
[2022-11-17] MEDS: POTASSIUM BICARB 20 MEQ (EFFER-K) TABLET PO SCH (04:55)
[2022-11-17] MEDS: KCL 20 MEQ TAB (K-DUR) PO SCH (04:55)
[2022-11-17] MEDS: ceFAZolin INJECTION 1,000 MG in NS (IVPB) 50 ML IV SCH ×2 (05:01→14:09)
[2022-11-17] MEDS: MAGNESIUM 1 GM/100 ML IVPB 100 ML IV SCH ×2 (05:01→06:35)
--- NOTE | 2022-11-17 07:14 | Physical Therapy Progress Note ---
Therapy Progress Note Patient transferred to ICU after pacemaker implantation. PT will require new orders due to change in status. ANDREW HERR PT Nov 17, 2022 07:14
[2022-11-17] MEDS: HYDROXYUREA 500 MG CAP (HYDREA) PO SCH (08:05)
[2022-11-17] MEDS: dilTIAZem120 MG (CARDIZEM CD) CAP PO SCH (08:05)
[2022-11-17] MEDS: SENNOSIDES 8.6 MG (SENOKOT) TAB PO SCH ×2 (08:05→21:00)
[2022-11-17] MEDS: DOCUSATE SODIUM 100 MG (COLACE) CAP PO SCH ×2 (08:05→21:00)
[2022-11-17] MEDS: meTOprolol SUCCINATE 100 MG (TOPROL XL) TAB PO SCH (08:05)
[2022-11-17] MEDS: AZITHROMYCIN 250 MG TAB (ZITHROMAX) PO SCH (08:05)
[2022-11-17] MEDS ORDERED: LOSARTAN 50 MG (COZAAR) TAB PO SCH (09:00)
--- NOTE | 2022-11-17 09:55 | Physical Therapy Evaluation ---
PT Evaluation-General Medical Diagnosis Admission Date Nov 14, 2022 at 15:00 Medical Diagnosis: pneumonia, TARSHA, paroxysmal a-fib Onset Date: Nov 14, 2022 Therapy Diagnosis Therapy Diagnosis: generalized weakness/debility Precautions Precautions/Isolations: Fall Prevention, Standard Precautions Weight Bear Status Right Lower Extremity: Right Weight Bearing/Tolerated Left Lower Extremity: Left Weight Bearing/Tolerated Referral Physician: Feliciano Reason for Referral: Evaluation/Treatment Medical History Pertinent Medical History: Atrial Fib, COPD Current History s/p pacemaker placement Reviewed History: Yes Social History Home: Single Level Current Living Status: Spouse Entry Into Home: Stairs With Railing Prior Prior Level of Function SCALE: Activities may be completed with or without assistive devices. 5-Haooftvhai-xwrlclt completes the activity by him/herself with no assistance from a helper. 5-Set-up or Clean-up Assistance-helper sets up or cleans up; patient completes activity. [place] assists only prior to or following the activity. 4-Supervision or Touching Assistance-helper provides verbal cues and/or touching/steadying and/or contact guard assistance as patient completes activity. Assistance may be provided throughout the activity or intermittently. 3-Partial/Moderate Assistance-helper does LESS THAN HALF the effort. [place] lifts, holds or supports trunk or limbs, but provides less than half the effort. 2-Substantial/Maximal Assistance-helper does MORE THAN HALF the effort. [place] lifts or holds trunk or limbs and provides more than half the effort. 0-[id number]-yjmjdc does ALL the effort. Patient does none of the effort to complete the activity. Or, the assistance of 2 or more helpers is required for the patient to complete the activity. If activity was not attempted, code reason: 7-Patient Refused. 9-Not Applicable-not attempted and the patient did not perform the activity before the current illness, exacerbation or injury. 10-Not Attempted due to Environmental Limitations-(lack of equipment, weather restraints, etc.). 88-Not Attempted due to Medical Conditions or Safety Concerns. Bed Mobility: 6 Transfers (B,C,W/C): 6 Gait: 6 Stairs: 6 Indoor Mobility (Ambulation): Independent Prior Devices Use: None, Walker PT Evaluation-Current Subjective Patient agrees to PT. NWB left UE due to pacemaker placement. Objective Patient Orientation: Normal For Age Attachments: Oxygen, Mejia Catheter ROM/Strength ROM Lower Extremities bilateral LE WFL Strength Lower Extremities 4/5 grossly bilateral LE all planes Integumentary/Posture Bowel Incontinence: No Bladder Incontinence: Mejia Cath Neuromuscular (Tone, Coordination, Reflexes) grossly intact Sensory Vision: Wears Glasses Hearing: Functional Sensation Right Upper Extremit: Intact Sensation Left Upper Extremity: Intact Sensation Right Lower Extremit: Impaired Sensation Left Lower Extremity: Impaired Transfers Lying to Sitting/Side of Bed(Q: 4 Sit to Stand (QC): 4 Chair/Lzu-yz-Pnefu Xfer(QC): 4 Gait Mode of Locomotion: Walk Anticipated Mode of Locomotion: Walk Walk 10 feet (QC): 4 Walk 50 ft with 2 Turns(QC): 4 Walk 150 ft (QC): 4 Distance: 150' Gait Assistive Device: Cane Single Point Comments/Gait Description CGA for safety Balance Sitting Static: Normal Sitting Dynamic: Normal Standing Static: Fair Standing Dynamic: Fair Assessment/Needs Patient will benefit from skilled PT to address functional strength and mobility to improve current LOF to safely return to home at maximum LOF. Rehab Potential: Fair PT Short Term Goals Short Term Goals Time Frame: Nov 22, 2022 Roll Left & Right: 6 Sit to lyin Lying to sitting on side of be: 6 Sit to stand: 6 Chair/urj-tp-lexnj transfer: 6 Toilet transfer: 6 Walk 10 feet: 6 Walk 50 feet with two turns: 6 PT Plan Problem List Problem List: Activity Tolerance Treatment/Plan Treatment Plan: Continue Plan of Care Treatment Plan: Bed Mobility, Concurrent Therapy, Education, Functional Activity Abdulaziz, Functional Strength, Gait, Safety, Therapeutic Exercise, Transfers Treatment Duration: Nov 22, 2022 Frequency: 6 times per week Estimated Hrs Per Day: .25 hour per day Patient and/or Family Agrees t: Yes Time Time In: 810 Time Out: 823 DATE: Nov 17, 2022 Total Billed Treatment Time: 13 Total Billed Treatment 1 visit EVMod 13 min ANDREW HERR PT Nov 17, 2022 09:55
--- NOTE | 2022-11-17 09:58 | Tele-ICU Progress Note ---
Subjective Date Seen by a Provider: Nov 17, 2022 Time Seen by a Provider: 09:53 Subjective/Events-last exam (Tele-ICU Physician , Progress Note ) Service provided via interactive audio and video telecommunications E-CARE system to a patient admitted to ICU bed in [facility]. Patient is seen today due to persistent need of ICU care Available chart/ vitals / labs / Images reviewed Video assessment done using teleICU camera, rest of exam as per RN Discussed with RN Events overnight : Afebrile hemodynamically stable Respiratory - 2l I/O = Drips: Pressors- no Consultants: Hospital course: (11/14) 66F Admitted from outside hospital to floor for hyoxia-COVID PNA JUL 2022, COPD, hx of afib. Later TX to ICU for severe sinus bradycardia. Treated for bacterial PNA but only on 2L NC, not severe/shock. Attempted glucagon for potential beta scar overdose 11/16 - s/p Dual-chamber permanent pacemaker implantation. A/P History of paroxysmal atrial fibrillation Sinus node dysfunction, severe bradycardia - 11/16/22- s/p Dual-chamber permanent pacemaker implantation. - Eliquis as per cards TARSHA - resolved, - hydration TO STOP HTN - as per cards Hypoxia - on 2-3 l nc ( baseline o2 ) COPD - resume home meds Pneumonia, suspected on chest xray at [place] -Rocephin and Azithromycin - ? 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 Discussed with RN to reach out if any questions or concerns A total of 20 minutes of critical care time was devoted to this patient today, required to treat and/or prevent further deterioration of critical care condition ( as above ) . I am remotely monitoring this patient from another state. I am unable to do the bedside exam, and history/physical and pertinent information is taken from other notes in the computer and bedside staff. Sepsis Event Evaluation Height, Weight, BMI Height: '" Weight: lbs. oz. kg; 31.91 BMI Method: Exam Exam Patient acknowledged, consented, and participated in this virtual visit which was conducted using real time audio/video Vital Signs Date Time Temp Pulse Resp B/P (MAP) Pulse Ox O2 Delivery O2 Flow Rate FiO2 11/17/22 09:00 63 33 174/92 (119) 97 Nasal Cannula 2.00 11/17/22 08:00 64 31 155/84 (107) 95 Nasal Cannula 2.00 11/17/22 08:00 96 Nasal Cannula 2.00 11/17/22 07:00 61 31 165/106 (125) 95 Nasal Cannula 2.00 11/17/22 07:00 61 11/17/22 05:53 37.0 11/17/22 05:30 37.0 11/17/22 04:36 36.3 11/17/22 04:00 96 Nasal Cannula 2.00 11/17/22 01:00 63 11/17/22 00:44 36.9 11/16/22 23:59 96 Nasal Cannula 2.00 11/16/22 20:00 36.3 11/16/22 20:00 96 Nasal Cannula 2.00 11/16/22 19:00 60 11/16/22 18:00 60 9 184/91 (111) 95 Nasal Cannula 2.00 11/16/22 17:00 60 10 171/83 (121) 98 Nasal Cannula 2.00 11/16/22 16:00 60 13 158/80 (105) 98 Nasal Cannula 2.00 11/16/22 16:00 35.9 11/16/22 16:00 95 Nasal Cannula 2.00 11/16/22 15:00 60 16 169/83 (123) 98 Nasal Cannula 2.00 11/16/22 14:45 60 8 192/95 (127) 95 Nasal Cannula 2.00 11/16/22 13:00 60 11/16/22 11:50 98 Nasal Cannula 2.00 11/16/22 11:12 36.2 11/16/22 11:00 45 9 140/58 (90) 96 Nasal Cannula 2.00 11/16/22 10:00 44 12 136/61 (77) 94 Nasal Cannula 2.00 I & O 11/17/22 07:00 Intake Total 4840 ml Output Total 3650 ml Balance 1190 ml Height & Weight Height: '" Weight: lbs. oz. kg; 31.91 BMI Method: General Appearance: No Apparent Distress, Obese HEENT: PERRL/EOMI, Pharynx Normal Neck: Normal Inspection, Supple Respiratory: Lungs Clear, No Respiratory Distress Cardiovascular: No Murmur, Bradycardia Extremity: Normal Inspection, No Pedal Edema Neurologic/Psychiatric: Alert, Normal Mood/Affect Skin: Normal Color, Warm/Dry Lymphatic: No Adenopathy Results Lab Laboratory Tests 11/16/22 06:35 11/17/22 03:57 Assessment/Plan Assessment/Plan 1 EL BELTRAN MD Nov 17, 2022 09:58
--- NOTE | 2022-11-17 10:02 | Cardiology Progress Note ---
Subjective Date Seen by Provider: Nov 17, 2022 Time Seen by Provider: 10:00 Subjective/Events-last exam Patient was seen at bedside, sitting comfortably, having pain at the pacemaker site Review of Systems General: No Chills, No Night Sweats, No Fatigue, No Malaise, No Appetite, No Other HEENT: No Head Aches, No Visual Changes, No Eye Pain, No Ear Pain, No Dysphasia , No Sinus Congestion, No Post Nasal Drip, No Sore Throat, No Other Pulmonary: No Dyspnea, No Cough, No Pleuritic Chest Pain, No Other Cardiovascular: No: Chest Pain, Palpitations, Orthopnea, Paroxysmal Noc. Dyspnea, Edema, Lt Headedness, Other Objective-Cardiology Exam Last Set of Vital Signs Vital Signs 11/17/22 11/17/22 05:53 09:00 Temp 37.0 Pulse 63 Resp 33 B/P (MAP) 174/92 (119) Pulse Ox 97 O2 Delivery Nasal Cannula O2 Flow Rate 2.00 I&O Intake and Output 11/17/22 00:00 Intake Total 2690 ml Output Total 3450 ml Balance -760 ml Intake Oral 440 ml IV Total 2250 ml Output Urine Total 3450 ml General: Alert, Oriented X3, Cooperative HEENT: Atraumatic, PERRLA Neck: Supple, No JVD, No Thyromegaly Lungs: Clear to Auscultation, Normal Air Movement Heart: Regular Rate, Normal S1, Normal S2, No Murmurs Abdomen: Normal Bowel Sounds, Soft, No Tenderness, No Hepatosplenomegaly, No Masses Extremities: No Clubbing, No Cyanosis, No Edema, Normal Pulses, No Tenderness/Swelling Skin: No Rashes, No Breakdown, No Significant Lesion Neuro: Normal Gait, Normal Speech, Strength at 5/5 X4 Ext, Normal Tone, Sensation Intact Psych/Mental Status: Mental Status NL, Mood NL Results Lab Laboratory Tests 11/17/22 03:57 A/P-Cardiology Admission Diagnosis Chest pain Sinus node dysfunction Paroxysmal atrial fibrillation Hypertension Assessment/Plan Chest pain, nonspecific etiology, reporting episodes of pressure and discomfort in the back and chest. No acute EKG changes Cardiac enzymes were negative Stress echocardiogram done in May 2022, patient was in atrial fibrillation at that time, no ischemic changes were reported by Dr. Rodriguez We will consider stress test in the future. Sinus node dysfunction, severe bradycardia. Paroxysmal atrial fibrillation, has tachybradycardia episodes Status post dual-chamber pacemaker implantation on November 16, 2022, checkup was done on November 17, 2022 with good sensing and capture activity. Patient was on flecainide as an outpatient, I will restart the medication today Malignant hypertension, difficult to control Switch metoprolol to Toprol-XL 100 mg daily, add losartan 100 mg daily, add Cardizem CD 120 mg daily, add hydrochlorothiazide 25 mg daily Monitor tolerance and response Dyspnea on exertion, fatigue and lightheadedness probably secondary to severe bradycardia History of hypertension, continue to monitor blood pressure Hyperlipidemia, monitor lipids History of mitral regurgitation. Planning to repeat 2D echo History of hypothyroidism, evaluate TSH STACY JEONG MD Nov 17, 2022 10:02
[2022-11-17] MEDS: FLECAINIDE 100 MG (TAMBOCOR) TAB PO SCH ×2 (10:12→20:44)
[2022-11-17] MEDS ORDERED: LOSARTAN 50 MG (COZAAR) TAB PO NR (10:30)
[2022-11-17] MEDS ORDERED: MTP100TCR PO (10:55)
[2022-11-17] MEDS ORDERED: FLEC100T PO (10:55)
[2022-11-17] MEDS ORDERED: CARB15DR OU (10:55)
[2022-11-17] MEDS ORDERED: RT-ALBUINH INH (10:55)
[2022-11-17] MEDS ORDERED: DOCU100C37 PO (10:55)
[2022-11-17] MEDS ORDERED: DIPH25TA65 PO (10:55)
[2022-11-17] MEDS ORDERED: APIX5TAB PO (10:55)
--- NOTE | 2022-11-17 14:31 | Progress Note - Hospitalist ---
Subjective HPI/CC On Admission Date Seen by Provider: Nov 17, 2022 Serena Carrillo is a 66 year old female with PMH paroxysmal atrial fibrillation, COPD, obesity, who presented to the [place] ER with weakness. She reports feeling chest tightness at times. She denies chest pain at this time. She has had shortness of breath with exertion. She denies palpitaitons. She has had subjective fevers. She has had a dry cough. She denies lightheadedness and dizziness. She denies nausea and vomiting. She denies abdominal pain. She has been unable to eat and drink lately. Subjective/Events-last exam Pt reports doing well today. having some soreness from her pacemaker site but no other complaints. Objective Exam Vital Signs Vital Signs Date Time Temp Pulse Resp B/P (MAP) Pulse Ox O2 Delivery O2 Flow Rate FiO2 11/17/22 12:41 60 11/17/22 12:00 21 158/99 (118) 95 Nasal Cannula 2.00 11/17/22 05:53 37.0 Capillary Refill : General Appearance: No Apparent Distress, Obese Respiratory: Lungs Clear, No Respiratory Distress Cardiovascular: Regular Rate, Rhythm, No Murmur Neurologic/Psychiatric: Alert, Oriented x3 Results/Procedures Lab Laboratory Tests 11/17/22 03:57 Patient resulted labs reviewed. Imaging: Reviewed Imaging Report Assessment/Plan Assessment and Plan Assess & Plan/Chief Complaint Bradycardia Paroxysmal atrial fibrillation Frequent PVCs First degree AV block HTN S/p pacemaker 11/16 Cardiology following Eliquis on hold Diltiazem, Flecainaide, and metoprolol restarted Lostan and HCTZ for BP Pneumonia Not septic Reported infiltrate on chest xray at [place] Chest xray without acute process Rocephin and Azithromycin TARSHA Cr 1.25 Improving Polycythemia vera Thrombocytosis Leukocytosis Not on any medications at home JAK2 positive Started on Hydroxyurea Hematology consulted, follow up outpatient- Discussed with Dr Neely she will see in 1 week as an outpatient for bone marrow biopsy Critical Care Critically Ill Patient RADHA DORADO MD Nov 17, 2022 14:31
--- NOTE | 2022-11-17 15:33 | Occupational Therapy Eval ---
OT Evaluation-General/PLF Medical Diagnosis Admission Date Nov 14, 2022 at 15:00 Medical Diagnosis: pneumonia, TARSHA, paroxysmal a-fib Onset Date: Nov 14, 2022 Therapy Diagnosis Therapy Diagnosis: weakness/ debility Precautions Precautions/Isolations: Fall Prevention, Standard Precautions Weight Bear Status Weight Bearing Restriction: Non Weight Bearing Location Restriction: L UE (PPM restrictions) Sling to reduce ROM to LUE Referral Physician: Feliciano Referral Reason: Self Care, Evaluation/Treatment Medical History Pertinent Medical History: Atrial Fib, COPD Current History s/p PPM Reviewed History: Yes Social History Home: Single Level Current Living Status: Spouse Entry Into Home: Stairs With Railing ADL-Prior Level of Function SCALE: Activities may be completed with or without assistive devices. 3-Wthzrnarym-uphftoq completes the activity by him/herself with no assistance from a helper. 5-Set-up or Clean-up Assistance-helper sets up or cleans up; patient completes activity. [place] assists only prior to or following the activity. 4-Supervision or Touching Assistance-helper provides verbal cues and/or touching/steadying and/or contact guard assistance as patient completes activity. Assistance may be provided throughout the activity or intermittently. 3-Partial/Moderate Assistance-helper does LESS THAN HALF the effort. [place] lifts, holds or supports trunk or limbs, but provides less than half the effort. 2-Substantial/Maximal Assistance-helper does MORE THAN HALF the effort. [place] lifts or holds trunk or limbs and provides more than half the effort. 0-Ncdqlbhtf-rpdarp does ALL the effort. Patient does none of the effort to complete the activity. Or, the assistance of 2 or more helpers is required for the patient to complete the activity. If activity was not attempted, code reason: 7-Patient Refused. 9-Not Applicable-not attempted and the patient did not perform the activity before the current illness, exacerbation or injury. 10-Not Attempted due to Environmental Limitations-(lack of equipment, weather restraints, etc.). 88-Not Attempted due to Medical Conditions or Safety Concerns. Self Care: Independent Functional Cognition: Independent Recently released from Home health OT Current Status Subjective Sitting on side of bed, agreeable to OT Mental Status/Objective Patient Orientation: Person, Place, Time, Situation Attachments: IV, Oxygen, Telemetry Current Glasses/Contacts: Yes Upper Extremity ROM LUE restricted, RUE WFLS Upper Extremity Strength RUE WFLS, LUE NWB ADL-Treatment Eating (QC): 5 (food does not sound good, is drinking) Oral Hygiene (QC): 6 (including flossing pick) Shower/Bathe Self (QC): 88 Upper Body Dressing (QC): 3 Lower Body Dressing (QC): 3 On/Off Footwear (QC): 3 Toileting Hygiene (QC): 3 Other Treatments education PPM precautions, sling use Education OT Patient Education: Correct positioning, Energy conservation, Exercise program, Instructions don/doff splint/brace, Instructions to caregiver, Modified ADL techniques, Progress toward Goal/Update tx plan, Purpose of tx/functional activities, Reviewed precautions, Rehab process, Safety issues, Transfer techniques, Use of adapted equipment Teaching Recipient: Patient, Family Teaching Methods: Demonstration, Discussion Response to Teaching: Verbalize Understanding, Return Demonstration, Reinforcement Needed OT Land Conservation Specialist Goals Nursing Home Goals Eating (QC): 6 Oral Hygiene (QC): 6 Toileting Hygiene (QC): 6 Shower/Bathe Self (QC): 6 Upper Body Dressing (QC): 6 Lower Body Dressing (QC): 6 On/Off Footwear (QC): 6 1=Demonstrate adherence to instructed precautions during ADL tasks. 2=Patient will verbalize/demonstrate understanding of assistive devices/modifications for ADL. 3=Patient will improve strength/tolerance for activity to enable patient to perform ADL's. OT Education/Plan Problem List/Assessment Assessment: Decreased Activ Tolerance, Decreased UE Strength, Impaired Coordination, Impaired Funct Balance, Impaired Self-Care Skills, Restricted Funct UE ROM Discharge Recommendations Plan/Recommendations: Continue POC Therapy Discharge Recommendati: Post Acute OT Treatment Plan/Plan of Care Treatment,Training & Education: Yes Patient would benefit from OT for education, treatment and training to promote independence in ADL's, mobility, safety and/or upper extremity function for ADL's. Plan of Care: ADL Retraining, Functional Mobility, Group Exercise/Act as Ind, UE Funct Exercise/Act Treatment Duration: Nov 29, 2022 Frequency: 3 times per week (3-5 times per week) Estimated Hrs Per Day: .25 hour per day Agreement: Yes Rehab Potential: Fair Time Start Time: 14:30 Stop Time: 14:48 DATE: Nov 17, 2022 Total Time Billed (hr/min): 18 Billed Treatment Time 1 visit EVM 1 18 min VARUN WOMACK OT Nov 17, 2022 15:33
[2022-11-17] MEDS ORDERED: FLECAINIDE 100 MG (TAMBOCOR) TAB PO SCH (21:00)
[2022-11-17] MEDS ORDERED: LABETALOL HCL 20 MG/4 ML VIAL ONE (23:28)
[2022-11-17] MEDS: LABETALOL HCL 20 MG/4 ML VIAL IV PRN (23:30)
[2022-11-17] MEDS: diphenhydrAMINE 50 MG/ML INJ (BENADRYL) IVP PRN (23:30)
[2022-11-18] MEDS: LABETALOL HCL 20 MG/4 ML VIAL IV PRN (05:30)
[2022-11-18 05:42] LABS: BASOPHILS # (AUTO) 0.1 10^3/uL (0.0-0.1); BASOPHILS % (AUTO) 1 % (0-10); LYMPHOCYTES # (AUTO) 1.4 10^3/uL (1.0-4.0); LYMPHOCYTES % (AUTO) 9 % (12-44); WHITE BLOOD COUNT 14.4 10^3/uL (4.3-11.0)
[2022-11-18 05:45] LABS: EOSINOPHILS # (AUTO) 0.4 10^3/uL (0.0-0.3); EOSINOPHILS % (AUTO) 3 % (0-10); HEMATOCRIT 49 % (35-52); HEMOGLOBIN 15.2 g/dL (11.5-16.0); MEAN CORPUSCULAR HEMOGLOBIN 26 pg (25-34); MEAN CORPUSCULAR HGB CONC 31 g/dL (32-36); MEAN CORPUSCULAR VOLUME 85 fL (80-99); MEAN PLATELET VOLUME 12.4 fL (9.0-12.2); MONOCYTES # (AUTO) 0.8 10^3/uL (0.0-1.0); MONOCYTES % (AUTO) 6 % (0-12); NEUTROPHILS # (AUTO) 11.7 10^3/uL (1.8-7.8); NEUTROPHILS % (AUTO) 81 % (42-75); PLATELET COUNT 348 10^3/uL (130-400)
[2022-11-18 06:00] LABS: CREATININE SERUM 1.09 MG/DL (0.60-1.30); MAGNESIUM 1.8 MG/DL (1.6-2.4); POTASSIUM 3.7 MMOL/L (3.6-5.0)
[2022-11-18] MEDS: POTASSIUM BICARB 20 MEQ (EFFER-K) TABLET PO SCH (06:56)
--- NOTE | 2022-11-18 07:58 | Cardiology Progress Note ---
Subjective Date Seen by Provider: Nov 18, 2022 Time Seen by Provider: 07:57 Subjective/Events-last exam Patient is sitting at bedside, feeling better. No new complaint Review of Systems General: No Chills, No Night Sweats, No Fatigue, No Malaise, No Appetite, No Other HEENT: No Head Aches, No Visual Changes, No Eye Pain, No Ear Pain, No Dysphasia, No Sinus Congestion, No Post Nasal Drip, No Sore Throat, No Other Pulmonary: No Dyspnea, No Cough, No Pleuritic Chest Pain, No Other Cardiovascular: No: Chest Pain, Palpitations, Orthopnea, Paroxysmal Noc. Dyspnea, Edema, Lt Headedness, Other Objective-Cardiology Exam Last Set of Vital Signs Vital Signs 11/17/22 11/18/22 11/18/22 11/18/22 19:36 00:00 04:00 07:00 Temp 35.8 Pulse 60 Resp 15 B/P (MAP) 149/65 (93) Pulse Ox 98 O2 Delivery Nasal Cannula O2 Flow Rate 4.00 I&O Intake and Output 11/18/22 00:00 Intake Total 3250 ml Output Total 1000 ml Balance 2250 ml Intake Oral 3250 ml Output Urine Total 1000 ml # Voids 7 # Bowel Movements 4 General: Alert, Oriented X3, Cooperative HEENT: Atraumatic, PERRLA Neck: Supple, No JVD, No Thyromegaly Lungs: Clear to Auscultation, Normal Air Movement Heart: Regular Rate, Normal S1, Normal S2, No Murmurs Abdomen: Normal Bowel Sounds, Soft, No Tenderness, No Hepatosplenomegaly, No Masses Extremities: No Clubbing, No Cyanosis, No Edema, Normal Pulses, No Tenderness/Swelling Skin: No Rashes, No Breakdown, No Significant Lesion Neuro: Normal Gait, Normal Speech, Strength at 5/5 X4 Ext, Normal Tone, Sensation Intact Psych/Mental Status: Mental Status NL, Mood NL Results Lab Laboratory Tests 11/18/22 04:40 A/P-Cardiology Admission Diagnosis Chest pain Sinus node dysfunction Paroxysmal atrial fibrillation Hypertension Assessment/Plan Chest pain, nonspecific etiology, reporting episodes of pressure and discomfort in the back and chest. No acute EKG changes Cardiac enzymes were negative Stress echocardiogram done in May 2022, patient was in atrial fibrillation at that time, no ischemic changes were reported by Dr. Rodriguez We will consider stress test in the future. Sinus node dysfunction, severe bradycardia. Paroxysmal atrial fibrillation, has tachybradycardia episodes Status post dual-chamber pacemaker implantation on November 16, 2022, checkup was done on November 17, 2022 with good sensing and capture activity. Flecainide was restarted. Malignant hypertension, difficult to control Switched metoprolol to Toprol-XL 100 mg daily, add losartan 100 mg daily, add Cardizem CD 120 mg daily, add hydrochlorothiazide 25 mg daily Continue to monitor Dyspnea on exertion, fatigue and lightheadedness probably secondary to severe bradycardia History of hypertension, continue to monitor blood pressure Hyperlipidemia, monitor lipids History of mitral regurgitation. Planning to repeat 2D echo History of hypothyroidism, evaluate TSH STACY JEONG MD Nov 18, 2022 07:58
[2022-11-18] MEDS ORDERED: CEFUROXIME AXETIL 500 MG PO SCH (08:00)
[2022-11-18] MEDS: dilTIAZem120 MG (CARDIZEM CD) CAP PO SCH (08:06)
[2022-11-18] MEDS: AZITHROMYCIN 250 MG TAB (ZITHROMAX) PO SCH (08:06)
[2022-11-18] MEDS: FLECAINIDE 100 MG (TAMBOCOR) TAB PO SCH (08:06)
[2022-11-18] MEDS: HYDROXYUREA 500 MG CAP (HYDREA) PO SCH (08:06)
[2022-11-18] MEDS: SENNOSIDES 8.6 MG (SENOKOT) TAB PO SCH (08:07)
[2022-11-18] MEDS: DOCUSATE SODIUM 100 MG (COLACE) CAP PO SCH (08:07)
[2022-11-18] MEDS ORDERED: LOSARTAN 100 MG (COZAAR) TABLET PO SCH (09:00)
[2022-11-18] MEDS ORDERED: meTOprolol SUCCINATE 100 MG (TOPROL XL) TAB PO SCH (09:00)
[2022-11-18] MEDS ORDERED: CEFDINIR 300 MG (OMNICEF) CAP PO SCH (09:00)
--- NOTE | 2022-11-18 09:37 | Discharge Inst-Simple/Standard ---
Discharge Inst-Standard Patient Instructions/Follow Up Plan of Care/Instructions/FU: Please continue to take your medications as written. Please follow up with your primary care doctor to follow up this hospital stay. Activity as Tolerated: Yes Discharge Diet: Cardiac Diet Return to The Hospital For: Chest pain, shortness of breath, fever, weakness, if you feel you are getting worse. RADHA DORADO MD Nov 18, 2022 09:37
[2022-11-18] MEDS ORDERED: CEFD300C3 PO (09:39)
[2022-11-18] MEDS ORDERED: DILT-27 PO (09:39)
[2022-11-18] MEDS ORDERED: LOSA100T57 PO (09:39)
[2022-11-18] MEDS ORDERED: MTP100TCR PO (09:39)
--- NOTE | 2022-11-18 09:41 | Discharge Summary ---
Diagnosis/Chief Complaint Date of Admission Nov 14, 2022 at 15:00 Date of Discharge Discharge Date: Nov 18, 2022 Admission Diagnosis Pneumonia Primary Care Jon Mohamud MD Discharge Diagnosis (1) Severe sinus bradycardia Status: Acute (2) Frequent PVCs Status: Acute (3) First degree AV block Status: Acute (4) Pneumonia Status: Acute (5) TARSHA (acute kidney injury) Status: Acute (6) Obesity Status: Chronic (7) COPD (chronic obstructive pulmonary disease) Status: Chronic (8) Paroxysmal atrial fibrillation Status: Chronic Discharge Summary Discharge Physical Exam Allergies: Coded Allergies: Penicillins (Verified Allergy, Severe, Shortness of Breath, 07/24/22) SOB, swelling, hives chlorhexidine (Verified Allergy, Intermediate, Itching, 07/24/22) swelling, hives. isopropyl alcohol (Verified Allergy, Intermediate, Itching, 07/24/22) swelling, hives. Tricyclic Antidepressants and Tricy (Verified Allergy, Unknown, 11/14/22) Sulfa (Sulfonamide Antibiotics) (Verified Adverse Reaction, Intermediate, Rash, 11/14/22) simvastatin (Verified Adverse Reaction, Intermediate, 11/14/22) MUSCLE CRAMPS amitriptyline (Verified Adverse Reaction, Unknown, 11/14/22) PATIENT STATES RENAL FAILURE celecoxib (Verified Adverse Reaction, Unknown, 11/14/22) PATIENT STATES IT JUST DOESN'T WORK chlorzoxazone (Verified Adverse Reaction, Unknown, 11/14/22) PATIENT STATES IT JUST DOESN'T WORK pregabalin (Verified Adverse Reaction, Unknown, 11/14/22) PATIENT STATES IT JUST DOESN'T WORK Vitals & I&Os Vital Signs Date Time Temp Pulse Resp B/P (MAP) Pulse Ox O2 Delivery O2 Flow Rate FiO2 11/18/22 08:00 97 Nasal Cannula 4.00 11/18/22 08:00 36.3 61 16 160/77 (104) Hospital Course Labs (last 24 hrs) Laboratory Tests 11/18/22 04:40: White Blood Count 14.4H, Red Blood Count 5.79H, Hemoglobin 15.2, Hematocrit 49, Mean Corpuscular Volume 85, Mean Corpuscular Hemoglobin 26, Mean Corpuscular Hemoglobin Concent 31L, Red Cell Distribution Width 17.6H, Platelet Count 348, Mean Platelet Volume 12.4H, Immature Granulocyte % (Auto) 1, Neutrophils (%) (Auto) 81H, Lymphocytes (%) (Auto) 9L, Monocytes (%) (Auto) 6, Eosinophils (%) (Auto) 3, Basophils (%) (Auto) 1, Neutrophils # (Auto) 11.7H, Lymphocytes # (Auto) 1.4, Monocytes # (Auto) 0.8, Eosinophils # (Auto) 0.4H, Basophils # (Auto) 0.1, Immature Granulocyte # (Auto) 0.1, Percent Immature Platelet Fraction 11.0H, Sodium Level 140, Potassium Level 3.7, Chloride Level 99, Carbon Dioxide Level 27, Anion Gap 14, Blood Urea Nitrogen 20H, Creatinine 1.09, Estimat Glomerular Filtration Rate 56, BUN/Creatinine Ratio 18, Glucose Level 72, Calcium Level 9.0, Magnesium Level 1.8 Patient resulted labs reviewed. Pending Labs Laboratory Tests 11/18/22 04:40: White Blood Count 14.4, Red Blood Count 5.79, Hemoglobin 15.2, Hematocrit 49, Mean Corpuscular Volume 85, Mean Corpuscular Hemoglobin 26, Mean Corpuscular Hemoglobin Concent 31, Red Cell Distribution Width 17.6, Platelet Count 348, Mean Platelet Volume 12.4, Immature Granulocyte % (Auto) 1, Neutrophils (%) (Auto) 81, Lymphocytes (%) (Auto) 9, Monocytes (%) (Auto) 6, Eosinophils (%) (Auto) 3, Basophils (%) (Auto) 1, Neutrophils # (Auto) 11.7, Lymphocytes # (Auto) 1.4, Monocytes # (Auto) 0.8, Eosinophils # (Auto) 0.4, Basophils # (Auto) 0.1, Immature Granulocyte # (Auto) 0.1, Percent Immature Platelet Fraction 11.0, Sodium Level 140, Potassium Level 3.7, Chloride Level 99, Carbon Dioxide Level 27, Anion Gap 14, Blood Urea Nitrogen 20, Creatinine 1.09, Estimat Glomerular Filtration Rate 56, BUN/Creatinine Ratio 18, Glucose Level 72, Calcium Level 9.0, Magnesium Level 1.8 Imaging: Reviewed Imaging Report Discharge Home Medications: Active Scripts Active Losartan Potassium 100 Mg Tablet 100 Mg PO DAILY Diltiazem 24Hr ER (Diltiazem HCl) 120 Mg Cap.er.24h 120 Mg PO DAILY Metoprolol Succinate 100 Mg Tab.er.24h 100 Mg PO DAILY Cefdinir 300 Mg Capsule 300 Mg PO BID Reported Docusate Sodium 100 Mg Capsule 100 Mg PO BID Refresh Tears (Carboxymethylcellulose Sodium) 0.5 % Drops 2 Drops OU UD PRN Ventolin Hfa (Albuterol Sulfate) 1 Puff Puff 2 Puff INH Q4H PRN 1 PUFF = 90 MCG Benadryl Allergy (Diphenhydramine HCl) 25 Mg Tablet 25-50 Mg PO BID PRN Eliquis (Apixaban) 5 Mg Tablet 5 Mg PO BID Flecainide Acetate 100 Mg Tablet 150 Mg PO BID TAKES 1 & (100MG) TABS Metoprolol Succinate 100 Mg Tab.er.24h 100 Mg PO BID Brittany Allergy (Fexofenadine HCl) 60 Mg Tablet 60 Mg PO DAILY PRN Tizanidine HCl 2 Mg Tablet 1 Mg PO BID TAKES OF A 2MG TABLET Levothyroxine Sodium 50 Mcg Tablet 50 Mcg PO DAILY Tramadol HCl ER (Tramadol HCl) 300 Mg Tab.er.24h 300 Mg PO DAILY Pantoprazole Sodium 40 Mg Tablet.dr 40 Mg PO HS Fenofibrate (Fenofibrate Nanocrystallized) 145 Mg Tablet 145 Mg PO HS LAST FILLED 09-26-2022 #30 DAY SUPPLY Ezetimibe 10 Mg Tablet 10 Mg PO HS Escitalopram Oxalate 20 Mg Tablet 20 Mg PO HS Instructions to patient/family Please see electronic discharge instructions given to patient. RADHA DORADO MD Nov 18, 2022 09:41
--- NOTE | 2022-11-18 10:14 | Physical Therapy Daily Note ---
PT Daily Note-Current Subjective Patient agrees to PT. She reports she may be going home today. Pain Section J - Health Conditions 1. Rarely or not at all 2. Occasionally 3. Frequently 4. Almost constantly 8. Unable to answer Pain Effect on Sleep: 1 Pain Interference with Therapy: 1 Pain Interference w/Day-to-Day: 1 Mental Status Patient Orientation: Normal For Age Attachments: Oxygen (3) Transfers SCALE: Activities may be completed with or without assistive devices. 1-Ooprfloetj-fzmnhgj completes the activity by him/herself with no assistance from a helper. 5-Set-up or Clean-up Assistance-helper sets up or cleans up; patient completes activity. [place] assists only prior to or following the activity. 4-Supervision or Touching Assistance-helper provides verbal cues and/or touching/steadying and/or contact guard assistance as patient completes activity. Assistance may be provided throughout the activity or intermittently. 3-Partial/Moderate Assistance-helper does LESS THAN HALF the effort. [place] lifts, holds or supports trunk or limbs, but provides less than half the effort. 2-Substantial/Maximal Assistance-helper does MORE THAN HALF the effort. [place] lifts or holds trunk or limbs and provides more than half the effort. 1-Cpqvkkrdk-sgugzl does ALL the effort. Patient does none of the effort to complete the activity. Or, the assistance of 2 or more helpers is required for the patient to complete the activity. If activity was not attempted, code reason: 7-Patient Refused. 9-Not Applicable-not attempted and the patient did not perform the activity before the current illness, exacerbation or injury. 10-Not Attempted due to Environmental Limitations-(lack of equipment, weather restraints, etc.). 88-Not Attempted due to Medical Conditions or Safety Concerns. Sit to Stand (QC): 5 Weight Bearing Right Lower Extremity: Right Weight Bearing/Tolerated Left Lower Extremity: Left Weight Bearing/Tolerated Gait Training Distance: 250' Walk 10 feet (QC): 4 Walk 50 ft with 2 Turns(QC): 4 Walk 150 ft (QC): 4 Gait Assistive Device: Cane Single Point CGA to SBA for safety/functional gait sequence Exercises Seated Therapy Exercises: Ankle pumps, Long arc quads, Hip flexion Seated Reps: 15 Assessment Patient does fatigue with activity. Remains up in chair. Continue to increase activity. Sling in place left UE with patient compliance with NWB left UE. PT Short Term Goals Short Term Goals Time Frame: Nov 22, 2022 Roll Left & Right: 6 Sit to lyin Lying to sitting on side of be: 6 Sit to stand: 6 Chair/ybs-ym-khlof transfer: 6 Toilet transfer: 6 Walk 10 feet: 6 Walk 50 feet with two turns: 6 PT Plan Treatment/Plan Treatment Plan: Continue Plan of Care Treatment Plan: Bed Mobility, Concurrent Therapy, Education, Functional Activity Abdulaziz, Functional Strength, Gait, Safety, Therapeutic Exercise, Transfers Treatment Duration: Nov 22, 2022 Frequency: 6 times per week Estimated Hrs Per Day: .25 hour per day Patient and/or Family Agrees t: Yes Time Time In: 815 Time Out: 838 DATE: Nov 18, 2022 Total Billed Treatment Time: 23 Total Billed Treatment 1 visit EX 8 min FA 15 min ANDREW HERR PT Nov 18, 2022 10:14
--- NOTE | 2022-11-18 10:55 | Tele-ICU Progress Note ---
Subjective Date Seen by a Provider: Nov 18, 2022 Time Seen by a Provider: 10:54 Subjective/Events-last exam (Tele-ICU Physician , Progress Note ) Service provided via interactive audio and video telecommunications E-CARE system to a patient admitted to ICU bed in [facility]. Patient is seen today due to persistent need of ICU care Available chart/ vitals / labs / Images reviewed Video assessment done using teleICU camera, rest of exam as per RN Discussed with RN Events overnight : HNT , - Afebrile hemodynamically stable Respiratory - 4L I/O = pos 4 L Drips: Pressors- no Consultants: Hospital course: (11/14) 66F Admitted from outside hospital to floor for hyoxia-COVID PNA JUL 2022, COPD, hx of afib. Later [place] to ICU for severe sinus bradycardia. Treated for bacterial PNA but only on 2L NC, not severe/shock. Attempted glucagon for potential beta scar overdose 11/16 - s/p Dual-chamber permanent pacemaker implantation. 11/18- A/P History of paroxysmal atrial fibrillation Sinus node dysfunction, severe bradycardia - 11/16/22- s/p Dual-chamber permanent pacemaker implantation. - ? resume Eliquis -as per cards - last night - AAO today , baseline HTN - as per cards TARSHA - resolved, - hydration STOP Hypoxia - on 2-3 l nc ( baseline o2 ) COPD - resume home meds Pneumonia, suspected on chest xray at [place] -Rocephin and Azithromycin - ? short course FINISHED Polycythemia vera, Thrombocytosis, Leukocytosis -JAK2 positive - on Hydroxyurea -Hematology consulted Lines : periph , (Central Line Necessity Reviewed) Mejia: + OG: Nutrition: po Analgesia: Anxiety/ delirium VTE Prophylaxis: eliquis ON HOLD today - as per cards Stress Ulcer Prophylaxis: Plans in collaboration with bedside consultants and IM MDs. Discussed with RN to reach out if any questions or concerns A total of 20 minutes of critical care time was devoted to this patient today, required to treat and/or prevent further deterioration of critical care condition ( as above ) . I am remotely monitoring this patient from another state. I am unable to do the bedside exam, and history/physical and pertinent information is taken from other notes in the computer and bedside staff. Sepsis Event Evaluation Height, Weight, BMI Height: '" Weight: lbs. oz. kg; 31.68 BMI Method: Exam Exam Patient acknowledged, consented, and participated in this virtual visit which was conducted using real time audio/video Vital Signs Date Time Temp Pulse Resp B/P (MAP) Pulse Ox O2 Delivery O2 Flow Rate FiO2 11/18/22 08:00 97 Nasal Cannula 4.00 11/18/22 08:00 36.3 61 16 160/77 (104) 98 Nasal Cannula 4.00 11/18/22 07:00 60 11/18/22 04:00 61 149/65 (93) 98 Nasal Cannula 4.00 11/18/22 01:04 63 11/18/22 00:00 66 15 157/79 (112) 96 Nasal Cannula 4.00 11/17/22 20:00 97 Nasal Cannula 4.00 11/17/22 20:00 63 14 132/94 (113) 97 Nasal Cannula 4.00 11/17/22 19:36 35.8 61 18 187/81 (116) 96 Nasal Cannula 2.00 11/17/22 19:00 61 11/17/22 19:00 61 16 148/85 (106) 97 Nasal Cannula 4.00 11/17/22 16:00 36.0 11/17/22 16:00 61 26 153/77 (102) 98 Nasal Cannula 2.00 11/17/22 12:41 60 11/17/22 12:00 60 21 158/99 (118) 95 Nasal Cannula 2.00 11/17/22 12:00 96 Nasal Cannula 2.00 11/17/22 12:00 36.3 I & O 11/18/22 07:00 Intake Total 1050 ml Output Total 300 ml Balance 750 ml Height & Weight Height: '" Weight: lbs. oz. kg; 31.68 BMI Method: General Appearance: No Apparent Distress, Obese HEENT: PERRL/EOMI, Pharynx Normal Neck: Normal Inspection, Supple Respiratory: Lungs Clear, No Respiratory Distress Cardiovascular: Regular Rate, Rhythm, No Murmur Extremity: Non Tender, No Pedal Edema Neurologic/Psychiatric: Alert, Oriented x3 Skin: Normal Color, Warm/Dry Lymphatic: No Adenopathy Results Lab Laboratory Tests 11/17/22 03:57 11/18/22 04:40 Assessment/Plan Assessment/Plan 1 EL BELTRAN MDb 21, 2023 10:55
[2022-11-18 12:12] VITALS: BP 145/88
== END 2022-11-18 12:17 | disposition home or self-care (01) | DRG 242 ==
LOC: CSD 15:00 → ICU 18:11
PROVIDERS: ADMIT Internal Medicine; ATTEND Internal Medicine
PROC: 0JH606Z Insertion of Pacemaker, Dual Chamber into Chest Subcutaneous Tissue and Fascia, Open Approach (ICD-10-PCS; principal; 2022-11-16)
PROC: 02H63JZ Insertion of Pacemaker Lead into Right Atrium, Percutaneous Approach (ICD-10-PCS; 2022-11-16)
PROC: 02HK3JZ Insertion of Pacemaker Lead into Right Ventricle, Percutaneous Approach (ICD-10-PCS; 2022-11-16)
DX: I49.5 Sick sinus syndrome (principal); J15.9 Unspecified bacterial pneumonia; N17.9 Acute kidney failure, unspecified; J44.0 Chronic obstructive pulmonary disease with (acute) lower respiratory infection; I44.1 Atrioventricular block, second degree; I49.3 Ventricular premature depolarization; I48.0 Paroxysmal atrial fibrillation; E66.9 Obesity, unspecified; Z68.31 Body mass index [BMI] 31.0-31.9, adult; D45 Polycythemia vera; D75.839 Thrombocytosis, unspecified; D72.829 Elevated white blood cell count, unspecified; R09.02 Hypoxemia; U09.9 Post COVID-19 condition, unspecified; E03.9 Hypothyroidism, unspecified; I34.0 Nonrheumatic mitral (valve) insufficiency; Z99.81 Dependence on supplemental oxygen; Z79.01 Long term (current) use of anticoagulants; Z79.899 Other long term (current) drug therapy; Z88.0 Allergy status to penicillin; Z88.2 Allergy status to sulfonamides; Z88.8 Allergy status to other drugs, medicaments and biological substances
CPT/HCPCS: 33208; 36415; 71045; 80048; 80053; 81000; 83735; 84436; 84443; 84484; 85007; 85025; 85027; 85610; 85730; 93005; 93306

== ENCOUNTER 2022-11-24 13:01 | Outpatient (RCR) | payer MEDICARE ==
[~2022-11-24 13:01] MED LIST changes: +ALBU8.5H6 INH; +CARB15DR OU; +CARB1DRO36 OP; +CBD Gummies PO; +CEFD300C3 PO; +DILT-27 PO; +DIPH25TA65 PO; +DOCU100C37 PO; +EPIN0.3P2 IJ; +LOSA100T57 PO; +RT-ALBUINH INH
[2022-11-24 13:56] LABS: BASOPHILS # (AUTO) 0.1 10^3/uL (0.0-0.1); BASOPHILS % (AUTO) 1 % (0-10); EOSINOPHILS # (AUTO) 0.2 10^3/uL (0.0-0.3); EOSINOPHILS % (AUTO) 2 % (0-10); HEMATOCRIT 49 % (35-52); HEMOGLOBIN 15.1 g/dL (11.5-16.0); LYMPHOCYTES # (AUTO) 0.8 10^3/uL (1.0-4.0); LYMPHOCYTES % (AUTO) 6 % (12-44); MEAN CORPUSCULAR HEMOGLOBIN 26 pg (25-34); MEAN CORPUSCULAR HGB CONC 31 g/dL (32-36); MEAN CORPUSCULAR VOLUME 83 fL (80-99); MEAN PLATELET VOLUME 12.5 fL (9.0-12.2); MONOCYTES # (AUTO) 0.9 10^3/uL (0.0-1.0); MONOCYTES % (AUTO) 7 % (0-12); NEUTROPHILS # (AUTO) 10.4 10^3/uL (1.8-7.8); NEUTROPHILS % (AUTO) 84 % (42-75); PLATELET COUNT 320 10^3/uL (130-400); WHITE BLOOD COUNT 12.4 10^3/uL (4.3-11.0)
[2022-11-24 14:04] LABS: ALBUMIN 3.6 GM/DL (3.2-4.5)
[2022-11-24 14:05] LABS: CALCIUM 8.8 MG/DL (8.5-10.1)
[2022-11-24 14:06] LABS: TOTAL PROTEIN 6.1 GM/DL (6.4-8.2)
[2022-11-24 14:08] LABS: BILIRUBIN,TOTAL 1.5 MG/DL (0.1-1.0)
[2022-11-24 14:10] LABS: CREATININE SERUM 1.07 MG/DL (0.60-1.30)
== END 2022-11-25 | disposition home or self-care (01) ==
LOC: ONC 13:01
PROVIDERS: ATTEND Internal Medicine Hematology & Oncology
DX: I49.5 Sick sinus syndrome (principal); I10 Essential (primary) hypertension; E78.2 Mixed hyperlipidemia; E66.9 Obesity, unspecified; Z95.0 Presence of cardiac pacemaker
CPT/HCPCS: 80053; 82728; 83540; 83550; 85025

== ENCOUNTER → 2022-12-08 | Outpatient (CLI) | payer MEDICARE ==
[2022-12-08 13:51] LABS: ABSOLUTE RETIC # 177 10e9/uL (24-90); RETICULOCYTE % 2.69 % (0.50-2.40)
[2022-12-08 14:14] LABS: BAND NEUTROPHILS 1 %; EOSINOPHILS % (MANUAL) 2 %; LYMPHOCYTES % (MANUAL) 4 %; MONOCYTES % (MANUAL) 10 %; NEUTROPHILS % (MANUAL) 79 %
[2022-12-08 14:15] LABS: PLATELET ESTIMATE GIANT/LARGE PLT; REACTIVE LYMPHOCYTES 4 %
[2022-12-08 14:16] LABS: PLATELET CLUMPS RARE; POLYCHROMASIA MODERATE
[2022-12-08 14:18] LABS: ANISOCYTOSIS SLIGHT; ELLIPT/OVALOCYTES SLIGHT; MICROCYTOSIS SLIGHT; TARGET CELLS MODERATE
== END ==
LOC: LABNPT 13:38
PROVIDERS: ATTEND Nurse Practitioner Family
DX: D72.829 Elevated white blood cell count, unspecified (principal); D75.839 Thrombocytosis, unspecified
CPT/HCPCS: 85007; 85045; 85055